=== PATIENT | female | born 1945 | race Caucasian/White ===

== ENCOUNTER → 2016-06-03 | Outpatient (CLI) | payer MEDICARE ==
[~2016-06-03] MED LIST: /HCTZ25TA PO; /METO25TAB PO; ASPI325T5 PO; CLOP75TA2 PO; CRES20TA PO; DIOV320T PO; GABA300C2 PO; LOPR50TA PO; LORTTAB5 PO; NITR0.4D6 TD; PRIL20CA PO; RANE1000 PO; VANC12CA PO; XANA0.25 PO; ZETI10TA21 PO
--- NOTE | 2016-06-22 00:05 | ECWPNPC ---
PATIENT NAME: KATHIE MARSHALL : 1945 GENDER: FEMALE VISIT DATE: 06/03/2016 DISCHARGE DATE: 06/03/16 1429 VISIT LOCKED DATE TIME: PHYSICIAN: LUCY SOSA RESOURCE: LUCY SOSA REASON FOR APPOINTMENT 1. LBP HISTORY OF PRESENT ILLNESS NEW PATIENT CONSULT: 71 Y/O FEMALE WITH LONG HX OF CHRONIC LBP AND BILAT.LEG PAIN.SHE GENERALLY HURTS ALL OVER.CHIEF COMPLAINT IS WHAT SOUNDS LIKE NEUROPATHY IN HER LOWER EXTREMITIES AGGREVATED WITH WALKING.HX OF CARDIAC ISSUES AND MAY HAVE SOME NEUROPATHY RELATED TO THIS.RATING PAIN VAS 3/10.CURRENTLY USING TRAMADOL 50MG PRN FOR SEVERE PAIN APROXIMATLEY ONE PER DAY AND IS HAPPY WITH THE RELIEF THIS GIVES HER.AT ONE POINT SHE WAS USING HYDROCODONE BUT HAS NOT USED THAT IN A LONG TIME BUT FINDS IT HELPFUL FOR INFREQUENT SEVERE PAIN EPISODES.DISCUSSED AT LENGTH DIFFERENT MEDICATION OPTIONS TO INCLUDE CYMBALTA.PATIENTS VOICED HIS SERIOUS CONCERNS WITH USE OF CYMBALTA.AFTER MUCH DISCUSSION PATIENT INFORMED ME THAT SHE IS NOT INTERESTED IN TRIALING DIFFERENT MEDICATIONS OR ANY INTERVENTIONAL TRIALS FOR BETTER PAIN CONTROL.DENIES BOWEL AND BLADDER INCONTINENECE.NO RECENT FEVER OR SUDDEN WEIGHT LOSS.I TOLD PATIENT THAT WE WOULD NOT RECOMMEND USE OF HYDROCODONE WITH XANAX DUE TO POTENTIAL SERIOUS LIFE THREATENING OUTCOMES. WHEN DID YOUR PAIN FIRST START? . BRIEFLY DESCRIBE HOW YOUR PAIN STARTED? . HOW DOES YOUR PAIN CHANGE WITH TIME? . DOES YOUR PAIN AWAKEN YOU FROM SLEEP? . HOW MANY HOURS OF SLEEP DO YOU NORMALLY GET? . ANY DIAGNOSTIC TESTING? . FACILITY WHERE TESTS WERE DONE? ____. PAIN TREATMENT TREATMENT YES CANCER HAVE YOU EVER HAD ANY TYPE OF CANCER?NO NO. PAIN SCREENING: PATIENT HAS A COMPLAINT OF ACUTE OR CHRONIC PAIN YES FALL RISK SCREENING: SCREENING :NO FALLS IN THE PAST YEAR PAYNE INVENTORY: QUESTIONNAIRE ASSESSEDTBD SCORE VALUE CALCULATED TBD CURRENT MEDICATIONS TAKING PLAVIX 75 MG TABLET 1 TABLET ORALLY ONCE A DAY TAKING ASPIRIN 325 MG TABLET 1 TABLET ORALLY ONCE A DAY TAKING RANEXA 1000 MG TABLET EXTENDED RELEASE 12 HOUR 1 TABLET ORALLY TWICE A DAY TAKING XANAX 0.25 MG TABLET 1 TABLET ORALLY TWO TIMES A DAY OR PRN TAKING COLACE 100 MG CAPSULE 2 CAPSULE NEEDED ORALLY ONCE A DAY TAKING PROTONIX 40 MG TABLET DELAYED RELEASE 1 TABLET ORALLY ONCE A DAY TAKING MECLIZINE HCL 25 MG TABLET CHEWABLE 1 TABLET NEEDED ORALLY ONCE A DAY TAKING NITROGLYCERINE 0.4MG PATCH TAKING POTASSIUM 10MEG 1 TAB ORALLY TWO TIMES A WEEK TAKING TRAMADOL HCL 50 MG TABLET 1 TAB ORALLY EVERY 8 HRS NEEDED TAKING METOPROLOL TARTRATE 50 MG TABLET 1/2 TABLET WITH FOOD ORALLY TWICE A DAY TAKING LOSARTAN POTASSIUM 50 MG TABLET 1 TABLET ORALLY ONCE A DAY TAKING PAXIL 10 MG TABLET 1 TABLET IN THE MORNING ORALLY ONCE A DAY TAKING PRN NOT-TAKING GABAPENTIN 300 300 MG TABLET ORALLY DAILY NEEDED NOT-TAKING BUSPIRONE HCL 5 MG TABLET 1 TABLET ORALLY TWICE A DAY NOT-TAKING HYDROCHLOROTHIAZIDE 12.5 MG CAPSULE 1 CAPSULE ORALLY ONCE A DAY NOT-TAKING ZETIA 10 MG TABLET 1 TABLET ORALLY ONCE A DAY NOT-TAKING CRESTOR 20 MG TABLET 1 TABLET ORALLY ONCE A DAY NOT-TAKING PERCOCET 5-325 MG TABLET 1-2 TABLET(S) ORALLY EVERY 6 HRS NEEDED FOR PAIN (MAX DAILY DOSE 8 TABS) NOT-TAKING FLOMAX 0.4 MG CAPSULE 1 CAPSULE 30 MINUTES AFTER THE SAME MEAL EACH DAY ORALLY ONCE A DAY MEDICATION LIST REVIEWED AND RECONCILED WITH THE PATIENT PAST MEDICAL HISTORY CVA BRADYCARDIA HTN SYNCOPAL EVENT X1 10/17/12 MIGRAINES SLEEP APNEA WITH INFREQUENT USE OF CPAP CAD, S/P OK ANXIETY/DEPRESSION ARTHRITIS HYPERCHOLESTEROLEMIA PERIPHERAL VASCULAR DISEASE (CAROTIDS, LOWER EXTREMITIES) CAROTID ARTERY DISEASE PAPILLARY UROTHELIAL CARCINOMA COLONOSCOPY 03/30/2016 WITH HEMORRHOIDS AND DIVERTICULOSIS NONCONCLUSIVE LEXISCAN CARDIOLITE STRESS TEST, NORMAL MYOCARDIAL PERFUSION, PRESERVED LV FUNCTION 03/2016 ALLERGIES ADHESIVE TAPE: HIVES: ALLERGY TETRACYCLINE HCL: DIARRHEA: ALLERGY MINOCINS: DIARRHEA: ALLERGY TRENTAL: SICK CODEINE PHOSPHATE (FOR ALLERGIES USE ONLY): HIVES BUTABARBITAL SODIUM: HIVES NITROSTAT: ANAPHYLAXIS BUSPAR: ALLERGY SURGICAL HISTORY TRIPLE BYPASS 2001 MULTIPLE PROCEDURES WITH CARDIAC STENTS [id number] BACK SURGERY 1973 STENT RIGHT LEG 2015 RIGHT NEPHRECTOMY 2016 LUMBAR 4-5M 1974 FAMILY HISTORY FATHER: SIBLINGS: ALIVE SOCIAL HISTORY GENERAL: PAIN CLINIC PFS, CLERGY, PUBLIC HEALTH REFERRALS CLERGY REFERRAL NEEDED?NO WAS THE PROVIDER NOTIFIED OF ANY PERTINENT INFO?NO PFS REFERRAL NEEDED?NO PUBLIC HEALTH REFERRAL NEEDED?NO PSYCHOLOGICAL HX TREATMENTNO ALCOHOL OR DRUG TREATMENTNO PATIENT: ____. ADVANCED DIRECTIVES HEALTH CARE PROXY?NO POWER OF ESL TUTOR?NO SCREENING/ASSESSMENT TOOL NUTRITION ASSESSEDYES ARE YOU ON ANY SPECIAL DIET?NO ANY SIGNIFICANT CHANGES RELATED TO EATING, WEIGHT GAIN/LOSS, OR BOWEL HABITS?NO IF YES, IS YOUR PRIMARY CARE PROVIDER AWARE OF THIS?NO SPECIAL NEEDS LEVEL OF CARE? SELF, GLASSES: NO, CONTACTS: NO, HEARING AIDS: NO, DENTURES: NO, WALKER: NO, CANE: NO, WHEELCHAIR: NO, REFERRALS NEEDED: NO. TOBACCO USE ARE YOU A:NONSMOKER CAFFEINE CAFFEINE USE?NO RECREATIONAL DRUG USE DRUG USE?NO REVIEW OF SYSTEMS CONSTITUTIONAL: RECENT ILLNESS DENIES . ANY CHANGE IN YOUR MEDICAL CONDITION? NO . CHILLS NO . FEVER NO, DENIES . WEIGHT LOSS DENIES . INFECTION: DO YOU HAVE NEW INFECTIONS? NO . DO YOU HAVE HISTORY OF MRSA? NO . MUSCULOSKELETAL: ANY NEW PATTERNS OF PAIN OR NUMBNESS? NO . SYTEMIC LUPUS NO . JOINT PAIN DENIES . JOINT STIFFNESS DENIES . GASTROENTEROLOGY: BOWEL INCONTINENCE DENIES . ANY NEW CHANGE IN BOWEL CONTROL? NO . BARRETTS ESOPHAGUS NO . CIRRHOSIS NO . HEPATITIS NO . LIVER FAILURE NO . ACID REFLUX NO . BLOOD IN STOOL DENIES . UNEXPLAINED WEIGHT LOSS NO . GENITOURINARY: ANY NEW CHANGE IN BLADDER CONTROL? NO . IS THERE A CHANCE YOU COULD BE ? NO . HEMATOLOGY/LYMPH: DENIES . BLEEDING DISORDER DENIES . DO YOU TAKE ANY BLOOD THINNERS? (FOR EXAMPLE- COUMADIN, PLAVIX, AGGRENOX, PLATEL, PRADAXA, OR XARELTO) NO . WHEN WAS YOUR LAST DOSE? DATE: TIME: . LOW PLATELET COUNT NO . SICKLE CELL DISEASE NO . VON WILLIEBRANDS NO . FACTOR V LEIDEN NO . THALLASEMIA NO . ANEMIA NO . EASY BRUISING NO . NEUROLOGY: HAVE YOU FALLEN IN THE PAST 6 MONTHS? NO . ANY NEW EXTREMITY NUMBNESS OR WEAKNESS? NO . HEAD INJURY NO . DEMENTIA NO . CEREBRAL PALSY NO . MULTIPLE SCLEROSIS NO . DIZZINESS NO . HEADACHE NO, DENIES . SEIZURES DENIES . STROKES NO . VERTIGO NO . CARDIOLOGY: DO YOU HAVE A PACEMAKER OR DEFIBRILLATOR? NO . ANGINA NO . HEART ATTACK NO . HEART SURGERY NO . CONGESTIVE HEART FAILURE/FLUID OVERLOAD NO . CHEST PAIN NO, DENIES . HIGH BLOOD PRESSURE NO . IRREGULAR HEART BEAT NO . SHORTNESS OF BREATH DENIES . RESPIRATORY: HAVE YOU BEEN SICK IN THE PAST WEEK? NO . FEVER NO . FLU LIKE SYMPTOMS? NO . CPAP NO . BYPAP NO . ASTHMA NO . EMPHYSEMA NO . CHRONIC LUNG DISEASES NO . SHORTNESS OF BREATH ON EXERTION NO . DO YOU USE ANY TYPE OF TOBACCO (SMOKE, SMOKELESS, CHEW)? NO . COUGH NO, DENIES . SHORTNESS OF BREATH DENIES . SNORING NO . INTEGUMENTARY: DO YOU HAVE ANY RASHES OR OPEN SORES? NO . ALLERGIC/IMMUNO: ARE YOU ALLERGIC TO SHELLFISH OR IV DYE? NO . ANY NEW ALLERGIES? NO . PSYCHIATRIC: DO YOU HAVE THOUGHTS OF HURTING YOURSELF OR SOMEONE ELSE? NO . ARE YOU ABUSED, NEGLECTED, OR IN AN UNSAFE ENVIRONMENT? NO . ENDOCRINOLOGY: THYROID DISEASE DENIES . ARE YOU DIABETIC? NO . DIABETES DENIES . THYROID DISORDER NO . OTHER: DO YOU NEED ANY PRESCRIPTIONS? YES TRAMODOL AND XANAX . IF YES, PLEASE LIST: ____ . ANY NEW PROBLEMS WITH YOUR MEDICATIONS? NO . WHEN DID YOU LAST EAT? ____ . WHEN DID YOU LAST DRINK? ____ . WHAT DID YOU LAST DRINK? ____ . NAME OF PERSON DRIVING YOU HOME? ____ . DO YOU HAVE ANY OTHER QUESTIONS OR CONCERNS NO . HEENT: CHANGE IN VISION DENIES . LOSS OF HEARING DENIES . TROUBLE SWALLOWING DENIES . PSYCHOLOGY: ANXIETY DENIES . DEPRESSION DENIES . UROLOGY: URINARY INCONTINENCE DENIES . BLOOD IN URINE DENIES . REVIEWED BY: PROVIDER: LUCY PATEL . VITAL SIGNS WT 138 LBS, HT 61 IN, BMI 26.07 INDEX, BP 161/76 MM HG, HR 84 /MIN, RR 16 /MIN, TEMP 97.9 F, OXYGEN SAT % 98, NA INITIALS TL 1318, REVIEWED BY: KG. EXAMINATION GENERAL EXAMINATION: HEENT:HEAD:, NORMOCEPHALIC, EYES:, EYES NORMAL, NOSE:, NOSE CLEAR, THROAT: NORMAL. LUNGS:LUNG SOUNDS ARE CLEAR. HEART:HEART RATE REGULAR. ABDOMEN:SOFT AND NOT TENDER, NON-DISTENDED. MUSCULOSKELETAL:*. LUMBAR SACRAL SPINEMUSCLE STRENGTH TESTING 5/5 BILATERAL, PALPATION: NEGATIVE FOR PAIN OVER L/S SPINE. NEGATIVE FOR PAIN OVER L/S PARSPINALS. THORACIC SPINENEGATIVE FOR PAIN WITH PALPATION OF THORACIC SPINE. NEGATIVE FOR PAIN WITH PALPATION OF THORACIC PARASPINAL. CERVICALNEGATIVE FOR PAIN WITH PALPATION OF CERVICAL SPINE. NEGATIVE FOR PAIN WITH PALPATION OF CERVICAL PARASPINALS. NEGATIVE FOR PAIN WITH PALPATION OF TRAPEZIUS BILAT. SKIN:NORMAL, NO RASH. NEUROLOGIC EXAM:ALERT AND ORIENTED X 3, DTRS 1-2+ IN ALL 4 EXTREMITIES, DENIES UPPER EXTREMETIES SENSORY LOSS, DENIES LOWER EXTREMETIES SENSORY LOSS. DIAGNOSTIC:NO SPINAL IMAGING AVAIALABLE AT THIS VISIT.. ASSESSMENTS LUMBOSACRAL SPONDYLOLYSIS - M43.07 (PRIMARY) CHRONIC PRESCRIPTION OPIATE USE - Z79.891 TREATMENT LUMBOSACRAL SPONDYLOLYSIS CLINICAL NOTES: PATIENT IS NOT A CANDIDATE FOR INTERVENTIONAL THERAPY.CURRENTLY USING TRAMADOL 50MG PERIODICALLY FOR SEVERE PAIN EPISODES WITH GOOD EFFECT.DENIES SIDE EFFECTS.SHE IS NOT INTERESTED IN TRIAL OF NEW MEDICATIONS.MY RECOMMENDATION WOULD BE TO CONTINUE PRN TRAMADOL FOR SEVERE PAIN EPISODES PER PRIMARY CARE DISCRETION. OTHERS CLINICAL NOTES: ISTOP REGISTRY REVIEWED AND DEMONSTRATES COMPLIANCE. PROCEDURE CODES FA211 ESTABILISHED PATIENT [facility] CHARGE G8730 PAIN ASSESS POS TOOL F/U PLAN DOC G8427 DOC MEDS VERIFIED W/PT OR RE FOLLOW UP NO F/U NECESSARY ELECTRONICALLY SIGNED BY JORGE DOMINGUEZ ON 06/21/2016 AT 04:37 PM EST DISCLAIMER : THIS IS A VISIT SUMMARY EXTRACTED FROM THE [employer] CHART. IT IS NOT A COPY OF THE [employer] PROGRESS NOTE. MTDD
== END ==
LOC: M PAIN 13:20
PROVIDERS: ATTEND Nurse Practitioner Family
DX: G89.29 Other chronic pain (principal); M43.07 Spondylolysis, lumbosacral region; I63.9 Cerebral infarction, unspecified; I10 Essential (primary) hypertension; G43.909 Migraine, unspecified, not intractable, without status migrainosus; G47.30 Sleep apnea, unspecified; I25.10 Atherosclerotic heart disease of native coronary artery without angina pectoris; I73.9 Peripheral vascular disease, unspecified; F41.9 Anxiety disorder, unspecified; F32.9 Major depressive disorder, single episode, unspecified; M19.90 Unspecified osteoarthritis, unspecified site; E78.00 Pure hypercholesterolemia, unspecified; L23.1 Allergic contact dermatitis due to adhesives; Z88.1 Allergy status to other antibiotic agents; Z88.5 Allergy status to narcotic agent; Z88.8 Allergy status to other drugs, medicaments and biological substances; Z79.82 Long term (current) use of aspirin; Z79.891 Long term (current) use of opiate analgesic; Z85.51 Personal history of malignant neoplasm of bladder

== ENCOUNTER → 2016-07-07 | Outpatient (CLI) | payer MEDICARE ==
[2016-07-07 12:18] LABS: CREATININE FOR GFR 1.4 MG/DL (0.55-1.02); GLOMERULAR FILTRATION RATE 39.2 (>39)
== END ==
LOC: M LAB 11:17
PROVIDERS: ATTEND Internal Medicine Interventional Cardiology
DX: R07.9 Chest pain, unspecified (principal)

== ENCOUNTER → 2016-07-07 | Outpatient (CLI) | payer MEDICARE | LOC: M LAB 11:10 | PROVIDERS: ATTEND Emergency Medicine | DX: E78.5 Hyperlipidemia, unspecified (principal); R07.9 Chest pain, unspecified ==

== ENCOUNTER → 2016-08-25 | Outpatient (REF) | payer MEDICARE ==
[2016-08-25 13:45] LABS: BASO % 0.3 % (0.0-1.0); EOS % 0.2 % (0.0-3.0); LARGE UNSTAINED CELL # 0.1 K/mm3 (0.0-0.4); LYMPH # 1.9 K/mm3 (1.5-4.5); LYMPH % 32.7 % (24.0-44.0); MEAN CORPUSCULAR HEMOGLOBIN 35.7 pg (27.0-33.0); MEAN CORPUSCULAR HGB CONC 33.9 g/dl (32.0-36.5); MEAN CORPUSCULAR VOLUME 105.3 fl (80.0-96.0); MONO # 0.7 K/mm3 (0.0-0.8); MONO % 13.1 % (0.0-5.0); NEUTROPHILS # 2.8 K/mm3 (1.8-7.7); NEUTROPHILS % 51.6 % (36.0-66.0); PLATELET COUNT, AUTOMATED 235 k/mm3 (150-450); RED CELL DISTRIBUTION WIDTH 13.1 % (11.5-14.5); WHITE BLOOD COUNT 5.5 K/mm3 (4.0-10.0)
[2016-08-25 13:55] LABS: FOLATE > 24.0 NG/ML (>5.4); VITAMIN B12 LEVEL 340 PG/ML (247-911)
[2016-08-25 14:03] LABS: ALBUMIN 4.1 GM/DL (3.2-5.2); ALBUMIN/GLOBULIN RATIO 1.14 (1.00-1.93); ALKALINE PHOSPHATASE 69 U/L (45-117); ALT/SGPT 27 U/L (12-78); ANION GAP 5 MEQ/L (8-16); AST/SGOT 18 U/L (15-37); BILIRUBIN,TOTAL 0.4 MG/DL (0.2-1.0); BLOOD UREA NITROGEN 26 MG/DL (7-18); CALCIUM LEVEL 9.5 MG/DL (8.8-10.2); CARBON DIOXIDE LEVEL 28 MEQ/L (21-32); CHLORIDE LEVEL 105 MEQ/L (98-107); CREATININE FOR GFR 1.48 MG/DL (0.55-1.02); GLOMERULAR FILTRATION RATE 36.8 (>39); GLUCOSE, FASTING 85 MG/DL (83-110); POTASSIUM SERUM 4.3 MEQ/L (3.5-5.1); SODIUM LEVEL 138 MEQ/L (136-145); TOTAL PROTEIN 7.7 GM/DL (6.4-8.2)
[2016-08-25 14:32] LABS: ERYTHROCYTE SEDIMENTATION RATE 66 mm/hr (0-30)
[2016-08-28 14:08] LABS: VITAMIN E LEVEL 17.2 mg/L (6.5-21.5)
[2016-08-29 13:07] LABS: ALBUMIN % 58.1 % (55.8-66.1)
[2016-08-29 13:08] LABS: ALBUMIN 4.47 GM/DL (3.29-5.55); GAMMA GLOBULIN % 16.8 % (11.1-18.8)
== END ==
LOC: M LABNEURO 12:53
PROVIDERS: ATTEND Psychiatry & Neurology Neurology
DX: G62.9 Polyneuropathy, unspecified (principal); Z79.899 Other long term (current) drug therapy

== ENCOUNTER → 2017-01-12 | Outpatient (CLI) | payer MEDICARE ==
[2017-01-12 19:53] LABS: BASO % 0.3 % (0.0-1.0); LARGE UNSTAINED CELL # 0.2 K/mm3 (0.0-0.4); LYMPH # 2.4 K/mm3 (1.5-4.5); LYMPH % 22.6 % (24.0-44.0); MEAN CORPUSCULAR HEMOGLOBIN 34.9 pg (27.0-33.0); MEAN CORPUSCULAR HGB CONC 33.8 g/dl (32.0-36.5); MEAN CORPUSCULAR VOLUME 103.2 fl (80.0-96.0); MONO # 1.4 K/mm3 (0.0-0.8); MONO % 13.5 % (0.0-5.0); NEUTROPHILS # 6.5 K/mm3 (1.8-7.7); NEUTROPHILS % 61.7 % (36.0-66.0); PLATELET COUNT, AUTOMATED 252 k/mm3 (150-450); RED CELL DISTRIBUTION WIDTH 12.9 % (11.5-14.5); WHITE BLOOD COUNT 10.5 K/mm3 (4.0-10.0)
[2017-01-12 20:06] LABS: CALCIUM LEVEL 9.1 MG/DL (8.8-10.2); CREATININE FOR GFR 1.31 MG/DL (0.55-1.02); GLOMERULAR FILTRATION RATE 42.4 (>39); POTASSIUM SERUM 4.4 MEQ/L (3.5-5.1)
== END ==
LOC: M ADAMS 18:08
PROVIDERS: ATTEND Physician Assistant
DX: K57.32 Diverticulitis of large intestine without perforation or abscess without bleeding (principal)

== ENCOUNTER → 2017-02-04 | Outpatient (REF) | payer MEDICARE | LOC: M LAB REF 02-02 09:27 | PROVIDERS: ATTEND Registered Nurse Community Health | DX: K57.32 Diverticulitis of large intestine without perforation or abscess without bleeding (principal); R10.9 Unspecified abdominal pain; R50.9 Fever, unspecified ==

== ENCOUNTER → 2017-04-25 | Outpatient (REF) | payer MEDICARE ==
[2017-04-25 13:18] LABS: BASO % 0.1 % (0.0-1.0); IMMATURE GRANULOCYTE % 0.6 % (0-0); LYMPH # 4.2 10^3/uL (1.5-4.5); LYMPH % 47.8 % (24.0-44.0); MEAN CORPUSCULAR HEMOGLOBIN 34.5 pg (27.0-33.0); MEAN CORPUSCULAR VOLUME 104.6 fl (80.0-96.0); MONO % 11.8 % (0.0-5.0); NEUTROPHILS # 3.5 10^3/uL (1.8-7.7); NEUTROPHILS % 39.7 % (36.0-66.0); PLATELET COUNT, AUTOMATED 272 10^3/uL (150-450); RED CELL DISTRIBUTION WIDTH 12.5 % (11.5-14.5); WHITE BLOOD COUNT 8.8 10^3/uL (4.0-10.0)
[2017-04-25 13:50] LABS: CALCIUM LEVEL 9.5 MG/DL (8.8-10.2); CREATININE FOR GFR 1.55 MG/DL (0.55-1.02); GLOMERULAR FILTRATION RATE 34.8 (>39); POTASSIUM SERUM 5.1 MEQ/L (3.5-5.1)
== END ==
LOC: M LABDRWAD 12:33
PROVIDERS: ATTEND Physician Assistant
DX: R94.39 Abnormal result of other cardiovascular function study (principal)

== ENCOUNTER → 2017-05-02 | Outpatient (REF) | payer MEDICARE ==
[2017-05-02 12:55] LABS: CREATININE FOR GFR 1.7 MG/DL (0.55-1.02); GLOMERULAR FILTRATION RATE 31.3 (>39)
== END ==
LOC: M LABDRWAD 12:25
PROVIDERS: ATTEND Internal Medicine Interventional Cardiology
DX: R07.9 Chest pain, unspecified (principal)

== ENCOUNTER → 2017-07-27 | Outpatient (CLI) | payer MEDICARE ==
[~2017-07-27] MED LIST changes: -/HCTZ25TA PO; -/METO25TAB PO; -ASPI325T5 PO; -CLOP75TA2 PO; -CRES20TA PO; -DIOV320T PO; -GABA300C2 PO; +GASTROGRAFIN SOLUTION 30ML (Q9963) As Ordered; -LOPR50TA PO; -LORTTAB5 PO; -NITR0.4D6 TD; -PRIL20CA PO; -RANE1000 PO; -VANC12CA PO; -XANA0.25 PO; -ZETI10TA21 PO
[2017-07-27 13:12] LABS: BASO % 0.1 % (0.0-1.0); EOS % 0.1 % (0.0-3.0); HEMATOCRIT 34.3 % (36.0-47.0); HEMOGLOBIN 11.4 g/dl (12.0-16.0); LYMPH # 2.9 10^3/uL (1.5-4.5); LYMPH % 35.6 % (24.0-44.0); MEAN CORPUSCULAR HEMOGLOBIN 34.1 pg (27.0-33.0); MEAN CORPUSCULAR HGB CONC 33.2 g/dl (32.0-36.5); MEAN CORPUSCULAR VOLUME 102.7 fl (80.0-96.0); MONO # 1.3 10^3/uL (0.0-0.8); MONO % 15.8 % (0.0-5.0); NEUTROPHILS # 3.8 10^3/uL (1.8-7.7); NEUTROPHILS % 47.4 % (36.0-66.0); PLATELET COUNT, AUTOMATED 250 10^3/uL (150-450); RED BLOOD COUNT 3.34 10^6/uL (4.00-5.40); RED CELL DISTRIBUTION WIDTH 13.2 % (11.5-14.5); WHITE BLOOD COUNT 8.1 10^3/uL (4.0-10.0)
[2017-07-27 14:08] LABS: ALBUMIN 4.2 GM/DL (3.2-5.2); ALKALINE PHOSPHATASE 64 U/L (45-117); ALT/SGPT 21 U/L (12-78); ANION GAP 10 MEQ/L (8-16); AST/SGOT 17 U/L (7-37); BILIRUBIN,TOTAL 0.4 MG/DL (0.2-1.0); BLOOD UREA NITROGEN 30 MG/DL (7-18); CALCIUM LEVEL 9.5 MG/DL (8.8-10.2); CARBON DIOXIDE LEVEL 25 MEQ/L (21-32); CHLORIDE LEVEL 106 MEQ/L (98-107); CREATININE FOR GFR 1.61 MG/DL (0.55-1.30); GLOMERULAR FILTRATION RATE 33.3 (>39); GLUCOSE, FASTING 90 MG/DL (70-100); POTASSIUM SERUM 4.3 MEQ/L (3.5-5.1); SODIUM LEVEL 141 MEQ/L (136-145); TOTAL PROTEIN 7.7 GM/DL (6.4-8.2)
== END ==
LOC: M LAB 12:32
DX: R19.7 Diarrhea, unspecified (principal); R10.33 Periumbilical pain
CPT/HCPCS: Q9963

== ENCOUNTER → 2017-10-05 | Outpatient (CLI) | payer MEDICARE ==
[~2017-10-05] MED LIST changes: +ISOVUE-370 76% 100ML VIAL (Q9967) As Ordered
== END ==
LOC: M RAD 13:10
DX: R93.5 Abnormal findings on diagnostic imaging of other abdominal regions, including retroperitoneum (principal); R10.9 Unspecified abdominal pain; R19.7 Diarrhea, unspecified; Z98.890 Other specified postprocedural states
CPT/HCPCS: Q9963

== ENCOUNTER → 2017-10-07 | Outpatient (REF) | payer MEDICARE | LOC: M LAB REF 15:09 | DX: R10.9 Unspecified abdominal pain (principal) | CPT/HCPCS: 87507 ==

== ENCOUNTER → 2017-10-31 | Outpatient (REF) | payer MEDICARE ==
[2017-10-31 12:55] LABS: BASO % 0.1 % (0.0-1.0); HEMATOCRIT 32.6 % (36.0-47.0); HEMOGLOBIN 10.5 g/dl (12.0-15.5); IMMATURE GRANULOCYTE % 0.6 % (0-3.0); LYMPH # 2.9 10^3/uL (1.5-4.5); LYMPH % 32.2 % (24.0-44.0); MEAN CORPUSCULAR HEMOGLOBIN 32.9 pg (27.0-33.0); MEAN CORPUSCULAR HGB CONC 32.2 g/dl (32.0-36.5); MEAN CORPUSCULAR VOLUME 102.2 fl (80.0-96.0); MONO # 1.2 10^3/uL (0.0-0.8); MONO % 13.6 % (0.0-5.0); NEUTROPHILS # 4.7 10^3/uL (1.8-7.7); NEUTROPHILS % 53.5 % (36.0-66.0); PLATELET COUNT, AUTOMATED 225 10^3/uL (150-450); RED BLOOD COUNT 3.19 10^6/uL (4.00-5.40); RED CELL DISTRIBUTION WIDTH 13.4 % (11.5-14.5); WHITE BLOOD COUNT 8.9 10^3/uL (4.0-10.0)
[2017-10-31 13:12] LABS: ALBUMIN 3.5 GM/DL (3.2-5.2); ALBUMIN/GLOBULIN RATIO 0.97 (1.00-1.93); ALKALINE PHOSPHATASE 68 U/L (45-117); ALT/SGPT 13 U/L (12-78); ANION GAP 7 MEQ/L (8-16); AST/SGOT 13 U/L (7-37); BILIRUBIN,TOTAL 0.4 MG/DL (0.2-1.0); BLOOD UREA NITROGEN 29 MG/DL (7-18); C REACTIVE PROTEIN QUANTITATIV 0.69 MG/DL (0.00-0.30); CALCIUM LEVEL 8.6 MG/DL (8.8-10.2); CARBON DIOXIDE LEVEL 29 MEQ/L (21-32); CHLORIDE LEVEL 104 MEQ/L (98-107); GLOMERULAR FILTRATION RATE 36.1 (>39); GLUCOSE, FASTING 70 MG/DL (70-100); SODIUM LEVEL 140 MEQ/L (136-145); TOTAL PROTEIN 7.1 GM/DL (6.4-8.2)
== END ==
LOC: M SFHCPLAZ 10:14
DX: A04.71 Enterocolitis due to Clostridium difficile, recurrent (principal); C67.9 Malignant neoplasm of bladder, unspecified
CPT/HCPCS: 80053

== ENCOUNTER → 2017-11-14 | Outpatient (REF) | payer MEDICARE ==
[2017-11-14 19:46] LABS: FERRITIN 82 NG/ML (8-252); IRON (FE) 129 UG/DL (50-170); PERCENT SATURATION 41.7 % (13.2-45.0); TOTAL IRON BINDING CAPACITY 309 UG/DL (250-450)
[2017-11-14 19:54] LABS: FOLATE 14.5 NG/ML; VITAMIN B12 LEVEL 322 PG/ML
== END ==
LOC: M LAB REF 17:28
DX: D64.9 Anemia, unspecified (principal)
CPT/HCPCS: 82746

== ENCOUNTER → 2018-01-09 | Outpatient (REF) | payer MEDICARE | LOC: M SFHCPLAZ 13:11 | DX: A04.71 Enterocolitis due to Clostridium difficile, recurrent (principal) | CPT/HCPCS: 87507 ==

== ENCOUNTER → 2018-01-11 | Outpatient (REF) | payer MEDICARE ==
[2018-01-11 15:54] LABS: BASO % 0.1 % (0.0-1.0); HEMATOCRIT 34.2 % (36.0-47.0); HEMOGLOBIN 11.4 g/dl (12.0-15.5); IMMATURE GRANULOCYTE % 0.7 % (0-3.0); LYMPH # 3.6 10^3/uL (1.5-4.5); LYMPH % 40.7 % (24.0-44.0); MEAN CORPUSCULAR HEMOGLOBIN 35.1 pg (27.0-33.0); MEAN CORPUSCULAR HGB CONC 33.3 g/dl (32.0-36.5); MEAN CORPUSCULAR VOLUME 105.2 fl (80.0-96.0); MONO # 1.2 10^3/uL (0.0-0.8); MONO % 13.6 % (0.0-5.0); NEUTROPHILS # 3.9 10^3/uL (1.8-7.7); NEUTROPHILS % 44.9 % (36.0-66.0); PLATELET COUNT, AUTOMATED 245 10^3/uL (150-450); RED BLOOD COUNT 3.25 10^6/uL (4.00-5.40); RED CELL DISTRIBUTION WIDTH 13.5 % (11.5-14.5); WHITE BLOOD COUNT 8.7 10^3/uL (4.0-10.0)
[2018-01-11 16:07] LABS: ESTIMATED AVERAGE GLUCOSE 103 MG/DL (60-110); HEMOGLOBIN A1c 5.2 %
[2018-01-11 16:17] LABS: ALBUMIN 3.7 GM/DL (3.2-5.2); ALKALINE PHOSPHATASE 72 U/L (45-117); ALT/SGPT 19 U/L (12-78); ANION GAP 6 MEQ/L (8-16); AST/SGOT 17 U/L (7-37); BILIRUBIN,TOTAL 0.3 MG/DL (0.2-1.0); BLOOD UREA NITROGEN 29 MG/DL (7-18); CALCIUM LEVEL 8.8 MG/DL (8.8-10.2); CARBON DIOXIDE LEVEL 29 MEQ/L (21-32); CHLORIDE LEVEL 105 MEQ/L (98-107); CREATININE FOR GFR 1.36 MG/DL (0.55-1.30); GLOMERULAR FILTRATION RATE 40.5 (>39); GLUCOSE, FASTING 67 MG/DL (70-100); POTASSIUM SERUM 5.1 MEQ/L (3.5-5.1); SODIUM LEVEL 140 MEQ/L (136-145); TOTAL PROTEIN 7.4 GM/DL (6.4-8.2)
[2018-01-11 16:23] LABS: FOLATE 15.6 NG/ML; VITAMIN B12 LEVEL 312 PG/ML
== END ==
LOC: M SFHCPLAZ 13:30
DX: R42 Dizziness and giddiness (principal); I10 Essential (primary) hypertension; E78.5 Hyperlipidemia, unspecified; Z79.899 Other long term (current) drug therapy
CPT/HCPCS: 82746

== ENCOUNTER → 2018-01-23 | Outpatient (CLI) | payer MEDICARE | LOC: M WHC 09:32 | DX: Z12.31 Encounter for screening mammogram for malignant neoplasm of breast (principal) | CPT/HCPCS: 77067 ==

== ENCOUNTER → 2018-02-06 | Outpatient (REF) | payer MEDICARE | LOC: M SFHCPLAZ 13:39 | DX: A04.71 Enterocolitis due to Clostridium difficile, recurrent (principal) | CPT/HCPCS: 87507 ==

== ENCOUNTER → 2018-03-09 | Outpatient (CLI) | payer MEDICARE ==
[~2018-03-09] MED LIST changes: -GASTROGRAFIN SOLUTION 30ML (Q9963) As Ordered
== END ==
LOC: M RAD 08:38
DX: I65.23 Occlusion and stenosis of bilateral carotid arteries (principal)
CPT/HCPCS: Q9967

== ENCOUNTER 2018-03-16 13:41 | Day surgery (SDC) | payer MEDICARE ==
[~2018-03-16 13:41] MED LIST changes: +FECAL MICROBIOTA PREPARATION 250 ML BTL (J3590) XX; -ISOVUE-370 76% 100ML VIAL (Q9967) As Ordered
[2018-03-16] MEDS: NS 1,000 ML IV (14:00)
[2018-03-16] MEDS ORDERED: LIDOCAINE 2% INJ 100 MG/5 ML SDV (FOR ANES.) As Ordered (16:07)
[2018-03-16] MEDS ORDERED: PROPOFOL 200 MG/20 ML VIAL As Ordered (16:07)
[2018-03-16] MEDS ORDERED: ONDANSETRON 4MG/2ML VIAL (J2405) As Ordered (16:48)
[2018-03-16] MEDS ORDERED: ONDANSETRON 4MG/2ML VIAL (J2405) IV (17:00)
== END 2018-03-16 17:16 | disposition home or self-care (01) ==
LOC: M OPP 17:16
DX: A04.71 Enterocolitis due to Clostridium difficile, recurrent (principal); Z80.0 Family history of malignant neoplasm of digestive organs; Z79.899 Other long term (current) drug therapy; Z79.82 Long term (current) use of aspirin; Z88.0 Allergy status to penicillin; Z88.5 Allergy status to narcotic agent; Z88.8 Allergy status to other drugs, medicaments and biological substances; Z79.01 Long term (current) use of anticoagulants
CPT/HCPCS: G0455

== ENCOUNTER 2018-04-20 12:48 | Day surgery (SDC) | payer MEDICARE ==
[~2018-04-20 12:48] MED LIST changes: -FECAL MICROBIOTA PREPARATION 250 ML BTL (J3590) XX; +FECAL MICROBIOTA PREPARATION 30 ML BTL (J3590) XX; +LIDOCAINE 2% INJ 100 MG/5 ML SDV (FOR ANES.) As Ordered; +PROPOFOL 200 MG/20 ML VIAL As Ordered
[2018-04-20] MEDS: NS 1,000 ML IV (14:22)
== END 2018-04-20 15:53 | disposition home or self-care (01) ==
LOC: M OPP 12:48
DX: K29.70 Gastritis, unspecified, without bleeding (principal); I25.10 Atherosclerotic heart disease of native coronary artery without angina pectoris; I25.2 Old myocardial infarction; I10 Essential (primary) hypertension; J44.9 Chronic obstructive pulmonary disease, unspecified; R00.1 Bradycardia, unspecified; E78.00 Pure hypercholesterolemia, unspecified; K58.0 Irritable bowel syndrome with diarrhea; K21.9 Gastro-esophageal reflux disease without esophagitis; G47.30 Sleep apnea, unspecified; M19.90 Unspecified osteoarthritis, unspecified site; M79.7 Fibromyalgia; M88.9 Osteitis deformans of unspecified bone; F41.9 Anxiety disorder, unspecified; Z79.01 Long term (current) use of anticoagulants; Z79.899 Other long term (current) drug therapy; Z79.82 Long term (current) use of aspirin; Z90.49 Acquired absence of other specified parts of digestive tract; Z95.5 Presence of coronary angioplasty implant and graft; Z86.73 Personal history of transient ischemic attack (TIA), and cerebral infarction without residual deficits; Z87.891 Personal history of nicotine dependence; Z98.890 Other specified postprocedural states; Z88.8 Allergy status to other drugs, medicaments and biological substances; Z88.5 Allergy status to narcotic agent; Z88.1 Allergy status to other antibiotic agents; Z88.2 Allergy status to sulfonamides; Z91.048 Other nonmedicinal substance allergy status; Z98.0 Intestinal bypass and anastomosis status
CPT/HCPCS: 43239

== ENCOUNTER → 2018-05-28 | Outpatient (REF) | payer MEDICARE ==
[~2018-05-28] MED LIST changes: +/HCTZ25TA PO; +/METO25TAB PO; +ALLO100T PO; +ASPI325T25 PO; +ASPI325T5 PO; +BENA25CA4 PO; +CLOP75TA2 PO; +CRES20TA PO; +DIOV320T PO; -FECAL MICROBIOTA PREPARATION 30 ML BTL (J3590) XX; +GABA-843 PO; +GABA300C2 PO; +IRBE150T12 PO; +LEXA1TAB PO; -LIDOCAINE 2% INJ 100 MG/5 ML SDV (FOR ANES.) As Ordered; +LOPR50TA PO; +LORTTAB5 PO; +MAGN500C PO; +MAGN500C2 PO; +MECL-86 PO; +METO1TAB7 PO; +NITR0.4D6 TD; +NITR4TASL SL; +PLAV1TAB2 PO; +POTA10TA16 PO; +PRIL20CA PO; +PROBCAP4 PO; +PROM25TA12 PO; -PROPOFOL 200 MG/20 ML VIAL As Ordered; +RANE1000 PO; +RANI1SYP PO; +TRAM50TA2 PO; +VANC12CA PO; +VITA100067 PO; +VITA500T53 PO; +XANA0.25 PO; +ZETI10TA21 PO
[2018-05-28 12:30] LABS: CALCIUM LEVEL 9.1 MG/DL (8.8-10.2); CREATININE FOR GFR 1.59 MG/DL (0.55-1.30); GLOMERULAR FILTRATION RATE 33.7 (>39); POTASSIUM SERUM 4.8 MEQ/L (3.5-5.1)
[2018-05-28 12:31] LABS: ALBUMIN 3.8 GM/DL (3.2-5.2); BILIRUBIN,TOTAL 0.3 MG/DL (0.2-1.0); CHOLESTEROL RISK RATIO 7.232 (<5); TOTAL 25(OH) VITAMIN D 25.8 NG/ML (30.0-100.0); TOTAL PROTEIN 7.2 GM/DL (6.4-8.2)
== END ==
LOC: M LABDRAW1 09:12
PROVIDERS: ATTEND Nurse Practitioner Adult Health
DX: I10 Essential (primary) hypertension (principal); E16.2 Hypoglycemia, unspecified; E78.2 Mixed hyperlipidemia; E55.9 Vitamin D deficiency, unspecified

== ENCOUNTER 2018-07-02 13:39 | Emergency (ER) | payer MEDICARE ==
[~2018-07-02] VITALS: Ht 154.9 cm; Wt 64.5 kg
[2018-07-02 14:23] LABS: BASO % 0.1 % (0.0-1.0); HEMATOCRIT 35.4 % (36.0-47.0); HEMOGLOBIN 11.7 g/dl (12.0-15.5); LYMPH # 2.7 10^3/uL (1.5-4.5); LYMPH % 29.9 % (24.0-44.0); MEAN CORPUSCULAR HEMOGLOBIN 35.8 pg (27.0-33.0); MEAN CORPUSCULAR HGB CONC 33.1 g/dl (32.0-36.5); MEAN CORPUSCULAR VOLUME 108.3 fl (80.0-96.0); MONO # 1.2 10^3/uL (0.0-0.8); MONO % 13.8 % (0.0-5.0); PLATELET COUNT, AUTOMATED 241 10^3/uL (150-450); RED BLOOD COUNT 3.27 10^6/uL (4.00-5.40)
[2018-07-02 14:58] LABS: ALBUMIN 4.1 GM/DL (3.2-5.2); ALT/SGPT 22 U/L (12-78); BILIRUBIN,DIRECT < 0.1 MG/DL (0.0-0.2); BILIRUBIN,TOTAL 0.3 MG/DL (0.2-1.0); BLOOD UREA NITROGEN 30 MG/DL (7-18); CALCIUM LEVEL 8.9 MG/DL (8.8-10.2); CARBON DIOXIDE LEVEL 29 MEQ/L (21-32); CHLORIDE LEVEL 105 MEQ/L (98-107); CREATININE FOR GFR 1.58 MG/DL (0.55-1.30); GLOMERULAR FILTRATION RATE 33.9 (>39); GLUCOSE, FASTING 121 MG/DL (70-100); LIPASE 217 U/L (73-393); POTASSIUM SERUM 4.3 MEQ/L (3.5-5.1); SODIUM LEVEL 138 MEQ/L (136-145); TOTAL PROTEIN 7.9 GM/DL (6.4-8.2)
[2018-07-02] MEDS ORDERED: NS 1,000 ML IV ONE (15:30)
[2018-07-02] MEDS ORDERED: fentaNYL 100 MCG/2 ML INJECTION (J3010) IV PRN (15:45)
--- NOTE | 2018-07-02 17:06 | REP ---
CT of the abdomen and pelvis for left flank pain without IV and oral contrast: The patient has history of cholecystectomy, left nephrectomy, appendectomy, hysterectomy and sigmoid colon resection. Comparison is 10/05/2017. The visualized lung osorio are unremarkable. The unenhanced hepatic parenchyma, pancreas and spleen are unremarkable. The adrenals are unremarkable. There is a left nephrectomy. There is no hydronephrosis or hydroureter on the right. There is no right ureteral calculus. There are occasional diverticula in the descending colon. There is no CT evidence of diverticulitis or pericolonic abscess. There has been sigmoid colon resection. There are a few diverticula at the rectosigmoid junction without evidence of diverticulitis or pericolonic abscess. The abdominal aorta is unremarkable except for occasional calcified atheroma. There is no retroperitoneal or mesenteric adenopathy. There is no ascites. There is no bowel distension or obstruction. Pelvis: There is no pelvic free fluid or adenopathy. The vaginal cuff and adnexa are unremarkable. The bladder is incompletely distended and cannot be further evaluated. There is degenerative disc disease in the lumbar spine at L for five and L5 S1. Impression: Left nephrectomy. Sigmoid resection. Occasional diverticula in the descending colon and at the rectosigmoid junction of the colon without pericolonic inflammation or abscess. No evidence of diverticulitis. Otherwise, negative CT of the abdomen Electronically Signed by Marques Berrios MD 07/02/2018 04:58 P
[2018-07-02] MEDS ORDERED: OXYC-517 PO (18:17)
[2018-07-02] MEDS ORDERED: MACR100C43 PO (18:21)
[2018-07-02 18:47] VITALS: BP 210/90
== END 2018-07-02 18:50 | disposition home or self-care (01) ==
LOC: M ED 13:39
DX: N39.0 Urinary tract infection, site not specified (principal); R10.9 Unspecified abdominal pain; Z85.528 Personal history of other malignant neoplasm of kidney; Z90.5 Acquired absence of kidney; I11.0 Hypertensive heart disease with heart failure; I50.9 Heart failure, unspecified; I25.2 Old myocardial infarction; E11.9 Type 2 diabetes mellitus without complications; Z87.442 Personal history of urinary calculi; Z87.440 Personal history of urinary (tract) infections; G47.33 Obstructive sleep apnea (adult) (pediatric); J44.9 Chronic obstructive pulmonary disease, unspecified; M88.9 Osteitis deformans of unspecified bone; F41.9 Anxiety disorder, unspecified; Z86.14 Personal history of Methicillin resistant Staphylococcus aureus infection; Z86.73 Personal history of transient ischemic attack (TIA), and cerebral infarction without residual deficits; Z88.2 Allergy status to sulfonamides; Z88.8 Allergy status to other drugs, medicaments and biological substances; Z88.1 Allergy status to other antibiotic agents; Z88.5 Allergy status to narcotic agent; Z91.048 Other nonmedicinal substance allergy status; Z79.899 Other long term (current) drug therapy; Z79.02 Long term (current) use of antithrombotics/antiplatelets; Z79.82 Long term (current) use of aspirin; Z87.891 Personal history of nicotine dependence
CPT/HCPCS: 36415; 74176; 80048; 80076; 81001; 83690; 85025; 87086; 96361; 96374; 99284; J3010

== ENCOUNTER → 2018-08-21 | Outpatient (REF) | payer MEDICARE ==
[~2018-08-21] MED LIST changes: +MACR100C43 PO; +OXYC-517 PO
[2018-08-21 15:59] LABS: PERCENT SATURATION 45.6 % (13.2-45.0)
[2018-08-21 16:13] LABS: FOLATE 14.5 NG/ML
== END ==
LOC: M LAB REF 15:27
PROVIDERS: ATTEND Internal Medicine Nephrology
DX: D64.9 Anemia, unspecified (principal)

== ENCOUNTER 2018-12-22 08:04 | Emergency (ER) | payer MEDICARE ==
[~2018-12-22] VITALS: Ht 154.9 cm; Wt 67.6 kg
[~2018-12-22 08:04] MED LIST changes: -/HCTZ25TA PO; -/METO25TAB PO; +ASPI-255 PO; -ASPI325T25 PO; +HYDR-3644 PO; +METO1TAB87 PO; +VITA500T17 PO; -VITA500T53 PO
[2018-12-22] MEDS ORDERED: LOSA50TA5 (08:46)
[2018-12-22] MEDS ORDERED: ESCI10TA2 PO (08:46)
[2018-12-22 09:20] LABS: BASO % 0.2 % (0.0-1.0); HEMATOCRIT 31.5 % (36.0-47.0); HEMOGLOBIN 10.3 g/dl (12.0-15.5); LYMPH # 1.5 10^3/uL (1.5-4.5); LYMPH % 24.1 % (24.0-44.0); MEAN CORPUSCULAR HGB CONC 32.7 g/dl (32.0-36.5); MEAN CORPUSCULAR VOLUME 110.1 fl (80.0-96.0); MONO # 1.4 10^3/uL (0.0-0.8); MONO % 21.7 % (0.0-5.0); NEUTROPHILS # 3.3 10^3/uL (1.8-7.7); NEUTROPHILS % 53.5 % (36.0-66.0); PLATELET COUNT, AUTOMATED 176 10^3/uL (150-450); RED BLOOD COUNT 2.86 10^6/uL (4.00-5.40); WHITE BLOOD COUNT 6.2 10^3/uL (4.0-10.0)
--- NOTE | 2018-12-22 09:41 | REP ---
Clinical: Trauma. Technique: Internal rotation, external rotation, and Y view of the right shoulder. Findings: Mild arthritic changes include cortical irregularity and spurring at the acromioclavicular joint with subtle chondrocalcinosis. Glenoid rim is intact and normal. Humeral head is relatively normal. No acute fracture or dislocation. Subacromial space is normal. Impression: Age-related osteopenia and mild arthritic changes primarily involving the acromioclavicular joint. Electronically Signed by Brent Zepeda MD 12/22/2018 09:33 A
--- NOTE | 2018-12-22 09:42 | REP ---
Clinical: Pain . Technique: AP, lateral, bilateral oblique views of the left elbow. Findings: No acute fracture or dislocation is appreciated. Joint spaces and surrounding soft tissues appear normal. Lateral view demonstrates normal positioning to the anterior and posterior fat pads without evidence for effusion/hemarthrosis. No subcutaneous emphysema or foreign body identified. Impression: Normal age-appropriate left elbow radiographs. Electronically Signed by Brent Zepeda MD 12/22/2018 09:33 A
[2018-12-22 09:59] LABS: ALBUMIN 3.6 GM/DL (3.2-5.2); BILIRUBIN,TOTAL 0.3 MG/DL (0.2-1.0); C REACTIVE PROTEIN QUANTITATIV 0.91 MG/DL (0.00-0.30); CALCIUM LEVEL 8.9 MG/DL (8.8-10.2); CREATININE FOR GFR 1.77 MG/DL (0.55-1.30); GLOMERULAR FILTRATION RATE 29.8 (>39); POTASSIUM SERUM 4.4 MEQ/L (3.5-5.1); TOTAL PROTEIN 6.9 GM/DL (6.4-8.2)
[2018-12-22 10:05] LABS: ERYTHROCYTE SEDIMENTATION RATE 56 mm/hr (0-30)
[2018-12-22 11:13] VITALS: BP 118/54
[2018-12-24 11:29] LABS: TOTAL 25(OH) VITAMIN D 26.4 NG/ML (30.0-100.0)
== END 2018-12-22 11:16 | disposition home or self-care (01) ==
LOC: M ED 08:04
DX: M77.02 Medial epicondylitis, left elbow (principal); M25.511 Pain in right shoulder; M85.821 Other specified disorders of bone density and structure, right upper arm; M19.011 Primary osteoarthritis, right shoulder; I25.10 Atherosclerotic heart disease of native coronary artery without angina pectoris; I25.2 Old myocardial infarction; I10 Essential (primary) hypertension; E11.9 Type 2 diabetes mellitus without complications; N18.9 Chronic kidney disease, unspecified; M88.9 Osteitis deformans of unspecified bone; M79.10 Myalgia, unspecified site; Z87.891 Personal history of nicotine dependence; Z79.82 Long term (current) use of aspirin; Z79.899 Other long term (current) drug therapy; Z88.2 Allergy status to sulfonamides; Z88.1 Allergy status to other antibiotic agents; Z88.6 Allergy status to analgesic agent; Z91.89 Other specified personal risk factors, not elsewhere classified; Z91.02 Food additives allergy status; Z91.018 Allergy to other foods

== ENCOUNTER → 2019-02-08 | Outpatient (CLI) | payer MEDICARE ==
[~2019-02-08] MED LIST changes: +ESCI10TA2 PO; +GASTROGRAFIN SOLUTION 30ML (Q9963) As Ordered ONE; +ISOVUE-370 76% 100ML VIAL (Q9967) As Ordered ONE; +LOSA50TA5
--- NOTE | 2019-02-08 10:46 | REP ---
CT of the abdomen and pelvis without IV and oral contrast for abdominal pain: Comparison is 07/02/2018. The patient has a history of renal carcinoma and a left nephrectomy. Additionally, the patient has cholecystectomy, appendectomy, hysterectomy and sigmoid colon resection. The visualized lung osorio are unremarkable except for small focal zone of density medially in the right middle lobe as an change. This could represent acute infiltrate, atelectasis or scarring. The unenhanced hepatic parenchyma, pancreas, spleen, right adrenal and right kidney are unremarkable. There is a left nephrectomy. I do not identify the left adrenal with certainty. There is no mass in the left renal fossa. The abdominal aorta is unremarkable except for calcified atheroma. There is no periaortic adenopathy. There is no bowel distension or obstruction. There is a surgical anastomotic suture ring in the sigmoid colon compatible with sigmoid resection. There are diverticula in the descending colon and rectosigmoid colon as previously. There is no CT evidence of acute diverticulitis or pericolonic abscess. There is no ascites. Pelvis: The vaginal cuff and adnexa are unremarkable. The bladder is nondistended and cannot be evaluated. There is no pelvic adenopathy or ascites. There is degenerative disc disease in the lumbar spine L4-5 and L5 S1. There is a Schmorl's node in the inferior endplate of L4. Impression: No acute findings. See except for a new density medially in the right middle lobe, nonspecific, atelectasis, infiltrate versus scarring. Left nephrectomy. No tumor recurrence in the left renal fossa. No bowel distension or obstruction. Diverticulosis without diverticulitis. No ascites or adenopathy. Electronically Signed by Marques Berrios MD 02/08/2019 10:37 A
== END ==
LOC: M RAD 07:36
PROVIDERS: ATTEND Internal Medicine
DX: R10.84 Generalized abdominal pain (principal)
CPT/HCPCS: 74176; Q9963

== ENCOUNTER 2019-02-20 14:52 | Emergency (ER) | payer MEDICARE ==
[~2019-02-20] VITALS: Ht 154.9 cm; Wt 69.1 kg
[~2019-02-20 14:52] MED LIST changes: -GASTROGRAFIN SOLUTION 30ML (Q9963) As Ordered ONE; -ISOVUE-370 76% 100ML VIAL (Q9967) As Ordered ONE
[2019-02-20 15:45] LABS: BASO % 0.2 % (0.0-1.0); EOS % 0.2 % (0.0-3.0); HEMATOCRIT 28.5 % (36.0-47.0); HEMOGLOBIN 9.5 g/dl (12.0-15.5); LYMPH # 1.9 10^3/uL (1.5-5.0); LYMPH % 31.6 % (24.0-44.0); MEAN CORPUSCULAR HEMOGLOBIN 37.5 pg (27.0-33.0); MEAN CORPUSCULAR HGB CONC 33.3 g/dl (32.0-36.5); MEAN CORPUSCULAR VOLUME 112.6 fl (80.0-96.0); MONO # 0.9 10^3/uL (0.0-0.8); NEUTROPHILS # 3.1 10^3/uL (1.5-8.5); NEUTROPHILS % 51.7 % (36.0-66.0); PLATELET COUNT, AUTOMATED 168 10^3/uL (150-450); RED BLOOD COUNT 2.53 10^6/uL (4.00-5.40)
[2019-02-20 16:21] LABS: ALBUMIN 3.5 GM/DL (3.2-5.2); ALT/SGPT 19 U/L (12-78); BILIRUBIN,DIRECT < 0.1 MG/DL (0.0-0.2); BILIRUBIN,TOTAL 0.3 MG/DL (0.2-1.0); BLOOD UREA NITROGEN 33 MG/DL (7-18); CALCIUM LEVEL 8.8 MG/DL (8.8-10.2); CARBON DIOXIDE LEVEL 27 MEQ/L (21-32); CHLORIDE LEVEL 104 MEQ/L (98-107); CK-MB VALUE MASS 1.8 NG/ML (<3.6); CPK CREATINE PHOSPHOKINASE 76 U/L (26-192); CREATININE FOR GFR 1.69 MG/DL (0.55-1.30); GLOMERULAR FILTRATION RATE 31.4 (>39); GLUCOSE, FASTING 95 MG/DL (70-100); MB/CK RELATIVE INDEX 2.37 (< OR =4); POTASSIUM SERUM 5.4 MEQ/L (3.5-5.1); SODIUM LEVEL 137 MEQ/L (136-145); TOTAL PROTEIN 6.7 GM/DL (6.4-8.2); TROPONIN I < 0.02 NG/ML (< 0.10)
--- NOTE | 2019-02-20 17:40 | REP ---
CT brain without contrast: History: Weakness. Comparison brain CT study October 17, 2012. Findings: Digital preliminary emergency medical technician/driver radiograph is unremarkable. The patient is edentulous. The bony calvarium is intact on axial CT images. There is heavy vascular calcification in the distal carotid arteries bilaterally. On soft-tissue window settings, there is mild to moderate generalized volume loss. There is no evidence of intracranial hemorrhage. No extra-axial fluid collection is seen. There is no evidence of acute infarction. Impression: Heavy vascular calcification. Diffuse atrophy. No acute intracranial abnormality. Electronically Signed by Sylvester Muñoz MD 02/21/2019 08:01 A
[2019-02-20 18:21] VITALS: BP 111/52
--- NOTE | 2019-02-20 20:48 | ECGEPIP ---
[facility] - ED Test Date: 2019-02-20 Pat Name: KATHIE MARSHALL Department: Room: - Gender: Female Correction[employer]: ct : 1945 Requested By: Crissy Roland Order Number: [id number] Reading MD: Crissy Roland Measurements Intervals [place] Rate: 61 P: 59 AL: 200 QRS: -42 QRSD: 161 T: 52 QT: 477 QTc: 482 Interpretive Statements SINUS RHYTHM WITH OCCASIONAL SUPRAVENTRICULAR PREMATURE COMPLEXES MARKED LEFT AXIS DEVIATION RIGHT BUNDLE BRANCH BLOCK NO PRIOR Electronically Signed on 02-20-2019 20:48:27 EDT by Crissy Roland
== END 2019-02-20 18:46 | disposition home or self-care (01) ==
LOC: M ED 14:52
DX: R53.1 Weakness (principal); R42 Dizziness and giddiness; I45.10 Unspecified right bundle-branch block; I51.9 Heart disease, unspecified; I25.2 Old myocardial infarction; J44.9 Chronic obstructive pulmonary disease, unspecified; K21.9 Gastro-esophageal reflux disease without esophagitis; D64.9 Anemia, unspecified; M88.9 Osteitis deformans of unspecified bone; K52.9 Noninfective gastroenteritis and colitis, unspecified; Z95.1 Presence of aortocoronary bypass graft; Z88.1 Allergy status to other antibiotic agents; Z88.2 Allergy status to sulfonamides; Z88.6 Allergy status to analgesic agent; Z88.8 Allergy status to other drugs, medicaments and biological substances; Z91.048 Other nonmedicinal substance allergy status; Z79.899 Other long term (current) drug therapy; Z79.82 Long term (current) use of aspirin; Z79.02 Long term (current) use of antithrombotics/antiplatelets

== ENCOUNTER → 2019-02-26 | Outpatient (REF) | payer MEDICARE ==
[2019-02-26 18:21] LABS: BASO % 0.1 % (0.0-1.0); EOS % 0.1 % (0.0-3.0); HEMATOCRIT 30.8 % (36.0-47.0); HEMOGLOBIN 10.1 g/dl (12.0-15.5); LYMPH # 2.5 10^3/uL (1.5-5.0); LYMPH % 27.9 % (24.0-44.0); MEAN CORPUSCULAR HEMOGLOBIN 37.5 pg (27.0-33.0); MEAN CORPUSCULAR HGB CONC 32.8 g/dl (32.0-36.5); MONO # 1.5 10^3/uL (0.0-0.8); MONO % 16.5 % (0.0-5.0); NEUTROPHILS # 4.8 10^3/uL (1.5-8.5); NEUTROPHILS % 54.1 % (36.0-66.0); PLATELET COUNT, AUTOMATED 190 10^3/uL (150-450); RED BLOOD COUNT 2.69 10^6/uL (4.00-5.40); WHITE BLOOD COUNT 8.8 10^3/uL (4.0-10.0)
[2019-02-26 18:22] LABS: MEAN CORPUSCULAR VOLUME 114.5 fl (80.0-96.0)
[2019-02-26 18:32] LABS: ALBUMIN 3.8 GM/DL (3.2-5.2); ALT/SGPT 24 U/L (12-78); BILIRUBIN,TOTAL 0.4 MG/DL (0.2-1.0); BLOOD UREA NITROGEN 32 MG/DL (7-18); CALCIUM LEVEL 8.5 MG/DL (8.8-10.2); CARBON DIOXIDE LEVEL 28 MEQ/L (21-32); CHLORIDE LEVEL 104 MEQ/L (98-107); CREATININE FOR GFR 1.65 MG/DL (0.55-1.30); GLOMERULAR FILTRATION RATE 32.3 (>39); GLUCOSE, FASTING 82 MG/DL (70-100); POTASSIUM SERUM 4.7 MEQ/L (3.5-5.1); RHEUMATOID FACTOR QUANT < 10.0 IU/ML (<15.0); SODIUM LEVEL 138 MEQ/L (136-145); TOTAL 25(OH) VITAMIN D 23.9 NG/ML (30.0-100.0); TOTAL PROTEIN 7.1 GM/DL (6.4-8.2)
[2019-02-26 19:12] LABS: ERYTHROCYTE SEDIMENTATION RATE 73 mm/hr (0-30)
[2019-02-26 19:14] LABS: PLATELET ESTIMATE NORMAL (NORMAL)
[2019-02-28 14:07] LABS: ANTINUCLEAR ANTIBODIES DIRECT Negative (Negative)
== END ==
LOC: M LABNEURO 17:46
PROVIDERS: ATTEND Psychiatry & Neurology Neurology
DX: R51 Headache (principal); R42 Dizziness and giddiness; Z79.899 Other long term (current) drug therapy; Z79.82 Long term (current) use of aspirin

== ENCOUNTER → 2019-03-06 | Outpatient (CLI) | payer MEDICARE ==
[~2019-03-06] MED LIST changes: +AUGM500T34 PO; +DIVA250T67 PO; +ISOVUE-370 76% 100ML VIAL (Q9967) As Ordered ONE; +METO1TAB32 PO; +SM M250T PO
== END ==
LOC: M RAD 12:32
PROVIDERS: ATTEND Psychiatry & Neurology Neurology
DX: Z53.9 Procedure and treatment not carried out, unspecified reason (principal)

== ENCOUNTER 2019-03-15 16:33 | Emergency (ER) | payer MEDICARE ==
[~2019-03-15] VITALS: Ht 154.9 cm; Wt 71.5 kg
[~2019-03-15 16:33] MED LIST changes: -AUGM500T34 PO; -DIVA250T67 PO; -ISOVUE-370 76% 100ML VIAL (Q9967) As Ordered ONE; -METO1TAB32 PO; -SM M250T PO
[2019-03-15 17:42] LABS: BASO % 0.3 % (0.0-1.0); EOS % 0.1 % (0.0-3.0); HEMATOCRIT 27.6 % (36.0-47.0); HEMOGLOBIN 9.2 g/dl (12.0-15.5); LYMPH # 2.4 10^3/uL (1.5-5.0); LYMPH % 29.9 % (24.0-44.0); MEAN CORPUSCULAR HEMOGLOBIN 38.2 pg (27.0-33.0); MEAN CORPUSCULAR HGB CONC 33.3 g/dl (32.0-36.5); MONO # 1.5 10^3/uL (0.0-0.8); MONO % 18.6 % (0.0-5.0); NEUTROPHILS # 3.9 10^3/uL (1.5-8.5); PLATELET COUNT, AUTOMATED 199 10^3/uL (150-450); RED BLOOD COUNT 2.41 10^6/uL (4.00-5.40)
[2019-03-15] MEDS ORDERED: NS 1,000 ML IV ONE (17:45)
[2019-03-15 17:53] LABS: INR 1.03; PARTIAL THROMBOPLASTIN TIME 27.7 SECONDS (25.0-38.4); PROTHROMBIN TIME 13.2 SECONDS (11.8-14.0)
[2019-03-15 17:55] LABS: MEAN CORPUSCULAR VOLUME 114.5 fl (80.0-96.0)
[2019-03-15 18:00] LABS: ALBUMIN 3.5 GM/DL (3.2-5.2); ALT/SGPT 19 U/L (12-78); BILIRUBIN,DIRECT < 0.1 MG/DL (0.0-0.2); BILIRUBIN,TOTAL 0.2 MG/DL (0.2-1.0); BLOOD UREA NITROGEN 31 MG/DL (7-18); CARBON DIOXIDE LEVEL 31 MEQ/L (21-32); CHLORIDE LEVEL 105 MEQ/L (98-107); CREATININE FOR GFR 1.51 MG/DL (0.55-1.30); GLOMERULAR FILTRATION RATE 35.8 (>39); GLUCOSE, FASTING 114 MG/DL (70-100); LIPASE 191 U/L (73-393); SODIUM LEVEL 140 MEQ/L (136-145)
[2019-03-15] MEDS ORDERED: MORPHINE 4 MG/ML 1ML VIAL/SYRINGE (J2270) IV ONE (18:15)
[2019-03-15] MEDS ORDERED: SM M250T PO (18:17)
[2019-03-15] MEDS ORDERED: METO1TAB32 PO (18:17)
[2019-03-15] MEDS ORDERED: DIVA250T67 PO (18:17)
[2019-03-15 18:19] LABS: ANISOCYTOSIS 1+; OVALOCYTES 1+; POLYCHROMASIA 1+
[2019-03-15 18:20] LABS: PLATELET ESTIMATE NORMAL (NORMAL)
[2019-03-15] MEDS ORDERED: ONDANSETRON 4MG/2ML VIAL (J2405) IV ONE (18:30)
[2019-03-15] MEDS ORDERED: ISOVUE-370 76% 100ML VIAL (Q9967) As Ordered ONE (18:30)
[2019-03-15 18:46] VITALS: BP 117/53
--- NOTE | 2019-03-15 19:45 | REPVR ---
PROCEDURE INFORMATION: Exam: CT Abdomen And Pelvis With Contrast Exam date and time: 03/15/2019 6:51 PM Clinical history: 73 years old, female; Abdominal pain; Localized; Left lower quadrant (llq); Additional info: Llq pain TECHNIQUE: Imaging protocol: Computed tomography of the abdomen and pelvis with intravenous contrast. Radiation optimization: All CT scans at this facility use at least one of these dose optimization techniques: automated exposure control; mA and/or kV adjustment per patient size (includes targeted exams where dose is matched to clinical indication); or iterative reconstruction. Contrast material: ISOVUE 370; Contrast volume: 100 ml; Contrast route: IV; COMPARISON: CT ABD/PEL W/PO CONTRAST ONLY 02/08/2019 9:29 AM FINDINGS: Liver: Enlarged low attenuating liver, evidence of hepatic steatosis. Gallbladder and bile ducts: Normal. No calcified stones. No ductal dilation. Pancreas: Normal. No ductal dilation. Spleen: Normal. No splenomegaly. Adrenals: Mild left adrenal gland thickening. Kidneys and ureters: Normal. No hydronephrosis. Stomach and bowel: Sigmoid bowel anastomosis. Stranding and inflammation around the sigmoid colon, with numerous diverticula. Evidence for mild acute sigmoid diverticulitis. Appendix: No evidence of appendicitis. Intraperitoneal space: Unremarkable. No free air. No significant fluid collection. Vasculature: Left common iliac artery stent patent with moderate severe narrowing and partial collapse proximally. Patent right common iliac artery stent. 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 Lymph nodes: Unremarkable. No enlarged lymph nodes. Bladder: Unremarkable as visualized. Reproductive: Hysterectomy. Bones/joints: Moderate lumbar spondylosis. Soft tissues: Unremarkable. IMPRESSION: Sigmoid bowel anastomosis. Stranding and inflammation around the sigmoid colon, with numerous diverticula. Evidence for mild acute sigmoid diverticulitis. Electronically signed by: Rivera Sheehan On 03/15/2019 19:45:46 PM
[2019-03-15] MEDS ORDERED: AUGMENTIN 500 MG TAB PO ONE (20:30)
[2019-03-15] MEDS ORDERED: AUGM500T34 PO (20:45)
== END 2019-03-15 20:50 | disposition home or self-care (01) ==
LOC: M ED 16:33
DX: K57.32 Diverticulitis of large intestine without perforation or abscess without bleeding (principal); J44.9 Chronic obstructive pulmonary disease, unspecified; E11.9 Type 2 diabetes mellitus without complications; F41.9 Anxiety disorder, unspecified; G47.33 Obstructive sleep apnea (adult) (pediatric); K21.9 Gastro-esophageal reflux disease without esophagitis; M88.9 Osteitis deformans of unspecified bone; Z78.0 Asymptomatic menopausal state; Z79.899 Other long term (current) drug therapy; Z79.82 Long term (current) use of aspirin; Z79.02 Long term (current) use of antithrombotics/antiplatelets; Z88.1 Allergy status to other antibiotic agents; Z88.2 Allergy status to sulfonamides; Z88.8 Allergy status to other drugs, medicaments and biological substances; Z91.018 Allergy to other foods; Z91.048 Other nonmedicinal substance allergy status
CPT/HCPCS: 36415; 74177; 80048; 80076; 81001; 83605; 83690; 85025; 85610; 85730; 87086; 96361; 96374; 96375; 99284; J2270; J2405; Q9967

== ENCOUNTER → 2019-03-19 | Outpatient (CLI) | payer MEDICARE ==
[~2019-03-19] MED LIST changes: +AUGM500T34 PO; +DIVA250T67 PO; +ISOVUE-370 76% 100ML VIAL (Q9967) As Ordered ONE; +METO1TAB32 PO; +SM M250T PO
--- NOTE | 2019-03-19 11:49 | REP ---
Intra and extracranial CTA: 03/19/2019. Indication: Dizziness. Comparison: 03/09/2018. Technique: High resolution axial images of the intra and extracranial circulations were performed following administration of 100 ml IV IV contrast. Coronal, sagittal and 3-D reconstructions were provided. Findings: There is no intracranial high-grade stenosis, vessel occlusion, aneurysm or AVM. Moderate atherosclerotic narrowing of the cavernous ICAs bilaterally is present. Postoperative sequelae of the carotid bulbs/proximal ICAs are present bilaterally. There is no hemodynamically significant extracranial ICA stenosis by NASCET criteria. The great vessels originate in expected anatomic fashion from the aortic arch. There is moderate atherosclerotic narrowing of the vertebral artery origins. Centrilobular emphysema sequelae of the lungs is noted. Impression: No high-grade stenosis or vessel occlusion. Electronically Signed by Edmund Lizarraga DO 03/19/2019 11:40 A
== END ==
LOC: M RAD 09:08
PROVIDERS: ATTEND Psychiatry & Neurology Neurology
DX: R42 Dizziness and giddiness (principal)
CPT/HCPCS: 70496; 70498; Q9967

== ENCOUNTER → 2019-05-18 | Outpatient (CLI) | payer MEDICARE ==
[~2019-05-18] MED LIST changes: -ISOVUE-370 76% 100ML VIAL (Q9967) As Ordered ONE
[2019-05-18 12:10] LABS: BASO % 0.1 % (0.0-1.0); EOS % 0.1 % (0.0-3.0); HEMATOCRIT 33.4 % (36.0-47.0); HEMOGLOBIN 11.2 g/dl (12.0-15.5); LYMPH # 2.4 10^3/uL (1.5-5.0); LYMPH % 31.7 % (24.0-44.0); MEAN CORPUSCULAR HEMOGLOBIN 37.1 pg (27.0-33.0); MEAN CORPUSCULAR HGB CONC 33.5 g/dl (32.0-36.5); MEAN CORPUSCULAR VOLUME 110.6 fl (80.0-96.0); MONO % 13.7 % (0.0-5.0); NEUTROPHILS % 53.3 % (36.0-66.0); PLATELET COUNT, AUTOMATED 201 10^3/uL (150-450); RED BLOOD COUNT 3.02 10^6/uL (4.00-5.40); WHITE BLOOD COUNT 7.5 10^3/uL (4.0-10.0)
[2019-05-18 12:37] LABS: CALCIUM LEVEL 9.3 MG/DL (8.8-10.2); CREATININE FOR GFR 1.71 MG/DL (0.55-1.30); GLOMERULAR FILTRATION RATE 30.9 (>39); POTASSIUM SERUM 4.4 MEQ/L (3.5-5.1)
== END ==
LOC: M LAB 11:14 → EEVIPCON 11:14
PROVIDERS: ATTEND Physician Assistant
DX: I25.10 Atherosclerotic heart disease of native coronary artery without angina pectoris (principal)

== ENCOUNTER → 2019-05-31 | Outpatient (REF) | payer MEDICARE ==
[2019-05-31 15:01] LABS: ALBUMIN 3.8 GM/DL (3.2-5.2); CALCIUM LEVEL 9.2 MG/DL (8.8-10.2); CREATININE FOR GFR 1.73 MG/DL (0.55-1.30); GLOMERULAR FILTRATION RATE 30.5 (>39); MAGNESIUM LEVEL 2.1 MG/DL (1.8-2.4); PHOSPHORUS LEVEL 2.7 MG/DL (2.5-4.9); POTASSIUM SERUM 4.6 MEQ/L (3.5-5.1); URIC ACID 6.2 MG/DL (2.6-6.0)
[2019-06-08 00:06] LABS: ALDOSTERONE 7.5 ng/dL (0.0-30.0)
== END ==
LOC: M LAB REF 14:00
PROVIDERS: ATTEND Internal Medicine Nephrology
DX: N18.3 Chronic kidney disease, stage 3 (moderate) (principal); D51.9 Vitamin B12 deficiency anemia, unspecified; Z90.5 Acquired absence of kidney

== ENCOUNTER → 2019-06-03 | Outpatient (REF) | payer MEDICARE | LOC: M LAB REF 16:59 | PROVIDERS: ATTEND Internal Medicine Nephrology | DX: I12.9 Hypertensive chronic kidney disease with stage 1 through stage 4 chronic kidney disease, or unspecified chronic kidney disease (principal) ==

== ENCOUNTER → 2019-08-02 | Outpatient (CLI) | payer MEDICARE ==
[~2019-08-02] MED LIST changes: -IRBE150T12 PO; +IRBE150T7 PO; +ISOVUE-370 76% 100ML VIAL (Q9967) As Ordered ONE
--- NOTE | 2019-08-02 10:55 | REP ---
CT PULMONARY ANGIOGRAM: With IV contrast. HISTORY: Chest pain. Hypertension chronic kidney disease. COMPARISON STUDIES: No comparison CT study. CONTRAST DOSE: 75 mL of Isovue [address] TECHNIQUE: Helical scanning is acquired and overlapping 1.5 mm and contiguous 3 mm axial images are reformatted. In addition, maximum intensity projection and multiplanar re-formation images are generated in sagittal and coronal imaging projections. CT PULMONARY ANGIOGRAPHIC FINDINGS: There is good opacification of the pulmonary arterial tree. There is no CT evidence of pulmonary embolus. Vascular calcification is noted. The patient is status post median sternotomy. Coronary artery bypass grafting. There is no evidence of pleural or pericardial effusion. No adrenal mass is seen on either side. The left kidney appears to be surgically absent. No extrathoracic mass or adenopathy is seen. There are emphysematous changes moderate in degree in the upper lobes bilaterally. There is some linear fibrosis in the right middle lobe. Bilateral lower lobe fibrosis is seen. There is mild bronchiectasis in the left lower lobe. No pulmonary mass or focal infiltrate is seen. No hilar or mediastinal mass or adenopathy is observed. Bone window settings show nonunion in the manubrial portion of the sternotomy. No acute bony abnormality is appreciated. There are degenerative disc changes in the thoracic spine. IMPRESSION: No CT evidence of pulmonary embolus. No active cardiopulmonary disease. Prior sternotomy and coronary artery surgery. Cardiomegaly. Prior left nephrectomy. Electronically Signed by Sylvester Muñoz MD 08/02/2019 11:12 A
== END ==
LOC: M RAD 07:24
PROVIDERS: ATTEND Internal Medicine Nephrology
DX: I12.9 Hypertensive chronic kidney disease with stage 1 through stage 4 chronic kidney disease, or unspecified chronic kidney disease (principal); N18.3 Chronic kidney disease, stage 3 (moderate)
CPT/HCPCS: 71275; Q9967

== ENCOUNTER → 2019-09-07 | Outpatient (CLI) | payer MEDICARE ==
[~2019-09-07] MED LIST changes: -ISOVUE-370 76% 100ML VIAL (Q9967) As Ordered ONE
== END ==
LOC: M LABSMTC 10:00
PROVIDERS: ATTEND Family Medicine
DX: Z11.59 Encounter for screening for other viral diseases (principal); Z20.828 Contact with and (suspected) exposure to other viral communicable diseases

== ENCOUNTER → 2020-12-17 | Outpatient (CLI) | payer MEDICARE ==
[~2020-12-17] MED LIST changes: +ESCI10TA16 PO; -ESCI10TA2 PO; +GABA-282 PO; -GABA-843 PO
[2020-12-17 13:44] LABS: CHOLESTEROL RISK RATIO 4.441 (<5)
== END ==
LOC: M PLALAB 10:00
PROVIDERS: ATTEND Student in an Organized Health Care Education/Training Program
DX: E78.00 Pure hypercholesterolemia, unspecified (principal); Z86.39 Personal history of other endocrine, nutritional and metabolic disease

== ENCOUNTER → 2021-02-17 | Outpatient (REF) | payer MEDICARE | LOC: M LAB REF 17:42 | PROVIDERS: ATTEND Internal Medicine Nephrology | DX: N18.32 Chronic kidney disease, stage 3b (principal) ==

== ENCOUNTER → 2021-03-05 | Outpatient (REF) | payer MEDICARE | LOC: M LAB REF 13:02 | PROVIDERS: ATTEND Internal Medicine Nephrology | DX: N18.32 Chronic kidney disease, stage 3b (principal) ==

== ENCOUNTER 2021-03-16 11:28 | Inpatient (IN) | payer MEDICARE ==
[~2021-03-16] VITALS: Ht 154.9 cm; Wt 72.9 kg
[2021-03-16] MEDS ORDERED: IBUPROFEN 800 MG TAB PO ONE (11:50)
[2021-03-16] MEDS: COMBIVENT RESPIMAT 100-20MCG INHALER 4GM INH SCH ×3 (11:53→12:17)
--- NOTE | 2021-03-16 12:16 | REP ---
INDICATION: Coronavirus workup. COMPARISON: 01/17/2018. TECHNIQUE: Single portable AP view of the chest was performed. FINDINGS: Mild scattered interstitial fibrotic changes noted. There is no definite superimposed acute infiltrate. The heart is not significantly enlarged. The mediastinal silhouette is unchanged with some calcific plaque in the thoracic aorta. Multiple sternal wires and mediastinal clips are present. IMPRESSION: Stable chronic findings. No evidence of acute infiltrate. <Electronically signed by Mraques Trammell > 03/16/21 [id number]
[2021-03-16 12:58] LABS: INR 1.01; PARTIAL THROMBOPLASTIN TIME 27.6 SECONDS (25.9-37.0); PROTHROMBIN TIME 13.7 SECONDS (12.7-14.5)
[2021-03-16 13:35] LABS: HEMATOCRIT 28.9 % (36.0-47.0); HEMOGLOBIN 9.8 g/dl (12.0-15.5); LYMPH # 0.7 10^3/uL (1.5-5.0); LYMPH % 33.3 % (24.0-44.0); MEAN CORPUSCULAR HEMOGLOBIN 36.7 pg (27.0-33.0); MEAN CORPUSCULAR HGB CONC 33.9 g/dl (32.0-36.5); MEAN CORPUSCULAR VOLUME 108.2 fl (80.0-96.0); MONO # 0.5 10^3/uL (0.0-0.8); MONO % 23.8 % (2.0-8.0); NEUTROPHILS % 38.6 % (36.0-66.0); RED BLOOD COUNT 2.67 10^6/uL (4.00-5.40); WHITE BLOOD COUNT 2.1 10^3/uL (4.0-10.0)
[2021-03-16 14:00] LABS: ALBUMIN 3.3 GM/DL (3.2-5.2); ALT/SGPT 27 U/L (12-78); BILIRUBIN,TOTAL 0.4 MG/DL (0.2-1.0); BLOOD UREA NITROGEN 38 MG/DL (7-18); CALCIUM LEVEL 8.2 MG/DL (8.8-10.2); CARBON DIOXIDE LEVEL 20 MEQ/L (21-32); CHLORIDE LEVEL 105 MEQ/L (98-107); CK-MB VALUE MASS 2.4 NG/ML (<3.6); CPK CREATINE PHOSPHOKINASE 161 U/L (26-192); CREATININE FOR GFR 1.63 MG/DL (0.55-1.30); FERRITIN 621 NG/ML (8-252); GLOMERULAR FILTRATION RATE 32.6 (>39); GLUCOSE, FASTING 135 MG/DL (70-100); LDH LACTATE DEHYDROGENASE 380 U/L (84-246); MAGNESIUM LEVEL 1.4 MG/DL (1.8-2.4); MB/CK RELATIVE INDEX 1.49 (< OR =4); POTASSIUM SERUM 4.6 MEQ/L (3.5-5.1); SODIUM LEVEL 134 MEQ/L (136-145); TOTAL PROTEIN 6.6 GM/DL (6.4-8.2); TROPONIN I < 0.02 NG/ML (< 0.10)
[2021-03-16 14:02] LABS: PLATELET COUNT, AUTOMATED 90 10^3/uL (150-450)
[2021-03-16 14:03] LABS: NEUTROPHILS # 0.8 10^3/uL (1.5-8.5)
[2021-03-16] MEDS ORDERED: NS 1,000 ML IV ONE (14:10)
[2021-03-16] MEDS ORDERED: ALIR75PE3 SC (14:46)
[2021-03-16] MEDS ORDERED: FAMO40TA3 PO (14:46)
[2021-03-16] MEDS ORDERED: PROAAER10 INH (14:46)
[2021-03-16] MEDS ORDERED: VASC1CAP2 PO (14:46)
[2021-03-16] MEDS ORDERED: PANT40TA29 PO (14:46)
[2021-03-16] MEDS ORDERED: LEXA1TAB PO (14:46)
[2021-03-16] MEDS ORDERED: VALS1TAB66 PO (14:46)
[2021-03-16] MEDS ORDERED: ALLO300T2 PO (14:46)
[2021-03-16] MEDS ORDERED: NIAS500T23 PO (14:47)
[2021-03-16] MEDS ORDERED: VITA100T51 PO (14:47)
[2021-03-16] MEDS ORDERED: ZINC1TAB2 PO (14:47)
[2021-03-16] MEDS ORDERED: D31000CA4 PO (14:50)
[2021-03-16] MEDS ORDERED: PROBCAP14 PO (14:50)
[2021-03-16] MEDS ORDERED: MED NOTE (14:50)
[2021-03-16] MEDS ORDERED: HOME MED LIST COMPLETE! XX SCH (14:55)
[2021-03-16] MEDS ORDERED: ALBUTEROL 90 MCG/ACT 8GM HFA INHALER INH PRN (15:20)
[2021-03-16] MEDS ORDERED: NITROGLYCERIN 0.4 MG SUBL TABLET SL SCH (15:20)
--- OUTSIDE RECORDS SUMMARY | 2021-03-16 15:49 | CCD ---
Author Author [facility] Organization [facility] Address Unknown Phone Unavailable Care Team Providers Care Community Development Technician Name Role Phone Jose Lincoln Unavailable PROBLEMS Type Condition ICD9-CM Code EOV17-RA Code Onset Dates Condition S tatus W/U Status Risk SNOMED Code Notes Problem Obstructive sleep apnea G47.33 Active confirmed 40467036 Problem Anxiety F41.9 Active confirmed 44640831 She is on Lexapro therapy at 20 g daily but she feels that is too strong. She will cut back to 10 mg daily. 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 She is complaining of dyspnea on exertion. She does not desaturate with ambulation. She is on a beta hannah, ARB, Ranexa, aspirin and Plavix therapy. She indicates that she had a stress test within the last year or so. I've asked her retirement plan counselor to consider reassessment of her coronary anatomy and pulmonary pressures in the near future. Problem Lumbosacral spondylolysis M43.07 Active confirmed 346647432 Problem Sleep apnea in adult G47.30 Active confirmed 03013448 Problem Hypertensive heart and chron ic kidney disease with heart failure and stage 1 through stage 4 chronic kidney disease, or unspecified chronic kidney disease I13.0 Active confirmed 015508657 She did not do well with a change from her valsartan and hydrochlorothiazide to irbesartan therapy and is back on the former with reasonable blood pressure control. I think the hydrochlorothiazide was stopped because of her chronic renal disease/solitary kidney but I doubt that the low dose of the thiazide has substantially affected her kidney function. She will keep her nephrology follow-up. Problem Gastro-esophageal reflux disease with esophagitis K21.0 Active confirmed 844912696 Problem Other osteoarthritis of spine, lumbar region M47.8 96 Active confirmed 648335558 Problem Stenosis of left carotid artery I65.22 Active confirmed 489027068638486 Problem Coronary arteriosclerosis I25.10 Active confirmed 70938469 Problem DDD (degenerative disc disease), lumbosacral M51.3 7 Active confirmed 42955137 Problem 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, unspecified site M1A.30X0 Active confirmed 306647204996549 Problem Mixed hyperlipidemia E78.2 Active confirmed 189323790 Problem Fibromyalgia M79.7 Active confirmed 0528450 05 Problem Hx of malignant neoplasm of kidney Z85.528 Activ e confirmed 994993851 Problem Amaurosis fugax, 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 Active confirmed 27261816 Problem Vitamin D deficiency E55.9 Active confirmed 57080479 Problem History of non anemic vitamin B12 deficiency Z86.3 9 Active confirmed 276709510 Problem PVD (peripheral vascular disease) I73.9 Active confirmed 430665141 Problem Other chronic pain G89.29 Active confirmed 8 4119794 Problem 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 .71 Active confirmed 417296041 Problem Malignant neoplasm of urinary bladder, unspecified site C67.9 Active confirmed 680358292 Problem Dizziness R42 Active confirmed 375592059 Problem Chronic congestive heart failure, unspecified he art failure type I50.9 Active confirmed 17001027 Problem Solitary kidney, acquired Z90.5 Active confirmed 208145872 Problem Hypercholesterolemia E78.00 Active confirmed 32767688 ALLERGIES Allergen (clinical drug ingredient) Drug/Non Drug Allergy do cumented on EMR Reaction Allergy Type Onset Date Status tetracycline Tetracycline HCl(NDC Code:[address]-56) diarrhea Drug Allergy Active BuSpar Unknown Drug Allergy Active Minocins diarrhea Non Drug Allergy Active nitazoxanide Alinia(NDC Code:[address]-50) Hives Drug Allergy Active nitroglycerin Nitrostat(NDC Code:[address]-37) Anaphylaxis Drug Ronaldo rgy Active evolocumab Repatha(NDC Code:[address]-78) Rash Drug Allergy Active Statins (for Allergy Use Only) muscle soreness weakness shawn Allergy Active carvedilol Carvedilol([facility] Code:[address]-00) Unknown Drug Allergy Active Codeine Phosphate (For Allergies Use Only) Hives Drug Allergy Active Butabarbital Sodium Hives Drug Allergy Act aury sulfamethoxazole / trimethoprim Bactrim([facility] Code:[address]-58) Rash Drug Allergy Active Trental sick Drug Allergy Active Adhesive Tape Hives Drug Allergy Active ENCOUNTERS from 1945 to 2021-03-10 Encounter Location Date Provider Diagnosis [facility] [address] [place] [id number] Feb, Jose Lincoln Chronic congestive heart failure, unspec ified heart failure type I50.9 IMMUNIZATIONS Vaccine Route Administration Date Status Influenza 18 yrs & older Flublok IM Intramuscular May 10, 2018 Administered Vitamin B-12 1000mcg/1mL Cyanocobalamin IM Intramuscular Jan 16, 2019 Administered Pneumococcal Adult 0.5mL Pneumovax 23 Unknown October 24 013 Administered Influenza 6mo & up Fluzone Unknown Apr 28, 2015 Refus ed SOCIAL HISTORY Tobacco Use: Social History Observation Description Date Details (start date - stop date) Never Smoker Sex Assigned At : Social History Observation Description Sex Assigned At Unknown Education: Question Answer Notes Level of Education: Not finished High School Audit Question Answer Notes Total Score: 0 Interpretation: Alcohol Education Language: Question Answer Notes Languages spoken: Comoran Worship: Question Answer Notes Worship [employer] Sexual Hx: Question Answer Notes Had sex in the last 12 months (vaginal, oral, or anal)? No Have you ever had an STD? No Drug and Alcohol Question Answer Notes Total Score: 0 Interpretation: No problems reported Alcohol Screening: Question Answer Notes Did you have a drink containing alcohol in the past year? No Points 0 Interpretation Negative Tobacco Use: Question Answer Notes Are you a: never smoker former smoker Additional Findings: Tobacco User quit 5 years ago REASON FOR REFERRAL No Information VITAL SIGNS No information MEDICATIONS Medication SIG (Take, Route, Frequency, Duration) Notes Start Da te End Date Status Ranitidine 150 Max Strength 150 MG 1 tablet Orally twice daily Not-Taking Meclizine HCl 25 mg 1 tablet Orally every 8 hour s as needed for dizziness for 30 day(s) Apr, Active Valsartan 80 MG 2 tablet Orally Acti ve Zinc 50 MG 1 tablet Orally Once a day for 30 day(s) Active traMADol HCl 50 MG 1 tab orally/[id number] three times daily as needed for pain mdd3 for 30 days Active Losartan Potassium-HCTZ 50-12.5 MG 1 tablet Orally Once a day for 90 days Not-Taking Metoprolol Tartrate 25 mg 1 tab Orally twice daily Active Ranexa 1000 MG 1 tablet Orally Twice a day for 90 day(s) Active May Have - please provide new tubing fo r 2 concentrator. DX code:G47.33 to use daily for 99 months Jan, Active Promethazine HCl 25 mg 1 tablet Orally before bedtime as needed Active Vitamin B12 3000 MCG 1 tablet Sublingual Once a day Active Lexapro 10 MG 1 tab Orally Once a day Active Aspirin 325 MG 1 tablet Orally Once a day Active Nitroglycerin 0.4 MG/HR 1 patch to skin Transdermal Daily as needed per Feb, Active Ranexa 1000 MG 1 tablet Orally Twice a day for 30 day(s) 1 Feb, Active Magnesium 65 MG 2 tablets with a meal Orally Once a day Active Acetaminophen 500 MG 1 tablet as needed Orally every 6 hrs Active Vitamin D3 125 MCG (5000 UT) 1 capsule Orally weekly Active Allopurinol 300 MG 1 tablet Orally Once a day Active Benadryl 25 MG 1 capsule Orally every 12 hours as needed Active Nitroglycerin 0.4 MG 1 tab Sublingual atonset of chest pain q 5 min x 3 if no relief call 911 Active Plavix 75 mg 1 tablet Orally Once a day for 90 days Active Probiotic - 1 capsule Orally Daily A ctive Amlodipine Besylate 2.5 MG TAKE 1TAB.BY MOUTH TWICE A DAY HOLD DOSE FOR SYSTOLIC BLOOD PRESSURE 135 Oral Takeif B/P is over 160 systolic Active Pantoprazole Sodium 40 MG 1 tablet Orally Once a day for 30 day(s) Active PROCEDURES No Information RESULTS No Results REASON FOR VISIT Pharmancy/refill MEDICAL (GENERAL) HISTORY Type Description Date Medical History No MRI's due to stents in legs and heart Medical History Carotid Artery Disease nonco nclusive Lexiscan cardiolite stress test, normal myocardial perfusion, preserved LV function 03/2016 Hx [facility], Dr Mcdaniel Medical History peripheral vascular disease (carotids, l ower extremities) Medical History CVA Medical History Hypercholesterolemia Medical History Bradycardia Medical History congestive heart failure ? type Medical History essential hypertension Medical History syncopal event x1 10/17/12 Medical History Migraines Medical History Sleep apneauses oxygen at 2 liters q hour sleep does not toerate cpap Medical History GERD Medical History Anxiety/Depression Medical History fibromyalgia Medical History colonoscopy 03/30/2016 with hemorrhoids a nd diverticulosis Medical History papillary urothelial carcino ma cystoscopy 09/04/2017 Dr. Dagoberto Mendez negative cystoscopy March 2017 Medical History recurrent C. difficile colit is C. difficile positive on 10/07/17 negative on 07/27/17 positive on 02/04/17 positive on 10/2012 Medical History degenerative disc disease and spondylosi s Medical History hgac 5.2=103 01/06, hga1c 5 05/28/2018 Medical History Solitary Kidney right kidney ( left rem miguel from cancer) Surgical History triple bypass 2001 Surgical History multiple procedures with cardiac stents st [id number] Surgical History back surgery 1974 Surgical History stent right leg 2014 Surgical History right nephrectomy [place] [facility] 2015 Surgical History lumbar 4-5m 1973 Surgical History colon resection-[place] [facility] 07/2017 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 Hospitalization History blood transfusion 2004 Hospitalization History Kidney stone Hospitalization History for surgeries Goals Section No Information Health Concerns No Information MEDICAL EQUIPMENT No Information MENTAL STATUS No Information FUNCTIONAL STATUS No Information ASSESSMENTS Encounter Date Diagnosis Assessment Notes Treatment Notes Treatm ent Clinical Notes Feb, Chronic congestive heart lorin lure, unspecified heart failure type (ICD-10 - I50.9) PLAN OF TREATMENT Medication Medication Name Sig Start Date Stop Date Lexapro 10 MG 1 tab Orally Once a day Ranexa 1000 MG 1 tablet Orally Twice a day for 30 day(s) Feb Valsartan 80 MG 2 tablet Orally Allopurinol 300 MG 1 tablet Orally Once a day Next Appt Details Provider Name:Jose Lincoln, 2021-03-16 03: 00:00 PM, [address] [facility], , [place], [address], Insurance Providers Payer Name Payer Address Payer Phone Insured Name Patient Relati onship to Insured Coverage Start Date Coverage End Date [facility] [employer] [facility] CLAIM DIV [address] [facility] [id number] KATHIE AGUILERA MEDICARE Part A and [address] [facility] [phone] KATHIE AGUILERA self
--- OUTSIDE RECORDS SUMMARY | 2021-03-16 15:50 | CCD | Continuity of Care Document ---
Author Author Cady ALLEN MD Organization Unknown Address [address] [place] [address], [place] [address] Phone [phone] Care Team Providers Care Well Tester Name Role Phone Kasia Garcia PA-C AUTM [phone] Venkatesh Reynoso MD AUTM [phone] Curtis Mondragon MD AUTM [phone] Beth Johnson RN ANP AUTM [phone] Hugo Landrum MD AUTM [phone] Problems Active Problems Provider Date History of coronary artery bypass grafting Rivera Allen MD Onset: 11/03/2020 Patient post percutaneous transluminal coronary angiop lasty Rivera Allen MD Onset: 11/03/2020 Essential hypertension Rivera Allen MD Onset: Aortic valve disorder Rivera Allen MD Onset: 11/03/2020 Chest pain Rivera Allen MD Onset: 11/03/2020 Mixed hyperlipidemia Rivera Allen MD Onset: 11/03/2020 Dietary management surveillance Rivera Allen MD Onset: 11/03/2020 Coronary arteriosclerosis after percutaneous coronary angioplasty Rivera Allen MD Onset: 11/03/2020 Overweight Rivera Allen MD Onset: 11/03/2020 Electrocardiogram abnormal Rivera Allen MD Onset: 11/03 Right bundle branch block AND left anterior fascicular block Rivera Allen MD Onset: 11/03/2020 Old myocardial infarction Rivera Allen MD Onset: 2020 Palpitations Rivera Allen MD Onset: 11/03/2020 Syncope and collapse Rivera Allen MD Onset: 11/03/2020 Dizziness and giddiness Rivera Allen MD Onset: 11/04/19 21 Social History Type Date Description Comments Sex Unknown ETOH Use Rarely consumes alcohol Tobacco Use Start: Unknown End: Unknown Patient is a former smoker started at age 9, at most 1 ppd, quit in 2009 Smoking Status Reviewed: 12/03/20 Patient is a former smoker st arted at age 9, at most 1 ppd, quit in 2009 Exercise Type/Frequency Does not exercise curren tly Exercise Limitations Back Pain Exercise Limitations Joint Pain bilateral a ayana and legs Exercise Limitations Claudication Allergies, Adverse Reactions, Alerts Active Allergies Criticality Reaction | Severity Comments Date Amoxicillin Unable to assess criticality 11/03/2020 Atorvastatin Unable to assess criticality 11/03/2020 Tetracycline Unable to assess criticality 11/03/2020 Buspirone Unable to assess criticality 11/03/2020 Adhesives Unable to assess criticality 11/03/2020 Butalbital Unable to assess criticality Hives 01/13/2021 Alinia Unable to assess criticality 11/03/2020 Clindamycin/Lincomycin Unable to assess criticality Diarrhea 01/13/2021 Carvedilol Unable to assess criticality Nausea 12/03/2020 Nitazoxanide Unable to assess criticality Hives 01/13/2021 Repatha Unable to assess criticality Muscle Cramp s 12/03/2020 Statins Unable to assess criticality 01/13/2021 Sulfamethoxazole / Trimethoprim Unable to assess criticality Rash | Mild 01/13/2021 Medications Active Medications SIG Qnty Indications Ordering Provide r Date Ranolazine ER 500mg Tablets ER 12H R 2 by mouth twice a day Unknown 01/31/2021 Praluent 150mg/ml Solution Auto-In ject inject 1 milliliters subcutaneous every 2 weeks 3ml E78.2 Rivera Allen MD 01/18/2021 Promethazine HCL 25mg Tablets 1 by mouth every 6 hours as needed Unknown 01/08/20 21 Zinc Chelated 50mg Tablets 1 by mouth once daily Unknown 01/07/2021 Probiotic Capsules 1 by mouth every day Unknown 01/07/2021 Magnesium 400mg Tablets 165 m g daily Unknown 01/07/2021 Metoprolol Tartrate 25mg Tablets Half tablet by mouth twice a day I10 Unknown 11/19 Nitroglycerin 0.6mg/HR Patches 24H R 1 patch applied to skin every day (keep on 14 hours daily then remove) 30units I25.10 Rivera Allen MD 11/03/2020 Tramadol HCL 50mg Tablets 2 by mouth every 8 hours as needed, as directed Unknown 0 11/02/2020 Allopurinol 300mg Tablets 1 by mouth every day Unknown 11/02/2020 Vitamin D (Ergocalciferol) 1.25mg (02255 Ut) Capsules 1 by mouth every weekly Unknown 10/20 Vitamin Deficiency Injectable System-B12 1000mcg/ML Kit inject 1 kit once monthly Unknown Meclizine HCL 25mg Chewtabs 1 by mouth four times daily as needed Unknown 11/02 Pantoprazole Sodium 40mg Tablets D R 2 by mouth every day Unknown 11/02/2020 Tylenol Extra Strength 500mg Table ts 2 by mouth twice daily as needed Unknown 10/20 Plavix 75mg Tablets 1 by mouth every day Unknown 11/02/[address] 1 by mouth every day Unknown 11/02/2020 Nitroglycerin 0.4mg Tablets Sub 1 tab sl every 5 min times 3 doses as needed chest discomfort Unknown 11/02/2020 Escitalopram Oxalate 10mg Tablets 1 by mouth every day Unknown 11/02/2020 Valsartan 80mg Tablets 2 by mouth daily at bedtime Unknown 11/02/2020 Albuterol Sulfate HFA 108(90Base) mcg/Act Aerosol inhale two puffs as needed every 4 hours Unknown 11/02/2020 History Medications Amlodipine Besylate 2.5mg Tablets 1 by mouth twice a day (hold dose for systolic BP <135) 180tabs Rivera Allen MD 12/03/2020 - 01/07/2021 Repatha Pushtronex System 420mg/3.5ML Solution Cartridge 420 mg (3.5 ml) sq qmo 10.5ml E78.2 Rivera Allen MD 11/03/2020 - 01/18/2021 Carvedilol 3.125mg Tablets 1 by mouth twice a day 60tabs I10 Rivera Allen MD 11/03/2020 - 12/02/2020 I25.2 R07.9 Amlodipine Besylate 2.5mg Tablets 1 by mouth every day as needed for elevated BP Unknow n 11/02/2020 - 12/03/2020 Febuxostat 40mg Tablets 1 by mouth every daily Unknown 11/02/2020 - Metoclopramide HCL 10mg Tablets 1 by mouth four times daily Unknown 11/02/2020 - Metoprolol Tartrate 25mg Tablets 1 by mouth twice a day I10 Unknown 11/02/2020 - 0 11/03/2020 I25.2 R07.9 Ranexa 500mg Tablets ER 12HR 2 by mouth twice a day Unknown 11/02/2020 - 04/2021 Covid-19 vaccine, Unspecified Inj ection Unknown Immunizations Description No Information Available Vital Signs Date Vital Result Comment 12/03/2020 10:44am Weight 155.00 lb Home Weight 153lb home weight Height 61 inches 5'1" BMI (Body Mass Index) 29.3 kg/m2 Heart Rate 55 /min BP Systolic Sitting 148 mmHg CBP, adult cuff/Ra BP Diastolic Sitting 63 mmHg CBP, adult cuff/Ra 11/03/2020 12:15pm Weight 157.00 lb Home Weight 157lb home weight Height 61 inches 5'1" BMI (Body Mass Index) 29.7 kg/m2 Heart Rate 56 /min BP Systolic Sitting 152 mmHg CBP, adult cuff/Ra BP Diastolic Sitting 63 mmHg CBP, adult cuff/Ra Results Test Acquired Date Facility Test Result H/L Range Note Lipid Panel 12/17/2020 [facility] [phone] Triglycerides Level 316 mg/dL High <150 Cholesterol Level 191 mg/dL Normal <200 HDL Cholesterol 43 mg/dL Normal >40 LDL Cholesterol 85 mg/dL Normal <100 Non-HDL-C 148 mg/dL Normal Cholesterol Risk Ratio 4.441 Normal <5 Laboratory test finding 12/17/2020 [facility] [phone] Vitamin B12 Level 689 pg/mL Normal 247-911 1 1 VITAMIN B12 NORMAL RANGE NORMAL 247 - 911 PG/ML INDETERMINATE 211 - 246 PG/ML DEFICIENT LESS THAN 211 PG/ML Procedures Date Code Description Status 01/29/2021 87007 External ECG Rec>48HR<7D Review & Interpretation Completed 01/29/2021 04279 External ECG Rec>48HR<7D Recordi ng Completed 01/19/2021 24083 Echocardiogram 2-D Doppler Color Completed 01/08/2021 73503 Complex Chronic Care MGMT Servic e Ea Addl 30 Min Completed 01/08/2021 27590 Complex Chronic Care Management SVC 1St 60 Min Completed 12/29/2020 83439 TM Interpretation & Report Only Completed 12/29/2020 05161 Myocardial Imaging (PET) Multipl e Studies Completed 12/03/2020 35300 Office/Outpatient Established Lo w MDM 20-29 Min Completed 12/03/2020 08201 Arterial Pressure Wa veform Analysis For Assessment Of Central Art Completed 11/03/2020 56505 Office/Outpatient New Moderate M DM 45-59 Minutes Completed 11/03/2020 18482 Arterial Pressure Wa veform Analysis For Assessment Of Central Art Completed 11/03/2020 77080 ECG 12-Lead Completed Medical Devices Description No Information Available Encounters Type Date Location Provider Dx Diagnosis Office Visit 01/08/2021 8:27a Main Office Rivera Allen MD I10 Essential (primary) hypertension I25.10 Athscl heart disease of [place] coronary artery w/o ang pctrs E78.2 Mixed hyperlipidemia Office Visit 12/03/2020 11:00a Main Office Rivera Allen MD I25.1 0 Athscl heart disease of [place] coronary artery w/o ang pctrs I10 Essential (primary) hyperten sajan Office Visit 11/03/2020 12:00p Main Office Rivera Allen MD I25.1 0 Athscl heart disease of [place] coronary artery w/o ang pctrs I25.2 Old myocardial infarction Z95.1 Presence of aortocoronary by pass graft Z95.5 Presence of coronary angiopl asty implant and graft R07.9 Chest pain, unspecified I10 Essential (primary) hyperten sajan I35.0 Nonrheumatic aortic (valve) stenosis R94.31 Abnormal electrocardiogram [ ECG] [EKG] R55 Syncope and collapse I45.2 Bifascicular block R00.2 Palpitations R42 Dizziness and giddiness E78.2 Mixed hyperlipidemia E66.3 Overweight Z71.3 Dietary counseling and surve illance Assessments Date Code Description Provider 01/29/2021 R42 Dizziness and giddiness Holter/E vent/Telemetry 01/29/2021 R00.2 Palpitations Holter/Event/Tel emetry 01/19/2021 I35.0 Nonrheumatic aortic (valve) sten osis ECHO 01/08/2021 I10 Essential (primary) hypertension Rivera Allen MD 01/08/2021 I25.10 Atherosclerotic hear t disease of [place] coronary artery without angina pectoris Rivera Allen MD 01/08/2021 E78.2 Mixed hyperlipidemia Rivera ga MD 12/29/2020 I25.10 Atherosclerotic hear t disease of [place] coronary artery without angina pectoris Cardiac PET 12/03/2020 I25.10 Atherosclerotic hear t disease of [place] coronary artery without angina pectoris Rivera Allen MD 12/03/2020 I10 Essential (primary) hypertension Rivera Allen MD 11/03/2020 I25.10 Atherosclerotic hear t disease of [place] coronary artery without angina pectoris Rivera Allen MD 11/03/2020 I25.2 Old myocardial infarction Rivera Allen MD 11/03/2020 Z95.1 Presence of aortocoronary bypass graft Rivera Allen MD 11/03/2020 Z95.5 Presence of coronary angioplasty implant and graft Rivera Allen MD 11/03/2020 R07.9 Chest pain, unspecified Rivera Allen MD 11/03/2020 I10 Essential (primary) hypertension Rivera Allen MD 11/03/2020 I35.0 Nonrheumatic aortic (valve) sten osis Rivera Allen MD 11/03/2020 R94.31 Abnormal electrocardiogram [ECG] [EKG] Rivera Allen MD 11/03/2020 R55 Syncope and collapse Rivera ga MD 11/03/2020 I45.2 Bifascicular block Rivera aguilar MD 11/03/2020 R00.2 Palpitations Rivera Allen MD 11/03/2020 R42 Dizziness and giddiness Rivera Allen MD 11/03/2020 E78.2 Mixed hyperlipidemia Rivera ga MD 11/03/2020 E66.3 Overweight Rivera Allen MD 11/03/2020 Z71.3 Dietary counseling and surveilla nce Rivera Allen MD Plan of Treatment 12/03/2020 - Rivera Allen MD* I25.10 Atherosclerotic heart disease of [place] coronary artery without angina pectoris* Recommendations:* Now that my office has access to cardiac PET myocardial perfusion imaging which is a superior diagnostic modality in comparison to stress SPECT myocardial perfu sajan imaging, I have canceled the stress SPECT myocardial perfusion imaging study that I ordered previously and ordered cardiac PET myocardial perfusion imaging instead (to define her coronary prognosis). Metoprolol tartrate was decreased from 25 mg twice a day down to 12.5 mg twice a day with the hope of providing a faster heart rate which in turn should improve the supply/demand ratio as evidenced in the observed central BP waveform analysis today. Continue nitroglycerin patch, valsartan, amlodipine, nitroglycerin sublingual, aspirin, clopidogrel, Ranexa. * I10 Essential (primary) hypertension* Recommendations:* Metoprolol tartrate was decreased to 12.5 mg twice a day. Continue valsartan and nitroglycerin patch at the current dosages. Amlodipine 2.5 mg twice a day when necessary for systolic BP >160 as the patient is currently taking it was changed to amlodipine 2.5 mg twice a day with instruction to hold dose for systolic BP < 135 mmHg. * All * New Medication:* Amlodipine Besylate 2.5 mg - 1 by mouth twice a day (hold dose for systolic BP <135) * Follow up:* Clinic visit in [address] Allen. Functional Status Functional Condition Comment Date Status Independent with all ADL's Activ e Mental Status Description No Information Available Referrals Description No Information Available
--- OUTSIDE RECORDS SUMMARY | 2021-03-16 15:50 | CCD | Continuity of Care Document ---
Author Author Cady ALLEN MD Organization Unknown Address [address] [place] [address], [place] [address] Phone [phone] Care Team Providers Care Process Engineer Name Role Phone Kasia Garcia PA-C AUTM [phone] Venkatesh Reynoso MD AUTM [phone] Curtis Mondragon MD AUTM [phone] Beth Johnson RN ANP AUTM [phone] Problems Active Problems Provider Date History of [...] ppd, quit in 2009 Smoking Status Reviewed: 02/18/21 Patient is a former smoker [facility] at age 9, at most 1 ppd, quit in 2009 Exercise Type/Frequency Does not exercise curren tly Exercise Limitations Back Pain Exercise Limitations Joint Pain bilateral a yaana and legs Exercise Limitations Claudication Allergies, Adverse [...] SIG Qnty Indications Ordering Provide r Date Famotidine 40mg Tablets 1 by mouth daily at bedtime 30tabs K21.9 Rivera Allen MD 02/18/2021 Bystolic 5mg Tablets 1 by mouth every day 30tabs I10 Rivera Allen MD 02/18/2021 Vascepa 1gm Capsules 2 caps by mouth twice a day (take with meals) 360caps E78.2 Rivera Allen MD Biotin 2500mcg Capsules 1 by mouth daily Unknown 02/17/2021 Valsartan 80mg Tablets 2 by mouth every day at bedtime and occasionally 2 by mouth in morning if needed (pt adjusted dose) Unknown 02/17/2021 Amlodipine Besylate 2.5mg Tablets 1 by mouth daily only if SBP is <150 Rosa Mondragon MD 02/17/2021 Ranolazine ER 500mg Tablets ER 12H R 2 by mouth twice a day Unknown 01/31/2021 Praluent 150mg/ml Solution Auto-In ject inject 1 milliliters subcutaneous every 2 weeks 3ml E78.2 Rivera Allen MD 01/18/2021 Probiotic Capsules 1 by mouth every day Unknown 01/07/2021 Magnesium 400mg Tablets 165 m g daily Unknown 01/07/2021 Zinc Chelated 50mg Tablets 1 by mouth once daily Unknown 01/07/2021 Promethazine HCL 25mg Tablets 1 by mouth every 6 hours as needed Unknown 01/08/20 21 Nitroglycerin 0.6mg/HR Patches 24H R 1 patch applied to skin every day (keep on 14 hours daily then remove) 30units I25.10 Rivera Allen MD 11/03/2020 Allopurinol 300mg Tablets 1 by mouth every day Unknown 11/02/2020 Vitamin D (Ergocalciferol) 1.25mg (76171 Ut) Capsules 1 by mouth every weekly Unknown 10/20 Vitamin Deficiency Injectable System-B12 1000mcg/ML Kit inject 1 kit once monthly Unknown Meclizine HCL 25mg Chewtabs 1 by mouth four times daily as needed Unknown 11/02 Tylenol Extra Strength 500mg Table ts 2 by mouth twice daily as needed Unknown 10/20 Tramadol HCL 50mg Tablets 2 by mouth every 8 hours as needed, as directed Unknown 0 11/02/[address] 1 by mouth every day Unknown 11/02/2020 Nitroglycerin 0.4mg Tablets Sub 1 tab sl every 5 min times 3 doses as needed chest discomfort Unknown 11/02/2020 Escitalopram Oxalate 10mg Tablets 1 by mouth every day Unknown 11/02/2020 Albuterol Sulfate HFA 108(90Base) mcg/Act Aerosol inhale two puffs as needed every 4 hours Unknown 11/02/2020 Plavix 75mg Tablets 1 by mouth every day Unknown 11/02/2020 History Medications Metoprolol Tartrate 25mg Tablets 1 by mouth twice a day I10 Unknown 02/17/2021 - 0 02/18/2021 Amlodipine Besylate 2.5mg Tablets 1 by mouth twice a day (hold dose for systolic BP <135) 180tabs Rivera Allen MD 12/03/2020 - 01/07/2021 Metoprolol Tartrate 25mg Tablets Half tablet by mouth twice a day I10 Unknown 11/19 - 02/17/2021 Repatha Pushtronex System 420mg/3.5ML Solution Cartridge 420 mg (3.5 ml) sq qmo 10.5ml E78.2 Rivera Allen MD 11/03/2020 - 01/18/2021 Carvedilol 3.125mg Tablets 1 by mouth twice a day 60tabs I10 Rivera Allen MD 11/03/2020 - 12/02/2020 I25.2 R07.9 Valsartan 80mg Tablets 2 by mouth daily at bedtime Unknown 11/02/2020 - Amlodipine Besylate 2.5mg Tablets 1 by mouth every day as needed for elevated BP Unknow n 11/02/2020 - 12/03/2020 Febuxostat 40mg Tablets 1 by mouth every daily Unknown 11/02/2020 - Pantoprazole Sodium 40mg Tablets D R 2 by mouth every day K21.9 Unknown 11/02/2020 - Metoclopramide HCL 10mg Tablets [...] Available Vital Signs Date Vital Result Comment 02/18/2021 12:33pm Weight 158.00 lb Home Weight 155lb Height 61 inches 5'1" BMI (Body Mass Index) 29.9 kg/m2 Heart Rate 52 /min BP Systolic Sitting 170 mmHg CBP large cuff, Ra BP Diastolic Sitting 70 mmHg CBP large cuff, Ra 12/03/2020 10:44am Weight 155.00 lb Home Weight 153lb home weight Height 61 inches 5'1" BMI (Body Mass Index) 29.3 kg/m2 Heart Rate 55 /min BP Systolic Sitting 148 mmHg CBP, adult cuff/Ra BP Diastolic Sitting 63 mmHg CBP, adult cuff/Ra Results Test Acquired Date Facility Test Result H/L Range Note Lipid Panel 12/17/2020 [facility] [phone] Triglycerides Level 316 mg/dL High <150 Cholesterol Level 191 mg/dL Normal <200 HDL Cholesterol 43 mg/dL Normal >40 LDL Cholesterol 85 mg/dL Normal <100 Non-HDL-C 148 mg/dL Normal Cholesterol Risk Ratio 4.441 Normal <5 Laboratory test finding 12/17/2020 [facility] [phone] Vitamin B12 Level 689 pg/mL Normal 247-911 1 1 VITAMIN B12 NORMAL RANGE NORMAL 247 - 911 PG/ML INDETERMINATE 211 - 246 PG/ML DEFICIENT LESS THAN 211 PG/ML Procedures Date Code Description Status 02/18/2021 80233 Office/Outpatient Established Lo w MDM 20-29 Min Completed 01/29/2021 63699 External ECG Rec>48HR<7D Review & Interpretation Completed 01/29/2021 71358 External ECG Rec>48HR<7D Recordi ng Completed 01/19/2021 53133 Echocardiogram 2-D Doppler Color Completed 01/08/2021 05242 Complex Chronic Care MGMT Servic e Ea Addl 30 Min Completed 01/08/2021 96400 Complex Chronic Care Management SVC 1St 60 Min Completed 12/29/2020 85867 TM Interpretation & Report Only Completed 12/29/2020 52661 Myocardial Imaging (PET) Multipl e Studies Completed 12/03/2020 47707 Office/Outpatient Established Lo w MDM 20-29 Min Completed 12/03/2020 48226 Arterial Pressure Wa veform Analysis For Assessment Of Central Art Completed 11/03/2020 37046 Office/Outpatient New Moderate M DM 45-59 Minutes Completed 11/03/2020 64706 Arterial Pressure Wa veform Analysis For Assessment Of Central Art Completed 11/03/2020 74355 ECG 12-Lead Completed Medical Devices Description No Information Available Encounters Type Date Location Provider Dx Diagnosis Office Visit 02/18/2021 12:15p Main Office Rivera Allen MD I25.1 0 [facility] heart disease of [place] coronary artery w/o ang pctrs I10 Essential (primary) hyperten sajan E78.2 Mixed hyperlipidemia Office Visit 01/08/2021 8:27a Main Office Rivera Allen MD I10 Essential (primary) hypertension I25.10 Athscl heart disease of [place] coronary artery w/o ang pctrs E78.2 Mixed hyperlipidemia Office Visit 12/03/2020 11:00a Main Office Rivera Allen MD I25.1 0 Athscl heart disease of [place] coronary artery w/o ang pctrs I10 Essential (primary) hyperten sajan Office Visit 11/03/2020 12:00p Main Office Rivear Allen MD I25.1 0 Athscl heart disease of [place] coronary artery w/o ang pctrs I25.2 Old [...] surve illance Assessments Date Code Description Provider 02/18/2021 I25.10 Atherosclerotic hear t disease of [place] coronary artery without angina pectoris Rivera Allen MD 02/18/2021 I10 Essential (primary) hypertension Rivera Allen MD 02/18/2021 E78.2 Mixed hyperlipidemia Rivera ga MD 01/29/2021 R42 Dizziness and giddiness Holter/E vent/Telemetry 01/29/2021 R00.2 Palpitations Holter/Event/Tel emetry 01/19/2021 I35.0 Nonrheumatic aortic (valve) sten osis ECHO 01/08/2021 I10 Essential (primary) hypertension Rivera Allen MD 01/08/2021 I25.10 Atherosclerotic hear t disease of [place] coronary artery without angina pectoris Rivera Allen MD 01/08/2021 E78.2 Mixed hyperlipidemia Rivera ga MD 12/29/2020 I25.10 Atherosclerotic hear t disease of [place] coronary artery without angina pectoris Cardiac PET 12/03/2020 I25.10 Atherosclerotic hear t disease of [place] coronary artery without angina pectoris Rivera Allen MD 12/03/2020 I10 Essential (primary) hypertension Rivera Allen MD 11/03/2020 I25.10 Atherosclerotic hear t disease of [place] coronary artery without angina pectoris Rivera Allen [...] MD 11/03/2020 R55 Syncope and collapse Rivera ag MD 11/03/2020 I45.2 Bifascicular block Rivera aguilar MD 11/03/2020 R00.2 Palpitations Rivera Allen MD 11/03/2020 R42 Dizziness and giddiness Rivera Allen MD 11/03/2020 E78.2 Mixed hyperlipidemia Rivera ga MD 11/03/2020 E66.3 Overweight Rivera Allen MD 11/03/2020 Z71.3 Dietary counseling and surveilla nce Rivera Allen MD Plan of Treatment Future Appointment(s):* 06/14/2021 1:00 pm - Rivera Allen MD at Main Office 02/18/2021 - Rivera Allen MD* I25.10 Atherosclerotic heart disease of [place] coronary artery without angina pectoris * I10 Essential (primary) hypertension* New Medication:* Bystolic 5 mg - 1 by mouth every day * E78.2 Mixed hyperlipidemia* New Medication:* Vascepa 1 gm - 2 caps by mouth twice a day (take with meals) * All * Follow up:* Clinic visit in [address] Allen. Functional Status Functional Condition Comment Date Status Independent with all ADL's Activ e Mental Status Description No Information Available Referrals Description No Information Available
--- OUTSIDE RECORDS SUMMARY | 2021-03-16 15:50 | CCD ---
Author Author [facility] Organization [facility] Address Unknown Phone Unavailable Care Team Providers Care Cnc Manager Name Role Phone Jose Lincoln Unavailable PROBLEMS Type Condition ICD9-CM Code NZS10-EO Code Onset Dates Condition S tatus W/U Status Risk SNOMED Code Notes Problem Obstructive sleep apnea G47.33 Active confirmed 63682893 Problem Anxiety F41.9 Active confirmed 69045993 She is on Lexapro therapy at 20 g daily but she feels that is too strong. She will cut back to 10 mg daily. 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 She is complaining of dyspnea on exertion. She does not desaturate with ambulation. She is on a beta hannah, ARB, Ranexa, aspirin and Plavix therapy. She indicates that she had a stress test within the last year or so. I've asked her legal administrative assistant to consider reassessment of her coronary anatomy and pulmonary pressures in the near future. Problem Lumbosacral spondylolysis M43.07 Active confirmed 935032972 Problem Sleep apnea in adult G47.30 Active confirmed 16191232 Problem Hypertensive heart and chron ic kidney disease with heart failure and stage 1 through stage 4 chronic kidney disease, or unspecified chronic kidney disease I13.0 Active confirmed 414030424 She did not do well with a [...] reflux disease with esophagitis K21.0 Active confirmed 245654959 Problem Other osteoarthritis of spine, lumbar region M47.8 96 Active confirmed 636904306 Problem Stenosis of left carotid artery I65.22 Active confirmed 413099724230713 Problem Coronary arteriosclerosis I25.10 Active confirmed 24329571 Problem DDD (degenerative disc disease), lumbosacral M51.3 7 Active confirmed 34664127 Problem 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, unspecified site M1A.30X0 Active confirmed 021761590170653 Problem Mixed hyperlipidemia E78.2 Active confirmed 756735123 Problem Fibromyalgia M79.7 Active confirmed 5260895 05 Problem Hx of malignant neoplasm of kidney Z85.528 Activ e confirmed 254617192 Problem Amaurosis fugax, 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 Active confirmed 68767696 Problem Vitamin D deficiency E55.9 Active confirmed 35270735 Problem History of non anemic vitamin B12 deficiency Z86.3 9 Active confirmed 638791848 Problem PVD (peripheral vascular disease) I73.9 Active confirmed 606237283 Problem Other chronic pain G89.29 Active confirmed 8 7333920 Problem 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 .71 Active confirmed 172203683 Problem Malignant neoplasm of urinary bladder, unspecified site C67.9 Active confirmed 686194919 Problem Dizziness R42 Active confirmed 691184486 Problem Chronic congestive heart failure, unspecified he art failure type I50.9 Active confirmed 66585609 Problem Solitary kidney, acquired Z90.5 Active confirmed 447764088 Problem Hypercholesterolemia E78.00 Active confirmed 31005629 ALLERGIES Allergen (clinical drug ingredient) Drug/Non Drug Allergy do cumented on EMR Reaction Allergy Type Onset Date Status tetracycline Tetracycline HCl(NDC Code:[address]-83) diarrhea Drug Allergy Active BuSpar Unknown Drug Allergy Active Minocins diarrhea Non Drug Allergy Active nitazoxanide Alinia(NDC Code:[address]-99) Hives Drug Allergy Active nitrostat Anaphylaxis Non Drug Allergy Active evolocumab Repatha(NDC Code:[address]-04) Rash Drug Allergy Active Statins (for Allergy Use Only) muscle soreness weakness Dr ug Allergy Active carvedilol Carvedilol(NDC Code:[address]-53) Unknown Drug Allergy Active Codeine Phosphate (For Allergies Use Only) Hives Drug Allergy Active Butabarbital Sodium Hives Drug Allergy Act aury sulfamethoxazole / trimethoprim Bactrim([facility] Code:[address]-02) Rash Drug Allergy Active Trental sick Drug Allergy Active Adhesive Tape Hives Drug Allergy Active ENCOUNTERS from 1943 to 2021-02-02 Encounter Location Date Provider Diagnosis [facility] [phone] [place] [address] Jan, Jose Lincoln Anxiety F41.9 IMMUNIZATIONS Vaccine Route Administration Date Status Influenza [...] Education Language: Question Answer Notes Languages spoken: Tajik Anabaptism: Question Answer Notes Anabaptism 08 Mandaen Sexual Hx: Question Answer Notes Had sex [...] Notes Start Da te End Date Status Vitamin D3 125 MCG (5000 UT) 1 capsule Orally weekly Active Metoprolol Tartrate 25 mg 1 tab Orally twice daily Active Aspirin 325 MG 1 tablet Orally Once a day Active May Have - please provide new tubing fo r 2 concentrator. DX code:G47.33 to use daily for 99 months Jan, Active Nitroglycerin 0.4 MG/HR 1 patch to skin Transdermal Daily as needed per Feb, Active traMADol HCl 50 MG 1 tab orally/[id number] three times daily as needed for pain mdd3 for 30 days Active Acetaminophen 500 MG 1 tablet as needed Orally every 6 hrs Active Pantoprazole Sodium 40 MG 1 tablet Orally Once a day for 30 day(s) Active Zinc 50 MG 1 tablet Orally Once a day for 30 day(s) Active Valsartan 80 MG 2 tablet Orally Acti ve Ranitidine 150 Max Strength 150 MG 1 tablet Orally twice daily Not-Taking Allopurinol 300 MG 1 tablet Orally Once a day Active Ranexa 1000 MG 1 tablet Orally Twice a day for 90 day(s) Active Probiotic - 1 capsule Orally Daily A ctive Losartan Potassium-HCTZ 50-12.5 MG 1 tablet Orally Once a day for 90 days Not-Taking Magnesium 65 MG 2 tablets with a meal Orally Once a day Active Promethazine HCl 25 mg 1 tablet Orally before bedtime as needed Active Plavix 75 mg 1 tablet Orally Once a day for 90 days Active Nitroglycerin 0.4 MG 1 tab Sublingual atonset of chest pain q 5 min x 3 if no relief call 911 Active Benadryl 25 MG 1 capsule Orally every 12 hours as needed Active Meclizine HCl 25 mg 1 tablet Orally every 8 hour s as needed for dizziness for 30 day(s) Apr, Active Lexapro 10 MG 1 tab Orally Once a day Active Amlodipine Besylate 2.5 MG TAKE 1TAB.BY MOUTH TWICE A DAY HOLD DOSE FOR SYSTOLIC BLOOD PRESSURE 135 Oral Takeif B/P is over 160 systolic Active Vitamin B12 3000 MCG 1 tablet Sublingual Once a day Active PROCEDURES No Information RESULTS No Results REASON FOR VISIT error MEDICAL (GENERAL) HISTORY Type Description Date Medical History No MRI's due to stents in legs and heart Medical History Carotid Artery Disease nonco nclusive Lexiscan cardiolite stress test, normal myocardial perfusion, preserved LV function 03/2016 Hx [place], Dr Mcdaniel Medical History peripheral vascular disease [...] History multiple procedures with cardiac stents [facility] [id number] Surgical History back surgery 1973 Surgical History stent right leg 2014 Surgical History right nephrectomy [place] [facility] 2015 Surgical History lumbar 4-5m 1973 [...] Notes Treatment Notes Treatm ent Clinical Notes Jan, Anxiety (ICD-10 - F41.9) PLAN OF TREATMENT Medication Medication Name Sig Start Date Stop Date Allopurinol 300 MG 1 tablet Orally Once a day Lexapro 10 MG 1 tab Orally Once a day Valsartan 80 MG 2 tablet Orally Next Appt Details Provider Name:Jose Linclon, 2021-03-16 03: 00:00 PM, [address] [facility], , [place], [address], Insurance Providers Payer Name Payer Address Payer Phone Insured Name Patient Relati onship to Insured Coverage Start Date Coverage End Date MEDICARE Part A and B [address] [facility] [phone] KATHIE AGUILERA [facility] OPTIONS [facility] CLAIM DIV [address] [facility] [phone] KATHIE AGUILERA
--- OUTSIDE RECORDS SUMMARY | 2021-03-16 15:50 | CCD ---
Author Author [facility] Organization [facility] Address Unknown Phone Unavailable Care Team Providers Care Business Technology Architect Name Role Phone Kasia Garcia Unavailable PROBLEMS Type Condition ICD9-CM Code [id number] Code Onset Dates Condition S tatus W/U Status Risk SNOMED Code Notes Problem GERD (gastroesophageal reflux disease) K21.9 A ctive confirmed 075481683 Problem Peripheral vascular disease I73.9 Active confirmed 343870923 Problem Fibromyalgia M79.7 Active confirmed 8101562 05 Problem Chronic seasonal allergic rhinitis, unspecified trigger J30.2 Active confirmed 108563983 Problem LUPE (obstructive sleep apnea) G47.33 Active confirm ed 85007425 Problem History of solitary pulmonary nodule Z87.898 Act aury confirmed 298936282 Problem Hyperlipidemia E78.5 Active confirmed 15662 004 Problem History of [place] (myocardial infarction) I25.2 Ac tive confirmed 601834534 Problem CAD (coronary artery disease) I25.10 Active confirm ed 32734098 Problem Anxiety F41.9 Active confirmed 75652925 Problem Type 2 diabetes mellitus wit hout complication, unspecified whether snf insulin use E11.9 Active confirmed 427089541 Problem Chronic kidney disease, stage 3 (moderate) N18.3 Active confirmed 712433797 Problem Essential (primary) hypertension I10 Active conf irmed 64996992 ALLERGIES Allergen (clinical drug ingredient) Drug/Non Drug Allergy do cumented on EMR Reaction Allergy Type Onset Date Status Divalproex Sod shakey, sick to stomach Non Drug Allergy Active tetracycline Tetracycline HCl(NDC Code:[address]-62) diarrhea Drug Allergy Active tape rash Non Drug Allergy Active sulfamethoxazole / trimethoprim Bactrim(NDC Code:[address]-10) rash Drug Allergy Active erythromycin Erythromycin([facility] Code:[address]-45) diarrhea Drug All ergy Active Butabarbital Sodium hives Drug Allergy Act aury ENCOUNTERS from 1945 to 2021-02-15 Encounter Location Date Provider Diagnosis [address] [address] Jan, Kasia Jose IMMUNIZATIONS Vaccine Route Administration Date Status Cyanocobalamin IM Intramuscular November 01, 2019 Administered Cyanocobalamin SC Subcutaneous Jan 03, 2020 Administered Cyanocobalamin IM Intramuscular Feb 03, 2020 Administered Cyanocobalamin IM Intramuscular Mar 04, 2020 Administered CYANOCOBALAMIN IM Intramuscular July 24, 2019 Administered CYANOCOBALAMIN IM Intramuscular September 02, 2019 Administered Cyanocobalamin IM Intramuscular October 02, 2019 Administered Pneumococcal Prevnar 13 IM Intramuscular Feb 14, 2019 Admini stered CYANOCOBALAMIN IM Intramuscular May 06, 2020 Administered CYANOCOBALAMIN IM Intramuscular May 23, 2019 Administered CYANOCOBALAMIN IM Intramuscular Apr 11, 2019 Administered Cyanocobalamin IM Intramuscular Feb 14, 2019 Administered INFLUENZA 3 YRS AND OLDER Preservative free IM Intramuscular Mar 29, 2017 Administered Pneumococcal Vaccine PNEUMO 23 IM Intramuscular Jan 03, 2020 Administered TDAP 7yrs + Vaccine - Boostrix IM Intramuscular Jan 03, 2020 Administered Influenza preservative free IM Intramuscular Mar 04, 2020 Adm inistered Influenza preservative free IM Intramuscular Apr 11, 2019 Adm inistered SOCIAL HISTORY Tobacco Use: Social History Observation Description Date Details (start date - stop date) Former Smoker Sex Assigned At : Social History Observation Description Sex Assigned At Unknown Tobacco Use/Smoking Question Answer Notes Are you a former smoker How long has it been since you last smoked? 5-10 years REASON FOR REFERRAL No Information VITAL SIGNS No information MEDICATIONS Medication SIG (Take, Route, Frequency, Duration) Notes Start Da te End Date Status Allopurinol 300 MG as directed Orally once a day Active traMADol HCl 50 MG 1 tablet as needed Orally every 6 hrs for 30 days PRN Aug, Not-Taking Clopidogrel Bisulfate 75 MG 1 tablet Orally Once a day for 90 days Active Aspirin 325 MG 1 tablet Orally Once a day for 90 days Active Percocet 5-325 MG 1 tablet as needed Orally every 6 hrs for 7 da ys Dec, Not-Taking Metoprolol Tartrate 25 MG 1 tablet with food Orally Twice a day for 90 days Active Nitroglycerin 0.4 mg 1 tablet under the tongue an d allow to dissolve as needed Sublingual every 0 hrs for 90 days PRN Not-Taking Meclizine HCl 25 MG 1 tablet as needed Orally QD PRN for 180 Active ONE TOUCH TEST STRIPS as directed V250.0 QID AND PRN Active ONE TOUCH ULTRA GLUCOMETER V250.0 - - for - Active Pantoprazole Sodium 40 MG 1 tablet Orally Once a day for 90 Active Klor-Con 10 10 meq 1 tablet Once a day PRN Not-Taking Valsartan 80 MG 1 tablet Orally twice daily for 90 days cardiology Not-Taking CPAP MACHINE - - DX: LUPE - for - Act aury Valsartan 160 MG 1 tablet Orally Once a day for 90 days May, Active Stool Softener 100 MG 1 capsule as needed Orally Once a day for 90 da ys PRN Not-Taking Nystatin 277961 UNIT/GM 1 application Externally Twice a day for 14 days Jan, Active Vitamin D3 46771 UNIT 1 tablet Orally Once a day Active Promethazine HCl 25 MG 1 tablet at bedtime Orally PRN for 90 days PRN Not-Taking Escitalopram Oxalate 10 MG 1 tablet Orally Once a day for 90 day(s) Active Ranolazine ER 1000 MG TAKE ONE TABLET BY MOUTH TWICE A DAY for 90 Active Vancomycin 1 tab Oral for 14 days 250mg cap PRN Not-Taking Probiotic - as directed Orally Activ e PROCEDURES No Information RESULTS No Results REASON FOR VISIT pcp MEDICAL (GENERAL) HISTORY Type Description Date Medical History 2002- [place] Medical History Kidney stone Medical History Esophagitis with floating hernia Medical History Bulging lumbar disc Medical History Fibromyalgia Medical History B-12 Deficiency Medical History DM Medical History HLD Medical History Diverticulosis Medical History C-Diff Medical History Colonoscopy 2012 (polyps) Medical History Pneumonia vaccine 2010 Medical History Gout Medical History Diverticulitis of large inte alison without perforation or abscess without bleeding Surgical History Left Carotid stent October 2013 Surgical History CABG 2002 Surgical History Appendectomy Surgical History Hysterectomy 1991 Surgical History Gall bladder removed Surgical History Lumbar Discectomy 1973 Surgical History Lithoprasty Surgical History Bladder and rectalseal Surgical History Cardiac Catheterization 04/28/17 Surgical History Partial colectomy with reanastamosis 201 8 Hospitalization History With surgeries Goals Section No Information Health Concerns No Information MEDICAL EQUIPMENT No Information MENTAL STATUS No Information FUNCTIONAL STATUS No Information ASSESSMENTS No Information PLAN OF TREATMENT Medication Medication Name Sig Start Date Stop Date Pantoprazole Sodium 40 MG 1 tablet Orally Once a day for 90 Ranolazine ER 1000 MG TAKE ONE TABLET BY MOUTH TWICE A DAY for 9 0 Escitalopram Oxalate 10 MG 1 tablet Orally Once a day for 90 day (s) Metoprolol Tartrate 25 MG 1 tablet with food Orally Twice a day for 90 days Clopidogrel Bisulfate 75 MG 1 tablet Orally Once a day for 90 da ys Insurance Providers Payer Name Payer Address Payer Phone Insured Name Patient Relati onship to Insured Coverage Start Date Coverage End Date AARP HE[employer] CARE OPTIONS [facility] [address] [facility] [phone] Cady Aguilera [employer] - [employer] [address] [facility] [address] Cady Aguilera MCRA - MEDICARE [place] [address] [facility] [id number] [phone] Cady Aguilera
--- OUTSIDE RECORDS SUMMARY | 2021-03-16 15:50 | CCD ---
Author Author [facility] Organization [facility] Address Unknown Phone Unavailable Care Team Providers Care .Net Developer Name Role Phone Jose Lincoln Unavailable PROBLEMS Type Condition ICD9-CM Code WNB36-UX Code Onset Dates Condition S tatus W/U Status Risk SNOMED Code Notes Problem Obstructive sleep apnea G47.33 Active confirmed 13091829 Problem Anxiety F41.9 Active confirmed 13614684 She is on Lexapro therapy at 20 g daily but she feels that is too strong. She will cut back to 10 mg daily. 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 She is complaining of dyspnea on exertion. She does not desaturate with ambulation. She is on a beta hannah, ARB, Ranexa, aspirin and Plavix therapy. She indicates that she had a stress test within the last year or so. I've asked her comedian to consider reassessment of her coronary anatomy and pulmonary pressures in the near future. Problem Lumbosacral spondylolysis M43.07 Active confirmed 446790497 Problem Sleep apnea in adult G47.30 Active confirmed 54317909 Problem Hypertensive heart and chron ic kidney disease with heart failure and stage 1 through stage 4 chronic kidney disease, or unspecified chronic kidney disease I13.0 Active confirmed 391468161 She did not do well with a [...] reflux disease with esophagitis K21.0 Active confirmed 705675792 Problem Other osteoarthritis of spine, lumbar region M47.8 96 Active confirmed 623150912 Problem Stenosis of left carotid artery I65.22 Active confirmed 034047711876361 Problem Coronary arteriosclerosis I25.10 Active confirmed 70115482 Problem DDD (degenerative disc disease), lumbosacral M51.3 7 Active confirmed 06593154 Problem 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, unspecified site M1A.30X0 Active confirmed 605456857217452 Problem Mixed hyperlipidemia E78.2 Active confirmed 235568932 Problem Fibromyalgia M79.7 Active confirmed 4028806 05 Problem Hx of malignant neoplasm of kidney Z85.528 Activ e confirmed 600951223 Problem Amaurosis fugax, 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 Active confirmed 46762341 Problem Vitamin D deficiency E55.9 Active confirmed 99663341 Problem History of non anemic vitamin B12 deficiency Z86.3 9 Active confirmed 697933027 Problem PVD (peripheral vascular disease) I73.9 Active confirmed 673396406 Problem Other chronic pain G89.29 Active confirmed 8 8250725 Problem 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 .71 Active confirmed 633763872 Problem Malignant neoplasm of urinary bladder, unspecified site C67.9 Active confirmed 445711948 Problem Dizziness R42 Active confirmed 792061901 Problem Chronic congestive heart failure, unspecified he art failure type I50.9 Active confirmed 09943495 Problem Solitary kidney, acquired Z90.5 Active confirmed 518645226 Problem Hypercholesterolemia E78.00 Active confirmed 89072798 ALLERGIES Allergen (clinical drug ingredient) Drug/Non Drug Allergy do cumented on EMR Reaction Allergy Type Onset Date Status tetracycline Tetracycline HCl(NDC Code:[address]-83) diarrhea Drug Allergy Active BuSpar Unknown Drug Allergy Active Minocins diarrhea Non Drug Allergy Active nitazoxanide Alinia(NDC Code:[address]-42) Hives Drug Allergy Active nitrostat Anaphylaxis Non Drug Allergy Active evolocumab Repatha(NDC Code:[address]-14) Rash Drug Allergy Active Statins (for Allergy Use Only) muscle soreness weakness Dr ug Allergy Active carvedilol Carvedilol(NDC Code:[address]-08) Unknown Drug Allergy Active Codeine Phosphate (For Allergies Use Only) Hives Drug Allergy Active Butabarbital Sodium Hives Drug Allergy Act aury sulfamethoxazole / trimethoprim Bactrim([facility] Code:[address]-32) Rash Drug Allergy Active Trental sick Drug Allergy Active Adhesive Tape Hives Drug Allergy Active ENCOUNTERS from 1945 to 2021-01-19 Encounter Location Date Provider Diagnosis [address] [facility] [phone] [place] [address] Dec, Jose Lincoln PVD (peripheral vascular dis ease) I73.9 and Anxiety F41.9 IMMUNIZATIONS Vaccine Route Administration Date [...] Education Language: Question Answer Notes Languages spoken: Vietnamese Baptism: Question Answer Notes Baptism 08 [employer] Sexual Hx: Question Answer Notes Had sex [...] Notes Start Da te End Date Status Nitroglycerin 0.4 MG/HR 1 patch to skin Transdermal Daily as needed per Feb, Active Metoprolol Tartrate 25 mg 1 tab Orally twice daily Active Acetaminophen 500 MG 1 tablet as needed Orally every 6 hrs Active Lexapro 10 MG 1 tab Orally Once a day Active Benadryl 25 MG 1 capsule Orally every 12 hours as needed Active Ranexa 1000 MG 1 tablet Orally Twice a day for 90 day(s) Active Zinc 50 MG 1 tablet Orally Once a day for 30 day(s) Active Allopurinol 300 MG 1 tablet Orally Once a day Active Promethazine HCl 25 mg 1 tablet Orally before bedtime as needed Active Losartan Potassium-HCTZ 50-12.5 MG 1 tablet Orally Once a day for 90 days Not-Taking Amlodipine Besylate 2.5 MG TAKE 1TAB.BY MOUTH TWICE A DAY HOLD DOSE FOR SYSTOLIC BLOOD PRESSURE 135 Oral Takeif B/P is over 160 systolic Active Pantoprazole Sodium 40 MG 1 tablet Orally Once a day for 30 day(s) Active Magnesium 65 MG 2 tablets with a meal Orally Once a day Active Nitroglycerin 0.4 MG 1 tab Sublingual atonset of chest pain q 5 min x 3 if no relief call 911 Active Plavix 75 mg 1 tablet Orally Once a day for 90 days Active Aspirin 325 MG 1 tablet Orally Once a day Active Valsartan 80 MG 2 tablet Orally Acti ve Probiotic - 1 capsule Orally Daily A ctive Vitamin B12 3000 MCG 1 tablet Sublingual Once a day Active Meclizine HCl 25 mg 1 tablet Orally every 8 hour s as needed for dizziness for 30 day(s) Apr, Active May Have - please provide new tubing fo r 2 concentrator. DX code:G47.33 to use daily for 99 months Jan, Active Ranitidine 150 Max Strength 150 MG 1 tablet Orally twice daily Not-Taking traMADol HCl 50 MG 1 tab orally/[id number] three times daily as needed for pain mdd3 for 30 days Active Vitamin D3 125 MCG (5000 UT) 1 capsule Orally weekly Active PROCEDURES No Information RESULTS No Results REASON FOR VISIT refills MEDICAL (GENERAL) HISTORY Type Description Date Medical History No MRI's due to stents in legs and heart Medical History Carotid Artery Disease nonco nclusive Lexiscan cardiolite stress test, normal myocardial perfusion, preserved LV function 03/2016 Hx CA, Dr Mcdaniel Medical History peripheral vascular disease [...] History multiple procedures with cardiac stents st [id number] Surgical History back surgery 1973 Surgical History stent right leg 2014 Surgical History right nephrectomy [place] 2015 Surgical History lumbar 4-5m 1974 Surgical History colon resection-[place] [facility] 07/2017 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 9) Dec, Anxiety (ICD-10 - F41.9) PLAN OF TREATMENT No Information Insurance Providers Payer Name Payer Address Payer Phone Insured Name Patient Relati onship to Insured Coverage Start Date Coverage End Date AARP HE[employer] CARE OPTIONS [facility] CLAIM DIV [address] [facility] [id number] KATHIE AGUILERA MEDICARE Part A and B [address] [facility] [phone] KATHIE AGUILERA
--- OUTSIDE RECORDS SUMMARY | 2021-03-16 15:50 | CCD | Continuity of Care Document ---
Author Author [facility] Organization Unknown Address [address] [place] [address], [place] [address] Phone [phone] Care Team Providers Care Boat Ride Operator Name Role Phone Kasia Garcia PA-C AUTM [phone] Venkatesh Reynoso MD AUTM [phone] Curtis Mondragon MD AUTM [phone] Beth Johnson RN ANP AUTM [phone] Problems Active Problems Provider Date History of [...] 02/18/21 Patient is a former smoker st nurisd at age 9, at most 1 ppd, [...] day Unknown 11/02/2020 Vitamin D (Ergocalciferol) 1.25mg (18996 Ut) Capsules 1 by mouth every weekly [...] Result H/L Range Note Lipid Panel 12/17/2020 [facility] nter [phone] Triglycerides Level 316 mg/dL High <150 Cholesterol Level 191 mg/dL Normal <200 HDL Cholesterol 43 mg/dL Normal >40 LDL Cholesterol 85 mg/dL Normal <100 Non-HDL-C 148 mg/dL Normal Cholesterol Risk Ratio 4.441 Normal <5 Laboratory test finding 12/17/2020 [facility] [phone] Vitamin B12 Level 689 pg/mL Normal 247-911 1 1 VITAMIN B12 NORMAL RANGE NORMAL 247 - 911 PG/ML INDETERMINATE 211 - 246 PG/ML DEFICIENT LESS THAN 211 PG/ML Procedures Date Code Description Status 02/18/2021 27599 Office/Outpatient Established Lo w MDM 20-29 Min Completed 01/29/2021 29180 External ECG Rec>48HR<7D Review & Interpretation Completed 01/29/2021 74145 External ECG Rec>48HR<7D Recordi ng Completed 01/19/2021 68036 Echocardiogram 2-D Doppler Color Completed 01/08/2021 37529 Complex Chronic Care MGMT Servic e Ea Addl 30 Min Completed 01/08/2021 44696 Complex Chronic Care Management SVC 1St 60 Min Completed 12/29/2020 94533 TM Interpretation & Report Only Completed 12/29/2020 72015 Myocardial Imaging (PET) Multipl e Studies Completed 12/03/2020 84164 Office/Outpatient Established Lo w MDM 20-29 Min Completed 12/03/2020 10350 Arterial Pressure Wa veform Analysis For Assessment Of Central Art Completed 11/03/2020 58732 Office/Outpatient New Moderate M DM 45-59 Minutes Completed 11/03/2020 31973 Arterial Pressure Wa veform Analysis For Assessment Of Central Art Completed 11/03/2020 78512 ECG 12-Lead Completed Medical Devices Description No Information Available Encounters Type Date Location Provider Dx Diagnosis Office Visit 02/18/2021 12:15p Main Office Rivera Allen MD I25.1 0 [place] heart disease of [place] coronary artery w/o ang pctrs I10 Essential (primary) hyperten sajan E78.2 Mixed hyperlipidemia Office Visit 01/08/2021 8:27a Main Office Rivera Allen MD I10 Essential (primary) hypertension I25.10 [facility]scl heart disease of [place] coronary artery w/o ang pctrs E78.2 Mixed hyperlipidemia Office Visit 12/03/2020 11:00a Main Office Rivera Allen MD I25.1 0 [place] heart disease of [place] coronary artery w/o ang pctrs I10 Essential (primary) hyperten sajan Office Visit 11/03/2020 12:00p Main Office Rivera Allen MD I25.1 0 [facility]scl heart disease of [place] coronary artery w/o ang pctrs I25.2 Old [...] 02/18/2021 I25.10 Atherosclerotic hear t disease of [place] coronary artery without angina pectoris Rivera Allen MD 02/18/2021 I10 Essential (primary) hypertension Rivera Allen MD 02/18/2021 E78.2 Mixed hyperlipidemia Rivera ga MD 01/29/2021 R42 Dizziness and giddiness Holter/E vent/Telemetry 01/29/2021 R00.2 Palpitations Holter/Event/Tel emetry 01/19/2021 I35.0 Nonrheumatic aortic (valve) sten osis ECHO 01/08/2021 I10 Essential (primary) hypertension Rivera Allen MD 01/08/2021 I25.10 Atherosclerotic hear t disease of [place] coronary artery without angina pectoris Rivera Allen MD 01/08/2021 E78.2 Mixed hyperlipidemia Rivera ga MD 12/29/2020 I25.10 Atherosclerotic hear t disease of [place] coronary artery without angina pectoris Cardiac PET 12/03/2020 I25.10 Atherosclerotic hear t disease of [place] coronary artery without angina pectoris Rivera Allen MD 12/03/2020 I10 Essential (primary) hypertension Rivera Allen MD 11/03/2020 I25.10 Atherosclerotic hear t disease of [place] coronary artery without angina pectoris Rivera Allen [...] Allen MD* I25.10 Atherosclerotic heart disease of [place] coronary artery without angina pectoris * I10 [...]
--- OUTSIDE RECORDS SUMMARY | 2021-03-16 15:50 | CCD | Continuity of Care Document ---
Author Author Holter/Event/Telemetry, Eder Stock Organization Unknown Address [address], [place] [address] Phone [phone] Care Team Providers Care Focused Factory Manager Name Role Phone Kasia Garcia PA-C AUTM [phone] Venkatesh Reynoso MD AUTM [phone] Curtis Mondragon MD AUTM [phone] Beth Johnson RN ANP AUTM [phone] Hugo Landrum MD AUTM [phone] Problems Active Problems Provider Date History of [...] and giddiness Rivera Allen MD Onset: 11/04/19 Social History Type Date Description Comments Sex [...] SIG Qnty Indications Ordering Provide r Date Praluent 150mg/ml Solution Auto-In ject inject 1 milliliters subcutaneous every 2 weeks 3ml E78.2 Rivera Allen MD 01/18/2021 Promethazine HCL 25mg Tablets 1 by mouth every 6 hours as needed Unknown 01/08/20 Zinc Chelated 50mg Tablets 1 by mouth [...] remove) 30units I25.10 Rivera Allen MD 11/03/2020 Tylenol Extra Strength 500mg Table ts 2 by mouth twice daily as needed Unknown 10/20 Allopurinol 300mg Tablets 1 by mouth every day Unknown 11/02/2020 Vitamin D (Ergocalciferol) 1.25mg (46215 Ut) Capsules 1 by mouth every weekly Unknown 10/20 Vitamin Deficiency Injectable System-B12 1000mcg/ML Kit inject 1 kit once monthly Unknown Ranexa 500mg Tablets ER 12HR 2 by mouth twice a day Unknown 11/02/2020 Meclizine HCL 25mg Chewtabs 1 by mouth four times daily as needed Unknown 11/02 Pantoprazole Sodium 40mg Tablets D R 2 by mouth every day Unknown 11/02/2020 Tramadol HCL 50mg Tablets 2 by mouth every 8 hours as needed, as directed Unknown 0 11/02/2020 Plavix 75mg Tablets 1 by mouth [...] Unknown 11/02/2020 - 0 11/03/2020 I25.2 R07.9 Covid-19 vaccine, Unspecified Inj ection Unknown Immunizations [...] Result H/L Range Note Lipid Panel 12/17/2020 [facility] nter [phone] Triglycerides Level 316 mg/dL High <150 Cholesterol Level 191 mg/dL Normal <200 HDL Cholesterol 43 mg/dL Normal >40 LDL Cholesterol 85 mg/dL Normal <100 Non-HDL-C 148 mg/dL Normal Cholesterol Risk Ratio 4.441 Normal <5 Laboratory test finding 12/17/2020 [facility] [phone] Vitamin B12 Level 689 pg/mL Normal 247-911 1 CMP 08/11/2020 [facility] Albumin Serum/Plasma 4.1 Alt - SGPT 31 Calcium Ser/Plasma Mass/Vol 9.5 Carbon Dioxide Ser/Plasm 24 Chloride Serum/Plasma 105 Alkaline Phosphatase 52 Potassium 4.4 Protein Total 7.8 Sodium 140 Ast - Sgot 18 BUN - Urea Nitrogen 30 Glucose 96 Creatinine For GFR 1.69 CBC without Differential 08/11/2020 [facility] White Blood Count 8.1 Red Blood Count 3.05 Platelets 173 Hemoglobin 11.0 Hematocrit 32.4 Laboratory test finding 08/11/2020 [facility] Thyroid Stimulating Hormone 2.105 1 VITAMIN B12 NORMAL RANGE NORMAL 247 - 911 PG/ML INDETERMINATE 211 - 246 PG/ML DEFICIENT LESS THAN 211 PG/ML Procedures Date Code Description Status 01/29/2021 05255 External ECG Rec>48HR<7D Review & Interpretation Completed 01/29/2021 18803 External ECG Rec>48HR<7D Recordi ng Completed 01/19/2021 19465 Echocardiogram 2-D Doppler Color Completed 12/29/2020 84972 TM Interpretation & Report Only Completed 12/29/2020 27059 Myocardial Imaging (PET) Multipl e Studies Completed 12/03/2020 96048 Office/Outpatient Established Lo w MDM 20-29 Min Completed 12/03/2020 06822 Arterial Pressure Wa veform Analysis For Assessment Of Central Art Completed 11/03/2020 28446 Office/Outpatient New Moderate M DM 45-59 Minutes Completed 11/03/2020 94746 Arterial Pressure Wa veform Analysis For Assessment Of Central Art Completed 11/03/2020 02202 ECG 12-Lead Completed Medical Devices Description No Information Available Encounters Type Date Location Provider Dx Diagnosis Office Visit 12/03/2020 11:00a Main Office Rivera Allen MD I25.1 0 Athscl heart disease of [place] coronary artery w/o ang pctrs I10 Essential (primary) hyperten sajan Office Visit 11/03/2020 12:00p Main Office Rivera Allen MD I25.1 0 Athscl heart disease of [place] coronary artery w/o ang pctrs I25.2 Old [...] I35.0 Nonrheumatic aortic (valve) sten osis ECHO 12/29/2020 I25.10 Atherosclerotic hear t disease of [place] coronary artery without angina pectoris Cardiac PET 12/03/2020 I25.10 Atherosclerotic hear t disease of [place] coronary artery without angina pectoris Rivera Allen MD 12/03/2020 I10 Essential (primary) hypertension Rivera Allen MD 11/03/2020 I25.10 Atherosclerotic hear t disease of [place] coronary artery without angina pectoris Rivera Allen [...] Allen MD Plan of Treatment Future Appointment(s):* 02/18/2021 12:15 pm - Rivera Allen MD at Main Office 12/03/2020 - Rivera Allen MD* I25.10 Atherosclerotic heart disease of [place] coronary artery without angina pectoris* Recommendations:* Now [...]
--- OUTSIDE RECORDS SUMMARY | 2021-03-16 15:50 | CCD ---
Author Author [facility] em[facility] Organization [facility] ems Address Unknown Phone Unavailable Care Team Providers Care Sewing Machine Operator Paper Bags Name Role Phone Jose Lincoln Unavailable PROBLEMS Type Condition ICD9-CM Code ANF55-FX Code Onset Dates Condition S tatus W/U Status Risk SNOMED Code Notes Problem Obstructive sleep apnea G47.33 Active confirmed 32189640 Problem Anxiety F41.9 Active confirmed 55093095 She is on Lexapro therapy at 20 g daily but she feels that is too strong. She will cut back to 10 mg daily. Problem Essential hypertension I10 Active confirmed 54801086 Problem Coronary artery disease of b ypass graft of [place] heart with stable angina pectoris I25.708 Active confirmed 177574163 She has coronary artery disease with a history of interventions. She is complaining of dyspnea on exertion. She does not desaturate with ambulation. She is on a beta hannah, ARB, Ranexa, aspirin and Plavix therapy. She indicates that she had a stress test within the last year or so. I've asked her scratch brusher to consider reassessment of her coronary anatomy and pulmonary pressures in the near future. Problem Lumbosacral spondylolysis M43.07 Active confirmed 271718412 Problem Sleep apnea in adult G47.30 Active confirmed 21363990 Problem Hypertensive heart and chron ic kidney disease with heart failure and stage 1 through stage 4 chronic kidney disease, or unspecified chronic kidney disease I13.0 Active confirmed 605919658 She did not do well with a [...] reflux disease with esophagitis K21.0 Active confirmed 447850211 Problem Other osteoarthritis of spine, lumbar region M47.8 96 Active confirmed 978011142 Problem Stenosis of left carotid artery I65.22 Active confirmed 697533737082724 Problem Coronary arteriosclerosis I25.10 Active confirmed 68869505 Problem DDD (degenerative disc disease), lumbosacral M51.3 7 Active confirmed 13775704 Problem 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, unspecified site M1A.30X0 Active confirmed 200837161007736 Problem Mixed hyperlipidemia E78.2 Active confirmed 761475761 Problem Fibromyalgia M79.7 Active confirmed 7533088 05 Problem Hx of malignant neoplasm of kidney Z85.528 Activ e confirmed 065591462 Problem Amaurosis fugax, 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 Active confirmed 67189763 Problem Vitamin D deficiency E55.9 Active confirmed 32096310 Problem History of non anemic vitamin B12 deficiency Z86.3 9 Active confirmed 803208861 Problem PVD (peripheral vascular disease) I73.9 Active confirmed 374919394 Problem Other chronic pain G89.29 Active confirmed 8 5130785 Problem 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 .71 Active confirmed 855773679 Problem Malignant neoplasm of urinary bladder, unspecified site C67.9 Active confirmed 766119242 Problem Dizziness R42 Active confirmed 956626278 Problem Chronic congestive heart failure, unspecified he art failure type I50.9 Active confirmed 17620328 Problem Solitary kidney, acquired Z90.5 Active confirmed 030083584 Problem Hypercholesterolemia E78.00 Active confirmed 32569421 ALLERGIES Allergen (clinical drug ingredient) Drug/Non Drug Allergy do cumented on EMR Reaction Allergy Type Onset Date Status tetracycline Tetracycline HCl(NDC Code:[address]-16) diarrhea Drug Allergy Active BuSpar Unknown Drug Allergy Active Minocins diarrhea Non Drug Allergy Active nitazoxanide Alinia(NDC Code:[address]-22) Hives Drug Allergy Active nitrostat Anaphylaxis Non Drug Allergy Active evolocumab Repatha(NDC Code:[address]-38) Rash Drug Allergy Active Statins (for Allergy Use Only) muscle soreness weakness Dr ug Allergy Active carvedilol Carvedilol(NDC Code:[address]-76) Unknown Drug Allergy Active Codeine Phosphate (For Allergies Use Only) Hives Drug Allergy Active Butabarbital Sodium Hives Drug Allergy Act aury sulfamethoxazole / trimethoprim Bactrim([facility] Code:[address]-51) Rash Drug Allergy Active Trental sick Drug Allergy Active Adhesive Tape Hives Drug Allergy Active ENCOUNTERS from 1945 to 2021-02-02 Encounter Location Date Provider [facility] [phone] [place] [address] Jan, Jose Lincoln Anxiety F41.9 IMMUNIZATIONS Vaccine [...] Education Language: Question Answer Notes Languages spoken: Bulgarian Latter-Day: Question Answer Notes Latter-[employer] 08 [employer] Sexual Hx: Question Answer Notes Had sex [...] Active traMADol HCl 50 MG 1 tab orally/[id number] three times daily as needed for pain [...] RESULTS No Results REASON FOR VISIT refills - out of meds MEDICAL (GENERAL) HISTORY Type Description Date Medical History No MRI's due to stents in legs and heart Medical History Carotid Artery Disease nonco nclusive Lexiscan cardiolite stress test, normal myocardial perfusion, preserved LV function 03/2016 Hx [place], Dr Mcdaniel Medical History peripheral vascular disease [...] multiple procedures with cardiac stents [facility] [phone] Surgical History back surgery 1974 Surgical History [...] tablet Orally Next Appt Details Provider Name:Jose Lincoln, 2021-03-16 03: 00:00 PM, [address] [facility], , [place], [place], [facility], Insurance Providers Payer Name Payer Address Payer Phone Insured Name Patient Relati onship to Insured Coverage Start Date Coverage End Date [employer] [facility] CLAIM DIV [address] [facility] [phone] KATHIE AGUILERA MEDICARE Part A and B [address] [facility] [address] KATHIE AGUILERA
--- OUTSIDE RECORDS SUMMARY | 2021-03-16 15:50 | CCD | Continuity of Care Document ---
Author Author Holter/Event/Telemetry, Eder Stock Organization Unknown Address [address], [place] [address] Phone [phone] Care Team Providers Care Truck Sales Manager Name Role Phone Kasia Garcia PA-C AUTM [phone] Venkatesh Reynoso MD AUTM [phone] Curtis Mondragon MD AUTM [phone] Beth Johnson RN ANP AUTM [phone] Hugo Landrum MD AUTM [phone] Problems Active Problems Provider Date History of [...] day Unknown 11/02/2020 Vitamin D (Ergocalciferol) 1.25mg (03266 Ut) Capsules 1 by mouth every weekly [...] Result H/L Range Note Lipid Panel 12/17/2020 [facility] nter [phone] Triglycerides Level 316 mg/dL High <150 Cholesterol Level 191 mg/dL Normal <200 HDL Cholesterol 43 mg/dL Normal >40 LDL Cholesterol 85 mg/dL Normal <100 Non-HDL-C 148 mg/dL Normal Cholesterol Risk Ratio 4.441 Normal <5 Laboratory test finding 12/17/2020 [facility] [phone] Vitamin B12 Level 689 pg/mL Normal 247-911 [...] PG/ML Procedures Date Code Description Status 01/29/2021 97654 External ECG Rec>48HR<7D Review & Interpretation Completed 01/29/2021 27407 External ECG Rec>48HR<7D Recordi ng Completed 01/19/2021 67994 Echocardiogram 2-D Doppler Color Completed 12/29/2020 35835 TM Interpretation & Report Only Completed 12/29/2020 12632 Myocardial Imaging (PET) Multipl e Studies Completed 12/03/2020 97946 Office/Outpatient Established Lo w MDM 20-29 Min Completed 12/03/2020 21944 Arterial Pressure Wa veform Analysis For Assessment Of Central Art Completed 11/03/2020 66667 Office/Outpatient New Moderate M DM 45-59 Minutes Completed 11/03/2020 06441 Arterial Pressure Wa veform Analysis For Assessment Of Central Art Completed 11/03/2020 91454 ECG 12-Lead Completed Medical Devices Description No Information Available Encounters Type Date Location Provider Dx Diagnosis Office Visit 12/03/2020 11:00a Main Office Rivera Allen MD I25.1 0 Athscl heart disease of [place] coronary artery w/o ang pctrs I10 Essential (primary) hyperten sajan Office Visit 11/03/2020 12:00p Main Office Rivera Allen MD I25.1 0 Athscl heart disease of [place] coronary artery w/o ang pctrs I25.2 Old [...] 12/29/2020 I25.10 Atherosclerotic hear t disease of [place] coronary artery without angina pectoris Cardiac PET 12/03/2020 I25.10 Atherosclerotic hear t disease of [place] coronary artery without angina pectoris Rivera Allen MD 12/03/2020 I10 Essential (primary) hypertension Rivera Allen MD 11/03/2020 I25.10 Atherosclerotic hear t disease of [place] coronary artery without angina pectoris Rivera Allen [...] Allen MD* I25.10 Atherosclerotic heart disease of [place] coronary artery without angina pectoris* Recommendations:* Now [...]
--- OUTSIDE RECORDS SUMMARY | 2021-03-16 15:50 | CCD ---
Author Author [facility] Organization [facility] ems Address Unknown Phone Unavailable Care Team Providers Care Dental Detail Representative Name Role Phone Jose Lincoln Unavailable PROBLEMS Type Condition ICD9-CM Code UZM18-CL Code Onset Dates Condition S tatus W/U Status Risk SNOMED Code Notes Problem Obstructive sleep apnea G47.33 Active confirmed 53882317 Problem Anxiety F41.9 Active confirmed 24434416 She is on Lexapro therapy at 20 g daily but she feels that is too strong. She will cut back to 10 mg daily. 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 She is complaining of dyspnea on exertion. She does not desaturate with ambulation. She is on a beta hannah, ARB, Ranexa, aspirin and Plavix therapy. She indicates that she had a stress test within the last year or so. I've asked her commercial horticulture instructor to consider reassessment of her coronary anatomy and pulmonary pressures in the near future. Problem Lumbosacral spondylolysis M43.07 Active confirmed 992283760 Problem Sleep apnea in adult G47.30 Active confirmed 17838096 Problem Hypertensive heart and chron ic kidney disease with heart failure and stage 1 through stage 4 chronic kidney disease, or unspecified chronic kidney disease I13.0 Active confirmed 408170157 She did not do well with a [...] reflux disease with esophagitis K21.0 Active confirmed 041645784 Problem Other osteoarthritis of spine, lumbar region M47.8 96 Active confirmed 732403792 Problem Stenosis of left carotid artery I65.22 Active confirmed 372439468515786 Problem Coronary arteriosclerosis I25.10 Active confirmed 87900860 Problem DDD (degenerative disc disease), lumbosacral M51.3 7 Active confirmed 16642108 Problem 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, unspecified site M1A.30X0 Active confirmed 122386626673288 Problem Mixed hyperlipidemia E78.2 Active confirmed 285475499 Problem Fibromyalgia M79.7 Active confirmed 6717146 05 Problem Hx of malignant neoplasm of kidney Z85.528 Activ e confirmed 786626613 Problem Amaurosis fugax, 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 Active confirmed 51934544 Problem Vitamin D deficiency E55.9 Active confirmed 88716969 Problem History of non anemic vitamin B12 deficiency Z86.3 9 Active confirmed 234192995 Problem PVD (peripheral vascular disease) I73.9 Active confirmed 983221746 Problem Other chronic pain G89.29 Active confirmed 8 2338528 Problem 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 .71 Active confirmed 860881672 Problem Malignant neoplasm of urinary bladder, unspecified site C67.9 Active confirmed 620692430 Problem Dizziness R42 Active confirmed 380635018 Problem Chronic congestive heart failure, unspecified he art failure type I50.9 Active confirmed 49322787 Problem Solitary kidney, acquired Z90.5 Active confirmed 016253595 Problem Hypercholesterolemia E78.00 Active confirmed 44562919 ALLERGIES Allergen (clinical drug ingredient) Drug/Non Drug Allergy do cumented on EMR Reaction Allergy Type Onset Date Status tetracycline Tetracycline HCl(NDC Code:[address]-27) diarrhea Drug Allergy Active BuSpar Unknown Drug Allergy Active Minocins diarrhea Non Drug Allergy Active nitazoxanide Alinia(NDC Code:[address]-60) Hives Drug Allergy Active nitrostat Anaphylaxis Non Drug Allergy Active evolocumab Repatha(NDC Code:[address]-17) Rash Drug Allergy Active Statins (for Allergy Use Only) muscle soreness weakness Dr ug Allergy Active carvedilol Carvedilol(NDC Code:[address]-59) Unknown Drug Allergy Active Codeine Phosphate (For Allergies Use Only) Hives Drug Allergy Active Butabarbital Sodium Hives Drug Allergy Act aury sulfamethoxazole / trimethoprim Bactrim([facility] Code:[address]-36) Rash Drug Allergy Active Trental sick Drug Allergy Active Adhesive Tape Hives Drug Allergy Active ENCOUNTERS from 1945 to 2021-01-20 Encounter Location Date Provider Diagnosis [facility] [phone] [place] [address] 31 Dec, 2020 Jose Lincoln IMMUNIZATIONS Vaccine Route Administration Date Status Influenza [...] Education Language: Question Answer Notes Languages spoken: Sami Congregation: Question Answer Notes Congregation 08 Jewish Sexual Hx: Question Answer Notes Had sex [...] Not-Taking traMADol HCl 50 MG 1 tab orally/535482493 three times daily as needed for pain mdd3 for 30 days Active Vitamin D3 125 MCG (5000 UT) 1 capsule Orally weekly Active PROCEDURES No Information RESULTS No Results REASON FOR VISIT MEDICATION RECONCILLIATION MEDICAL (GENERAL) HISTORY Type Description Date Medical History No MRI's due to stents in legs and heart Medical History Carotid Artery Disease nonco nclusive Lexiscan cardiolite stress test, normal myocardial perfusion, preserved LV function 03/2016 Hx [place], Dr Mcdaniel Medical History peripheral vascular disease [...] History multiple procedures with cardiac stents [facility] [phone] Surgical History back surgery 1973 Surgical History stent right leg 2014 Surgical History right nephrectomy [place] [facility] 2015 Surgical History lumbar 4-5m 1973 Surgical History colon resection-[place] ar[facility] 07/2017 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 [phone] KATHIE AGUILERA [facility] HEALTH CARE [facility] CLAIM DIV [address] [facility] [address] KATHIE AGUILERA
--- OUTSIDE RECORDS SUMMARY | 2021-03-16 15:50 | CCD ---
Continuity of Care Document (CCD) Created on: 02/18/2021 Cady Aguilera External Reference #: [id number] : 1945 Sex: Female Author Author Cady ALLEN MD Organization Unknown Address [address] [place] [address], [place] [address] Phone [phone] Care Team Providers Care Cardiac Cath Lab Radiology Technologist Name Role Phone Kasia Garcia PA-C AUTM [phone] Venkatesh Reynoso MD AUTM [phone] Curtis Mondragon MD AUTM [phone] Beth Johnson RN ANP AUTM [phone] Hugo Landrum MD AUTM [phone] Problems Active Problems Provider Date History of [...] day Unknown 11/02/2020 Vitamin D (Ergocalciferol) 1.25mg (31386 Ut) Capsules 1 by mouth every weekly [...] Result H/L Range Note Lipid Panel 12/17/2020 [facility] nter [phone] Triglycerides Level 316 mg/dL High <150 Cholesterol Level 191 mg/dL Normal <200 HDL Cholesterol 43 mg/dL Normal >40 LDL Cholesterol 85 mg/dL Normal <100 Non-HDL-C 148 mg/dL Normal Cholesterol Risk Ratio 4.441 Normal <5 Laboratory test finding 12/17/2020 [facility] [phone] Vitamin B12 Level 689 pg/mL Normal 247-911 1 1 VITAMIN B12 NORMAL RANGE NORMAL 247 - 911 PG/ML INDETERMINATE 211 - 246 PG/ML DEFICIENT LESS THAN 211 PG/ML Procedures Date Code Description Status 01/29/2021 40947 External ECG Rec>48HR<7D Review & Interpretation Completed 01/29/2021 86814 External ECG Rec>48HR<7D Recordi ng Completed 01/19/2021 36374 Echocardiogram 2-D Doppler Color Completed 01/08/2021 95627 Complex Chronic Care MGMT Servic e Ea Addl 30 Min Completed 01/08/2021 58332 Complex Chronic Care Management SVC 1St 60 Min Completed 12/29/2020 40963 TM Interpretation & Report Only Completed 12/29/2020 03729 Myocardial Imaging (PET) Multipl e Studies Completed 12/03/2020 39173 Office/Outpatient Established Lo w MDM 20-29 Min Completed 12/03/2020 13650 Arterial Pressure Wa veform Analysis For Assessment Of Central Art Completed 11/03/2020 09346 Office/Outpatient New Moderate M DM 45-59 Minutes Completed 11/03/2020 21135 Arterial Pressure Wa veform Analysis For Assessment Of Central Art Completed 11/03/2020 56334 ECG 12-Lead Completed Medical Devices Description No Information Available Encounters Type Date Location Provider Dx Diagnosis Office Visit 01/08/2021 8:27a Main Office Rivera Allen MD I10 Essential (primary) hypertension I25.10 Athscl heart disease of [place] coronary artery w/o ang pctrs E78.2 Mixed hyperlipidemia Office Visit 12/03/2020 11:00a Main Office Rivera Allen MD I25.1 0 Athscl heart disease of [place] coronary artery w/o ang pctrs I10 Essential (primary) hyperten sajan Office Visit 11/03/2020 12:00p Main Office Rivera Allen MD I25.1 0 Athscl heart disease of [place] coronary artery w/o ang pctrs I25.2 Old [...] 01/08/2021 I25.10 Atherosclerotic hear t disease of [place] coronary artery without angina pectoris Rivera Allen MD 01/08/2021 E78.2 Mixed hyperlipidemia Rivera ga MD 12/29/2020 I25.10 Atherosclerotic hear t disease of [place] coronary artery without angina pectoris Cardiac PET 12/03/2020 I25.10 Atherosclerotic hear t disease of [place] coronary artery without angina pectoris Rivera Allen MD 12/03/2020 I10 Essential (primary) hypertension Rivera Allen MD 11/03/2020 I25.10 Atherosclerotic hear t disease of [place] coronary artery without angina pectoris Rivera Allen [...] Allen MD* I25.10 Atherosclerotic heart disease of [place] coronary artery without angina pectoris* Recommendations:* Now [...]
--- OUTSIDE RECORDS SUMMARY | 2021-03-16 15:50 | CCD | Continuity of Care Document ---
Author Cady Da Silva Organization Unknown Address [address] [place] [address], [place] [address] Phone [phone] Care Team Providers Care Soil And Plant Scientist Name Role Phone Kasia Garcia PA-C AUTM [phone] Venkatesh Reynoso MD AUTM [phone] Curtis Mondragon MD AUTM [phone] Beth Johnson RN ANP AUTM [phone] Problems Active Problems Provider Date History of [...] Allen MD Onset: 11/03/2020 Dizziness and giddiness Rivear Allen MD Onset: 11/04/19 Social History Type Date Description Comments Sex Unknown ETOH Use Rarely consumes alcohol Tobacco Use Start: Unknown End: Unknown Patient is a former smoker started at age 9, at most 1 ppd, quit in 2009 Smoking Status Reviewed: 12/03/20 Patient is a former smoker st [facility] [...] day Unknown 11/02/2020 Vitamin D (Ergocalciferol) 1.25mg (49721 Ut) Capsules 1 by mouth every weekly [...] Lipid Panel 12/17/2020 [facility] nter [phone] Triglycerides Level 316 mg/dL High <150 Cholesterol Level 191 mg/dL Normal <200 HDL Cholesterol 43 mg/dL Normal >40 LDL Cholesterol 85 mg/dL Normal <100 Non-HDL-C 148 mg/dL Normal Cholesterol Risk Ratio 4.441 Normal <5 Laboratory test finding 12/17/2020 [facility] [phone] Vitamin B12 Level 689 pg/mL Normal 247-911 [...] 211 PG/ML Procedures Date Code Description Status 01/19/2021 05469 Echocardiogram 2-D Doppler Color Completed 12/29/2020 27923 TM Interpretation & Report Only Completed 12/29/2020 23106 Myocardial Imaging (PET) Multipl e Studies Completed 12/03/2020 39376 Office/Outpatient Established Lo w MDM 20-29 Min Completed 12/03/2020 33430 Arterial Pressure Wa veform Analysis For Assessment Of Central Art Completed 11/03/2020 58540 Office/Outpatient New Moderate M DM 45-59 Minutes Completed 11/03/2020 29782 Arterial Pressure Wa veform Analysis For Assessment Of Central Art Completed 11/03/2020 15779 ECG 12-Lead Completed Medical Devices Description No Information Available Encounters Type Date Location Provider Dx Diagnosis Office Visit 12/03/2020 11:00a Main Office Rivera Allen MD I25.1 0 Athscl heart disease of [place] coronary artery w/o ang pctrs I10 Essential (primary) hyperten sajan Office Visit 11/03/2020 12:00p Main Office Rivera Allen MD I25.1 0 Athscl heart disease of [place] coronary artery w/o ang pctrs I25.2 Old [...] surve illance Assessments Date Code Description Provider 01/19/2021 I35.0 Nonrheumatic aortic (valve) sten osis ECHO 12/29/2020 I25.10 Atherosclerotic hear t disease of [place] coronary artery without angina pectoris Cardiac PET 12/03/2020 I25.10 Atherosclerotic hear t disease of [place] coronary artery without angina pectoris Rivera Allen MD 12/03/2020 I10 Essential (primary) hypertension Rivera Allen MD 11/03/2020 I25.10 Atherosclerotic hear t disease of [place] coronary artery without angina pectoris Rivera Allen [...] Allen MD* I25.10 Atherosclerotic heart disease of [place] coronary artery without angina pectoris* Recommendations:* Now [...]
--- OUTSIDE RECORDS SUMMARY | 2021-03-16 15:51 | CCD | Continuity of Care Document ---
Author Organization Unknown Address Unknown Phone Unavailable Care Team Providers Care Local Announcer Name Role Phone Kasia Garcia PA-C AUTM [phone] Venkatesh Reynoso MD AUTM [phone] Curtis Mondragon MD AUTM [phone] Beth Johnson RN AUTM [phone] Problems Active Problems Provider Date History of [...] 12/03/20 Patient is a former smoker [facility] [employer] at age 9, at most 1 ppd, quit in 2009 Exercise Type/Frequency Does not exercise curren tly Exercise Limitations Back Pain Exercise Limitations Joint Pain bilateral a ayana and legs Exercise Limitations Claudication Allergies, Adverse Reactions, Alerts Active Allergies Reaction Severity Comments Date Amoxicillin 11/03/2020 Atorvastatin 11/03/2020 Tetracycline 11/03/2020 Buspirone 11/03/2020 Adhesives 11/03/2020 Alinia 11/03/2020 Carvedilol Nausea 12/03/2020 Repatha Muscle Cramps 12/03/2020 Medications Active Medications SIG Qnty Indications Ordering Provide r Date Amlodipine Besylate 2.5mg Tablets 1 by mouth twice a day (hold dose for systolic BP <135) 180tabs Rivera Allen MD 12/03/2020 Metoprolol Tartrate 25mg Tablets Half tablet by [...] day Unknown 11/02/2020 Vitamin D (Ergocalciferol) 1.25mg (84543 Ut) Capsules 1 by mouth every weekly Unknown 10/20 Vitamin Deficiency Injectable System-B12 1000mcg/ML Kit inject 1 kit once monthly Unknown Ranexa 500mg Tablets ER 12HR 2 by mouth twice a day Unknown 11/02/2020 Meclizine HCL 25mg Chewtabs 1 by mouth four times daily as needed Unknown 11/02 Metoclopramide HCL 10mg Tablets 1 by mouth four times daily Unknown 11/02/2020 Pantoprazole Sodium 40mg Tablets D R 2 [...] doses as needed chest discomfort Unknown 11/02/2020 Febuxostat 40mg Tablets 1 by mouth every daily Unknown 11/02/2020 Escitalopram Oxalate 10mg Tablets 1 by mouth every day Unknown 11/02/2020 Valsartan 80mg Tablets 2 by mouth daily at bedtime Unknown 11/02/2020 Albuterol Sulfate HFA 108(90Base) mcg/Act Aerosol inhale two puffs as needed every 4 hours Unknown 11/02/2020 History Medications Repatha Pushtronex System 420mg/3.5ML Solution Cartridge 420 mg (3.5 ml) sq qmo 10.5ml E78.2 Rivera Allen MD 11/03/2020 - 12/02/2020 Carvedilol 3.125mg Tablets 1 by mouth twice a day 60tabs I10 Rivera Allen MD 11/03/2020 - 12/02/2020 I25.2 R07.9 Amlodipine Besylate 2.5mg Tablets 1 by mouth every day as needed for elevated BP Unknow n 11/02/2020 - 12/03/2020 Metoprolol Tartrate 25mg Tablets 1 by mouth [...] Result H/L Range Note Lipid Panel 12/17/2020 [facility] nter [phone] Triglycerides Level 316 mg/dL High <150 Cholesterol Level 191 mg/dL Normal <200 HDL Cholesterol 43 mg/dL Normal >40 LDL Cholesterol 85 mg/dL Normal <100 Non-HDL-C 148 mg/dL Normal Cholesterol Risk Ratio 4.441 Normal <5 Laboratory test finding 12/17/2020 [facility] [phone] Vitamin B12 Level 689 pg/mL Normal 247-911 [...] 211 PG/ML Procedures Date Code Description Status 12/03/2020 25700 Office/Outpatient Established Lo w MDM 20-29 Min Completed 12/03/2020 06884 Arterial Pressure Wa veform Analysis For Assessment Of Central Art Completed 11/03/2020 84350 Office/Outpatient New Moderate M DM 45-59 Minutes Completed 11/03/2020 03499 Arterial Pressure Wa veform Analysis For Assessment Of Central Art Completed 11/03/2020 41435 ECG 12-Lead Completed Medical Devices Description No Information Available Encounters Type Date Location Provider Dx Diagnosis Office Visit 12/03/2020 11:00a Main Office Rivera Allen MD I25.1 0 Athscl heart disease of [place] coronary artery w/o ang pctrs I10 Essential (primary) hyperten sajan Office Visit 11/03/2020 12:00p Main Office Rivera Allen MD I25.1 0 Athscl heart disease of [place] coronary artery w/o ang pctrs I25.2 Old [...] surve illance Assessments Date Code Description Provider 12/03/2020 I25.10 Atherosclerotic hear t disease of [place] coronary artery without angina pectoris Rivera Allen MD 12/03/2020 I10 Essential (primary) hypertension Rivera Allen MD 11/03/2020 I25.10 Atherosclerotic hear t disease of [place] coronary artery without angina pectoris Rivera Allen [...] - Rivera Allen MD at Main Office * 12/29/2020 12:30 pm - Cardiac PET at Main Office * 01/19/2021 1:00 pm - ECHO at Main Office 12/03/2020 - Rivera Allen MD* I25.10 Atherosclerotic heart disease of [place] coronary artery without angina pectoris* New Xrays:* PET Myocardial Perfusion Multi Study AT [facility], Scheduled: 12/29/20 * Recommendations:* Now that my office has access to cardiac PET myocardial perfusion imaging which is a superior diagnostic modality in comparison to stress SPECT myocardial perfusion imaging, I have canceled the stress SPECT [...]
--- OUTSIDE RECORDS SUMMARY | 2021-03-16 15:51 | CCD ---
Author Author [facility] Organization [facility] Address Unknown Phone Unavailable Care Team Providers Care Commercial Mortgage Broker Name Role Phone Jose Lincoln Unavailable PROBLEMS Type Condition ICD9-CM Code TAS79-KL Code Onset Dates Condition S tatus W/U Status Risk SNOMED Code Notes Problem Obstructive sleep apnea G47.33 Active confirmed 39602779 Problem Anxiety F41.9 Active confirmed 98449870 She is on Lexapro therapy at 20 g daily but she feels that is too strong. She will cut back to 10 mg daily. 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 She is complaining of dyspnea on exertion. She does not desaturate with ambulation. She is on a beta hannah, ARB, Ranexa, aspirin and Plavix therapy. She indicates that she had a stress test within the last year or so. 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 Problem Lumbosacral spondylolysis M43.07 Active confirmed 154152125 Problem Sleep apnea in adult G47.30 Active confirmed 92213588 Problem Hypertensive heart and chron ic kidney disease with heart failure and stage 1 through stage 4 chronic kidney disease, or unspecified chronic kidney disease I13.0 Active confirmed 405491356 She did not do well with a [...] reflux disease with esophagitis K21.0 Active confirmed 362384863 Problem Other osteoarthritis of spine, lumbar region M47.8 96 Active confirmed 365118327 Problem Stenosis of left carotid artery I65.22 Active confirmed 243950394845963 Problem Coronary arteriosclerosis I25.10 Active confirmed 20139469 Problem DDD (degenerative disc disease), lumbosacral M51.3 7 Active confirmed 92912351 Problem 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, unspecified site M1A.30X0 Active confirmed 585898889258565 Problem Mixed hyperlipidemia E78.2 Active confirmed 555167857 Problem Fibromyalgia M79.7 Active confirmed 9454715 05 Problem Hx of malignant neoplasm of kidney Z85.528 Activ e confirmed 252341500 Problem Amaurosis fugax, 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 Active confirmed 51131960 Problem Vitamin D deficiency E55.9 Active confirmed 17061065 Problem History of non anemic vitamin B12 deficiency Z86.3 9 Active confirmed 338191324 Problem PVD (peripheral vascular disease) I73.9 Active confirmed 354087801 Problem Other chronic pain G89.29 Active confirmed 8 6416575 Problem 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 .71 Active confirmed 254722463 Problem Malignant neoplasm of urinary bladder, unspecified site C67.9 Active confirmed 738913457 Problem Dizziness R42 Active confirmed 503759989 Problem Chronic congestive heart failure, unspecified he art failure type I50.9 Active confirmed 11587596 Problem Solitary kidney, acquired Z90.5 Active confirmed 511753046 Problem Hypercholesterolemia E78.00 Active confirmed 66470015 ALLERGIES Allergen (clinical drug ingredient) Drug/Non Drug Allergy do cumented on EMR Reaction Allergy Type Onset Date Status Trental sick Drug Allergy Active Minocins diarrhea Non Drug Allergy Active sulfamethoxazole / trimethoprim Bactrim(NDC Code:[address]-37) Rash Drug Allergy Active tetracycline Tetracycline HCl(NDC Code:[address]-24) diarrhea Drug Allergy Active nitrostat Anaphylaxis Non Drug Allergy Active Statins (for Allergy Use Only) muscle soreness weakness Dr ug Allergy Active BuSpar Unknown Drug Allergy Active Adhesive Tape Hives Drug Allergy Active Codeine Phosphate (For Allergies Use Only) Hives Drug Allergy Active Butabarbital Sodium Hives Drug Allergy Act aury ENCOUNTERS from 1945 to 2021-01-13 Encounter Location Date Provider Diagnosis [facility] Resident [address] [phone] [place] [address] Nov, Jose Lincoln Hypercholesterolemia E78.00 ; Chest pain, unspecified R07.9 ; History of non anemic vitamin B12 deficiency Z86.39 ; Other chronic pain G89.29 and Other specified personal risk factors, not elsewhere classified Z91.89 IMMUNIZATIONS Vaccine Route Administration Date Status Influenza [...] Education Language: Question Answer Notes Languages spoken: Ivorian Evangelical: Question Answer Notes Evangelical 08 Hinduism Sexual Hx: Question Answer Notes Had sex [...] REASON FOR REFERRAL No Information VITAL SIGNS Weight 158.00 lbs Nov, Height 61 in Nov, BMI 29.85 kg/m2 Nov, Heart Rate 88 /min Nov, Respiratory Rate 18 /min Nov, Temperature 96.9 degrees Fahrenheit Nov, Oximetry 98 Nov, Blood pressure systolic 138 mm Hg Nov, Blood pressure diastolic 82 mm Hg Nov, MEDICATIONS Medication SIG (Take, Route, Frequency, Duration) Notes Start Da te End Date Status May Have - please provide new tubing fo r 2 concentrator. DX code:G47.33 to use daily for 99 months Jan, Active Nitroglycerin 0.4 MG/HR 1 patch to skin Transdermal Daily for 90 day(s) Feb, Active Ranitidine 150 Max Strength 150 MG 1 tablet Orally twice daily Active Vitamin D3 88943 UNIT 1 capsule Orally weekly Active Promethazine HCl 25 mg 1 tablet Orally before bedtime as needed Active Ranexa 1000 MG 1 tablet Orally Twice a day for 90 day(s) Active Allopurinol 300 MG 1 tablet Orally Once a day Active Metoprolol Tartrate 25 mg 1 tab Orally twice daily for 90 day(s) Active Meclizine HCl 25 mg 1 tablet Orally every 8 hour s as needed for dizziness for 30 day(s) Apr, Active Nitroglycerin 0.4 MG 1 tab Sublingual atonset of chest pain q 5 min x 3 if no relief call 911 Active Vitamin B12 500 MCG 1 tablet Orally Once a day Active Lexapro 20 MG 1 tab Orally Once a day Active Probiotic - 1 capsule Orally Daily A ctive Benadryl 25 MG 1 capsule Orally every 12 hours as needed Active traMADol HCl 50 MG 1 tab orally/[id number] three times daily as needed for pain mdd3 for 30 days Active Aspirin 325 MG 1 tablet Orally Once a day Active Amlodipine Besylate 2.5 MG TAKE 1TAB.BY MOUTH TWICE A DAY HOLD DOSE FOR SYSTOLIC BLOOD PRESSURE 135 Oral for 90 Active Losartan Potassium-HCTZ 50-12.5 MG 1 tablet Orally Once a day for 90 days Active Plavix 75 mg 1 tablet Orally Once a day Active PROCEDURES No Information RESULTS Component Value Reference Range LIPID PANEL (CARDIAC RISK) Reviewed date:12/17/2020 19:12:16 Interpretation: Performing Lab:[facility] LABORATORY [address] [address] , ,[place] [address] TRIGLYCERIDES LEVEL 316 <150 CHOLESTEROL LEVEL 191 <200 HDL CHOLESTEROL 43 >40 LDL CHOLESTEROL 85 <100 NON-HDL-C 148 CHOLESTEROL RISK RATIO 4.441 <5 VITAMIN B12 LEVEL Reviewed date:12/17/2020 19:12:34 Interpretation: Performing Lab:[facility] LABORATORY [address] [address] , ,[place] [address] VITAMIN B12 LEVEL [phone] REASON FOR VISIT transfer of care from [facility] MEDICAL (GENERAL) HISTORY Type Description Date Medical History No MRI's due to stents in legs and heart Medical History Carotid Artery Disease nonco nclusive Lexiscan cardiolite stress test, normal myocardial perfusion, preserved LV function 03/2016 Hx [place], Dr Mcdaniel Medical History peripheral vascular disease [...] History multiple procedures with cardiac stents st [id number] Surgical History back surgery 1973 Surgical History [...] Notes Treatment Notes Treatm ent Clinical Notes Nov, Hypercholesterolemia (ICD-10 - E78.00) The patient states that she has not used statin because of her risk of muscle pain that is very common in her family. Patient is about 72 years of age and ASCVD risk cannot be calculated however I believe the patient should be on a statin. She was asked to start a low-dose statin slowly with 1 dose per week and then slowly building up on it along with that patient was also told that a separate medication called his coenzyme Q can be given which helps decrease the risk of myopathy. Patient understands the risks but does not want to be on a statin. She declined. Patient's most recent labs were old so I have sent in a new set of labs to check lipids. Nov, Chest pain, unspecified (ICD-10 - R07.9) Patient states this 3 out of 10 sharp pain worsened with eating has been checked out by cardiology. She saw Dr. Allen who has scheduled her for a stress test and echo in the coming 2 weeks. Patient has no ongoing symptoms here in the office with no palpitations/shortness of breath/cough/PND/orthopnea/bilateral pitting edema. Patient was asked to report to the ED in case the symptoms recur or worsen with associated symptoms of shortness of breath palpitations dizziness. Since the patient is high risk she was asked to not wait. Patient verbalized understanding however she wants to follow it up with Dr. Wiggins in the office and states she is already scheduled for testing. We will follow up on her cardiology visit. Nov, History of non anemic vitamin B12 deficiency (IC D-10 - Z86.39) Patient has been receiving IV injections of vitamin B12 in the office. To assess the levels of vitamin B12 I sent in labs today to check her levels. Patient also takes vitamin B12 orally at home. Based on those results I will make the decision of whether she needs injections for vitamin B12 the next visit. Patient denies any new neurological symptoms numbness or tingling Nov, Other chronic pain (ICD-10 - G89.29) Nov, Other specified personal ris k factors, not elsewhere classified (ICD-10 - Z91.89) PLAN OF TREATMENT Treatment Notes Assessment Notes Clinical Notes Hypercholesterolemia The patient states that she has not used statin because of her risk of muscle pain that is very common in her family. Patient is about 72 years of age and ASCVD risk cannot be calculated however I believe the patient should be on a statin. She was asked to start a low-dose statin slowly with 1 dose per week and then slowly building up on it along with that patient was also told that a separate medication called his coenzyme Q can be given which helps decrease the risk of myopathy.Patient understands the risks but does not want to be on a statin. She declined.Patient's most recent labs were old so I have sent in a new set of labs to check lipids. Chest pain, unspecified Patient states t his 3 out of 10 sharp pain worsened with eating has been checked out by cardiology. She saw Dr. Allen who has scheduled her for a stress test and echo in the coming 2 weeks. Patient has no ongoing symptoms here in the office with no palpitations/shortness of breath/cough/PND/orthopnea/bilateral pitting edema.Patient was asked to report to the ED in case the symptoms recur or worsen with associated symptoms of shortness of breath palpitations dizziness. Since the patient is high risk she was asked to not wait. Patient verbalized understanding however she wants to follow it up with Dr. Wiggins in the office and states she is already scheduled for testing.We will follow up on her cardiology visit. History of non anemic vitamin B12 deficiency Patient has been receiving IV injections of vitamin B12 in the office.To assess the levels of vitamin B12 I sent in labs today to check her levels. Patient also takes vitamin B12 orally at home.Based on those results I will make the decision of whether she needs injections for vitamin B12 the next visit.Patient denies any new neurological symptoms numbness or tingling Next Appt Details 3 Months Reason:Annual physical Follow Up:3 MonthsAnnual physical Insurance Providers Payer Name Payer Address Payer Phone Insured Name Patient Relati onship to Insured Coverage Start Date Coverage End Date MEDICARE Part A and B [address] [facility] [phone] [phone] KATHIE AGUILERA [facility] [employer] [facility] CLAIM DIV [address] [facility] [phone] KATHIE AGUILERA
--- OUTSIDE RECORDS SUMMARY | 2021-03-16 15:51 | CCD | Continuity of Care Document ---
Author Author Dash MUNGUIA Cady M Organization Unknown Address [address] [place] [address], [place] [address] Phone [phone] Care Team Providers Care Slider Assembler Name Role Phone Kasia Garcia PA-C AUTM [phone] Venkatesh Reynoso MD AUTM [phone] Curtis Mondragon MD AUTM [phone] Beth Johnson RN ANP AUTM [phone] Problems Active Problems Provider Date History of [...] day Unknown 11/02/2020 Vitamin D (Ergocalciferol) 1.25mg (33751 Ut) Capsules 1 by mouth every weekly [...] Result H/L Range Note Lipid Panel 12/17/2020 [facility] nter [phone] Triglycerides Level 316 mg/dL High <150 Cholesterol Level 191 mg/dL Normal <200 HDL Cholesterol 43 mg/dL Normal >40 LDL Cholesterol 85 mg/dL Normal <100 Non-HDL-C 148 mg/dL Normal Cholesterol Risk Ratio 4.441 Normal <5 Laboratory test finding 12/17/2020 [facility] [phone] Vitamin B12 Level 689 pg/mL Normal 247-911 [...] 211 PG/ML Procedures Date Code Description Status 12/29/2020 49614 TM Interpretation & Report Only Completed 12/29/2020 36747 Myocardial Imaging (PET) Multipl e Studies Completed 12/03/2020 75385 Office/Outpatient Established Lo w MDM 20-29 Min Completed 12/03/2020 68135 Arterial Pressure Wa veform Analysis For Assessment Of Central Art Completed 11/03/2020 93184 Office/Outpatient New Moderate M DM 45-59 Minutes Completed 11/03/2020 52079 Arterial Pressure Wa veform Analysis For Assessment Of Central Art Completed 11/03/2020 01201 ECG 12-Lead Completed Medical Devices Description No Information Available Encounters Type Date Location Provider Dx Diagnosis Office Visit 12/03/2020 11:00a Main Office Rivera Allen MD I25.1 0 Athscl heart disease of [place] coronary artery w/o ang pctrs I10 Essential (primary) hyperten sajan Office Visit 11/03/2020 12:00p Main Office Rivera Allen MD I25.1 0 Athscl heart disease of [place] coronary artery w/o ang pctrs I25.2 Old [...] surve illance Assessments Date Code Description Provider 12/29/2020 I25.10 Atherosclerotic hear t disease of [place] coronary artery without angina pectoris Cardiac PET 12/03/2020 I25.10 Atherosclerotic hear t disease of [place] coronary artery without angina pectoris Rivera Allen MD 12/03/2020 I10 Essential (primary) hypertension Rivera Allen MD 11/03/2020 I25.10 Atherosclerotic hear t disease of [place] coronary artery without angina pectoris Rivera Allen [...] Rivera Allen MD at Main Office * 01/19/2021 1:00 pm - ECHO at Main Office 12/03/2020 - Rivera Allen MD* I25.10 Atherosclerotic heart disease of [place] coronary artery without angina pectoris* Recommendations:* Now [...]
--- OUTSIDE RECORDS SUMMARY | 2021-03-16 15:51 | CCD | Continuity of Care Document ---
Author Cady Da Silva Organization Unknown Address [id number] [place] [address], [place] [address] Phone [phone] Care Team Providers Care Feed Mixer Helper Name Role Phone Kasia Garcia PA-C AUTM [phone] Venkatesh Reynoso MD AUTM [phone] Curtis Mondragon MD AUTM [phone] Beth Johnson RN ANP AUTM [phone] Problems Active Problems Provider Date History of [...] day Unknown 11/02/2020 Vitamin D (Ergocalciferol) 1.25mg (35172 Ut) Capsules 1 by mouth every weekly [...] Result H/L Range Note Lipid Panel 12/17/2020 [facility] nter [phone] Triglycerides Level 316 mg/dL High <150 Cholesterol Level 191 mg/dL Normal <200 HDL Cholesterol 43 mg/dL Normal >40 LDL Cholesterol 85 mg/dL Normal <100 Non-HDL-C 148 mg/dL Normal Cholesterol Risk Ratio 4.441 Normal <5 Laboratory test finding 12/17/2020 [facility] [phone] Vitamin B12 Level 689 pg/mL Normal 247-911 [...] PG/ML Procedures Date Code Description Status 01/19/2021 02153 Echocardiogram 2-D Doppler Color Completed 12/29/2020 93946 TM Interpretation & Report Only Completed 12/29/2020 30094 Myocardial Imaging (PET) Multipl e Studies Completed 12/03/2020 55818 Office/Outpatient Established Lo w MDM 20-29 Min Completed 12/03/2020 14383 Arterial Pressure Wa veform Analysis For Assessment Of Central Art Completed 11/03/2020 45788 Office/Outpatient New Moderate M DM 45-59 Minutes Completed 11/03/2020 25641 Arterial Pressure Wa veform Analysis For Assessment Of Central Art Completed 11/03/2020 59070 ECG 12-Lead Completed Medical Devices Description No Information Available Encounters Type Date Location Provider Dx Diagnosis Office Visit 12/03/2020 11:00a Main Office Rivera Allen MD I25.1 0 Athscl heart disease of [place] coronary artery w/o ang pctrs I10 Essential (primary) hyperten sajan Office Visit 11/03/2020 12:00p Main Office Rivera Allen MD I25.1 0 Athscl heart disease of [place] coronary artery w/o ang pctrs I25.2 Old [...] 12/29/2020 I25.10 Atherosclerotic hear t disease of [place] coronary artery without angina pectoris Cardiac PET 12/03/2020 I25.10 Atherosclerotic hear t disease of [place] coronary artery without angina pectoris Rivera Allen MD 12/03/2020 I10 Essential (primary) hypertension Rivera Allen MD 11/03/2020 I25.10 Atherosclerotic hear t disease of [place] coronary artery without angina pectoris Rivera Allen [...] block Rivera aguilar MD 11/03/2020 R00.2 Palpitations Rviera Allen MD 11/03/2020 R42 Dizziness and giddiness Rivera Allen MD 11/03/2020 E78.2 Mixed hyperlipidemia Rivera ga MD 11/03/2020 E66.3 Overweight Rivera Allen MD 11/03/2020 Z71.3 Dietary counseling and surveilla nce Rivera Allen MD Plan of Treatment Future Appointment(s):* 02/18/2021 12:15 pm - Rivera Allen MD at Main Office 12/03/2020 - Rivera Allen MD* I25.10 Atherosclerotic heart disease of [place] coronary artery without angina pectoris* Recommendations:* Now [...]
--- OUTSIDE RECORDS SUMMARY | 2021-03-16 15:51 | CCD | Continuity of Care Document ---
Author Author Dash MUNGUIA Cady M Organization Unknown Address [address] [place] [address], [place] [address] Phone [phone] Care Team Providers Care Market Research Coordinator Name Role Phone Kasia Garcia PA-C AUTM [phone] Venkatesh Reynoso MD AUTM [phone] Curtis Mondragon MD AUTM [phone] Beth Johnson RN ANP AUTM [phone] Problems Active Problems Provider Date History of [...] day Unknown 11/02/2020 Vitamin D (Ergocalciferol) 1.25mg (05711 Ut) Capsules 1 by mouth every weekly [...] Result H/L Range Note Lipid Panel 12/17/2020 [facility] nter [phone] Triglycerides Level 316 mg/dL High <150 Cholesterol Level 191 mg/dL Normal <200 HDL Cholesterol 43 mg/dL Normal >40 LDL Cholesterol 85 mg/dL Normal <100 Non-HDL-C 148 mg/dL Normal Cholesterol Risk Ratio 4.441 Normal <5 Laboratory test finding 12/17/2020 [facility] [phone] Vitamin B12 Level 689 pg/mL Normal 247-911 [...] PG/ML Procedures Date Code Description Status 12/03/2020 73330 Office/Outpatient Established Lo w MDM 20-29 Min Completed 12/03/2020 95968 Arterial Pressure Wa veform Analysis For Assessment Of Central Art Completed 11/03/2020 78293 Office/Outpatient New Moderate M DM 45-59 Minutes Completed 11/03/2020 82831 Arterial Pressure Wa veform Analysis For Assessment Of Central Art Completed 11/03/2020 82986 ECG 12-Lead Completed Medical Devices Description No Information Available Encounters Type Date Location Provider Dx Diagnosis Office Visit 12/03/2020 11:00a Main Office Rivera Allen MD I25.1 0 Athscl heart disease of [place] coronary artery w/o ang pctrs I10 Essential (primary) hyperten sajan Office Visit 11/03/2020 12:00p Main Office Rivera Allen MD I25.1 0 Athscl heart disease of [place] coronary artery w/o ang pctrs I25.2 Old [...] 12/03/2020 I25.10 Atherosclerotic hear t disease of [place] coronary artery without angina pectoris Rivera Allen MD 12/03/2020 I10 Essential (primary) hypertension Rivera Allen MD 11/03/2020 I25.10 Atherosclerotic hear t disease of [place] coronary artery without angina pectoris Rivera Allen [...] Allen MD* I25.10 Atherosclerotic heart disease of [place] coronary artery without angina pectoris* New Xrays:* [...]
--- OUTSIDE RECORDS SUMMARY | 2021-03-16 15:52 | CCD ---
Author Author [facility] Organization [facility] Address Unknown Phone Unavailable Care Team Providers Care Palliative Senior Np Name Role Phone Zofia Johnson EXECUTIVE CHEF Unavailable Unavailable Elizabeth, L Beth EXECUTIVE CHEF Unavailable Unavailable Elizabeth, L Beth EXECUTIVE CHEF Unavailable Unavailable Elizabeth, L Beth EXECUTIVE CHEF Unavailable Unavailable Elizabeth, L Beth EXECUTIVE CHEF Unavailable Unavailable Elizabeth, L Beth EXECUTIVE CHEF Unavailable Unavailable Elizabeth, L Beth EXECUTIVE CHEF Unavailable Unavailable Elizabeth, L Beth EXECUTIVE CHEF Unavailable Unavailable Elizabeth, L Beth EXECUTIVE CHEF Unavailable Unavailable Elizabeth, L Beth EXECUTIVE CHEF Unavailable Unavailable Elizabeth, L Beth EXECUTIVE CHEF Unavailable Unavailable Elizabeth, L Beth EXECUTIVE CHEF Unavailable Unavailable Elizabeth, L Beth EXECUTIVE CHEF Unavailable Unavailable Elizabeth, L Beth EXECUTIVE CHEF Unavailable Unavailable Elizabeth, L Beth EXECUTIVE CHEF Unavailable Unavailable Elizabeth, L Beth EXECUTIVE CHEF Unavailable Unavailable Elizabeth, L Beth EXECUTIVE CHEF Unavailable Unavailable Elizabeth, L Beth EXECUTIVE CHEF Unavailable Unavailable Elizabeth, L Beth EXECUTIVE CHEF Unavailable Unavailable Elizabeth, L Beth EXECUTIVE CHEF Unavailable Unavailable Elizabeth, L Beth EXECUTIVE CHEF Unavailable Unavailable Elizabeth, L Beth EXECUTIVE CHEF Unavailable Unavailable Elizabeth, L Beth EXECUTIVE CHEF Unavailable Unavailable Elizabeth, L Beth EXECUTIVE CHEF Unavailable Unavailable Elizabeth, L Beth EXECUTIVE CHEF Unavailable Unavailable [place], L Zuleima RETORT ENGINEER Unavailable Unavailable Martin, L Zuleima RETORT ENGINEER Unavailable Unavailable Martin, L Zuleima RETORT ENGINEER Unavailable Unavailable Martin, L Zuleima RETORT ENGINEER Unavailable Unavailable Martin, L Zuleima RETORT ENGINEER Unavailable Unavailable [place], L Zuleima RETORT ENGINEER Unavailable Unavailable [place], L Zuleima RETORT ENGINEER Unavailable Unavailable [place], L Zuleima RETORT ENGINEER Unavailable Unavailable [place], L Zuleima RETORT ENGINEER Unavailable Unavailable [place], L Zuleima RETORT ENGINEER Unavailable Unavailable [place], L Zuleima RETORT ENGINEER Unavailable Unavailable [place], L Zuleima RETORT ENGINEER Unavailable Unavailable Martin, L Zuleima RETORT ENGINEER Unavailable Unavailable Martin, L Zuleima RETORT ENGINEER Unavailable Unavailable Martin, L Zuleima RETORT ENGINEER Unavailable Unavailable [place], L Zuleima RETORT ENGINEER Unavailable Unavailable [place], L Zuleima RETORT ENGINEER Unavailable Unavailable Martin, L Zuleima RETORT ENGINEER Unavailable Unavailable Martin, L Zuleima RETORT ENGINEER Unavailable Unavailable [place], L Zuleima RETORT ENGINEER Unavailable Unavailable [place], L Zuleima RETORT ENGINEER Unavailable Unavailable [place], L Zuleima RETORT ENGINEER Unavailable Unavailable Martin, L Zuleima RETORT ENGINEER Unavailable Unavailable [place], L Zuleima RETORT ENGINEER Unavailable Unavailable [place], L Zuleima RETORT ENGINEER Unavailable Unavailable Martin, L Zuleima RETORT ENGINEER Unavailable Unavailable Martin, L Zuleima RETORT ENGINEER Unavailable Unavailable [place], L Zuleima RETORT ENGINEER Unavailable Unavailable Martin, L Zuleima RETORT ENGINEER Unavailable Unavailable Martin, L Zuleima RETORT ENGINEER Unavailable Unavailable [place], L Zuleima RETORT ENGINEER Unavailable Unavailable [place], L Zuleima RETORT ENGINEER Unavailable Unavailable Martin, L Zuleima RETORT ENGINEER Unavailable Unavailable Martin, L Zuleima RETORT ENGINEER Unavailable Unavailable [place], L Zuleima RETORT ENGINEER Unavailable Unavailable [place], L Zuleima RETORT ENGINEER Unavailable Unavailable Martin, L Zuleima RETORT ENGINEER Unavailable Unavailable Martin, L Zuleima RETORT ENGINEER Unavailable Unavailable Martin, L Zuleima RETORT ENGINEER Unavailable Unavailable DEL CASTILLO SR, EVETTE ORTEGA MD Unavailable Unavailable DEL CASTILLO SR, EVETTE ORTEGA MD Unavailable Unavailable DEL CASTILLO SR, EVETTE ORTEGA MD Unavailable Unavailable DEL CASTILLO SR, EVETTE ORTEGA MD Unavailable Unavailable DEL CASTILLO SR, EVETTE ORTEGA MD Unavailable Unavailable DEL CASTILLO SR, EVETTE ORTEGA MD Unavailable Unavailable DEL CASTILLO SR, EVETTE ORTEGA MD Unavailable Unavailable DEL CASTILLO SR, EVETTE ORTEGA MD Unavailable Unavailable DEL CASTILLO SR, EVETTE ORTEGA MD Unavailable Unavailable DEL CASTILLO SR, EVETTE ORTEGA MD Unavailable Unavailable DEL CASTILLO SR, EVETTE ORTEGA MD Unavailable Unavailable DEL CASTILLO SR, EVETTE ORTEGA MD Unavailable Unavailable DEL CASTILLO SR, EVETTE ORTEGA MD Unavailable Unavailable DEL CASTILLO SR, EVETTE ORTEGA MD Unavailable Unavailable DEL CASTILLO SR, EVETTE ORTEGA MD Unavailable Unavailable DEL CASTILLO SR, EVETTE ORTEGA MD Unavailable Unavailable DEL CASTILLO SR, EVETTE ORTEGA MD Unavailable Unavailable DEL CASTILLO SR, EVETTE ORTEGA MD Unavailable Unavailable DEL CASTILLO SR, EVETTE ORTEGA MD Unavailable Unavailable DEL CASTILLO SR, EVETTE ORTEGA MD Unavailable Unavailable DEL CASTILLO SR, EVETTE ORTEGA MD Unavailable Unavailable DEL CASTILLO SR, EVETTE ORTEGA MD Unavailable Unavailable DEL CASTILLO SR, EVETTE ROTEGA MD Unavailable Unavailable DEL CASTILLO SR, EVETTE ORTEGA MD Unavailable Unavailable DEL CASTILLO SR, EVETTE ORTEGA MD Unavailable Unavailable DEL CASTILLO SR, EVETTE ORTEGA MD Unavailable Unavailable DEL CASTILLO SR, EVETTE ORTEGA MD Unavailable Unavailable DEL CASTILLO SR, EVETTE ORTEGA MD Unavailable Unavailable DEL CASTILLO SR, EVETTE ORTEGA MD Unavailable Unavailable DEL CASTILLO SR, EVETTE ORTEGA MD Unavailable Unavailable DEL CASTILLO SR, EVETTE ORTEGA MD Unavailable Unavailable DEL CASTILLO SR, EVETTE ORTEGA MD Unavailable Unavailable DEL CASTILLO SR, EVETTE ORTEGA MD Unavailable Unavailable DEL CASTILLO SR, EVETTE ORTEGA MD Unavailable Unavailable DEL CASTILLO SR, EVETTE ORTEGA MD Unavailable Unavailable DEL CASTILLO SR, EVETTE ORTEGA MD Unavailable Unavailable DEL CASTILLO SR, EVETTE ORTEGA MD Unavailable Unavailable DEL CASTILLO SR, EVETTE ORTEGA MD Unavailable Unavailable DEL CASTILLO SR, EVETTE ORTEGA MD Unavailable Unavailable DEL CASTILLO SR, EVETTE ORTEGA MD Unavailable Unavailable DEL CASTILLO SR, EVETTE ORTEGA MD Unavailable Unavailable DEL CASTILLO SR, EVETTE ORTEGA MD Unavailable Unavailable DEL CASTILLO SR, EVETTE ORTEGA MD Unavailable Unavailable DEL CASTILLO SR, EVETTE ORTEGA MD Unavailable Unavailable DEL CASTILLO SR, EVETTE ORTEGA MD Unavailable Unavailable DEL CASTILLO SR, EVETTE ORTEGA MD Unavailable Unavailable DEL CASTILLO SR, EVETTE ORTEGA MD Unavailable Unavailable DEL CASTILLO SR, EVETTE ORTEGA MD Unavailable Unavailable DEL CASTILLO SR, EVETTE ORTEGA MD Unavailable Unavailable DEL CASTILLO SR, EVETTE ORTEGA MD Unavailable Unavailable DEL CASTILLO SR, EVETTE ORTEGA MD Unavailable Unavailable DEL CASTILLO SR, EVETTE ORTEGA MD Unavailable Unavailable DEL CASTILLO SR, EVETTE ORTEGA MD Unavailable Unavailable DEL CASTILLO SR, EVETTE ORTEGA MD Unavailable Unavailable DEL CASTILLO SR, EVETTE ORTEGA MD Unavailable Unavailable DEL CASTILLO SR, EVETTE ORTEGA MD Unavailable Unavailable Ananth Raymond DO Unavailable Unavailable Jose, M Willie PA-C Unavailable Unavailable Jose, M Willie PA-C Unavailable Unavailable Jose, M Willie PA-C Unavailable Unavailable Jose, M Willie PA-C Unavailable Unavailable Jose, M Willie PA-C Unavailable Unavailable Jose, M Willie PA-C Unavailable Unavailable Jose, M Willie PA-C Unavailable Unavailable Jose, M Willie PA-C Unavailable Unavailable Jose, M Willie PA-C Unavailable Unavailable Jose, M Willie PA-C Unavailable Unavailable Jose, M Willie PA-C Unavailable Unavailable Jose, M Willie PA-C Unavailable Unavailable Jose, M Willie PA-C Unavailable Unavailable Jose, M Willie PA-C Unavailable Unavailable Jose, M Willie PA-C Unavailable Unavailable Jose, M Willie PA-C Unavailable Unavailable Jose, M Willie PA-C Unavailable Unavailable Jose, M Willie PA-C Unavailable Unavailable Jose, M Willie PA-C Unavailable Unavailable Jose, M Willie PA-C Unavailable Unavailable Jose, M Willie PA-C Unavailable Unavailable Jose, M Willie PA-C Unavailable Unavailable Jose, M Willie PA-C Unavailable Unavailable Jose, M Willie PA-C Unavailable Unavailable Jose, M Willie PA-C Unavailable Unavailable Jose, M Willie PA-C Unavailable Unavailable Jose, M Willie PA-C Unavailable Unavailable Jose, M Willie PA-C Unavailable Unavailable Jose, M Willie PA-C Unavailable Unavailable Jose, M Willie PA-C Unavailable Unavailable Jose, M Willie PA-C Unavailable Unavailable Jose, M Willie PA-C Unavailable Unavailable Jose, M Willie PA-C Unavailable Unavailable Jose, M Willie PA-C Unavailable Unavailable Jose, M Willie PA-C Unavailable Unavailable Jose, M Willie PA-C Unavailable Unavailable Jose, M Willie PA-C Unavailable Unavailable ENOC, BRUCE TRINO PA Unavailable Unavailable ENOC, BRUCE TRINO PA Unavailable Unavailable ENOC, BRUCE TRINO PA Unavailable Unavailable ENOC, BRUCE TRINO PA Unavailable Unavailable ENOC, BRUCE TRINO PA Unavailable Unavailable ENOC, BRUCE TRINO PA Unavailable Unavailable ENOC, BRUCE TRINO PA Unavailable Unavailable ENOC, BRUCE TRINO PA Unavailable Unavailable ENOC, BRUCE TRINO PA Unavailable Unavailable ENOC, BRUCE TRINO PA Unavailable Unavailable ENOC, BRUCE TRINO PA Unavailable Unavailable ENOC, BRUCE TRINO PA Unavailable Unavailable ENOC, BRUCE TRINO PA Unavailable Unavailable ENOC, BRUCE TRINO PA Unavailable Unavailable ENOC, BRUCE TRINO PA Unavailable Unavailable ENOC, BRUCE TRINO PA Unavailable Unavailable ENOC, BRUCE TRINO PA Unavailable Unavailable ENOC, BRUCE TRINO PA Unavailable Unavailable ENOC, BRUCE TRINO PA Unavailable Unavailable ENOC, BRUCE TRINO PA Unavailable Unavailable ENOC, BRUCE TRINO PA Unavailable Unavailable ENOC, BRUCE TRINO PA Unavailable Unavailable Addie, Reginah W Katerin OVEN EQUIPMENT REPAIRER-C Unavailable Unavailabl e Addie, Reginageorges W Katerin OVEN EQUIPMENT REPAIRER-C Unavailable Unavailabl e Addie, Reginageorges W Katerin OVEN EQUIPMENT REPAIRER-C Unavailable Unavailabl e Addie, Reginageorges W Katerin OVEN EQUIPMENT REPAIRER-C Unavailable Unavailabl e Addie, Reginageorges W Katerin OVEN EQUIPMENT REPAIRER-C Unavailable Unavailabl e Addie, Reginageorges W Katerin OVEN EQUIPMENT REPAIRER-C Unavailable Unavailabl e Addie, Reginageorges W Katerin OVEN EQUIPMENT REPAIRER-C Unavailable Unavailabl e Addie, Reginageorges W Katerin OVEN EQUIPMENT REPAIRER-C Unavailable Unavailabl e Addie, Reginageorges W Katerin OVEN EQUIPMENT REPAIRER-C Unavailable Unavailabl e Addie, Reginageorges W Katerin OVEN EQUIPMENT REPAIRER-C Unavailable Unavailabl e Addie, Reginageorges W Katerin OVEN EQUIPMENT REPAIRER-C Unavailable Unavailabl e Addie, Reginageorges W Katerin OVEN EQUIPMENT REPAIRER-C Unavailable Unavailabl e Addie, Reginageorges W Katerin OVEN EQUIPMENT REPAIRER-C Unavailable Unavailabl e Addie, Reginageorges W Katerin OVEN EQUIPMENT REPAIRER-C Unavailable Unavailabl e Addie, Reginageorges W Katerin OVEN EQUIPMENT REPAIRER-C Unavailable Unavailabl e Addie, Reginageorges W Katerin OVEN EQUIPMENT REPAIRER-C Unavailable Unavailabl e Addie, Reginageorges W Katerin OVEN EQUIPMENT REPAIRER-C Unavailable Unavailabl e Addie, Reginageorges W Katerin OVEN EQUIPMENT REPAIRER-C Unavailable Unavailabl e Addie, Reginah W Katerin OVEN EQUIPMENT REPAIRER-C Unavailable Unavailabl e Addie, Reginah W Katerin OVEN EQUIPMENT REPAIRER-C Unavailable Unavailabl e Addie, Reginah W Katerin OVEN EQUIPMENT REPAIRER-C Unavailable Unavailabl e Addie, Reginah W Katerin OVEN EQUIPMENT REPAIRER-C Unavailable Unavailabl e Addie, Reginah W Katerin OVEN EQUIPMENT REPAIRER-C Unavailable Unavailabl e Addie, Reginah W Katerin OVEN EQUIPMENT REPAIRER-C Unavailable Unavailabl e Addie, Reginah W Katerin OVEN EQUIPMENT REPAIRER-C Unavailable Unavailabl e Addei, Reginah W Katerin OVEN EQUIPMENT REPAIRER-C Unavailable Unavailabl e Addie, Reginah W Katerin OVEN EQUIPMENT REPAIRER-C Unavailable Unavailabl e Addie, Reginah W Katerin OVEN EQUIPMENT REPAIRER-C Unavailable Unavailabl e Addie, Reginah W Katerin OVEN EQUIPMENT REPAIRER-C Unavailable Unavailabl e Addie, Reginah W Katerin OVEN EQUIPMENT REPAIRER-C Unavailable Unavailabl e Addie, Reginah W Katerin OVEN EQUIPMENT REPAIRER-C Unavailable Unavailabl e Addie, Reginah W Katerin OVEN EQUIPMENT REPAIRER-C Unavailable Unavailabl e MENESS, A TRUDY DO Unavailable Unavailable MENESS, A TRUDY DO Unavailable Unavailable MENESS, A TRUDY DO Unavailable Unavailable MENESS, A TRUDY DO Unavailable Unavailable MENESS, A TRUDY DO Unavailable Unavailable MENESS, A TRUDY DO Unavailable Unavailable MENESS, A TRUDY DO Unavailable Unavailable MENESS, A TRUDY DO Unavailable Unavailable MENESS, A TRUDY DO Unavailable Unavailable MENESS, A TRUDY DO Unavailable Unavailable MENESS, A TRUDY DO Unavailable Unavailable MENESS, A TRUDY DO Unavailable Unavailable MENESS, A TRUDY DO Unavailable Unavailable MENESS, A TRUDY DO Unavailable Unavailable MENESS, A TRUDY DO Unavailable Unavailable MENESS, A TRUDY DO Unavailable Unavailable MENESS, A TRUDY DO Unavailable Unavailable MENESS, A TRUDY DO Unavailable Unavailable MENESS, A TRUDY DO Unavailable Unavailable MENESS, A TRUDY DO Unavailable Unavailable MENESS, A TRUDY DO Unavailable Unavailable MENESS, A TRUDY DO Unavailable Unavailable MENESS, A TRUDY DO Unavailable Unavailable MENESS, A TRUDY DO Unavailable Unavailable MENESS, A TRUDY DO Unavailable Unavailable MENESS, A TRUDY DO Unavailable Unavailable MENESS, A TRUDY DO Unavailable Unavailable MENESS, A TRUDY DO Unavailable Unavailable MENESS, A TRUDY DO Unavailable Unavailable Montrell Lundberg MD Unavailable Unavailable Montrell Lundberg MD Unavailable Unavailable LundbergMontrell MD Unavailable Unavailable LundbergMontrell MD Unavailable Unavailable LundbergMontrell MD Unavailable Unavailable Montrell Lundberg MD Unavailable Unavailable LundbergMontrell MD Unavailable Unavailable LundbergMontrell MD Unavailable Unavailable LundbergMontrell MD Unavailable Unavailable LundbergMontrell MD Unavailable Unavailable LundbergMontrell MD Unavailable Unavailable LundbergMontrell MD Unavailable Unavailable LundbergMontrell MD Unavailable Unavailable LundbergMontrell MD Unavailable Unavailable LundbergMontrell MD Unavailable Unavailable LundbergMontrell MD Unavailable Unavailable LundbergMontrell MD Unavailable Unavailable LundbergMontrell MD Unavailable Unavailable LundbergMontrell MD Unavailable Unavailable LundbergMontrell MD Unavailable Unavailable LundbergMontrell MD Unavailable Unavailable LundbergMontrell MD Unavailable Unavailable LundbergMontrell MD Unavailable Unavailable LundbergMontrell MD Unavailable Unavailable LundbergMontrell MD Unavailable Unavailable LundbergMontrell MD Unavailable Unavailable LundbergMontrell MD Unavailable Unavailable LundbergMontrell MD Unavailable Unavailable Montrell Lundberg MD Unavailable Unavailable Montrell Lundberg MD Unavailable Unavailable Montrell Lundberg MD Unavailable Unavailable Montrell Lundberg MD Unavailable Unavailable Montrell Lundberg MD Unavailable Unavailable Montrell Lundberg MD Unavailable Unavailable Montrell Lundberg MD Unavailable Unavailable Montrell Lundberg MD Unavailable Unavailable Montrell Lundberg MD Unavailable Unavailable Montrell Lundberg MD Unavailable Unavailable Montrell Lundberg MD Unavailable Unavailable Montrell Lundberg MD Unavailable Unavailable Montrell Lundberg MD Unavailable Unavailable Montrell Lundberg MD Unavailable Unavailable Montrell Lundberg MD Unavailable Unavailable Montrell Lundberg MD Unavailable Unavailable Montrell Lundberg MD Unavailable Unavailable Montrell Lundberg MD Unavailable Unavailable Montrell Lundberg MD Unavailable Unavailable Montrell Lundberg MD Unavailable Unavailable Montrell Lundberg MD Unavailable Unavailable Montrell Lundberg MD Unavailable Unavailable Montrell Lundberg MD Unavailable Unavailable Montrell Lundberg MD Unavailable Unavailable Montrell Lundberg MD Unavailable Unavailable Montrell Lundberg MD Unavailable Unavailable Montrell Lundberg MD Unavailable Unavailable Montrell Lundberg MD Unavailable Unavailable Montrell Lundberg MD Unavailable Unavailable Montrell Lundberg MD Unavailable Unavailable ANTECOLGeorges MD Unavailable Unavailable ANTECOL, Georges ORTEGA MD Unavailable Unavailable ANTECOL, Georges ORTEGA MD Unavailable Unavailable ANTECOL, Georges ORTEGA MD Unavailable Unavailable ANTECOL, Georges ORTEGA MD Unavailable Unavailable ANTECOL, Georges ORTEGA MD Unavailable Unavailable ANTECOL, Georges ORTEGA MD Unavailable Unavailable ANTECOL, Georges ORTEGA MD Unavailable Unavailable ANTECOL, Georges ORTEGA MD Unavailable Unavailable ANTECOL, Georges ORTEGA MD Unavailable Unavailable ANTECOL, Georges ORTEGA MD Unavailable Unavailable ANTECOL, Georges ORTEGA MD Unavailable Unavailable ANTECOL, Georges ORTEGA MD Unavailable Unavailable ANTECOL, Georges ORTEGA MD Unavailable Unavailable ANTECOL, Georges ORTEGA MD Unavailable Unavailable ANTECOL, Georges ORTEGA MD Unavailable Unavailable ANTECOL, Georges ORTEGA MD Unavailable Unavailable ANTECOL, Georges ORTEGA MD Unavailable Unavailable ANTECOL, Georges ORTEGA MD Unavailable Unavailable ANTECOL, Georges ORTEGA MD Unavailable Unavailable ANTECOL, Georges ORTEGA MD Unavailable Unavailable ANTECOL, Georges ORTEGA MD Unavailable Unavailable ANTECOL, Georges ORTEGA MD Unavailable Unavailable ANTECOL, Georges ORTEGA MD Unavailable Unavailable ANTECOL, Georges ORTEGA MD Unavailable Unavailable ANTECOL, Georges ORTEGA MD Unavailable Unavailable ANTECOL, Georges ORTEGA MD Unavailable Unavailable ANTECOL, Georges ORTEGA MD Unavailable Unavailable ANTECOL, Georges ORTEGA MD Unavailable Unavailable ANTECOL, Georges ORTEGA MD Unavailable Unavailable ANTECOL, Georges ORTEGA MD Unavailable Unavailable ANTECOL, Georges ORTEGA MD Unavailable Unavailable ANTECOL, Georges ORTEGA MD Unavailable Unavailable ANTECOL, Georges ORTEGA MD Unavailable Unavailable ANTECOL, Georges ORTEGA MD Unavailable Unavailable ANTECOL, Georges ORTEGA MD Unavailable Unavailable ANTECOL, Georges ORTEGA MD Unavailable Unavailable ANTECOL, Georges ORTEGA MD Unavailable Unavailable ANTECOL, Georges ORTEGA MD Unavailable Unavailable ANTECOL, Georges ORTEGA MD Unavailable Unavailable ANTECOL, Georges ORTEGA MD Unavailable Unavailable ANTECOL, Georges ORTEGA MD Unavailable Unavailable ANTECOL, Georges ORTEGA MD Unavailable Unavailable ANTECOL, Georges ORTEGA MD Unavailable Unavailable ANTECOL, Georges ORTEGA MD Unavailable Unavailable ANTECOL, Georges ORTEGA MD Unavailable Unavailable ANTECOL, Georges ORTEGA MD Unavailable Unavailable ANTECOL, Georges ORTEGA MD Unavailable Unavailable ANTECOL, Georges ORTEGA MD Unavailable Unavailable ANTECOL, Georges ORTEGA MD Unavailable Unavailable ANTECOL, Georges ORTEGA MD Unavailable Unavailable ANTECOL, Georges ORTEGA MD Unavailable Unavailable ANTECOL, Georges ORTEGA MD Unavailable Unavailable ANTECOL, Georges ORTEGA MD Unavailable Unavailable YVES, L FLAVIA PA Unavailable Unavailable YVES, L FLAVIA PA Unavailable Unavailable YVES, L FLAVIA PA Unavailable Unavailable YVES, L FLAVIA PA Unavailable Unavailable YVES, L FLAVIA PA Unavailable Unavailable YVES, L FLAVIA PA Unavailable Unavailable YVES, L FLAVIA PA Unavailable Unavailable YVES, L FLAVIA PA Unavailable Unavailable YVES, L FLAVIA PA Unavailable Unavailable YVES, L FLAVIA PA Unavailable Unavailable YVES, L FLAVIA PA Unavailable Unavailable YVES, L FLAVIA PA Unavailable Unavailable YVES, L FLAVIA PA Unavailable Unavailable YVES, L FLAVIA PA Unavailable Unavailable YVES, L FLAVIA PA Unavailable Unavailable YVES, L FLAVIA PA Unavailable Unavailable YVES, L FLAVIA PA Unavailable Unavailable YVES, L FLAVIA PA Unavailable Unavailable YVES, L FLAVIA PA Unavailable Unavailable YVES, L FLAVIA PA Unavailable Unavailable YVES, L FLAVIA PA Unavailable Unavailable YVES, L FLAVIA PA Unavailable Unavailable ALTAKelsey MD Unavailable Unavailable ALTAKelsey MD Unavailable Unavailable ALTA, Kelsey CHRISTINA MD Unavailable Unavailable ALTAKelsey MD Unavailable Unavailable ALTAKelsey MD Unavailable Unavailable ALTAKelsey MD Unavailable Unavailable ALTA, Kelsey CHRISTINA MD Unavailable Unavailable ALTAKelsey MD Unavailable Unavailable ALTAKelsey MD Unavailable Unavailable ALTAKelsey MD Unavailable Unavailable ALTAKelsey MD Unavailable Unavailable ALTAKelsey MD Unavailable Unavailable ALTAKelsey MD Unavailable Unavailable ALTAKelsey MD Unavailable Unavailable ALTAKelsey MD Unavailable Unavailable ALTAKelsey MD Unavailable Unavailable ALTAKelsey MD Unavailable Unavailable ALTAKelsey MD Unavailable Unavailable ALTAKelsey MD Unavailable Unavailable ALTAKelsey MD Unavailable Unavailable ALTAKelsey MD Unavailable Unavailable ALTAKelsey MD Unavailable Unavailable ALTAKelsey MD Unavailable Unavailable ALTAKelsey MD Unavailable Unavailable ALTAKelsey MD Unavailable Unavailable ALTAKelsey MD Unavailable Unavailable ALTAKelsey MD Unavailable Unavailable ALTAKelsey MD Unavailable Unavailable ALTAKelsey MD Unavailable Unavailable ALTAKelsey MD Unavailable Unavailable ALTAKelsey MD Unavailable Unavailable ALTAKelsey MD Unavailable Unavailable ALTAKelsey MD Unavailable Unavailable ALTAKelsey MD Unavailable Unavailable ALTAKelsey MD Unavailable Unavailable ALTAKelsey MD Unavailable Unavailable ALTAKelsey MD Unavailable Unavailable ALTAKelsey MD Unavailable Unavailable ALTAKelsey MD Unavailable Unavailable ALTAKelsey MD Unavailable Unavailable ALTAKelsey MD Unavailable Unavailable ALTA, P SANFORD MD Unavailable Unavailable ALTA, P SANFORD GUO Unavailable Unavailable ALTA, Kelsey CHRISTINA MD Unavailable Unavailable ALAT, P SANFORD MD Unavailable Unavailable ALTA, P SANFORD MD Unavailable Unavailable ALTA, P SANFORD MD Unavailable Unavailable ALTA, P SANFORD MD Unavailable Unavailable ALTA, P SANFORD MD Unavailable Unavailable ALTA, Kelsey CHRISTINA MD Unavailable Unavailable ALTA, P SANFORD MD Unavailable Unavailable ALTA, P SANFORD MD Unavailable Unavailable ALTA, P SANFORD MD Unavailable Unavailable ALTA, P SANFORD MD Unavailable Unavailable ALTA, P SANFORD MD Unavailable Unavailable ALTA, eKlsey CHRISTINA MD Unavailable Unavailable ALTA, P SANFORD MD Unavailable Unavailable ALTA, Kelsey CHRISTINA MD Unavailable Unavailable ALTA, Kelsey CHRISTINA MD Unavailable Unavailable ALTA, Kelsey CHRISTINA MD Unavailable Unavailable ALTA, Kelsey CHRISTINA MD Unavailable Unavailable ALTA, Kelsey CHRISTINA MD Unavailable Unavailable ALTA, Kelsey CHRISTINA MD Unavailable Unavailable ALTA, Kelsey CHRISTINA MD Unavailable Unavailable ALTA, Kelsey CHRISTINA MD Unavailable Unavailable ALTA, Kelsey CHRISTINA MD Unavailable Unavailable ALTA, Kelsey CHRISTINA MD Unavailable Unavailable ALTA, Kelsey CHRISTINA MD Unavailable Unavailable ALTA, Kelsey CHRISTINA MD Unavailable Unavailable ALTA, Kelsey CHRISTINA MD Unavailable Unavailable ALTA, Kelsey CHRISTINA MD Unavailable Unavailable ALTA, Kelsey CHRISTINA MD Unavailable Unavailable ALTA, Kelsey CHRISTINA MD Unavailable Unavailable ALTA, Kelsey CHRISTINA MD Unavailable Unavailable ALTA, Kelsey CHRISTINA MD Unavailable Unavailable ALTA, Kelsey CHRISTINA MD Unavailable Unavailable ALTA, Kelsey CHRISTINA MD Unavailable Unavailable ALTA, Kelsey CHRISTINA MD Unavailable Unavailable ALTA, Kelsey CHRISTINA MD Unavailable Unavailable ALTA, Kelsey CHRISTINA MD Unavailable Unavailable ALTA, Kelsey CHRISTINA MD Unavailable Unavailable ALTA, Kelsey CHRISTINA MD Unavailable Unavailable ALTA, Kelsey CHRISTINA MD Unavailable Unavailable ALTA, Kelsey CHRISTINA MD Unavailable Unavailable ALTA, Kelsey CHRISTINA MD Unavailable Unavailable ALTA, Kelsey CHRISTINA MD Unavailable Unavailable ALTA, Kelsey CHRISTINA MD Unavailable Unavailable ALTA, Kelsey CHRISTINA MD Unavailable Unavailable ALTA, Kelsey CHRISTINA MD Unavailable Unavailable ALTA, Kelsey CHRISTINA MD Unavailable Unavailable ALTA, Kelsey CHRISTINA MD Unavailable Unavailable ALTA, Kelsey CHRISTINA MD Unavailable Unavailable ALTA, Kelsey CHRISTINA MD Unavailable Unavailable ALTA, Kelsey CHRISTINA MD Unavailable Unavailable Cinthia, A Willie OVEN EQUIPMENT REPAIRER Unavailable Unavailable Cinthia, A Willie OVEN EQUIPMENT REPAIRER Unavailable Unavailable Cinthia, A Willie OVEN EQUIPMENT REPAIRER Unavailable Unavailable Cinthia, A Willie OVEN EQUIPMENT REPAIRER Unavailable Unavailable Cinthia, A Willie OVEN EQUIPMENT REPAIRER Unavailable Unavailable Cinthia, A Willie OVEN EQUIPMENT REPAIRER Unavailable Unavailable Cinthia, A Willie OVEN EQUIPMENT REPAIRER Unavailable Unavailable Cinthia, A Willie OVEN EQUIPMENT REPAIRER Unavailable Unavailable Cinthia, A Willie OVEN EQUIPMENT REPAIRER Unavailable Unavailable Cinthia, A Willie OVEN EQUIPMENT REPAIRER Unavailable Unavailable Cinthia, A Willie OVEN EQUIPMENT REPAIRER Unavailable Unavailable Cinthia, A Willie OVEN EQUIPMENT REPAIRER Unavailable Unavailable Cinthia, A Willie OVEN EQUIPMENT REPAIRER Unavailable Unavailable Cinthia, A Willie OVEN EQUIPMENT REPAIRER Unavailable Unavailable Cinthia, A Willie OVEN EQUIPMENT REPAIRER Unavailable Unavailable Cinthia, A Willie OVEN EQUIPMENT REPAIRER Unavailable Unavailable Cinthia, A Willie OVEN EQUIPMENT REPAIRER Unavailable Unavailable Cinthia, A Willie OVEN EQUIPMENT REPAIRER Unavailable Unavailable Cinthia, A Willie OVEN EQUIPMENT REPAIRER Unavailable Unavailable Cinthia, A Willie OVEN EQUIPMENT REPAIRER Unavailable Unavailable Cinthia, A Willie OVEN EQUIPMENT REPAIRER Unavailable Unavailable Cinthia, A Willie OVEN EQUIPMENT REPAIRER Unavailable Unavailable Cinthia, A Willie OVEN EQUIPMENT REPAIRER Unavailable Unavailable Cinthia, A Willie OVEN EQUIPMENT REPAIRER Unavailable Unavailable Cinthia, A Willie OVEN EQUIPMENT REPAIRER Unavailable Unavailable Cinthia, A Willie OVEN EQUIPMENT REPAIRER Unavailable Unavailable Cinthia, A Willie OVEN EQUIPMENT REPAIRER Unavailable Unavailable Cinthia, A Willie OVEN EQUIPMENT REPAIRER Unavailable Unavailable Cinthia, A Willie OVEN EQUIPMENT REPAIRER Unavailable Unavailable Cinthia, A Willie OVEN EQUIPMENT REPAIRER Unavailable Unavailable Cinthia, A Willie OVEN EQUIPMENT REPAIRER Unavailable Unavailable Cinthia, A Willie OVEN EQUIPMENT REPAIRER Unavailable Unavailable Cinthia, A Willie OVEN EQUIPMENT REPAIRER Unavailable Unavailable Cinthia, A Willie OVEN EQUIPMENT REPAIRER Unavailable Unavailable Cinthia, A Willie OVEN EQUIPMENT REPAIRER Unavailable Unavailable Cinthia, A Willie OVEN EQUIPMENT REPAIRER Unavailable Unavailable Cinthia, A Willie OVEN EQUIPMENT REPAIRER Unavailable Unavailable Cinthia, A Willie OVEN EQUIPMENT REPAIRER Unavailable Unavailable Cinthia, A Willie OVEN EQUIPMENT REPAIRER Unavailable Unavailable Cinthia, A Willie OVEN EQUIPMENT REPAIRER Unavailable Unavailable Cinthia, A Willie OVEN EQUIPMENT REPAIRER Unavailable Unavailable Cinthia, A Willie OVEN EQUIPMENT REPAIRER Unavailable Unavailable Cinthia, A Willie OVEN EQUIPMENT REPAIRER Unavailable Unavailable Cinthia, A Willie OVEN EQUIPMENT REPAIRER Unavailable Unavailable Cinthia, A Willie OVEN EQUIPMENT REPAIRER Unavailable Unavailable Cinthia, A Willie OVEN EQUIPMENT REPAIRER Unavailable Unavailable Cinthia, A Willie OVEN EQUIPMENT REPAIRER Unavailable Unavailable Cinthia, A Willie OVEN EQUIPMENT REPAIRER Unavailable Unavailable Cinthia, A Willie OVEN EQUIPMENT REPAIRER Unavailable Unavailable Cinthia, A Willie OVEN EQUIPMENT REPAIRER Unavailable Unavailable Cinthia, A Willie OVEN EQUIPMENT REPAIRER Unavailable Unavailable Cinthia, A Willie OVEN EQUIPMENT REPAIRER Unavailable Unavailable Re-disclosure Warning The records that you are about to access may contain information from federally-assisted alcohol or drug abuse programs. If such information is present, then the following federally mandated warning applies: This information has been disclosed to you from records protected by federal confidentiality rules (42 CFR part 2). The federal rules prohibit you from making any further disclosure of this information unless further disclosure is expressly permitted by the written consent of the person to whom it pertains or as otherwise permitted by 42 CFR part 2. A general authorization for the release of medical or other information is NOT sufficient for this purpose. The Federal rules restrict any use of the information to criminally investigate or prosecute any alcohol or drug abuse patient.The records that you are about to access may contain highly sensitive health information, the redisclosure of which is protected by Article 27-F of the [facility] Public Health law. If you continue you may have access to information: Regarding HIV / AIDS; Provided by facilities licensed or operated by the [facility] Office of Mental Health; or Provided by the [facility] Office for People With Developmental Disabilities. If such information is present, then the following [facility] mandated warning applies: This information has been disclosed to you from confidential records which are protected by state law. State law prohibits you from making any further disclosure of this information without the specific written consent of the person to whom it pertains, or as otherwise permitted by law. Any unauthorized further disclosure in violation of state law may result in a fine or alf sentence or both. A general authorization for the release of medical or other information is NOT sufficient authorization for further disc losure. Allergies and Adverse Reactions Type Description Substance Reaction Status Data Source(s ) Adhesive Tape Adhesive Tape RASH, RAW, VERY SORE [facility] Drug allergy latex Latex [facility] Drug allergy atorvastatin atorvastatin LEG CRAMPS BAD MO [facility] Drug allergy buspirone buspirone DIARRHEA [place] [facility] Drug allergy amoxicillin Amoxicillin Diarrhea [facility] Drug allergy tetracycline tetracycline Diarrhea [facility] Drug allergy codeine Codeine ITCHING AND NAUSEA [facility] Drug allergy nitroglycerin nitroglycerin MIGRAINE HEADACHES [facility] Family History Family Member Name Family Member Gender Family Member Status Date o f Status Description Data Source(s) Unknown Unknown Problem MEDENT ([facility], ) Encounters Encounter Providers Location Date Indications Data Source(s ) Unknown [address] [facility] [address] 03/09/2021 12:00:00 AM EDT eCW1 ([facility]) Outpatient Attender: SHANNON JOLLEY MD Main Office 02/18/2021 12:15:00 PM EDT MEDENT ([facility]) Outpatient [facility] 02/05/2021 12:00:00 AM EDT eCW1 ([facility]) Unknown [address] [facility] [address] 02/02/2021 12:00:00 AM EDT eCW1 ([facility]) Unknown [address] [facility] [place] [address] 02/02/2021 12:00:00 AM EDT eCW1 ([facility]) Out[place] [address] [facility] [place] [address] 01/19/2021 12:00:00 AM EDT eCW1 ([facility]) Unknown [address] [facility] [place] [address] 01/13/2021 12:00:00 AM EDT eCW1 ([facility]) Office Visit Attender: SHANNON JOLLEY MD Main Office 01/08/2021 08: 27:00 AM EDT MEDENT ([facility]) [place]patient [address] [facility] [place] [address] 12/16/2020 12:00:00 AM EDT eCW1 ([facility]) Outpatient Attender: SHANNON JOLLEY MD Main Office 12/03/2020 11:00:00 AM EDT MEDMEDHAT ([facility]) Outpatient Attender: SHANNON JOLLEY MD Main Office 11/03/2020 12:00:00 PM EDT MEDENT ([facility]) Unknown [address] [facility] [address] 11/02/2020 12:00:00 AM EDT eCW1 ([facility]) Outpatient [facility] 10/27/2020 12:00:00 AM EDT eCW1 ([facility]) Outpatient [facility] 10/09/2020 12:00:00 AM EDT eCW1 ([facility]) Emergency Attender: Raymond Wadsworth DO 021 12:54:00 PM EDT - 09/26/2020 03:40:00 PM EDT L ELBOW/WRIST PAIN [facility] l L ELBOW/WRIST PAIN Patient discharged. Outpatient Attender: Beth Antunez/Sam/Christiano/Reindl 09/16/2020 02:00:00 PM EDT MEDENT ([facility]) Outpatient [facility] 08/21/2020 12:00:00 AM EDT eCW1 ([facility]) Outpatient [facility] 08/20/2020 12:00:00 AM EDT eCW1 ([facility]) Outpatient [facility] 08/17/2020 12:00:00 AM EDT eCW1 ([facility]) Emergency Attender: FLAVIA Green: Stacie Garcia PA-C EMERGENCY ROOM-ER 08/11/2020 03:40:00 PM EDT - 08/11/2020 07:32:00 PM EDT [facility] Patient discharged. Outpatient Attender: Willie Garcia PA-C 08/11/2020 12:55 :00 PM EDT [facility] Outpatient [facility] 08/11/2020 12:00:00 AM EDT eCW1 ([facility]) Outpatient [facility] 08/10/2020 12:00:00 AM EDT eCW1 ([facility]) Outpatient [facility] 08/07/2020 12:00:00 AM EDT eCW1 ([facility]) Outpatient [facility] 07/21/2020 12:00:00 AM EST eCW1 ([facility]) Outpatient [facility] 07/20/2020 12:00:00 AM EST eCW1 ([facility]) Outpatient [facility] 07/20/2020 12:00:00 AM EST eCW1 ([facility]) Outpatient [facility] 06/04/2020 12:00:00 AM EST eCW1 ([facility]) Outpatient [facility] 06/02/2020 12:00:00 AM EST eCW1 ([facility]) Outpatient [facility] 06/02/2020 12:00:00 AM EST eCW1 ([facility]) Outpatient [facility] 05/18/2020 12:00:00 AM EST eCW1 ([facility]) Outpatient [facility] 05/08/2020 12:00:00 AM EST eCW1 ([facility]) Outpatient Attender: Willie Garcia PA-C 05/06/2020 01:00 :00 PM EST [facility] Outpatient [facility] 05/06/2020 12:00:00 AM EST eCW1 ([facility]) Outpatient [facility] 04/28/2020 12:00:00 AM EST eCW1 ([facility]) Outpatient [facility] 04/21/2020 12:00:00 AM EST eCW1 ([facility]) Outpatient [facility] 04/15/2020 12:00:00 AM EST eCW1 ([facility]) Outpatient [facility] 04/13/2020 12:00:00 AM EST eCW1 ([facility]) Outpatient [facility] 04/10/2020 12:00:00 AM EST eCW1 ([facility]) Outpatient [facility] 03/24/2020 12:00:00 AM EST eCW1 ([facility]) Outpatient [facility] 03/16/2020 12:00:00 AM EDT eCW1 ([facility]) Outpatient Attender: Willie Garcia PA-C 03/04/2020 10:30 :00 AM EDT [facility] Outpatient [facility] 03/04/2020 12:00:00 AM EDT eCW1 ([facility]) Outpatient [facility] 02/27/2020 12:00:00 AM EDT eCW1 ([facility]) [facility] 02/21/2020 12:00:00 AM EDT eCW1 ([facility]) Outpatient [facility] 02/20/2020 12:00:00 AM EDT eCW1 ([facility]) Outpatient Attender: SHANNON DEL CASTILLO SR 02/10/2020 11:20:00 AM EDT [facility] Outpatient [facility] 02/10/2020 12:00:00 AM EDT eCW1 ([facility]) Outpatient [facility] 02/10/2020 12:00:00 AM EDT eCW1 ([facility]) Outpatient Attender: SHANNON DEL CASTILLO SR 02/05/2020 01:37:00 PM EDT [facility] Outpatient [facility] 02/05/2020 12:00:00 AM EDT eCW1 ([facility]) Outpatient Attender: SHANNON DEL CASTILLO SR 02/03/2020 10:30:00 AM EDT [facility] Outpatient [facility] 02/03/2020 12:00:00 AM EDT eCW1 ([facility]) Outpatient [facility] 02/03/2020 12:00:00 AM EDT eCW1 ([facility]) Outpatient [facility] 02/03/2020 12:00:00 AM EDT eCW1 ([facility]) Outpatient Attender: Willie PATEL 01/29/2020 11:30 :00 AM EDT [facility] Outpatient Attender: Katerin RICHARDSC 01/29/2020 11:00:0 0 AM EDT [facility] Outpatient [facility] 01/29/2020 12:00:00 AM EDT eCW1 ([facility]) Outpatient [facility] 01/29/2020 12:00:00 AM EDT eCW1 ([facility]) Outpatient [facility] 01/29/2020 12:00:00 AM EDT eCW1 ([facility]) Outpatient [facility] 01/21/2020 12:00:00 AM EDT eCW1 ([facility]) Outpatient Attender: SHANNON DEL CASTILLO SRReferrer: JARAD DEL CASTILLO SR EMERGENCY ROOM-RIVCLI 01/16/2020 11:30:00 AM EDT - 01/16/2020 11:30:00 AM [facility] Outpatient [facility] 01/16/2020 12:00:00 AM EDT eCW1 ([facility]) Outpatient Attender: SHANNON DEL CASTILLO SR 01/03/2020 10:30:00 AM [facility] Outpatient Attender: Zuleima ALBETR 11/01/2019 11:50:00 AM [facility] Outpatient Attender: SHANNON DEL CASTILLO SRReferrer: JARAD DEL CASTILLO SR EMERGENCY ROOM-LAB 10/07/2019 08:48:00 AM EDT - 10/07/2019 08:48:00 AM [facility] Outpatient Attender: SHANNON DEL CASTILLO SR 10/02/2019 10:30:00 AM [facility] Outpatient Attender: Willie Garcia PA-C 09/02/2019 10:00 :00 AM [facility] Outpatient Attender: SHANNON DEL CASTILLO SR 07/24/2019 02:00:00 PM [facility] Outpatient Attender: Walker Lundberg MDReferrer: SHANNON DEL CASTILLO SR EMERGENCY ROOM-LABOTHPROV 05/23/2019 01:30:00 PM [facility] - 05/23/2019 01:30:00 PM [facility] Outpatient Attender: SHANNON DEL CASTILLO SR 05/23/2019 01:10:00 PM [facility] Outpatient Attender: SHANNON DEL CASTILLO SR 05/06/2019 12:04:00 PM [facility] Outpatient Attender: SHANNON DEL CASTILLO SRReferrer: SHANNON Coyne SR 04/11/2019 02:10:00 PM [facility] - 04/11/2019 02:10:00 PM [facility] Outpatient Attender: SHANNON DLE CASTILLO SRReferrer: SHANNON Coyne SR 04/11/2019 01:00:00 PM [facility] Outpatient Attender: SANFORD HOLM MDReferrer: SHANNON Coyne SR 08/25/2017 12:02:00 PM EDT - 08/25/2017 12:02:00 PM EDT [facility] Outpatient Attender: SHANNON DEL CASTILLO SRReferrer: SHANNON Coyne SR 04/06/2017 08:00:00 AM EST [facility] Emergency Attender: TRINO STUBBS PAReferrer: SHANNON NAM SR 02/02/2017 04:27:00 PM EDT - 02/02/2017 05:01:00 PM EDT [facility] Outpatient Attender: TRUDY ESTRELLAeferrer: Katerin MATHIAS 07/19/2016 09:14:00 AM EST [facility] Immunizations Vaccine Date Status Description Data Source(s) 05/06/2020 02:09:00 PM EST completed e CW1 ([facility]) 05/06/2020 02:09:00 PM EST completed e CW1 ([facility]) 05/06/2020 02:09:00 PM EST completed e CW1 ([facility]) 05/06/2020 02:09:00 PM EST completed e CW1 ([facility]) 05/06/2020 02:09:00 PM EST completed e CW1 ([facility]) 05/06/2020 02:09:00 PM EST completed e CW1 ([facility]) 05/06/2020 02:09:00 PM EST completed e CW1 ([facility]) 05/06/2020 02:09:00 PM EST completed e CW1 ([facility]) 05/06/2020 02:09:00 PM EST completed e CW1 ([facility]) 05/06/2020 02:09:00 PM EST completed e CW1 ([facility]) 05/06/2020 02:09:00 PM EST completed e CW1 ([facility]) 05/06/2020 02:09:00 PM EST completed e CW1 ([facility]) 05/06/2020 02:09:00 PM EST completed e CW1 ([facility]) 05/06/2020 02:09:00 PM EST completed e CW1 ([facility]) 05/06/2020 02:09:00 PM EST completed e CW1 ([facility]) 05/06/2020 02:09:00 PM EST completed e CW1 ([facility]) 05/06/2020 02:09:00 PM EST completed e CW1 ([facility]) 05/06/2020 02:09:00 PM EST completed e CW1 ([facility]) 03/04/2020 11:12:00 AM EDT completed e CW1 ([facility]) 03/04/2020 11:12:00 AM EDT completed e CW1 ([facility]) 03/04/2020 11:12:00 AM EDT completed e CW1 ([facility]) 03/04/2020 11:12:00 AM EDT completed e CW1 ([facility]) 03/04/2020 11:12:00 AM EDT completed e CW1 ([facility]) 03/04/2020 11:12:00 AM EDT completed e CW1 ([facility]) 03/04/2020 11:12:00 AM EDT completed e CW1 ([facility]) 03/04/2020 11:12:00 AM EDT completed e CW1 ([facility]) 03/04/2020 11:12:00 AM EDT completed e CW1 ([facility]) 03/04/2020 11:12:00 AM EDT completed e CW1 ([facility]) 03/04/2020 11:12:00 AM EDT completed e CW1 ([facility]) 03/04/2020 11:12:00 AM EDT completed e CW1 ([facility]) 03/04/2020 11:12:00 AM EDT completed e CW1 ([facility]) 03/04/2020 11:12:00 AM EDT completed e CW1 ([facility]) 03/04/2020 11:12:00 AM EDT completed e CW1 ([facility]) 03/04/2020 11:12:00 AM EDT completed e CW1 ([facility]) 03/04/2020 11:12:00 AM EDT completed e CW1 ([facility]) 03/04/2020 11:12:00 AM EDT completed e CW1 ([facility]) 03/04/2020 11:12:00 AM EDT completed e CW1 ([facility]) 03/04/2020 11:12:00 AM EDT completed e CW1 ([facility]) 03/04/2020 11:12:00 AM EDT completed e CW1 ([facility]) 03/04/2020 11:12:00 AM EDT completed e CW1 ([facility]) 03/04/2020 11:12:00 AM EDT completed e CW1 ([facility]) 03/04/2020 11:12:00 AM EDT completed e CW1 ([facility]) 03/04/2020 11:12:00 AM EDT completed e CW1 ([facility]) 03/04/2020 11:12:00 AM EDT completed e CW1 ([facility]) 03/04/2020 11:12:00 AM EDT completed e CW1 ([facility]) New in 2011. IIV4 03/04/2020 11:11:00 AM EDT completed eCW1 ([facility]) New in 2011. IIV4 03/04/2020 11:11:00 AM EDT completed eCW1 ([facility]) New in 2011. IIV4 03/04/2020 11:11:00 AM EDT completed eCW1 ([facility]) New in 2011. IIV4 03/04/2020 11:11:00 AM EDT completed eCW1 ([facility]) New in 2011. IIV4 03/04/2020 11:11:00 AM EDT completed eCW1 ([facility]) New in 2011. IIV4 03/04/2020 11:11:00 AM EDT completed eCW1 ([facility]) New in 2011. IIV4 03/04/2020 11:11:00 AM EDT completed eCW1 ([facility]) New in 2011. IIV4 03/04/2020 11:11:00 AM EDT completed eCW1 ([facility]) New in 2011. IIV4 03/04/2020 11:11:00 AM EDT completed eCW1 ([facility]) New in 2011. IIV4 03/04/2020 11:11:00 AM EDT completed eCW1 ([facility]) New in 2011. IIV4 03/04/2020 11:11:00 AM EDT completed eCW1 ([facility]) New in 2011. IIV4 03/04/2020 11:11:00 AM EDT completed eCW1 ([facility]) New in 2011. IIV4 03/04/2020 11:11:00 AM EDT completed eCW1 ([facility]) New in 2011. IIV4 03/04/2020 11:11:00 AM EDT completed eCW1 ([facility]) New in 2011. IIV4 03/04/2020 11:11:00 AM EDT completed eCW1 ([facility]) New in 2011. IIV4 03/04/2020 11:11:00 AM EDT completed eCW1 ([facility]) New in 2011. IIV4 03/04/2020 11:11:00 AM EDT completed eCW1 ([facility]) New in 2011. IIV4 03/04/2020 11:11:00 AM EDT completed eCW1 ([facility]) New in 2011. IIV4 03/04/2020 11:11:00 AM EDT completed eCW1 ([facility]) New in 2011. IIV4 03/04/2020 11:11:00 AM EDT completed eCW1 ([facility]) New in 2011. IIV4 03/04/2020 11:11:00 AM EDT completed eCW1 ([facility]) New in 2011. IIV4 03/04/2020 11:11:00 AM EDT completed eCW1 ([facility]) New in 2011. IIV4 03/04/2020 11:11:00 AM EDT completed eCW1 ([facility]) New in 2011. IIV4 03/04/2020 11:11:00 AM EDT completed eCW1 ([facility]) New in 2011. IIV4 03/04/2020 11:11:00 AM EDT completed eCW1 ([facility]) New in 2011. IIV4 03/04/2020 11:11:00 AM EDT completed eCW1 ([facility]) New in 2011. IIV4 03/04/2020 11:11:00 AM EDT completed eCW1 ([facility]) 02/03/2020 10:12:00 AM EDT completed e CW1 ([facility]) 02/03/2020 10:12:00 AM EDT completed e CW1 ([facility]) 02/03/2020 10:12:00 AM EDT completed e CW1 ([facility]) 02/03/2020 10:12:00 AM EDT completed e CW1 ([facility]) 02/03/2020 10:12:00 AM EDT completed e CW1 ([facility]) 02/03/2020 10:12:00 AM EDT completed e CW1 ([facility]) 02/03/2020 10:12:00 AM EDT completed e CW1 ([facility]) 02/03/2020 10:12:00 AM EDT completed e CW1 ([facility]) 02/03/2020 10:12:00 AM EDT completed e CW1 ([facility]) 02/03/2020 10:12:00 AM EDT completed e CW1 ([facility]) 02/03/2020 10:12:00 AM EDT completed e CW1 ([facility]) 02/03/2020 10:12:00 AM EDT completed e CW1 ([facility]) 02/03/2020 10:12:00 AM EDT completed e CW1 ([facility]) 02/03/2020 10:12:00 AM EDT completed e CW1 ([facility]) 02/03/2020 10:12:00 AM EDT completed e CW1 ([facility]) 02/03/2020 10:12:00 AM EDT completed e CW1 ([facility]) 02/03/2020 10:12:00 AM EDT completed e CW1 ([facility]) 02/03/2020 10:12:00 AM EDT completed e CW1 ([facility]) 02/03/2020 10:12:00 AM EDT completed e CW1 ([facility]) 02/03/2020 10:12:00 AM EDT completed e CW1 ([facility]) 02/03/2020 10:12:00 AM EDT completed e CW1 ([facility]) 02/03/2020 10:12:00 AM EDT completed e CW1 ([facility]) 02/03/2020 10:12:00 AM EDT completed e CW1 ([facility]) 02/03/2020 10:12:00 AM EDT completed e CW1 ([facility]) 02/03/2020 10:12:00 AM EDT completed e CW1 ([facility]) 02/03/2020 10:12:00 AM EDT completed e CW1 ([facility]) 02/03/2020 10:12:00 AM EDT completed e CW1 ([facility]) 02/03/2020 10:12:00 AM EDT completed e CW1 ([facility]) 02/03/2020 10:12:00 AM EDT completed e CW1 ([facility]) 02/03/2020 10:12:00 AM EDT completed e CW1 ([facility]) 02/03/2020 10:12:00 AM EDT completed e CW1 ([facility]) 02/03/2020 10:12:00 AM EDT completed e CW1 ([facility]) 02/03/2020 10:12:00 AM EDT completed e CW1 ([facility]) 02/03/2020 10:12:00 AM EDT completed e CW1 ([facility]) Medications Medication Brand Name Start Date Product Form Dose Route Admi nistrative Instructions Pharmacy Instructions Status Indications Reaction Description Data Source(s) 12 HR ranolazine 1000 MG Extended Release Oral Tablet [Ranexa] Ranexa 1000 MG Ranexa 1000 MG 03/09/2021 12:00:00 AM EDT 1.0 {tablet} active Ranexa 1000 MG eCW1 ([facility]) Famotidine 40 MG Oral Tablet Famotidine 02/18/2021 12:00:00 AM EDT ORAL active [facility] ([facility]) icosapent ethyl 1000 MG Oral Capsule [Vascepa] Vascepa 02/18/2021 12:00:00 AM EDT ORAL active [facility] ([facility]) nebivolol 5 MG Oral Tablet [Bystolic] Bystolic 02/18/2021 12:00:00 AM EDT ORAL active [facility]ENT ([facility]) Biotin 2.5 MG Oral Capsule Biotin 02/17/2021 12:00:00 AM EDT ORAL active [facility]ENT ([facility]) valsartan 80 MG Oral Tablet Valsartan 02/17/2021 12:00:00 AM EDT ORAL active MEDENT ([facility]) Metoprolol Tartrate 25 MG Oral Tablet Metoprolol Tartrate 12:00:00 AM EDT ORAL completed MEDENT ([facility]) Amlodipine 2.5 MG Oral Tablet Amlodipine Besylate 02/17/2021 12:00: 00 AM EDT ORAL active MEDENT ([facility]) 12 HR ranolazine 500 MG Extended Release Oral Tablet Ranolaz ine ER 01/31/2021 12:00:00 AM EDT ORAL active M EDENT ([facility]) 1 ML alirocumab 150 MG/ML Auto-Injector [Praluent] Praluent 01/18/2021 12:00:00 AM EDT SUBCUTANEOUS active MEDE NT ([facility]) Promethazine Hydrochloride 25 MG Oral Tablet Promethazine HC L 01/07/2021 12:00:00 AM EDT ORAL active M EDENT ([facility]) Zinc Chelated 01/07/2021 12:00:00 AM EDT ORAL acti ve MEDENT ([facility]) Magnesium 01/07/2021 12:00:00 AM EDT active MEDENT ([facility]) Probiotic Probiotic 01/07/2021 12:00:00 AM EDT ORAL act aury MEDENT ([facility]) Amlodipine 2.5 MG Oral Tablet Amlodipine Besylate 12/03/2020 12:00: 00 AM EDT ORAL completed [facility] ([facility]) Metoprolol Tartrate 25 MG Oral Tablet Metoprolol Tartrate 12:00:00 AM EDT ORAL completed MEDENT ([facility]) carvedilol 3.125 MG Oral Tablet Carvedilol 11/03/2020 12:00:00 AM EDT ORAL active [facility]ENT ([facility] 24 HR Nitroglycerin 0.6 MG/HR Transdermal Patch Nitroglyceri n 11/03/2020 12:00:00 AM EDT active M EDENT ([facility]) Repatha Pushtronex System Repatha Pushtronex System 11/03/2020 1 2:00:00 AM EDT active MEDENT ( [facility]) carvedilol 3.125 MG Oral Tablet Carvedilol 11/03/2020 12:00:00 AM EDT ORAL completed [facility]ENT ([facility]) 24 HR Nitroglycerin 0.6 MG/HR Transdermal Patch Nitroglyceri n 11/03/2020 12:00:00 AM EDT active M EDENT ([facility]) Repatha Pushtronex System Repatha Pushtronex System 11/03/2020 1 2:00:00 AM EDT completed MEDENT ([facility]) clopidogrel 75 MG Oral Tablet [Plavix] Plavix 11/02/2020 12:00:00 AM EDT ORAL active [facility] ([facility]) Aspirin 325 MG Delayed Release Oral Tablet Aspirin 11/02/2020 12:00:00 AM EDT ORAL active [facility]ENT ([facility]) Vitamin B 12 1 MG/ML Injectable Solution Vitamin Defic iency Injectable System-B12 11/02/2020 12:00:00 AM EDT active MEDENT ([facility]) 12 HR ranolazine 500 MG Extended Release Oral Tablet [Ranexa ] Ranexa 11/02/2020 12:00:00 AM EDT ORAL completed MEDENT ([facility]) Metoprolol Tartrate 25 MG Oral Tablet Metoprolol Tartrate 12:00:00 AM EDT ORAL completed MEDENT ([facility]) Meclizine Hydrochloride 25 MG Chewable Tablet Meclizine HCL 11/02/2020 12:00:00 AM EDT ORAL active [facility]ENT ([facility]) Metoclopramide 10 MG Oral Tablet Metoclopramide HCL 11/02/2020 1 2:00:00 AM EDT ORAL completed MEDENT ([facility]) pantoprazole 40 MG Delayed Release Oral Tablet Pantoprazole Sodium 11/02/2020 12:00:00 AM EDT ORAL completed MEDENT ([facility]) Acetaminophen 500 MG Oral Tablet [Tylenol] Tylenol Extra Str ength 11/02/2020 12:00:00 AM EDT ORAL active M EDENT ([facility]) tramadol hydrochloride 50 MG Oral Tablet Tramadol HCL 11/02/2020 12:00:00 AM EDT ORAL active [facility]ENT ([facility]) Nitroglycerin 0.4 MG Sublingual Tablet Nitroglycerin 12:00:00 AM EDT SUBLINGUAL active MEDEN T ([facility]) Allopurinol 300 MG Oral Tablet Allopurinol 11/02/2020 12:00:00 AM EDT ORAL active MEDENT ([facility]) Ergocalciferol 19563 UNT Oral Capsule Vitamin D (Ergocalcife rol) 11/02/2020 12:00:00 AM EDT ORAL active M EDENT ([facility]) Amlodipine 2.5 MG Oral Tablet Amlodipine Besylate 11/02/2020 12:00: 00 AM EDT ORAL active MEDENT ([facility]) Escitalopram 10 MG Oral Tablet Escitalopram Oxalate 11/02/2020 1 2:00:00 AM EDT ORAL active MEDENT ( [facility]) 60 ACTUAT Albuterol 0.09 MG/ACTUAT Metered Dose Inhaler Albu terol Sulfate HFA 11/02/2020 12:00:00 AM EDT RESPIRATORY active MEDENT ([facility]) valsartan 80 MG Oral Tablet Valsartan 11/02/2020 12:00:00 AM EDT ORAL active MEDENT ([facility]) Metoprolol Tartrate 25 MG Oral Tablet Metoprolol Tartrate 12:00:00 AM EDT ORAL completed MEDENT ([facility]) Vitamin B 12 1 MG/ML Injectable Solution Vitamin Defic iency Injectable System-B12 11/02/2020 12:00:00 AM EDT active MEDENT ([facility]) Meclizine Hydrochloride 25 MG Chewable Tablet Meclizine HCL 11/02/2020 12:00:00 AM EDT ORAL active [facility]ENT ([facility]) 12 HR ranolazine 500 MG Extended Release Oral Tablet [Ranexa ] Ranexa 11/02/2020 12:00:00 AM EDT ORAL active [facility] pantoprazole 40 MG Delayed Release Oral Tablet Pantoprazole Sodium 11/02/2020 12:00:00 AM EDT ORAL active M EDENT ([facility]) Metoclopramide 10 MG Oral Tablet Metoclopramide HCL 11/02/2020 1 2:00:00 AM EDT ORAL active [facility] ( [facility]) tramadol hydrochloride 50 MG Oral Tablet Tramadol HCL 11/02/2020 12:00:00 AM EDT ORAL active [facility] ([facility]) Acetaminophen 500 MG Oral Tablet [Tylenol] Tylenol Extra Str ength 11/02/2020 12:00:00 AM EDT ORAL active M EDENT ([facility]) Nitroglycerin 0.4 MG Sublingual Tablet Nitroglycerin 12:00:00 AM EDT SUBLINGUAL active MEDEN T ([facility]) Aspirin 325 MG Delayed Release Oral Tablet Aspirin 11/02/2020 12:00:00 AM EDT ORAL active [facility] ([facility]) febuxostat 40 MG Oral Tablet Febuxostat 11/02/2020 12:00:00 AM EDT ORAL active [facility] ([facility]) clopidogrel 75 MG Oral Tablet [Plavix] Plavix 11/02/2020 12:00:00 AM EDT ORAL active [facility] ([facility]) Ergocalciferol 79108 UNT Oral Capsule Vitamin D (Ergocalcife rol) 11/02/2020 12:00:00 AM EDT ORAL active M EDENT ([facility]) Allopurinol 300 MG Oral Tablet Allopurinol 11/02/2020 12:00:00 AM EDT ORAL active [facility] ([facility]) febuxostat 40 MG Oral Tablet Febuxostat 11/02/2020 12:00:00 AM EDT ORAL completed [facility] ([facility]) Escitalopram 10 MG Oral Tablet Escitalopram Oxalate 11/02/2020 1 2:00:00 AM EDT ORAL active MEDENT ( [facility]) Amlodipine 2.5 MG Oral Tablet Amlodipine Besylate 11/02/2020 12:00: 00 AM EDT ORAL completed [facility]ENT ([facility]) valsartan 80 MG Oral Tablet Valsartan 11/02/2020 12:00:00 AM EDT ORAL completed MEDENT ([facility]) 60 ACTUAT Albuterol 0.09 MG/ACTUAT Metered Dose Inhaler Albu terol Sulfate HFA 11/02/2020 12:00:00 AM EDT RESPIRATORY active MEDENT ([facility]) Escitalopram 10 MG Oral Tablet Escitalopram Oxalate Escitalo pram Oxalate 09/26/2020 01:58:22 PM EDT 10 MG active [facility] Amlodipine 2.5 MG Oral Tablet Amlodipine (Norvasc) 2.5 mg tablet Amlodipine (Norvasc) 2.5 mg tablet 09/26/2020 01:58:22 PM EDT 2.5 MG active [facility] Albuterol Sulfate (Proventil Hfa) 90 mcg/actuation HFA aeros ol inhaler 09/26/2020 01:58:22 PM EDT 90 MCG active [facility] Febuxostat 09/26/2020 01:58:22 PM EDT 40 MG active [facility] valsartan 80 MG Oral Tablet Valsartan (Diovan) 80 mg t ablet Valsartan (Diovan) 80 mg tablet 09/26/2020 01:58:22 PM EDT 80 MG active [facility] 60 ACTUAT Albuterol 0.09 MG/ACTUAT Metered Dose Inhaler Albu terol Sulfate HFA 09/16/2020 12:00:00 AM EDT RESPIRATORY active MEDENT ([facility] ) valsartan 160 MG Oral Tablet Valsartan 160 MG Valsartan 160 MG 06/02/2020 12:00:00 AM EST 1.0 {tablet} active Va lsartan 160 MG eCW1 ([facility]) valsartan 160 MG Oral Tablet Valsartan 160 MG Valsartan 160 MG 06/02/2020 12:00:00 AM EST 1.0 {tablet} active Va lsartan 160 MG eCW1 ([facility]) valsartan 160 MG Oral Tablet Valsartan 160 MG Valsartan 160 MG 06/02/2020 12:00:00 AM EST 1.0 {tablet} active Va lsartan 160 MG eCW1 ([facility]) valsartan 160 MG Oral Tablet Valsartan 160 MG Valsartan 160 MG 06/02/2020 12:00:00 AM EST 1.0 {tablet} active Va lsartan 160 MG eCW1 ([facility]) valsartan 160 MG Oral Tablet Valsartan 160 MG Valsartan 160 MG 06/02/2020 12:00:00 AM EST 1.0 {tablet} active Va lsartan 160 MG eCW1 ([facility]) valsartan 160 MG Oral Tablet Valsartan 160 MG Valsartan 160 MG 06/02/2020 12:00:00 AM EST 1.0 {tablet} active Va lsartan 160 MG eCW1 ([facility]) valsartan 160 MG Oral Tablet Valsartan 160 MG Valsartan 160 MG 06/02/2020 12:00:00 AM EST 1.0 {tablet} active Va lsartan 160 MG eCW1 ([facility]) valsartan 160 MG Oral Tablet Valsartan 160 MG Valsartan 160 MG 06/02/2020 12:00:00 AM EST 1.0 {tablet} active Va lsartan 160 MG eCW1 ([facility]) valsartan 160 MG Oral Tablet Valsartan 160 MG Valsartan 160 MG 06/02/2020 12:00:00 AM EST 1.0 {tablet} active Va lsartan 160 MG eCW1 ([facility]) valsartan 160 MG Oral Tablet Valsartan 160 MG Valsartan 160 MG 06/02/2020 12:00:00 AM EST 1.0 {tablet} active Va lsartan 160 MG eCW1 ([facility]) valsartan 160 MG Oral Tablet Valsartan 160 MG Valsartan 160 MG 06/02/2020 12:00:00 AM EST 1.0 {tablet} active Va lsartan 160 MG eCW1 ([facility]) valsartan 160 MG Oral Tablet Valsartan 160 MG Valsartan 160 MG 06/02/2020 12:00:00 AM EST 1.0 {tablet} active Va lsartan 160 MG eCW1 ([facility]) valsartan 160 MG Oral Tablet Valsartan 160 MG Valsartan 160 MG 06/02/2020 12:00:00 AM EST 1.0 {tablet} active Va lsartan 160 MG eCW1 ([facility]) valsartan 160 MG Oral Tablet Valsartan 160 MG Valsartan 160 MG 06/02/2020 12:00:00 AM EST 1.0 {tablet} active Va lsartan 160 MG eCW1 ([facility]) valsartan 160 MG Oral Tablet Valsartan 160 MG Valsartan 160 MG 06/02/2020 12:00:00 AM EST 1.0 {tablet} active Va lsartan 160 MG eCW1 ([facility]) Fluconazole 150 MG Oral Tablet [Diflucan] Diflucan 150 MG Di flucan 150 MG 01/29/2020 12:00:00 AM EDT 1.0 {tablet} active Diflucan 150 MG eCW1 ([facility]) Nystatin 100 UNT/MG Topical Ointment Nystatin 768388 U NIT/GM Nystatin 796554 UNIT/GM 01/29/2020 12:00:00 AM EDT 1.0 {application} active Nystatin 497345 UNIT/GM eCW1 ([facility]) Nystatin 100 UNT/MG Topical Ointment Nystatin 097486 U NIT/GM Nystatin 524939 UNIT/GM 01/29/2020 12:00:00 AM EDT 1.0 {application} active Nystatin 975144 UNIT/GM eCW1 ([facility]) Fluconazole 150 MG Oral Tablet [Diflucan] Diflucan 150 MG Di flucan 150 MG 01/29/2020 12:00:00 AM EDT 1.0 {tablet} active Diflucan 150 MG eCW1 ([facility]) Nystatin 100 UNT/MG Topical Ointment Nystatin 234581 U NIT/GM Nystatin 768203 UNIT/GM 01/29/2020 12:00:00 AM EDT 1.0 {application} active Nystatin 832183 UNIT/GM eCW1 ([facility]) Nystatin 100 UNT/MG Topical Ointment Nystatin 586179 U NIT/GM Nystatin 657754 UNIT/GM 01/29/2020 12:00:00 AM EDT 1.0 {application} active Nystatin 053138 UNIT/GM eCW1 ([facility]) Nystatin 100 UNT/MG Topical Ointment Nystatin 318359 U NIT/GM Nystatin 601770 UNIT/GM 01/29/2020 12:00:00 AM EDT 1.0 {application} active Nystatin 185537 UNIT/GM eCW1 ([facility]) Nystatin 100 UNT/MG Topical Ointment Nystatin 322015 U NIT/GM Nystatin 654049 UNIT/GM 01/29/2020 12:00:00 AM EDT 1.0 {application} active Nystatin 021882 UNIT/GM eCW1 ([facility]) Nystatin 100 UNT/MG Topical Ointment Nystatin 495611 U NIT/GM Nystatin 687328 UNIT/GM 01/29/2020 12:00:00 AM EDT 1.0 {application} active Nystatin 781428 UNIT/GM eCW1 ([facility]) Nystatin 100 UNT/MG Topical Ointment Nystatin 946489 U NIT/GM Nystatin 301718 UNIT/GM 01/29/2020 12:00:00 AM EDT 1.0 {application} active Nystatin 727694 UNIT/GM eCW1 ([facility]) Nystatin 100 UNT/MG Topical Ointment Nystatin 117952 U NIT/GM Nystatin 091802 UNIT/GM 01/29/2020 12:00:00 AM EDT 1.0 {application} active Nystatin 576074 UNIT/GM eCW1 ([facility]) Nystatin 100 UNT/MG Topical Ointment Nystatin 937614 U NIT/GM Nystatin 754697 UNIT/GM 01/29/2020 12:00:00 AM EDT 1.0 {application} active Nystatin 375998 UNIT/GM [facility] Nystatin 100 UNT/MG Topical Ointment Nystatin 768087 U NIT/GM Nystatin 977108 UNIT/GM 01/29/2020 12:00:00 AM EDT 1.0 {application} active Nystatin 179043 UNIT/GM [facility]CW1 [facility] Nystatin 100 UNT/MG Topical Ointment Nystatin 625932 U NIT/GM Nystatin 936467 UNIT/GM 01/29/2020 12:00:00 AM EDT 1.0 {application} active Nystatin 682630 UNIT/GM eCW1 ([facility]) Nystatin 100 UNT/MG Topical Ointment Nystatin 614998 U NIT/GM Nystatin 805216 UNIT/GM 01/29/2020 12:00:00 AM EDT 1.0 {application} active Nystatin 854915 UNIT/GM eCW1 ([facility] Nystatin 100 UNT/MG Topical Ointment Nystatin 841155 U NIT/GM Nystatin 570835 UNIT/GM 01/29/2020 12:00:00 AM EDT 1.0 {application} active Nystatin 112225 UNIT/GM eCW1 ([facility] Nystatin 100 UNT/MG Topical Ointment Nystatin 566566 U NIT/GM Nystatin 541653 UNIT/GM 01/29/2020 12:00:00 AM EDT 1.0 {application} active Nystatin 584957 UNIT/GM eCW1 ([facility] Nystatin 100 UNT/MG Topical Ointment Nystatin 491600 U NIT/GM Nystatin 856143 UNIT/GM 01/29/2020 12:00:00 AM EDT 1.0 {application} active Nystatin 058901 UNIT/GM eCW1 ([facility] Nystatin 100 UNT/MG Topical Ointment Nystatin 803387 U NIT/GM Nystatin 596129 UNIT/GM 01/29/2020 12:00:00 AM EDT 1.0 {application} active Nystatin 258362 UNIT/GM eCW1 ([facility] Nystatin 100 UNT/MG Topical Ointment Nystatin 007530 U NIT/GM Nystatin 539137 UNIT/GM 01/29/2020 12:00:00 AM EDT 1.0 {application} active Nystatin 079269 UNIT/GM eCW1 ([facility]) Nystatin 100 UNT/MG Topical Ointment Nystatin 759208 U NIT/GM Nystatin 021175 UNIT/GM 01/29/2020 12:00:00 AM EDT 1.0 {application} active Nystatin 862613 UNIT/GM eCW1 ([facility]) Nystatin 100 UNT/MG Topical Ointment Nystatin 675385 U NIT/GM Nystatin 714604 UNIT/GM 01/29/2020 12:00:00 AM EDT 1.0 {application} active Nystatin 438018 UNIT/GM eCW1 ([facility]) Nystatin 100 UNT/MG Topical Ointment Nystatin 136306 U NIT/GM Nystatin 377208 UNIT/GM 01/29/2020 12:00:00 AM EDT 1.0 {application} active Nystatin 625900 UNIT/GM eCW1 ([facility]) Nystatin 100 UNT/MG Topical Ointment Nystatin 866824 U NIT/GM Nystatin 218833 UNIT/GM 01/29/2020 12:00:00 AM EDT 1.0 {application} active Nystatin 285895 UNIT/GM eCW1 ([facility]) Nystatin 100 UNT/MG Topical Ointment Nystatin 536288 U NIT/GM Nystatin 820359 UNIT/GM 01/29/2020 12:00:00 AM EDT 1.0 {application} active Nystatin 895793 UNIT/GM eCW1 ([facility]) Nystatin 100 UNT/MG Topical Ointment Nystatin 862024 U NIT/GM Nystatin 461879 UNIT/GM 01/29/2020 12:00:00 AM EDT 1.0 {application} active Nystatin 799896 UNIT/GM eCW1 ([facility]) Nystatin 100 UNT/MG Topical Ointment Nystatin 285379 U NIT/GM Nystatin 700302 UNIT/GM 01/29/2020 12:00:00 AM EDT 1.0 {application} active Nystatin 124474 UNIT/GM [facility]CW1 [facility] Fluconazole 150 MG Oral Tablet [Diflucan] Diflucan 150 MG Di flucan 150 MG 01/29/2020 12:00:00 AM EDT 1.0 {tablet} active Diflucan 150 MG eCW1 ([facility]) Nystatin 100 UNT/MG Topical Ointment Nystatin 220361 U NIT/GM Nystatin 810250 UNIT/GM 01/29/2020 12:00:00 AM EDT 1.0 {application} active Nystatin 689957 UNIT/GM eCW1 ([facility] Nystatin 100 UNT/MG Topical Ointment Nystatin 274305 U NIT/GM Nystatin 861614 UNIT/GM 01/29/2020 12:00:00 AM EDT 1.0 {application} active Nystatin 570568 UNIT/GM eCW1 ([facility]) Nystatin 100 UNT/MG Topical Ointment Nystatin 726929 U NIT/GM Nystatin 636393 UNIT/GM 01/29/2020 12:00:00 AM EDT 1.0 {application} active Nystatin 884093 UNIT/GM eCW1 ([facility] Nystatin 100 UNT/MG Topical Ointment Nystatin 467824 U NIT/GM Nystatin 802424 UNIT/GM 01/29/2020 12:00:00 AM EDT 1.0 {application} active Nystatin 900758 UNIT/GM eCW1 ([facility]) Nystatin 100 UNT/MG Topical Ointment Nystatin 745254 U NIT/GM Nystatin 885083 UNIT/GM 01/29/2020 12:00:00 AM EDT 1.0 {application} active Nystatin 234567 UNIT/GM [facility]CW1 ([facility] Nystatin 100 UNT/MG Topical Ointment Nystatin 069654 U NIT/GM Nystatin 665167 UNIT/GM 01/29/2020 12:00:00 AM EDT 1.0 {application} active Nystatin 258974 UNIT/GM eCW1 ([facility] Nystatin 100 UNT/MG Topical Ointment Nystatin 054803 U NIT/GM Nystatin 198058 UNIT/GM 01/29/2020 12:00:00 AM EDT 1.0 {application} active Nystatin 624316 UNIT/GM eCW1 ([facility]) Nystatin 100 UNT/MG Topical Ointment Nystatin 109447 U NIT/GM Nystatin 814704 UNIT/GM 01/29/2020 12:00:00 AM EDT 1.0 {application} active Nystatin 830275 UNIT/GM eCW1 ([facility]) Nystatin 100 UNT/MG Topical Ointment Nystatin 117712 U NIT/GM Nystatin 380519 UNIT/GM 01/29/2020 12:00:00 AM EDT 1.0 {application} active Nystatin 672706 UNIT/GM eCW1 ([facility]) Nystatin 100 UNT/MG Topical Ointment Nystatin 168470 U NIT/GM Nystatin 820265 UNIT/GM 01/29/2020 12:00:00 AM EDT 1.0 {application} active Nystatin 770264 UNIT/GM eCW1 ([facility]) Nystatin 100 UNT/MG Topical Ointment Nystatin 514199 U NIT/GM Nystatin 620326 UNIT/GM 01/29/2020 12:00:00 AM EDT 1.0 {application} active Nystatin 911118 UNIT/GM eCW1 ([facility]) Nystatin 100 UNT/MG Topical Ointment Nystatin 977736 U NIT/GM Nystatin 331287 UNIT/GM 01/29/2020 12:00:00 AM EDT 1.0 {application} active Nystatin 816270 UNIT/GM eCW1 ([facility]) 1 ML evolocumab 140 MG/ML Prefilled Syringe [Repatha] Repatha 140 MG/ML Repatha 140 MG/ML 01/22/2020 12:00:00 AM EDT 1.0 {ml} active Repatha 140 MG/ML eCW1 ([facility]) 1 ML evolocumab 140 MG/ML Prefilled Syringe [Repatha] Repatha 140 MG/ML Repatha 140 MG/ML 01/22/2020 12:00:00 AM EDT 1.0 {ml} active Repatha 140 MG/ML eCW1 ([facility]) 1 ML evolocumab 140 MG/ML Prefilled Syringe [Repatha] Repatha 140 MG/ML Repatha 140 MG/ML 01/22/2020 12:00:00 AM EDT 1.0 {ml} active Repatha 140 MG/ML [facility]CW[facility] 1 ML evolocumab 140 MG/ML Prefilled Syringe [Repatha] Repatha 140 MG/ML Repatha 140 MG/ML 01/22/2020 12:00:00 AM EDT 1.0 {ml} active Repatha 140 MG/ML eCW1 [facility] [facility] evolocumab 140 MG/ML Prefilled Syringe [Repatha] Repatha 140 MG/ML Repatha 140 MG/ML 01/22/2020 12:00:00 AM EDT 1.0 {ml} active Repatha 140 MG/ML eCW1 ([facility]) 1 ML evolocumab 140 MG/ML Prefilled Syringe [Repatha] Repatha 140 MG/ML Repatha 140 MG/ML 01/22/2020 12:00:00 AM EDT 1.0 {ml} active Repatha 140 MG/ML [facility]CW[facility] ML evolocumab 140 MG/ML Prefilled Syringe [Repatha] Repatha 140 MG/ML Repatha 140 MG/ML 01/22/2020 12:00:00 AM EDT 1.0 {ml} active Repatha 140 MG/ML eCW1 ([facility] 1 ML evolocumab 140 MG/ML Prefilled Syringe [Repatha] Repatha 140 MG/ML Repatha 140 MG/ML 01/22/2020 12:00:00 AM EDT 1.0 {ml} active Repatha 140 MG/ML eCW1 ([facility] 1 ML evolocumab 140 MG/ML Prefilled Syringe [Repatha] Repatha 140 MG/ML Repatha 140 MG/ML 01/22/2020 12:00:00 AM EDT 1.0 {ml} active Repatha 140 MG/ML eCW1 ([facility] 1 ML evolocumab 140 MG/ML Prefilled Syringe [Repatha] Repatha 140 MG/ML Repatha 140 MG/ML 01/22/2020 12:00:00 AM EDT 1.0 {ml} active Repatha 140 MG/ML eCW1 ([facility] 1 ML evolocumab 140 MG/ML Prefilled Syringe [Repatha] Repatha 140 MG/ML Repatha 140 MG/ML 01/22/2020 12:00:00 AM EDT 1.0 {ml} active Repatha 140 MG/ML eCW1 ([facility]) 1 ML evolocumab 140 MG/ML Prefilled Syringe [Repatha] Repatha 140 MG/ML Repatha 140 MG/ML 01/22/2020 12:00:00 AM EDT 1.0 {ml} active Repatha 140 MG/ML eCW1 ([facility] 1 ML evolocumab 140 MG/ML Prefilled Syringe [Repatha] Repatha 140 MG/ML Repatha 140 MG/ML 01/22/2020 12:00:00 AM EDT 1.0 {ml} active Repatha 140 MG/ML eCW1 ([facility] 1 ML evolocumab 140 MG/ML Prefilled Syringe [Repatha] Repatha 140 MG/ML Repatha 140 MG/ML 01/22/2020 12:00:00 AM EDT 1.0 {ml} active Repatha 140 MG/ML eCW1 ([facility] 1 ML evolocumab 140 MG/ML Prefilled Syringe [Repatha] Repatha 140 MG/ML Repatha 140 MG/ML 01/22/2020 12:00:00 AM EDT 1.0 {ml} active Repatha 140 MG/ML eCW1 ([facility] 1 ML evolocumab 140 MG/ML Prefilled Syringe [Repatha] Repatha 140 MG/ML Repatha 140 MG/ML 01/22/2020 12:00:00 AM EDT 1.0 {ml} active Repatha 140 MG/ML eCW1 ([facility] 1 ML evolocumab 140 MG/ML Prefilled Syringe [Repatha] Repatha 140 MG/ML Repatha 140 MG/ML 01/22/2020 12:00:00 AM EDT 1.0 {ml} active Repatha 140 MG/ML eCW1 ([facility]) 1 ML evolocumab 140 MG/ML Prefilled Syringe [Repatha] Repatha 140 MG/ML Repatha 140 MG/ML 01/22/2020 12:00:00 AM EDT 1.0 {ml} active Repatha 140 MG/ML eCW1 ([facility] 1 ML evolocumab 140 MG/ML Prefilled Syringe [Repatha] Repatha 140 MG/ML Repatha 140 MG/ML 01/22/2020 12:00:00 AM EDT 1.0 {ml} active Repatha 140 MG/ML eCW1 ([facility]) 1 ML evolocumab 140 MG/ML Prefilled Syringe [Repatha] Repatha 140 MG/ML Repatha 140 MG/ML 01/22/2020 12:00:00 AM EDT 1.0 {ml} active Repatha 140 MG/ML eCW1 ([facility] 1 ML evolocumab 140 MG/ML Prefilled Syringe [Repatha] Repatha 140 MG/ML Repatha 140 MG/ML 01/22/2020 12:00:00 AM EDT 1.0 {ml} active Repatha 140 MG/ML eCW1 ([facility] 1 ML evolocumab 140 MG/ML Prefilled Syringe [Repatha] Repatha 140 MG/ML Repatha 140 MG/ML 01/22/2020 12:00:00 AM EDT 1.0 {ml} active Repatha 140 MG/ML eCW1 ([facility] 1 ML evolocumab 140 MG/ML Prefilled Syringe [Repatha] Repatha 140 MG/ML Repatha 140 MG/ML 01/22/2020 12:00:00 AM EDT 1.0 {ml} active Repatha 140 MG/ML eCW1 ([facility] 1 ML evolocumab 140 MG/ML Prefilled Syringe [Repatha] Repatha 140 MG/ML Repatha 140 MG/ML 01/22/2020 12:00:00 AM EDT 1.0 {ml} active Repatha 140 MG/ML eCW1 ([facility]) 1 ML evolocumab 140 MG/ML Prefilled Syringe [Repatha] Repatha 140 MG/ML Repatha 140 MG/ML 01/22/2020 12:00:00 AM EDT 1.0 {ml} active Repatha 140 MG/ML eCW1 ([facility] 1 ML evolocumab 140 MG/ML Prefilled Syringe [Repatha] Repatha 140 MG/ML Repatha 140 MG/ML 01/22/2020 12:00:00 AM EDT 1.0 {ml} active Repatha 140 MG/ML eCW1 ([facility] 1 ML evolocumab 140 MG/ML Prefilled Syringe [Repatha] Repatha 140 MG/ML Repatha 140 MG/ML 01/22/2020 12:00:00 AM EDT 1.0 {ml} active Repatha 140 MG/ML eCW1 ([facility] 1 ML evolocumab 140 MG/ML Prefilled Syringe [Repatha] Repatha 140 MG/ML Repatha 140 MG/ML 01/22/2020 12:00:00 AM EDT 1.0 {ml} active Repatha 140 MG/ML eCW1 ([facility] 1 ML evolocumab 140 MG/ML Prefilled Syringe [Repatha] Repatha 140 MG/ML Repatha 140 MG/ML 01/22/2020 12:00:00 AM EDT 1.0 {ml} active Repatha 140 MG/ML eCW1 ([facility] 1 ML evolocumab 140 MG/ML Prefilled Syringe [Repatha] Repatha 140 MG/ML Repatha 140 MG/ML 01/22/2020 12:00:00 AM EDT 1.0 {ml} active Repatha 140 MG/ML eCW1 ([facility] 1 ML evolocumab 140 MG/ML Prefilled Syringe [Repatha] Repatha 140 MG/ML Repatha 140 MG/ML 01/22/2020 12:00:00 AM EDT 1.0 {ml} active Repatha 140 MG/ML eCW1 ([facility]) Acetaminophen 325 MG / Oxycodone Hydroch loride 5 MG Oral Tablet [Percocet] Percocet 5-325 MG Percocet 5-325 MG 01/16/2020 12:00:00 AM EDT 1 .0 {tablet_as_needed} active Percocet 5-32 5 MG eCW1 ([facility]) Acetaminophen 325 MG / Oxycodone Hydroch loride 5 MG Oral Tablet [Percocet] Percocet 5-325 MG Percocet 5-325 MG 01/16/2020 12:00:00 AM EDT 1 .0 {tablet_as_needed} active Percocet 5-32 5 MG eCW1 ([facility]) Acetaminophen 325 MG / Oxycodone Hydroch loride 5 MG Oral Tablet [Percocet] Percocet 5-325 MG Percocet 5-325 MG 01/16/2020 12:00:00 AM EDT 1 .0 {tablet_as_needed} active Percocet 5-32 5 MG eCW1 ([facility]) Acetaminophen 325 MG / Oxycodone Hydroch loride 5 MG Oral Tablet [Percocet] Percocet 5-325 MG Percocet 5-325 MG 01/16/2020 12:00:00 AM EDT 1 .0 {tablet_as_needed} active Percocet 5-32 5 MG eCW1 ([facility]) Acetaminophen 325 MG / Oxycodone Hydroch loride 5 MG Oral Tablet [Percocet] Percocet 5-325 MG Percocet 5-325 MG 01/16/2020 12:00:00 AM EDT 1 .0 {tablet_as_needed} suspended Percocet 5- 325 MG eCW1 ([facility]) Acetaminophen 325 MG / Oxycodone Hydroch loride 5 MG Oral Tablet [Percocet] Percocet 5-325 MG Percocet 5-325 MG 01/16/2020 12:00:00 AM EDT 1 .0 {tablet_as_needed} active Percocet 5-32 5 MG eCW1 ([facility]) Acetaminophen 325 MG / Oxycodone Hydroch loride 5 MG Oral Tablet [Percocet] Percocet 5-325 MG Percocet 5-325 MG 01/16/2020 12:00:00 AM EDT 1 .0 {tablet_as_needed} active Percocet 5-32 5 MG eCW1 ([facility]) 12 HR Amoxicillin 1000 MG / Clavulanate 62.5 MG Extended Release Oral Tablet Amoxicillin-Pot Clavulanate ER 1000-62.5 MG Amoxicillin-Pot Clavulanate ER 1000- 62.5 MG 01/16/2020 12:00:00 AM EDT 2.0 {tablet} acti ve Amoxicillin- Pot Clavulanate ER 1000-62.5 MG eCW1 ([facility]) Acetaminophen 325 MG / Oxycodone Hydroch loride 5 MG Oral Tablet [Percocet] Percocet 5-325 MG Percocet 5-325 MG 01/16/2020 12:00:00 AM EDT 1 .0 {tablet_as_needed} active Percocet 5-32 5 MG eCW1 ([facility]) Acetaminophen 325 MG / Oxycodone Hydroch loride 5 MG Oral Tablet [Percocet] Percocet 5-325 MG Percocet 5-325 MG 01/16/2020 12:00:00 AM EDT 1 .0 {tablet_as_needed} active Percocet 5-32 5 MG eCW1 ([facility]) Acetaminophen 325 MG / Oxycodone Hydroch loride 5 MG Oral Tablet [Percocet] Percocet 5-325 MG Percocet 5-325 MG 01/16/2020 12:00:00 AM EDT 1 .0 {tablet_as_needed} active Percocet 5-32 5 MG eCW1 ([facility]) Acetaminophen 325 MG / Oxycodone Hydroch loride 5 MG Oral Tablet [Percocet] Percocet 5-325 MG Percocet 5-325 MG 01/16/2020 12:00:00 AM EDT 1 .0 {tablet_as_needed} active Percocet 5-32 5 MG eCW1 ([facility]) Acetaminophen 325 MG / Oxycodone Hydroch loride 5 MG Oral Tablet [Percocet] Percocet 5-325 MG Percocet 5-325 MG 01/16/2020 12:00:00 AM EDT 1 .0 {tablet_as_needed} active Percocet 5-32 5 MG eCW1 ([facility]) Acetaminophen 325 MG / Oxycodone Hydroch loride 5 MG Oral Tablet [Percocet] Percocet 5-325 MG Percocet 5-325 MG 01/16/2020 12:00:00 AM EDT 1 .0 {tablet_as_needed} active Percocet 5-32 5 MG eCW1 ([facility]) Acetaminophen 325 MG / Oxycodone Hydroch loride 5 MG Oral Tablet [Percocet] Percocet 5-325 MG Percocet 5-325 MG 01/16/2020 12:00:00 AM EDT 1 .0 {tablet_as_needed} suspended Percocet 5- 325 MG eCW1 ([facility]) Acetaminophen 325 MG / Oxycodone Hydroch loride 5 MG Oral Tablet [Percocet] Percocet 5-325 MG Percocet 5-325 MG 01/16/2020 12:00:00 AM EDT 1 .0 {tablet_as_needed} suspended Percocet 5- 325 MG eCW1 ([facility]) Acetaminophen 325 MG / Oxycodone Hydroch loride 5 MG Oral Tablet [Percocet] Percocet 5-325 MG Percocet 5-325 MG 01/16/2020 12:00:00 AM EDT 1 .0 {tablet_as_needed} active Percocet 5-32 5 MG eCW1 ([facility]) Acetaminophen 325 MG / Oxycodone Hydroch loride 5 MG Oral Tablet [Percocet] Percocet 5-325 MG Percocet 5-325 MG 01/16/2020 12:00:00 AM EDT 1 .0 {tablet_as_needed} active Percocet 5-32 5 MG eCW1 ([facility]) Acetaminophen 325 MG / Oxycodone Hydroch loride 5 MG Oral Tablet [Percocet] Percocet 5-325 MG Percocet 5-325 MG 01/16/2020 12:00:00 AM EDT 1 .0 {tablet_as_needed} active Percocet 5-32 5 MG eCW1 ([facility]) Acetaminophen 325 MG / Oxycodone Hydroch loride 5 MG Oral Tablet [Percocet] Percocet 5-325 MG Percocet 5-325 MG 01/16/2020 12:00:00 AM EDT 1 .0 {tablet_as_needed} active Percocet 5-32 5 MG eCW1 ([facility]) Acetaminophen 325 MG / Oxycodone Hydroch loride 5 MG Oral Tablet [Percocet] Percocet 5-325 MG Percocet 5-325 MG 01/16/2020 12:00:00 AM EDT 1 .0 {tablet_as_needed} active Percocet 5-32 5 MG eCW1 ([facility]) 12 HR Amoxicillin 1000 MG / Clavulanate 62.5 MG Extended Release Oral Tablet Amoxicillin-Pot Clavulanate ER 1000-62.5 MG Amoxicillin-Pot Clavulanate ER 1000- 62.5 MG 01/16/2020 12:00:00 AM EDT 2.0 {tablet} acti ve Amoxicillin- Pot Clavulanate ER 1000-62.5 MG eCW1 ([facility]) Acetaminophen 325 MG / Oxycodone Hydroch loride 5 MG Oral Tablet [Percocet] Percocet 5-325 MG Percocet 5-325 MG 01/16/2020 12:00:00 AM EDT 1 .0 {tablet_as_needed} active Percocet 5-32 5 MG eCW1 ([facility]) Acetaminophen 325 MG / Oxycodone Hydroch loride 5 MG Oral Tablet [Percocet] Percocet 5-325 MG Percocet 5-325 MG 01/16/2020 12:00:00 AM EDT 1 .0 {tablet_as_needed} active Percocet 5-32 5 MG eCW1 ([facility]) Acetaminophen 325 MG / Oxycodone Hydroch loride 5 MG Oral Tablet [Percocet] Percocet 5-325 MG Percocet 5-325 MG 01/16/2020 12:00:00 AM EDT 1 .0 {tablet_as_needed} active Percocet 5-32 5 MG eCW1 ([facility]) 12 HR Amoxicillin 1000 MG / Clavulanate 62.5 MG Extended Release Oral Tablet Amoxicillin-Pot Clavulanate ER 1000-62.5 MG Amoxicillin-Pot Clavulanate ER 1000- 62.5 MG 01/16/2020 12:00:00 AM EDT 2.0 {tablet} acti ve Amoxicillin- Pot Clavulanate ER 1000-62.5 MG eCW1 ([facility]) Acetaminophen 325 MG / Oxycodone Hydroch loride 5 MG Oral Tablet [Percocet] Percocet 5-325 MG Percocet 5-325 MG 01/16/2020 12:00:00 AM EDT 1 .0 {tablet_as_needed} active Percocet 5-32 5 MG eCW1 ([facility]) Acetaminophen 325 MG / Oxycodone Hydroch loride 5 MG Oral Tablet [Percocet] Percocet 5-325 MG Percocet 5-325 MG 01/16/2020 12:00:00 AM EDT 1 .0 {tablet_as_needed} active Percocet 5-32 5 MG eCW1 ([facility]) Acetaminophen 325 MG / Oxycodone Hydroch loride 5 MG Oral Tablet [Percocet] Percocet 5-325 MG Percocet 5-325 MG 01/16/2020 12:00:00 AM EDT 1 .0 {tablet_as_needed} active Percocet 5-32 5 MG eCW1 ([facility]) Acetaminophen 325 MG / Oxycodone Hydroch loride 5 MG Oral Tablet [Percocet] Percocet 5-325 MG Percocet 5-325 MG 01/16/2020 12:00:00 AM EDT 1 .0 {tablet_as_needed} active Percocet 5-32 5 MG eCW1 ([facility]) Acetaminophen 325 MG / Oxycodone Hydroch loride 5 MG Oral Tablet [Percocet] Percocet 5-325 MG Percocet 5-325 MG 01/16/2020 12:00:00 AM EDT 1 .0 {tablet_as_needed} active Percocet 5-32 5 MG eCW1 ([facility]) Acetaminophen 325 MG / Oxycodone Hydroch loride 5 MG Oral Tablet [Percocet] Percocet 5-325 MG Percocet 5-325 MG 01/16/2020 12:00:00 AM EDT 1 .0 {tablet_as_needed} suspended Percocet 5- 325 MG eCW1 ([facility]) Acetaminophen 325 MG / Oxycodone Hydroch loride 5 MG Oral Tablet [Percocet] Percocet 5-325 MG Percocet 5-325 MG 01/16/2020 12:00:00 AM EDT 1 .0 {tablet_as_needed} active Percocet 5-32 5 MG eCW1 ([facility]) Acetaminophen 325 MG / Oxycodone Hydroch loride 5 MG Oral Tablet [Percocet] Percocet 5-325 MG Percocet 5-325 MG 01/16/2020 12:00:00 AM EDT 1 .0 {tablet_as_needed} active Percocet 5-32 5 MG eCW1 ([facility]) Acetaminophen 325 MG / Oxycodone Hydroch loride 5 MG Oral Tablet [Percocet] Percocet 5-325 MG Percocet 5-325 MG 01/16/2020 12:00:00 AM EDT 1 .0 {tablet_as_needed} suspended Percocet 5- 325 MG eCW1 ([facility]) Acetaminophen 325 MG / Oxycodone Hydroch loride 5 MG Oral Tablet [Percocet] Percocet 5-325 MG Percocet 5-325 MG 01/16/2020 12:00:00 AM EDT 1 .0 {tablet_as_needed} active Percocet 5-32 5 MG eCW1 ([facility]) 12 HR Amoxicillin 1000 MG / Clavulanate 62.5 MG Extended Release Oral Tablet Amoxicillin-Pot Clavulanate ER 1000-62.5 MG Amoxicillin-Pot Clavulanate ER 1000- 62.5 MG 01/16/2020 12:00:00 AM EDT 2.0 {tablet} acti ve Amoxicillin- Pot Clavulanate ER 1000-62.5 MG eCW1 ([facility]) 12 HR Amoxicillin 1000 MG / Clavulanate 62.5 MG Extended Release Oral Tablet Amoxicillin-Pot Clavulanate ER 1000-62.5 MG Amoxicillin-Pot Clavulanate ER 1000- 62.5 MG 01/16/2020 12:00:00 AM EDT 2.0 {tablet} acti ve Amoxicillin- Pot Clavulanate ER 1000-62.5 MG eCW1 ([facility]) Acetaminophen 325 MG / Oxycodone Hydroch loride 5 MG Oral Tablet [Percocet] Percocet 5-325 MG Percocet 5-325 MG 01/16/2020 12:00:00 AM EDT 1 .0 {tablet_as_needed} active Percocet 5-32 5 MG eCW1 ([facility]) Acetaminophen 325 MG / Oxycodone Hydroch loride 5 MG Oral Tablet [Percocet] Percocet 5-325 MG Percocet 5-325 MG 01/16/2020 12:00:00 AM EDT 1 .0 {tablet_as_needed} active Percocet 5-32 5 MG eCW1 ([facility]) Acetaminophen 325 MG / Oxycodone Hydroch loride 5 MG Oral Tablet [Percocet] Percocet 5-325 MG Percocet 5-325 MG 01/16/2020 12:00:00 AM EDT 1 .0 {tablet_as_needed} active Percocet 5-32 5 MG eCW1 ([facility]) Acetaminophen 325 MG / Oxycodone Hydroch loride 5 MG Oral Tablet [Percocet] Percocet 5-325 MG Percocet 5-325 MG 01/16/2020 12:00:00 AM EDT 1 .0 {tablet_as_needed} active Percocet 5-32 5 MG eCW1 ([facility]) Acetaminophen 325 MG / Oxycodone Hydroch loride 5 MG Oral Tablet [Percocet] Percocet 5-325 MG Percocet 5-325 MG 01/16/2020 12:00:00 AM EDT 1 .0 {tablet_as_needed} suspended Percocet 5- 325 MG eCW1 ([facility]) Acetaminophen 325 MG / Oxycodone Hydroch loride 5 MG Oral Tablet [Percocet] Percocet 5-325 MG Percocet 5-325 MG 01/16/2020 12:00:00 AM EDT 1 .0 {tablet_as_needed} suspended Percocet 5- 325 MG eCW1 ([facility]) Hydrochlorothiazide 12.5 MG Oral Tablet Hydrochlorothiazide 12/12/2013 10:17:00 PM EDT 12.5 MG completed [facility] Losartan Potassium 50 MG Oral Tablet Losartan 12/12/2013 10:17: 00 PM EDT 50 MG completed [facility] 60 ACTUAT Fluticasone propionate 0.1 MG/ ACTUAT / salmeterol 0.05 MG/ACTUAT Dry Powder Inhaler Fluticasone Propion-Salmeterol (Advair 100-50 Diskus) 1 EACH blister with device Fluticasone Propion-Salmeterol (Advair 1 00-50 Diskus) 1 EACH blister with device 12/12/2013 10:17:00 PM EDT 1 PUFFS completed [facility] Rosuvastatin calcium 20 MG Oral Tablet Rosuvastatin (C restor) 20 MG tablet Rosuvastatin (Crestor) 20 MG tablet 12/12/2013 10:17:00 PM EDT 20 MG completed [facility] Promethazine Hydrochloride 25 MG Oral Tablet Promethazine 12/12/2013 10:17:00 PM EDT 25 MG completed [facility] gabapentin 300 MG Oral Capsule Gabapentin Gabapentin 2013 10:17:00 PM EDT 300 MG completed [facility] Sucralfate 1000 MG Oral Tablet Sucralfate 12/12/2013 10:17:00 PM EDT 1 G completed [facility] ezetimibe 10 MG Oral Tablet Ezetimibe (Zetia) 10 MG ta blet Ezetimibe (Zetia) 10 MG tablet 12/12/2013 10:17:00 PM EDT 10 MG completed [facility] Alprazolam 0.25 MG Oral Tablet Alprazolam (Xanax) 0.25 MG tablet Alprazolam (Xanax) 0.25 MG tablet 12/12/2013 10:17:00 PM EDT 0.25 MG completed [facility] Insurance Providers Payer name Policy type / Coverage type Policy ID Covered democrat ID Covered democrat's relationship to marinelli Policy [place] Plan Information MEDICARE [id number] xxxxxxxxxxx [id number] [employer] [id number] S [id number] [place] [id number] S [id number] MEDICARE [id number] Emma [id number] MEDICARE [id number] Emma [id number] A [employer] [id number] S [id number] [place]IC[place] [id number] S [id number] MEDICARE M [id number] S [id number] A MEDICARE [id number] SP [id number] MEDICARE A [id number] Self [id number] A Medicare Part B [facility] [id number] Medicare Part B Medicare Primary [id number] Self [id number] [facility] Ins Workers Compensation [id number] Self Medicare [facility] Medicare Primary [id number] [place] [id number] Self MEDICARE 11 [id number] [facility] [id number] Emma [id number] [employer] OPTIONS [id number] SP [id number] [employer] [id number] SP [id number] [facility] [id number] Emma [id number] 1 [employer] Options Medigap Part B [id number] Self [id number] [facility] [id number] Emma [id number] [facility] [id number] xxxxxxxxxxx [id number] [facility] [id number] Emma [id number] [employer] Health Care Option [id number] AARP U [id number] Self [id number] [employer] OPTIONS [id number] ANSI-Medicare Part B [id number] ANSI-Commercial [id number] ANSI-Commercial [id number] ANSI-Medicare Part B [id number] ANSI-Medicare Part B [id number] ANSI-Commercial [id number] ANSI-Commercial [id number] ANSI-Medicare Part B [id number] ANSI-Commercial [id number] ANSI-Medicare Part B [id number] ANSI-Medicare Part B [id number] ANSI-Commercial [id number] ANSI-Medicare Part B [id number] ANSI-Commercial [id number] ANSI-Medicare Part B [id number] ANSI-Commercial [id number] ANSI-Medicare Part B [id number] ANSI-Commercial [id number] ANSI-Commercial [id number] 2awj3234-mtv0-67wn-67nn-550b3o206tay ANSI-Medicare Part B k9y9596j-0l54-0a64-00l7-8j24ox82449z i6g5283u-1s43-9j06-77z1-9d64tt04714s ANSI-Medicare Part B ff534b22-38x0-8741-031m-7y56eo2do0c3 ur074v74-39i1-4194-168f-7w31ph7xv6g4 ANSI-Commercial 0dn4hn26-8hkb-8kc7-wc82-d7qj8251l107 5qx2cr17-9pyu-8ay5-pj69-y7he9983z709 ANSI-Commercial 330c642m-8g6p-9yi1-ky99-171e088l6896 246m799d-6k9f-9vl8-tz07-678w585a7799 ANSI-Medicare Part B 58198j8s-006j-48b0-l620-124fmn0l71z6 05348z3o-041x-97j0-b671-741jiw7y18z5 ANSI-Commercial yo4g2rl1-7wy3-176x-a389-9550c5ox57k3 yw3o5pl3-7ya7-049y-g273-5271t8um01o1 ANSI-Medicare Part B 74592hig-4y94-3465-407s-jf8v099u9042 40327oig-9e31-4057-132g-zv5a598z8420 ANSI-Medicare Part B 4kmklt10-42c2-886e-579g-9852q57w51rx 1fasfw88-47t3-439r-367g-1475n40l19yz ANSI-Commercial 45q0v3d5-d170-8s02-62pr-0372pja9etv5 89y0l5h0-i098-2j41-90zr-3467lyl8vmb7 ANSI-Medicare Part B 2dp906u7-nbq3-4435-8zb4-5n06s17jp6f8 5ym168d5-atf8-0408-6zm4-3v13d56ob2j3 ANSI-Commercial 57994539-2s83-1i83-d3y7-6h2a52q6a518 34988083-5m70-2b28-p3e9-6m2w59p9j613 ANSI-Medicare Part B j22096a2-a78u-68b4-5e38-xf51603339i7 x51275d6-e73t-83v6-7j63-mi66113155n8 ANSI-Commercial 0v92pt99-r78q-9pr1-f362-04m434a01833 0m90gn60-s54l-0tl9-y294-96o214x51729 ANSI-Medicare Part B 924t740a-2si6-5t27-50y1-9iv18591t4h0 688f990n-1fd9-7v33-71i3-8ik05916z1y5 ANSI-Commercial 1243n1v8-5442-1h09-cxpg-440n20999944 2309w0h3-8509-4j37-rcfu-641q08875923 ANSI-Medicare Part B 36t6z0i8-58l8-4413-p0cn-931lk03x04zb 84k3t2u3-45k6-6174-d2nn-031mx70l17mc ANSI-Commercial 6134yoer-71p6-6wm505o8-4ql7-8n8s-34jl5720n4jx 6228zfbd-79x2-7jb478b9-0ky7-6r6b-34ft5018z3ys ANSI-Commercial 78352d0e-l038-6gh9-m037-1j085ay33y0f 19802g5e-u819-0ue2-b405-9n518dw08c7r ANSI-Medicare Part B v1zm7374-i399-58x1-87o2-k278k73kl904 v3mw4699-s929-02w9-30z8-x137v70uh546 ANSI-Commercial 7q75mcq2-1jor-0213-0l23-6v10lihy5592 1f52lyw8-0cbz-3847-7u12-7v21csvo6724 ANSI-Medicare Part B 0417749e-7r0w-15yp-7qq7-v6j5k33a64s6 9432125o-9u6k-48ag-5te3-t9d1i49h21j9 ANSI-Medicare Part B b723n712-y5eu-0v9n-5643-0554559hdvp2 p886d547-x2sf-8p1w-3293-6372398cbym5 ANSI-Commercial 2zx97j9r-3ree-8675-q27y-729w8606zi14 0hc03t7a-3saa-3176-i76x-121n3910fw88 ANSI-Medicare Part B tb9u5a10-4rb8-5j32-xo63-i7ncr24v0n93 or2e7c30-6yt2-1f00-kx16-r1kwf23l1a25 ANSI-Commercial 777m876b-6z24-7kc3-ae52-7e77826c9248 003z657f-9g56-0yj1-bh48-5o33819d2431 ANSI-Medicare Part B 546m5tw8-9gr0-1r5w-q5dg-ss2o5da9mz06 153a7ui5-3xc0-8r0f-m6db-kl2f7uv0wf29 ANSI-Commercial 4rg524t2-6e5r-840c-759q-38658hx69m7p 8ub293i1-2m0v-114m-777i-65634nm78q7i ANSI-Commercial io7d80fx-l674-4w40-3f44-2105a8t725n7 lq7k85yg-z090-8z11-4q60-2526h7i056v0 ANSI-Medicare Part B [id number]-pr4y-6u7t-2vzt-57m27a4h3122 9t303597-ht2b-3f7c-6wwy-70a59l8s9103 [facility] Part B [id number] ..840.1.365665.3.227.99.864 [id number] Self [id number] Medicare [facility] Medicare Primary [id number] Self [id number] ANSI-Commercial 7arh9wo3-y548-0b02-ghe6-u77638020c7i 8atw1ki6-c382-5z24-ryv6-n96423149i0v ANSI-Medicare Part B 48xf4db6-2723-566a-5685-6589577t41vx 38ho8pl7-5496-975d-3879-7913728w95gd ANSI-Medicare Part B 36am0578-9vr3-5i0j-c575-65r438ozo431 18qd2176-4xy2-4o2c-j649-28m424qlj230 ANSI-Commercial [id number] ANSI-Medicare Part B [id number] ANSI-Commercial [id number] ANSI-Medicare Part B [id number] ANSI-Commercial [id number] ANSI-Commercial [id number] ANSI-Medicare Part B [id number] ANSI-Medicare Part B [id number] ANSI-Commercial [id number] ANSI-Commercial [id number] ANSI-Medicare Part B [id number] ANSI-Commercial [id number] ANSI-Medicare Part B [id number] ANSI-Commercial [id number] ANSI-Medicare Part B [id number] MEDICARE [id number] SP [id number] A MEDICARE C [id number] S [id number] A [facility] PI PI MEDICARE PI PI MEDICARE PART A -O/P [id number] 18 [id number] AARP HE[employer] CARE OPTIONS-O/P [id number] 18 [id number] [employer] CARE OPTIONS [id number] 18 [id number] MEDICARE PART A [facility] [id number] 18 [id number] [facility] Options Medigap Part B [id number] Self [id number] Medicare Part A [place] Medicare Primary [id number] Self [id number] [facility] Medigap Part B [id number] Self 33 [id number] Medicare Part A [place] Medicare Primary [id number] Self [id number] [facility] Medigap Part B [id number] Self 33 [id number] Medicare Part A [place] Medicare Primary [id number] Self 08 [id number] Aarp Supplemental Plan Medigap Part B [id number] Self [id number] Medicare Medicare Primary [id number]. [id number] Self [id number] [facility] Medigap Part B [id number] Self [id number] Medicare Natl Gov't Servi Medicare Primary [id number] Self [id number] Aarp Supplemental Plan Medigap Part B [id number] Self [id number] Medicare Medicare Primary [id number]. [id number] Self [id number] Aarp Supplemental Plan Medigap Part B [id number] Self [id number] Medicare Medicare Primary [id number]. [id number] Self [id number] [facility] Aarp Medigap Part B [id number] Self [id number] Medicare Part B Medicare Primary [id number] Self [id number] Aarp Supplemental Plan Medigap Part B [id number] Self Medicare Medicare Primary [id number] Self [facility] [id number] Self Medicare Dme Supplies Medigap Part B [id number] Self AARP HE[employer] CARE OPTIONS-O/P [id number] 18 [id number] [facility] Options Medigap Part B [id number] Self [place] Primary [id number] Self AARP O [id number] S [id number] [facility] Medigap Part B [id number] Self AARP HE[employer] CARE OPTIONS -O/P [id number] 18 [id number] MEDICARE -O/P [id number] 18 [id number] AARP HE[facility] CARE O [id number] S 3 [id number] TODAYS OPTIONS O [id number] S [id number] MEDICARE -O/P [id number] 18 [id number] MEDICARE PART B -PHYSICIAN [id number] 18 [id number] AARP HE[employer] CARE OPTIONS -PHYSICIAN [id number] 18 [id number] AARP HE[facility] CARE OPTIONS-CLINIC [id number] 18 [id number] MEDICARE PART A-CLINIC [id number] 18 [id number] SELF PAY 2 UNAVAILABLE 1 UNAVAILA BLE NF MISCELLANEOUS [id number] PT [id number] [employer] C[employer] OPTIONS [id number] PT [id number] MEDICARE PART B [id number] PT [id number] MEDICARE PART A [id number] PT [id number] MEDICARE [id number] SP [id number] AARP HE[employer] CARE OPTIONS [id number] SP [id number] [place] MED[place] DIVISION [id number] S [id number] [place]ICARE [place] [id number] S [id number] AARP HE[employer] CARE OPTIONS [id number] S [id number] [employer] CARE OPTIONS [id number] S [id number] [employer] CARE OPTIONS [id number] S [id number] [employer] [facility] OPTIONS [id number] S [id number] [place] [employer] [id number] S [id number] [place]IC[place] [id number] S [id number] [place] MED[employer]ARE DIVISION [id number] S [id number] MEDICARE [place] [id number] S [id number] AARP HE[employer] CARE OPTIONS [id number] S [id number] MEDICARE C [id number] S [id number] AARP O [id number] S [id number] ANSI-Medicare Part B [id number] ANSI-Commercial [id number] ANSI-Medicare Part B [id number] ANSI-Commercial [id number] ANSI-Commercial [id number] ANSI-Medicare Part B [id number] ANSI-Medicare Part B [id number] [facility] [id number] [facility]-AktiVax [id number] ANSI-Medicare Part B [id number] 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) DRUG THERAPY Diagnosis 08/11/2020 03:40:00 PM [facility] Z79.891 USP (current) use of opiate analge sic MCFP (CURRENT) USE OF OPIATE ANALGESIC Diagnosis 08/11/2020 03:40:00 PM [facility] Z79.82 USP (current) use of aspirin [facility]FP (CU RRENT) USE OF ASPIRIN Diagnosis 08/11/2020 03:40:00 PM [facility] 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 MCFP (CURRENT) USE OF ANTITHROMBOTICS/ANTIPLA Diagnosis 08/11/2020 03:40:00 PM [facility] Z95.1 Presence of aortocoronary bypass graft P RESENCE OF AORTOCORONARY BYPASS GRAFT Diagnosis 08/11/2020 [facility] E11[facility]9 Type 2 diabetes mellitus without complic ations TYPE 2 DIABETES MELLITUS WITHOUT COMPLICATIONS Diagnosis 08/11/2020 03:40:00 PM [facility] momo I25.2 Old myocardial infarction OLD MYOCARDIAL INFARCTION Di agnosis 08/11/2020 03:40:00 PM [facility] I10 Essential (primary) hypertension ESSENTIAL (PRIMARY) H YPERTENSION Diagnosis 08/11/2020 03:40:00 PM [facility] R07.2 Precordial pain PRECORDIAL PAIN Diagnosis 08/11/2020 03:4 0:00 PM [facility] Z87.898 Personal history of other specified cond itions PERSONAL HISTORY OF OTHER SPECIFIED CONDITIONS Diagnosis 08/11/2020 12:55:00 PM [facility] R07.89 Other chest pain OTHER CHEST PAIN Diagnosis 08/11/2020 12 :55:00 PM [facility] R06.02 Shortness of breath SHORTNESS OF BREATH Diagnosis 0 08/11/2020 12:55:00 PM [facility] C64.2 Malignant neoplasm of left kidney, excep t renal pelvis MALIGNANT NEOPLASM OF LEFT KIDNEY, EXCEPT RENAL PE Diagnosis 05/06/2020 01:00:00 PM [facility] K21.9 Gastro-esophageal reflux disease without esophagitis GASTRO-ESOPHAGEAL REFLUX DISEASE WITHOUT ESOPHAGIT Diagnosis 05/06/2020 01:00:00 PM [facility] E53.8 Deficiency of other specified B group vi tamins DEFICIENCY OF OTHER SPECIFIED B GROUP VITAMINS Diagnosis 05/06/2020 01:00:00 PM [facility] E78.5 Hyperlipidemia, unspecified HYPERLIPIDEMIA, UNSPECIFIE D Diagnosis 05/06/2020 01:00:00 PM [facility] Z71.89 Other specified counseling OTHER SPECIFIED COUNSELING Diagnosis 03/04/2020 10:30:00 AM [facility] Z23 Encounter for immunization ENCOUNTER FOR IMMUNIZATION Diagnosis 03/04/2020 10:30:00 AM [facility] D51.0 Vitamin B12 deficiency anemia due to int rinsic factor deficiency VITAMIN B12 DEFIC ANEMIA DUE TO INTRINSIC FACTOR DEFICIENCY Diagnosis 10:30:00 AM [facility] Z01.30 Encounter for examination of blood press ure without abnormal findings ENCOUNTER FOR EXAM OF BLOOD PRESSURE W/O ABNORMAL Diagnosis 01/21 11:20:00 AM [facility] B37.3 Candidiasis of vulva and vagina CANDIDIASIS OF VULVA A ND VAGINA Diagnosis 01/29/2020 11:30:00 AM [facility] Z12.11 Encounter for screening for malignant ne oplasm of colon ENCOUNTER FOR SCREENING FOR MALIGNANT NEOPLASM OF COLON Diagnosis 01/29/2020 11:00:0 0 AM [facility] Z87.19 Personal history of other diseases of th e digestive system PERSONAL HISTORY OF OTHER DISEASES OF THE DIGESTIV Diagnosis 01/16/2020 11:30:0 0 AM [facility] Z98.0 Intestinal bypass and anastomosis status INTESTINAL BYPASS AND ANASTOMOSIS STATUS Diagnosis 01/16/2020 11:30:00 AM [facility] K52.9 Noninfective gastroenteritis and colitis , unspecified NONINFECTIVE GASTROENTERITIS AND COLITIS, UNSPECIF Diagnosis 01/16/2020 11:30:00 AM [facility] K57.92 Diverticulitis of intestine, part unspecified, without perforation or abscess without bleeding DVTRCLI OF INTEST, PART UNSP, W/O PERF OR ABSCESS Diagnosis 01/16/2020 11:30:00 AM [facility] R10.32 Left lower quadrant pain LEFT LOWER QUADRANT PAIN Diag nosis 01/16/2020 11:30:00 AM [facility] G89.29 [id number] Other chronic pain Problem 01/12/2021 12:00: [address] [facility] ([facility]) E78.00 [id number] Hypercholesterolemia Problem 12/17/2020 12:0 0:[address] [facility] ([facility]) Z86.39 [id number] History of non anemic vitamin B12 deficie ncy Problem 12/17/2020 12:00:[address] [facility] ([facility]) R42 Dizziness and giddiness Dizziness and giddiness Proble m 11/03/2020 12:00:00 AM EDT [facility] ([facility]) R55 Syncope and collapse Syncope and collapse Problem 11/03/2020 12:00:00 AM EDT [facility] ([facility]) R00.2 Palpitations Palpitations Problem 11/03/2020 12:00:00 A M EDT [facility] ([facility]) I25.2 Old myocardial infarction Old myocardial infarction Pr oblem 11/03/2020 12:00:00 AM EDT [facility] ([facility]) I45.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 Right bundle branch block AND left anterior fascicular block Problem 2020 12:00:00 AM EDT [facility] ([facility]) R94.31 Electrocardiogram abnormal Electrocardiogram abnormal Problem 11/03/2020 12:00:00 AM EDT [facility] ([facility]) E66.3 Overweight Overweight Problem 11/03/2020 12:00:00 AM ED T [facility] ([facility]) I25.10 Coronary arteriosclerosis after percutan eous coronary angioplasty Coronary arteriosclerosis after percutaneous coronary angioplasty Problem 11/03/2020 12:00:00 AM EDT [facility] ([facility]) Z71.3 Dietary management surveillance Dietary management alessandro veillance Problem 11/03/2020 12:00:00 AM EDT [facility] ([facility]) E78.2 Mixed hyperlipidemia Mixed hyperlipidemia Problem 11/03/2020 12:00:00 AM EDT [facility] ([facility]) R07.9 Chest pain Chest pain Problem 11/03/2020 12:00:00 AM ED T [facility] ([facility]) I35.0 Aortic valve disorder Aortic valve disorder Problem 11/03/2020 12:00:00 AM EDT [facility] ([facility]) I10 Essential hypertension Essential hypertension Problem 11/03/2020 12:00:00 AM EDT [facility] ([facility]) Z95.5 Patient post percutaneous transluminal c oronary angioplasty Patient post percutaneous transluminal coronary angioplasty Problem 021 12:00:00 AM EDT [facility] ([facility]) Z95.1 History of coronary artery bypass grafti ng History of coronary artery bypass grafting Problem 11/03/2020 12:00:00 AM EDT [facility] ([facility]) [id number] Chest pain Chest pain Problem 11/03/2020 12:00:00 AM ED T [facility] ([facility]) 3780156 Aortic valve disorder Aortic valve disorder Problem 11/03/2020 12:00:00 AM EDT [facility] ([facility]) [id number] Syncope and collapse Syncope and collapse Problem 11/03/2020 12:00:00 AM EDT [facility] ([facility]) 37430101 Right bundle branch block AND left anter ior fascicular block Right bundle branch block AND left anterior fascicular block Problem 11/03/2020 12:00:00 AM EDT [facility] ([facility]) 006027701 Patient post percutaneous transluminal c oronary angioplasty Patient post percutaneous transluminal coronary angioplasty Problem 12:00:00 AM EDT [facility] ([facility]) 17198334 Palpitations Palpitations Problem 11/03/2020 12:00:00 A M EDT [facility] ([facility]) 580405448 Overweight Overweight Problem 11/03/2020 12:00:00 AM ED T [facility] ([facility]) 8204594 Old myocardial infarction Old myocardial infarction Pr oblem 11/03/2020 12:00:00 AM EDT [facility] ([facility]) 531988325 Mixed hyperlipidemia Mixed hyperlipidemia Problem 11/03/2020 12:00:00 AM EDT [facility] ([facility]) 341397821 History of coronary artery bypass grafti ng History of coronary artery bypass grafting Problem 11/03/2020 12:00:00 AM EDT [facility] ([facility]) 98638422 Essential hypertension Essential hypertension Problem 11/03/2020 12:00:00 AM EDT [facility] ([facility]) 393584955 Electrocardiogram abnormal Electrocardiogram abnormal Problem 11/03/2020 12:00:00 AM EDT [facility] ([facility]) 204167927 Dizziness and giddiness Dizziness and giddiness Proble m 11/03/2020 12:00:00 AM EDT [facility] ([facility]) 239271596 Dietary management surveillance Dietary manageme nt surveillance Problem 11/03/2020 12:00:[facility] [id number] Coronary arteriosclerosis af ter percutaneous coronary angioplasty Coronary arteriosclerosis after percutaneous coronary angioplasty Problem 11/03/2020 12:00:00 AM [facility] R06.02 Dyspnea Dyspnea Problem 09/16/2020 12:00:00 [facility] ) G47.33 Obstructive sleep apnea syndrome Obstructive sle ep apnea syndrome Problem 09/16/2020 12:00:00 AM EDT [facility] ([facility]) Z87.891 Ex-smoker Ex-smoker Problem 09/16/2020 12:00:00 [facility] I25.2 [id number] History of WI (myocardial infarction) Pro blem 08/11/2020 12:00:00 AM EDT [facility]CW1 ([facility]) Z87.898 489465094 History of solitary pulmonary nodule Prob bobbi 08/11/2020 12:00:00 AM EDT eCW1 ([facility]) I10 [id number] Essential (primary) hypertension Problem 02/14/2020 12:00:00 AM EDT eCW1 ([facility]) Surgeries/Procedures Procedure Description Date Indications Data Source(s) OFFICE OUTPATIENT VISIT 15 MINUTES 02/18/2021 12:00:00 AM [facility]T [facility] External ECG Rec>48HR<7D Recording 01/29/2021 12:00:00 AM [facility] External ECG Rec>48HR<7D Review & Interpretation 01/29 12:00:00 AM [facility] ECHO TTHRC R-T 2D W/WOM-MODE COMPL SPEC&COLR DOP 01/19 12:00:00 AM [facility] Complex Chronic Care Management SVC 1St 60 Min 021 12:00:00 AM EDT [facility] Complex Chronic Care MGMT Service Ea Addl 30 Min 01/08 12:00:00 AM EDT [facility] ([facility]) MYOCRD IMAGE PET PERFUS MULTPL STUDY REST/STRESS 12/29 12:00:00 AM EDT [facility] ([facility]) CV STRS TST XERS&/OR RX CONT ECG I&R ONLY 12/29/2020 1 2:00:00 AM EDT [facility] ([facility]) Arterial Pressure Waveform Analysis For Assessment Of Centra l Art 12/03/2020 12:00:00 AM EDT [facility] ([facility] OFFICE OUTPATIENT VISIT 15 MINUTES 12/03/2020 12:00:00 AM EDT [facility] ([facility]) DUPLEX SCAN EXTRACRANIAL ART COMPL BI STUDY 11/06/2020 12:00:00 AM EDT [facility] ([facility]) ECG ROUTINE ECG W/LEAST 12 LDS W/I&R 11/03/2020 12:00: 00 AM EDT [facility] ([facility]) Arterial Pressure Waveform Analysis For Assessment Of Centra l Art 11/03/2020 12:00:00 AM EDT [facility] ([facility]) OFFICE OUTPATIENT NEW 45 MINUTES 11/03/2020 12:00:00 A M EDT [facility] ([facility]) Ultrasound procedure on topographic region (procedure) 09/26/2020 03:00:00 PM EDT [facility] l Xray Wrist complete LT 09/26/2020 01:55:00 PM EDT [facility] Xray Forearm AP/LAT LT 09/26/2020 01:55:00 PM EDT [facility] Spirometry 09/16/2020 12:00:00 AM EDT M TAMELA ([facility], ) CYSTOURETHROSCOPY 04/13/2020 12:00:00 AM EST [facility] ([facility] [place]) Results ID Date Data Source [id number] 12/17/2020 10:19:00 AM EDT [facility] ([facility]) Name Value Range Interpretation Code Description Data Dinorah rce(s) Supporting Document(s) Cobalamin (Vitamin B12) [Mass/volume] in Serum or Plasma 689 pg/mL 2 47-911 [facility] ([facility]) VITAMIN B12 NORMAL RANGE NORMAL 247 - 911 PG/ML INDETERMINATE 211 - 246 PG/ML DEFICIENT LESS THAN 211 PG/ML ID Date Data Source [id number] 12/17/2020 10:19:00 AM EDT [facility] ([facility]) Name Value Range Interpretation Code Description Data Dinorah rce(s) Supporting Document(s) Cholesterol Level 191 mg/dL [facility] ([facility]) Triglycerides Level 316 mg/dL [facility] ([facility]) LDL Cholesterol 85 mg/dL [facility]) Non-HDL-C 148 mg/dL [facility] HDL Cholesterol 43 mg/dL [facility]) Cholesterol Risk Ratio 4.441 [facility] ([facility]) ID Date Data Source VITAMIN B12 LEVEL 12/17/2020 12:00:00 AM EDT eCW1 ([facility]) Name Value Range Interpretation Code Description Data Dinorah rce(s) Supporting Document(s) [phone] VITAMIN B12 LEVEL eCW1 ([facility]) ID Date Data Source LIPID PANEL (CARDIAC RISK) 12/17/2020 12:00:00 AM EDT eCW1 ( [facility]) Name Value Range Interpretation Code Description Data Dinorah rce(s) Supporting Document(s) Triglyceride [Mass/volume] in Serum or Plasma by calculation 316 <150 TRIGLYCERIDES LEVEL eCW1 ([facility]) Cholesterol [Moles/volume] in Serum or Plasma 191 <200 CHOLESTEROL LEVEL eCW1 ([facility]) Cholesterol in LDL [Mass/volume] in Serum or Plasma by calculation 85 <100 LDL CHOLESTEROL eCW1 ([facility]) Cholesterol in HDL [Moles/volume] in Serum or Plasma 43 >40 HDL CHOLESTEROL eC1 ([facility]) 4.441 <5 CHOLESTEROL RISK RATIO eCW ([facility]) 148 NON-HDL-C eCW1 ([facility]) ID Date Data Source [id number] 11/06/2020 11:35:00 AM EDT [facility] ([facility]) Name Value Range Interpretation Code Description Data Dinorah rce(s) Supporting Document(s) Carotid Ultrasound Bilateral Laboratory test result [facility] ([facility]) ID Date Data Source [id number] 09/26/2020 03:42:00 PM EDT [facility] [address] [place] [address] [phone] NAME SEX PT STATUS ACCOUNT NUMBER KATHIE MARSHALL [facility] ER [id number] ORDERING PHYSICIAN LOCATION MEDICAL RECORD NO. Raymond Wadsworth DO ER [id number] ATTENDING PHYSICIAN DATE OF DATE OF EXAM/TIME WILLIE GARCIA 1945 09/26/201499 TYPE / EXAM US EXTREMITY NON VASC LIMITED REASON FOR EXAM L wrist- ulnar aspect, ? large ganglion causing pn Clinical History/Indication for Exam: L wrist- ulnar aspect, ? large ganglion causing pn US LEFT UPPER EXTREMITY NON-VASCULAR COMPLETE INDICATION: L wrist- ulnar aspect, ? large ganglion causing pn TECHNIQUE: Real-time ultrasound scan of the left upper extremity with image documentation. COMPARISON: Left wrist x-rays from 09/26/2020 FINDINGS: Soft tissues: Ultrasound of the soft tissues was performed in the area of concern. Along the ulnar aspect of the wrist at the site of the palpable soft tissue lump there is a lobulated hypoechoic cystic and septated structure measuring 1.6 x 0.8 x 1.1 cm. No internal vascularity or associated peripheral vascularity is seen. No foreign body. IMPRESSION: 1. Findings may reflect a ganglion cyst or synovial cyst along the ulnar side of the wrist at the site of the palpable lump measuring up to 1.6 cm. 2. Consider follow-up nonemergent MRI of the wrist. REPORT SIGNATURE ON FILE 09/26/2020 (15:42 Eastern Time ) Signed by: David Thurston M.D. Reported By David Thurston MD on 09/26/201541 Signed By David Thurston MD on 09/26/201541 Date Time CC: JANET GARCIA; David Thurston MD Techn: TABSA Trans Dt/Tm: Trans by: DT Prt Dt/Tm: : Total DLP = 0.00 mGy-cm : Total Radiation Dose = 0.0000 mSv Lifetime Dose: 0 mSv Name Value Range Interpretation Code Description Data Dinorah rce(s) Supporting Document(s) ID Date Data Source [id number] 09/26/2020 03:31:00 PM EDT [facility] ED Physician Documentation NAME: KATHIE MARSHALL : 1945 AGE: 75 MR#: [id number] SERVICE DATE: 09/26/[address]: Raymond Wadsworth DO PRIMARY CARE DR: WILLIE GARCIA PA-C ROOM#: HPI (Adult, General) General Chief Complaint: Musculoskeletal Stated Complaint: L ELBOW/WRIST PAIN Time Seen by Provider: 09/26/20 13:20 History of Present Illness Narrative: 75-year-old female with chief complaint of left wrist pain ongoing for a week or more withNoSignificant impairment with the exception of left fist unable to befully made because of pain, no sensory deficits, no similar issues in the past, was previously swollen more than it is now and spontaneously resolved for the past couple days. She has mentioned it to her primary care physician but is apparently switching primary care physicians as she was unhappy with the care she was previously getting.Denies any other complaints. Allergies/Home Meds Allergies Allergy/AdvReac Type Severity Reaction Status Date / Time latex [Latex] Allergy Unknown Verified 09/26/20 13:48 amoxicillin [Amoxicillin] AdvReac Intermediate Diarrhea Verified 09/26/20 13:48 atorvastatin [From Lipitor] AdvReac Intermediate LEG CRAMPS Verified 09/26/20 13:48 BAD codeine [Codeine] AdvReac Intermediate ITCHING Verified 09/26/20 13:48 AND NAUSEA nitroglycerin AdvReac Intermediate MIGRAINE Verified 09/26/20 13:48 [From Nitro-Bid] HEADACHES tetracycline [Tetracycline] AdvReac Intermediate Diarrhea Verified 09/26/20 13:48 buspirone [Buspirone] AdvReac Mild DIARRHEA Verified 09/26/20 13:48 Adhesive Tape AdvReac Intermediate RASH, RAW, Uncoded 09/26/20 13:39 VERY SORE Home Medications Medication Instructions Recorded Confirmed Last Taken Type aspirin 325 mg PO DAILY #30 tab 12/12/13 09/26/20 09/26/20 History clopidogrel [Plavix] 75 mg PO DAILY #30 tab 12/12/13 09/26/20 09/26/20 History meclizine 25 mg PO QID #120 tab 12/12/13 09/26/20 09/26/20 History metoclopramide HCl 10 mg PO QID #120 tab 12/12/13 09/26/20 09/26/20 History metoprolol tartrate 25 mg PO BID #60 tab 12/12/13 09/26/20 09/26/20 History nitroglycerin 1 patch TRANSDERMAL DAILY #30 patch 12/12/13 09/26/20 Unknown History pantoprazole [Protonix] 40 mg PO DAILY #30 tab 12/12/13 09/26/20 Unknown History ranolazine [Ranexa] 1,000 mg PO BID #60 tab 12/12/13 09/26/20 09/26/20 History tramadol 2 tabs PO Q6HPRN #100 tab 12/12/13 09/26/20 09/26/20 History albuterol sulfate [Proventil HFA] 90 mcg INHALATION PRN PRN 09/26/20 09/26/20 09/26/20 History amlodipine [Norvasc] 2.5 mg PO DAILY 09/26/20 09/26/20 09/26/20 History escitalopram oxalate 10 mg PO DAILY 09/26/20 09/26/20 09/26/20 History febuxostat 40 mg PO DAILY 09/26/20 09/26/20 09/26/20 History valsartan [Diovan] 80 mg PO DAILY 09/26/20 09/26/20 09/26/20 History PMH (from Triage) Patient Medical History PMH Reviewed/Updated as Needed: Yes PMH/PSH from Triage: Medical History Angina pectoris (Medical) Carotid artery stenosis (Medical) Coronary artery disease (Medical) Eczema (Medical) Endometriosis (Medical) Esophagitis (Medical) Fibromyalgia (Medical) Gastrointestinal hemorrhage (Medical) Heart failure (Medical) Heart valve disorder (Medical) Herniated discs in back (Medical) Hiatal hernia (Medical) History of [place] (Medical) Hyperlipidemia (Medical) Hypertension (Medical) Irritable colon (Medical) Kidney stone (Medical) Paget's disease of bone (Medical) Peripheral vascular disease (Medical) Sleep apnea (Medical) Stroke in 10/2013 (Medical) Transient ischemic attack (Medical) Surgical History (Updated 11/13/18 @ 11:52 by I and love and you [place]) Appendectomy (Surg ical) Carotid endarterectomy (Surgical) Right 2002 Left October 2013 Cataract extraction and insertion of intraocular lens (Surgical) Both eyes Cholecystectomy (Surgical) History of - surgery (Surgical) Multiple stents History of - surgery (Surgical) History of - surgery (Surgical) Discectomy L4-L5 History of - surgery (Surgical) Valve replacement History of hysterectomy (Surgical) Status post coronary artery bypass graft (Surgical) 3 vessel in 2002 Status post tonsillectomy (Surgical) Hx Drug Resistant Infections Hx C.Diff: Yes (04/24/17) Hx Other Resistant Infection?: No Isolation: Standard precautions Hx Recent Travel Nurse screening for coronavirus: Recent Travel outside the No country (where) Has patient experienced No coronavirus symptoms Social History Are you in a relationship with/Does anyone hit you, yell/swear at you, steal from you?: No Substance Use Second Hand Smoke Exposure: No Smoking Status: Never smoker Vaccination History Hx/Date of Tetanus, Diphtheria Vaccination: Yes Hx/Date of Influenza Vaccination: No Hx/Date of Pneumococcal Vaccination: No Immunizations Up to Date: Yes [facility] Medical History Angina pectoris Carotid artery stenosis Coronary artery disease Eczema Endometriosis Esophagitis Fibromyalgia Gastrointestinal hemorrhage Heart failure Heart valve disorder Herniated discs in back Hiatal hernia History of [place] Hyperlipidemia Hypertension Irritable colon Kidney stone Paget's disease of bone Peripheral vascular disease Sleep apnea Stroke in 10/2013 Transient ischemic attack Surgical History Appendectomy Carotid endarterectomy Cataract extraction and insertion of intraocular lens Cholecystectomy History of - surgery History of - surgery History of - surgery History of - surgery History of hysterectomy Status post coronary artery bypass graft Status post tonsillectomy Family History Mother No problems noted. Father No problems noted. Brother No problems noted. Sister No problems noted. Sister No problems noted. Social History Does the Patient have a Healthcare Proxy: Yes Does Patient have a DNR?: No Does Patient have a Living Will?: No Smoking Status: Never smoker ROS Review of Systems ROS Narrative: General: Denies fever, chills. Head: Denies headache, scalp tenderness. Eyes: Denies blurry vision, double vision. Ears: Denies earache, discharge. Nose: Denies nosebleeds, discharge. Neck: Denies pain, masses. Heart: Denies chest pain, palpitations. Lungs: Denies shortness of breath, orthopnea, cough. GI: Denies nausea, vomiting, diarrhea, constipat ion : Denies dysuria, hematuria. MUSK: Denies weakness, atrophy.Endorses pain in the left wrist Skin: Denies rash, itching. Neurologic: Denies numbness, tingling. Psychiatric: Denies depression, anxiety. Physical Exam General Physical Exam Narrative: General: Patient is alert and oriented to person, place, and time. Appears in no acute distress. Head: Normocephalic and atraumatic. Eyes: Pupils equally round and react to light. Extraocular movements intact. Ears: Gross hearing intact. External ears within normal limits. Nose: No septal deviation. Nasal passages clear. Throat: Moist oral mucosa. No erythema or exudate of the pharynx. Neck: Supple. Trachea midline. Heart: Regular Lungs: Clear to auscultation bilateral. Abdomen: Soft, non- tender, non-distended, and bowel sounds are present. Genitourinary: Deferred. Rectal: Deferred. Extremities: No cyanosis, clubbing, or edema. Skin: Warm and dry. Musculoskeletal:Noting on the left Volar ulnar wrist and approximate 2 x 2 centimeter structure that is mildly tender to palpation and somewhat firm, nonmobile, reminiscent of ganglion structure, also noting a mild deformity in the mid left forearm which is chronic secondary to an old surgical procedure, no significant range of motion impairment with the exception of patient inability to make a full fist with her left hand given pain in that area previously described. Normal sensory and capillary refill. Neurologic: Cranial nerves II through XII are grossly intact. Sensation to light touch is intact. Psychiatric: Judgment and insight are seemingly intact. Mood and affect are appropriate for the situation. Vital Signs Vital Signs: Vital Signs 09/26/20 12:56 Temperature 98.3 F Pulse Rate 68 Respiratory Rate 16 Blood Pressure 136/78 O2 Sat by Pulse Oximetry 97 MDM (comprehensive) Medical Decision Making Free Text/Narative:: 75-year-old female with chief complaint of left wrist pain ongoing for at least a few days that radiates up the arm intermittently but has improved slightly over the past 1 to 2 days with a notable swelling in the left ulnar volar surface of the wrist that is mildly tender to palpation, x-ray is reassuring, ultrasound notable for likely ganglionic structure, I recommend that she follow-up with either a primary care physician who is comfortable draining ganglion cysts or orthopedics to discuss drainage and or potential further work- up to include MRI if indicated although at this time I feel MRI would be not warranted. Discussed return precautions with patient. Discharge Plan Admission/Discharge Dx Primary DC Diagnosis: L wrist pain ED Provider: Raymond Wadsworth ED Status: Discharged Time Seen by Provider: 09/26/20 13:20 Triaged At: 09/26/20 12:56 Condition Condition: Stable Discharge Detail Disposition: Home, Self-Care Med Rec New Prescriptions: No Action valsartan [Diovan] 80 mg tablet 80 mg PO DAILY RF: 0 amlodipine [Norvasc] 2.5 mg tablet 2.5 mg PO DAILY RF: 0 albuterol sulfate [Proventil HFA] 90 mcg/actuation HFA aerosol inhaler 90 mcg INHALATION PRN PRN (Reason: asthma) RF: 0 escitalopram oxalate 10 mg Tablet 10 mg PO DAILY RF: 0 febuxostat 40 mg Tablet 40 mg PO DAILY RF: 0 nitroglycerin 1 EACH patch 24 hour 1 patch Transdermal DAILY Qty: 30 RF: 5 aspirin 325 MG tablet 325 mg PO DAILY Qty: 30 RF: 5 clopidogrel [Plavix] 75 MG tablet 75 mg PO DAILY Qty: 30 RF: 5 tramadol 50 MG tablet 2 tabs PO Q6HPRN Qty: 100 RF: 0 pantoprazole [Protonix] 40 MG tablet,delayed release (DR/EC) 40 mg PO DAILY Qty: 30 RF: 5 metoclopramide HCl 10 MG tablet 10 mg PO QID Qty: 120 RF: 5 meclizine 25 MG tablet,chewable 25 mg PO QID Qty: 120 RF: 5 metoprolol tartrate 25 MG tablet 25 mg PO BID Qty: 60 RF: 5 ranolazine [Ranexa] 1,000 MG tablet extended release 12 hr 1,000 mg PO BID Qty: 60 RF: 5 Follow Up Visit/Referrals: Ta Alaniz MD [PHYSICIAN] - Follow Up Care/Instructions Diet/Activity/Wound Care..: As discussed, Your ultrasound is still pending but your x-rays were normal. There may be a component of a ganglion cyst causing yo ur pain. I would recommend following up with either your primary care physician comfortable with potential drainage of ganglion cysts or an orthopedic group to further evaluate. By then your ultrasound results should be backAnd they can review the images themselves. Feel free to use compressive bandages, do regular stretching, and use Tylenol as needed for pain. *Discharge Patient* Discharge Orders: Discharge Order (Routine); Ordered 09/26/20 Ordered By: Raymond Wadsworth Discharge Date/Time: 09/26/20 15:40 Interventions Interventions: ED Discharge Instructions Last Done: 09/26/20 15:40 ED Musculoskeletal Last Done: 09/26/20 13:46 Report Signers: <Electronically signed by Raymond Wadsworth DO> Raymond Wadsworth DO 09/26/20 1854 Raymond Wadsworth DO SIGNATURE DA Report Cosigners: D: RACHELLE 09/26/20 1531 T: RACHELLE 09/26/20 1531 CC: JANET GARCIA Name Value Range Interpretation Code Description Data Dinorah rce(s) Supporting Document(s) ID Date Data Source [id number] 09/26/2020 02:43:00 PM EDT [facility] [address] [place] [id number] [phone] NAME SEX PT STATUS ACCOUNT NUMBER KTAHIE MARSHALL REG ER [id number] ORDERING PHYSICIAN LOCATION MEDICAL RECORD NO. Raymond Wadsworth DO ER [id number] ATTENDING PHYSICIAN DATE OF DATE OF EXAM/TIME WILLIE GARCIA 1945 09/26/205 TYPE / EXAM Xray Forearm AP/LAT LT REASON FOR EXAM L distal forearm/wrist pain w/ pronation Clinical History/Indication for Exam: L distal forearm/wrist pain w/ pronation Left forearm x-ray 2 views. Indication: Left distal forearm pain. Comparison: None available. Findings: AP and lateral views of the left forearm show no fracture or dislocation. Mild soft tissue swelling is seen in the distal forearm. Mild joint space narrowing is seen in the radiocarpal joint. Impression: 1. No fracture is seen. 2. Mild radiocarpal joint osteoarthritis. 3. Distal forearm soft tissue swelling. REPORT SIGNATURE ON FILE 09/26/2020 (14:43 Eastern Time ) Signed by: Montrell Schwab Reported By Triston Montiel MD on 09/26/201442 Signed By Triston Montiel MD on 09/26/201442 Date Time CC: JANET GARCIA; Triston Montiel MD Techn: PELBU Trans Dt/Tm: Trans by: DT Prt Dt/Tm: [id number]: Total DLP = 0.00 mGy-cm Fluoroscopy Time (in secs): Name Value Range Interpretation Code Description Data Dinorah rce(s) Supporting Document(s) ID Date Data Source [id number] 09/26/2020 02:41:00 PM EDT [facility] [address] [place] [address] [phone] NAME SEX PT STATUS ACCOUNT NUMBER KATHIE MARSHALL [facility] ER [id number] ORDERING PHYSICIAN LOCATION MEDICAL RECORD NO. Raymond Wadsworth DO ER [id number] ATTENDING PHYSICIAN DATE OF DATE OF EXAM/TIME WILLIE GARCIA 1945 09/26/201354 TYPE / EXAM Xray Wrist complete LT REASON FOR EXAM radial pain in L wrist ++w/ pronation,?ganlion Clinical History/Indication for Exam: radial pain in L wrist ++w/ pronation,?ganlion LEFT WRIST X RAY 4 VIEWS: Indication: Radial wrist pain. Comparison: None available. Findings: Frontal, lateral, and 2 oblique views of the left wrist show no acute fracture or dislocation. Small well-corticated osseous body is seen at the ulnar styloid likely representing a healed old avulsion fracture or an ossicle. Prior resection of the trapezium is seen. Mild diffusesoft tissue swelling is identified. Mild joint space narrowing is present in the radiocarpal joint. IMPRESSION: 1. No acute fracture is identified. 2. Mild radiocarpal joint osteoarthritis. 3. Prior resection of the trapezium. 4. Mild diffuse soft tissue swelling is present. REPORT SIGNATURE ON FILE 09/26/2020 (14:41 Eastern Time ) Signed by: Triston Montiel M.D. Reported By Triston Montiel MD on 09/26/201440 Signed By Triston Montiel MD on 09/26/201440 Date Time CC: JANET GARCIA; Triston Montile MD Techn: PELBU Trans Dt/Tm: Trans by: DT Prt Dt/Tm: [id number]: Total DLP = 0.00 mGy-cm Fluoroscopy Time (in secs): Name Value Range Interpretation Code Description Data Dinorah rce(s) Supporting Document(s) ID Date Data Source [id number] 09/16/2020 12:57:00 PM EDT [facility] ([facility]) Name Value Range Interpretation Code Description Data Dinorah rce(s) Supporting Document(s) PDFReport Laboratory test result [facility] ([facility]) FVC-Pre 2.07 L [facility] ([facility]) FVC-%Pred-Pre 87 L [facility] ([facility]) FVC-Pred 2.38 L [facility] ([facility]) Fev1-Pred 1.76 L [facility] ([facility]) FVC-LLN 1.75 L [facility] ([facility]) Fev1-Pre 1.64 L [facility] ([facility]) Fev1-%Pred-Pre 92 L [facility] ([facility]) Fev1-LLN 1.23 L [facility] ([facility]) Fev6-Pred 2.25 L [facility] ([facility]) Fev6-%Pred-Pre 92 L [facility] ([facility]) Fev6-Pre 2.07 L [facility] ([facility]) Fev6-LLN 1.63 L [facility] ([facility]) Zhm7tos-Uvv 79 % [facility] ([facility]) Krw3agy-Xnuy 74 % [facility] ([facility]) Mxb4zpn-XZS 65 % [facility] ([facility]) Wxl1wgd-Wphl 95 % [facility] ([facility]) Plk7ymt-%Pred-Pre 106 % [facility] ([facility]) Fnt0pin-Nhf 100 % [facility] ([facility]) Lqa5rzj-%Pred-Pre 105 % [facility] ([facility]) FEFMax-Pred 4.62 L/E/sec [facility] ([facility]) FEFMax-Pre 4.56 L/E/sec [facility] ([facility]) FEFMax-LLN 3.06 L/E/sec [facility] ([facility]) FEFMax-%Pred-Pre 98 L/E/sec [facility] ([facility]) [id number] 1.39 L/E/sec [facility] ([facility]) Fjr9590-Zse 1.47 L/E/sec [facility] ([facility]) ExpTime-Pre 4.27 sec [facility] ([facility]) Amr6419-%Pred-Pre 105 L/E/sec [facility] ([facility]) Off4903-HIC 0.26 L/E/sec [facility] ([facility]) Jgd9txs1-Ewl 79 % [facility] ([facility], ) Knh3vbh0-Wrwp 78 % [facility] ([facility], ) Gug6xwv8-MPT 69 % [facility] ([facility], ) Hld6yms5-%Pred-Pre 101 % [facility] ([facility], ) ID Date Data Source [id number] 08/11/2020 08:15:00 PM EDT [facility] Patient: KATHIE MARSHALL Observation Report - Physicians/Mid Levels [facility].VisitID: [id number] [place] [address] [phone], FRegistration Date/Time: 08/11/2020 14:04 Weight:75.7 kg (S). Height/Length:61 inches (S). BMI:31.5 PAST HISTORYProblems:C. Difficile Colitis.Diverticulosis.Fibromyalgia.Bulging disc.Esophagitis.Nephrolithiasis.Myocardial Infarction.Gout.Diverticulitis.Diabetes Mellitus.Hypertension.Renal cancer.Gastroesophageal Reflux.Hyperlipidemia.Sleep Apnea.Dizziness [Intermittent]. Additional Surgeries:Appendectomy.Back Surgery.Bladder Suspension.Carotid Surgery.Cholecystectomy.Coronary Artery Bypass Graft.Hysterectomy.Lithotripsy.Nephrectomy.Partial colectomy with anastomosis. Medications:Pantoprazole Sodium Oral 40 mg, daily, last dose 08/11/2020.Escitalopram Oxalate Oral 10 mg, daily, last dose 08/11/2020.Repatha Subcutaneous (Solution Prefilled Syringe 140 mg/mL), 2x a day, last dose 08/11/2020.Clopidogrel Bisulfate Oral 75 mg, daily, last dose 08/11/2020.Valsartan Oral 80 mg, 2x a day, last dose 08/11/2020.Meclizine HCl Oral 25 mg, daily as needed, last dose unknown last dose.Nitroglycerin 0.4 mg, as needed, last dose unknown last dose.Percocet Oral 5/325 mg, q6h as needed, last dose unknown last dose.Klor-Con M10 Oral, daily, last dose 08/11/2020.Vitamin D3 Oral (Tablet 250 MCG ([address]22 UT)), daily, last dose 08/11/2020.Probiotic Daily Oral, daily, last dose 08/11/2020.Tramadol HCL Oral 50 mg, q6h as needed, last dose unknown last dose.Allopurinol Oral 300 mg, daily, last dose 08/11/2020.Metoprolol Tartrate Oral 50 mg, 2x a day, last dose 08/11/2020.Ranolazine ER Oral (Tablet Extended Release 12 Hour 1000 mg) 1 tablet, 2x a day, last dose 08/11/2020.Aspirin Oral (Tablet 325 mg) 1 tablet, daily, last dose 08/11/2020. Allergies:Bactrim.(rash)Butabarbital Sodium.(hives)Codeine.(itching)Divalproex Sod.(nausea) (shakey)Erythromycin.(diarrhea)Tetracycline.(diarrhea). FAMILY HISTORYNegative . No significant family medical history. (Electronically signed by Bobbi Stanley 08/11/2020 19:55) Name Value Range Interpretation Code Description Data Dinorah rce(s) Supporting Document(s) ID Date Data Source [id number] 08/11/2020 05:38:00 PM EDT [facility] TSYSORDER [id number] Name Value Range Interpretation Code Description Data Dinorah rce(s) Supporting Document(s) TROPONIN I < 0.017 ng/mL 0.000-0.056 [facility] ID Date Data Source [id number] 08/11/2020 03:49:00 PM EDT [facility] DATE OF EXAMINATION: 08/11/2020 14:25 EDT CHEST 1 VIEW HISTORY: Chest pain TECHNIQUE: Single frontal radiograph of chest COMPARISON: CT scan of 04/11/2019 FINDINGS: No evidence of focal consolidation, pneumothorax or large pleural effusion.Lungs are clear. Mediastinal structures are unremarkable. No aggressive osseouslesions. Multiple midline sternotomy sutures, mediastinal inna as well ascoronary arterial stents are noted. IMPRESSION: No focal consolidation. Electronically signed in PS360 by: Rosana Tuttle M.D. 08/11/2020 15:43 EDT Name Value Range Interpretation Code Description Data Dinorah rce(s) Supporting Document(s) ID Date Data Source [id number] 08/11/2020 02:59:00 PM EDT [facility]ORDER [id number] Name Value Range Interpretation Code Description Data Dinorah rce(s) Supporting Document(s) FREE T4 1.0 ng/dL 0.76-1.46 [facility] ID Date Data Source [id number] 08/11/2020 02:59:00 PM EDT [facility] [id number] Name Value Range Interpretation Code Description Data Dinorah rce(s) Supporting Document(s) TSH 2.105 uIU/mL 0.360-3.740 [facility] ID Date Data Source [id number] 08/11/2020 02:53:00 PM EDT [facility] [id number] Name Value Range Interpretation Code Description Data Dinorah rce(s) Supporting Document(s) MAGNESIUM 1.8 mg/dL 1.8-2.4 [facility] ID Date Data Source [id number] 08/11/2020 02:53:00 PM EDT [facility]ORDER [id number] Name Value Range Interpretation Code Description Data Dinorah rce(s) Supporting Document(s) TROPONIN I < 0.017 ng/mL 0.000-0.056 [facility] ID Date Data Source [id number] 08/11/2020 02:53:00 PM EDT [facility] [id number] Name Value Range Interpretation Code Description Data Dinorah rce(s) Supporting Document(s) LIPASE 192 U/L 73-393 [facility] ID Date Data Source [id number] 08/11/2020 02:53:00 PM EDT [facility] [id number] Name Value Range Interpretation Code Description Data Dinorah rce(s) Supporting Document(s) GLUCOSE 96 mg/dL 74-106 [facility] BLOOD UREA NITROGEN 30 mg/dL 7-18 [facility] ital CREATININE 1.69 mg/dL 0.6-1.0 H [facility] SODIUM 140 mmol/L 136-145 [facility] POTASSIUM 4.4 mmol/L 3.5-5.1 [facility] CHLORIDE 105 mmol/L 98-107 [facility] CO2 24 mmol/L 21-32 [facility] CALCIUM 9.5 mg/dL 8.5-10.1 [facility] ANION GAP 11.0 mmol/L 5-12 [facility] GLOMERULAR FILTRATION RATE 29 mL/min [facility] GFR IS CALCULATED IN mL/min/1.73m2 JIMMY L FUNCTION: >90MILDLY DECREASED: 60-89MILDY TO MODERATELY DECREASED: 45-59 MODERATELY TO SEVERELY DECREASED: 30-44SEVERELY DECREASED: 15-29RENAL FAILURE: <15 AST 18 U/L 15-37 [facility] ALT 31 U/L 12-78 [facility] ALKALINE PHOSPHATASE 52 U/L 46-116 [facility] pital TOTAL BILIRUBIN 0.4 mg/dL 0.2-1.0 [facility] TOTAL PROTEIN 7.8 g/dl 6.4-8.2 [facility] ALBUMIN 4.1 gm/dL 3.4-5.0 [facility] ID Date Data Source [id number] 08/11/2020 02:49:00 PM EDT [facility] TSYSORDER [id number] Name Value Range Interpretation Code Description Data Dinorah rce(s) Supporting Document(s) PARTIAL THROMBOPLASTIN TIME 22.8 SECONDS 21.2-27.3 [facility] ID Date Data Source [id number] 08/11/2020 02:49:00 PM EDT [facility] TSYSORDER [id number] Name Value Range Interpretation Code Description Data Dinorah rce(s) Supporting Document(s) PROTHROMBIN TIME (PATIENT) 10.4 SECONDS 9.1-11.6 [facility] INR 1.00 0.87-1.06 [facility] ID Date Data Source [id number] 08/11/2020 02:32:00 PM T [facility] TSYSORDER [id number] Name Value Range Interpretation Code Description Data Dinorah rce(s) Supporting Document(s) WHITE BLOOD COUNT 8.1 K/mm3 4.0-10.0 [facility] al RED BLOOD COUNT 3.05 M/mm3 4.00-5.50 L [facility] HEMOGLOBIN 11.0 gm/dL 12.0-16.0 L [facility] HEMATOCRIT 32.4 % 36.0-48.8 L [facility] MEAN CELL VOLUME 106.2 fl 80-96 *H [facility] MEAN CORPUSCULAR HEMOGLOBIN 36.1 pg 27.0-31.[address] [facility] MEAN CORPUSCULAR HGB CONC 34.0 g/dl 32.0-36.0 [facility] RED CELL DISTRIBUTION WIDTH 13.0 % 10.0-14.5 [facility] PLATELET COUNT 173 K/mm3 172-450 [facility] MEAN PLATELET VOLUME 10.4 fl 9.0-13.0 [facility] pital GRAN % 58.6 % 50-80.0 [facility] IG% 1.0 % 0.0-0.2 H [facility] LYMPH % 27.9 % 25.0-50.0 [facility] MONO % 12.2 % 2.0-10.0 H [facility] EOS % 0.1 % 0-5.0 [facility] BASO % 0.2 % 0.0-2.0 [facility] GRAN # 4.7 K/mm3 2.0-8.00 [facility] IG# 0.1 K/mm3 0.0-0.2 [facility] LYMPH # 2.3 K/mm3 1.0-5.0 [facility] MONO # 1.0 K/mm3 0.10-1.20 [facility] EOS # 0.0 K/mm3 0.0-0.5 [facility] BASO # 0.0 K/mm3 0.0-0.2 [facility] ID Date Data Source [id number] 08/11/2020 12:48:00 PM EDT [facility] ([facility]) Name Value Range Interpretation Code Description Data Dinorah rce(s) Supporting Document(s) Thyroid Stimulating Hormone 2.105 ME DENT ([facility]) ID Date Data Source [id number] 08/11/2020 12:48:00 PM EDT MEDENT ([facility]) Name Value Range Interpretation Code Description Data Dinorah rce(s) Supporting Document(s) Red Blood Count 3.05 MEDENT ([facility]) White Blood Count 8.1 MEDENT ([facility]) Hemoglobin 11.0 MEDENT ([facility]) Platelets 173 MEDENT ([facility]) Hematocrit 32.4 MEDENT ([facility]) ID Date Data Source [id number] 08/11/2020 12:48:00 PM EDT MEDENT ([facility]) Name Value Range Interpretation Code Description Data Dinorah rce(s) Supporting Document(s) Alanine aminotransferase [Enzymatic activity/volume] in Serum or Pl asma 31 MEDENT ([facility]) Albumin [Mass/volume] in Serum or Plasma 4.1 MEDENT ([facility]) Calcium [Mass/volume] in Serum or Plasma 9.5 MEDENT ([facility]) Chloride [Moles/volume] in Serum or Plasma 105 MEDENT ([facility]) Carbon dioxide, total [Moles/volume] in Serum or Plasma 24 MEDENT ([facility]) Alkaline phosphatase [Enzymatic activity/volume] in Serum or Plasma 5 2 MEDENT ([facility]) Potassium [Moles/volume] in Serum or Plasma 4.4 MEDENT ([facility]) Protein [Mass/volume] in Serum or Plasma 7.8 MEDENT ([facility]) Sodium 140 MEDENT ([facility]) Aspartate aminotransferase [Enzymatic activity/volume] in Serum or Plasma 18 MEDENT ([facility]) Glucose 96 [facility] ([facility] Urea nitrogen [Mass/volume] in Serum or Plasma 30 MEDENT ([facility]) Creatinine For GFR 1.69 MEDENT ([facility]) ID Date Data Source [id number] 04/13/2020 10:42:00 AM EST [facility] ([facility] Name Value Range Interpretation Code Description Data Dinorah rce(s) Supporting Document(s) BodySite Laboratory test result ME DENT ([facility]) Voided - Clean Catch Clinical History Laboratory test result MEDENT ([facility]) Specimen Adequacy Laboratory test result MEDENT ([facility]) Satisfactory for evaluation. Microscopic Description Laboratory test result MEDENT ([facility]) Gross Description Laboratory test result MEDENT ([facility]) Received in a specimen container, labele d with the patients name and , is Cloudy Yellow fluid consistent with urine, measuring approximately 60 ml. CPTCode 35854 MEDENT ([facility] Final Diagnosis Laboratory test result MEDENT ([facility]) NEGATIVE FOR HIGH-GRADE UROTHELIAL CARCI NOMA. PDF Report Laboratory test result ME DENT ([facility]) [id number] Laboratory test result ME DENT ([facility]) ID Date Data Source [id number] 04/13/2020 10:42:00 AM EST MEDENT ([facility]) Name Value Range Interpretation Code Description Data Dinorah rce(s) Supporting Document(s) Glucose [Presence] in Urine Laboratory test result MEDENT ([facility]) Ua Nitrite Laboratory test result ME DENT ([facility]) Protein [Presence] in Urine by Test strip Laboratory test result MEDENT ([facility]) Ua Leuko Laboratory test result ME DENT ([facility]) Blood [Presence] in Urine by Visual Laboratory test result MEDENT ([facility]) Color of Urine Laboratory test result MEDENT ([facility]) Ketones [Presence] in Urine by Test strip Laboratory test result MEDENT ([facility]) Ua Specific [place] 1.025 1.003-1.030 MEDE NT ([facility]) Clarity of Urine Laboratory test result MEDENT ([facility]) pH of Urine by Test strip 5.0 5.0-7.5 MEDENT ([facility]) Urobilinogen [Mass/volume] in Urine by Test strip 0.2 E.U./dL 0.0-1.0 MEDENT ([facility]) Bilirubin.total [Presence] in Urine by Test strip Laboratory test res ult MEDENT ([facility]) ID Date Data Source [id number] 04/13/2020 10:42:00 AM EST MEDENT ([facility]) Name Value Range Interpretation Code Description Data Dinorah rce(s) Supporting Document(s) Cytology report of Urine Cyto stain Laboratory test result MEDENT ([facility]) ID Date Data Source [id number] 01/16/2020 03:35:00 PM EDT [facility] DATE OF EXAMINATION: 01/16/2020 12:52 EDT ABD/PEL WITH ORAL ONLY HISTORY: Abdominal pain TECHNIQUE: This CT exam was performed using the following dose reduction techniques:automated exposure control, adjustment of mA and/or kV according to thepatient's size, and use of iterative reconstruction technique. Standard contiguous axial spiral imaging was obtained from the dome of thediaphragms through the symphysis pubis with oral contrast and withoutintravenous contrast administration and with coronal reformatting. FINDINGS: Lower thorax: Unremarkable ABDOMEN: Liver: Moderate fatty infiltrationGallbladder and bile ducts: CholecystectomyPancreas: UnremarkableSpleen: UnremarkableAdrenals: UnremarkableKidneys and ureters: Left nephrectomyStomach and bowel: Moderate acute diverticulitis of distal descending colon.There is some associated mucosal thickening which warrants colonoscopy once thepatient's current presentation subsides. Diffuse mucosal thickening of therectosigmoid is also suspicious for superimposed colitis. Mild secondary ileusis seenAppendix: No appendicitis PELVIS: Bladder: Nondistended and nonopacified therefore unable to evaluateReproductive: Hysterectomy and oophorectomy No free fluid or free air IMPRESSION: Diffuse colitis mainly involving the rectosigmoid colon. There is focal severeinflammatory changes of distal descending colon consistent with superimposeddiverticulitis as well. There is no perforation. Colonoscopy is recommended oncethe patient's current presentation subsides. Electronically signed in [id number] by: Rosana Tuttle M.D. 01/16/2020 15:29 EDT Name Value Range Interpretation Code Description Data [facility](s) Supporting Document(s) ID Date Data Source [id number] 01/16/2020 01:13:00 PM EDT [facility] Name Value Range Interpretation Code Description Data [facility](s) Supporting Document(s) GLUCOSE 102 mg/dL 74-106 [facility] BLOOD UREA NITROGEN 16 mg/dL 7-18 [facility] ital CREATININE 1.3 mg/dL 0.6-1.0 H [facility] SODIUM 139 mmol/L 136-145 [facility] POTASSIUM 4.7 mmol/L 3.5-5.1 [facility] CHLORIDE 103 mmol/L 98-107 [facility] CO2 26 mmol/L 21-32 [facility] CALCIUM 8.6 mg/dL 8.5-10.1 [facility] ANION GAP 10.0 mmol/L 5-12 [facility] GLOMERULAR FILTRATION RATE 40 mL/min [facility] GFR IS CALCULATED IN mL/min/1.73m2 JIMMY L FUNCTION: >90MILDLY DECREASED: 60-89MILDY TO MODERATELY DECREASED: 45-59 MODERATELY TO SEVERELY DECREASED: 30-44SEVERELY DECREASED: 15-29RENAL FAILURE: <15 AST 19 U/L 15-37 [facility] ALT 27 U/L 12-78 [facility] ALKALINE PHOSPHATASE 69 U/L 46-116 [facility] TOTAL BILIRUBIN 0.5 mg/dL 0.2-1.0 [facility] TOTAL PROTEIN 7.5 g/dl 6.4-8.2 [facility] ALBUMIN 3.9 gm/dL 3.4-5.0 [facility] ID Date Data Source CT ABD/PEL WITH ORAL ONLY - [id number] 01/16/2020 04:54:45 AM EDT eCW1 ([facility]) Name Value Range Interpretation Code Description Data Dinorah rce(s) Supporting Document(s) CT ABD/PEL WITH ORAL ONLY - [id number] eCW1 ([facility]) Procedure Social History Code Duration Value Status Description Data Source(s ) Smoking 03/09/2021 12:00:00 AM EDT Never Smoker completed Never S moker eCW1 ([facility]) Smoking 02/18/2021 12:00:00 AM EDT Patient is a former smoker completed Patient is a former smoker MEDENT ([facility]) Smoking 01/19/2021 12:00:00 AM EDT Never Smoker completed Never S moker eCW1 ([facility]) Smoking 01/19/2021 12:00:00 AM EDT Never Smoker completed Never S moker eCW1 ([facility]) Smoking 01/19/2021 12:00:00 AM EDT Never Smoker completed Never S moker eCW1 ([facility]) Smoking 01/19/2021 12:00:00 AM EDT Never Smoker completed Never S moker eCW1 ([facility]) Smoking 12/16/2020 12:00:00 AM EDT Never Smoker completed Never S moker eCW1 ([facility]) 09/26/2020 03:32:35 PM EDT Never smoker completed Never s [facility] Smoking 09/26/2020 03:32:00 PM EDT Never smoker completed Never s [facility] Smoking 09/16/2020 12:00:00 AM EDT Non Smoker completed Non Smoke r MEDENT ([facility], ) Smoking 08/11/2020 12:00:00 AM EDT Former Smoker completed Former Smoker eCW1 ([facility]) Smoking 08/11/2020 12:00:00 AM EDT Former Smoker completed Former Smoker eCW1 ([facility]) Smoking 08/11/2020 12:00:00 AM EDT Former Smoker completed Former Smoker eCW1 ([facility]) Smoking 08/11/2020 12:00:00 AM EDT Former Smoker completed Former Smoker eCW1 ([facility]) Smoking 08/11/2020 12:00:00 AM EDT Former Smoker completed Former Smoker eCW1 ([facility]) Smoking 08/11/2020 12:00:00 AM EDT Former Smoker completed Former Smoker eCW1 ([facility]) Smoking 08/11/2020 12:00:00 AM EDT Former Smoker completed Former Smoker eCW1 ([facility]) Smoking 05/06/2020 12:00:00 AM EST Former Smoker completed Former Smoker eCW1 ([facility]) Smoking 05/06/2020 12:00:00 AM EST Former Smoker completed Former Smoker eCW1 ([facility]) Smoking 05/06/2020 12:00:00 AM EST Former Smoker completed Former Smoker eCW1 ([facility]) Smoking 05/06/2020 12:00:00 AM EST Former Smoker completed Former Smoker eCW1 ([facility]) Smoking 05/06/2020 12:00:00 AM EST Former Smoker completed Former Smoker eCW1 ([facility]) Smoking 05/06/2020 12:00:00 AM EST Former Smoker completed Former Smoker eCW1 ([facility]) Smoking 05/06/2020 12:00:00 AM EST Former Smoker completed Former Smoker eCW1 ([facility]) Smoking 05/06/2020 12:00:00 AM EST Former Smoker completed Former Smoker eCW1 ([facility]) Smoking 05/06/2020 12:00:00 AM EST Former Smoker completed Former Smoker eCW1 ([facility]) Smoking 05/06/2020 12:00:00 AM EST Former Smoker completed Former Smoker eCW1 ([facility]) Smoking 05/06/2020 12:00:00 AM EST Former Smoker completed Former Smoker eCW1 ([facility]) Smoking 04/13/2020 12:00:00 AM EST Former Smoker completed Former Smoker eCW1 ([facility]) Smoking 04/13/2020 12:00:00 AM EST Former Cigarette Smoker com pleted Former Cigarette Smoker MEDENT ([facility]) Smoking 04/13/2020 12:00:00 AM EST Former Smoker completed Former Smoker eCW1 ([facility]) Smoking 04/13/2020 12:00:00 AM EST Former Smoker completed Former Smoker eCW1 ([facility]) Smoking 04/13/2020 12:00:00 AM EST Former Smoker completed Former Smoker eCW1 ([facility]) Smoking 02/05/2020 12:00:00 AM EDT Former Smoker completed Former Smoker eCW1 ([facility]) Smoking 02/05/2020 12:00:00 AM EDT Former Smoker completed Former Smoker eCW1 ([facility]) Smoking 02/05/2020 12:00:00 AM EDT Former Smoker completed Former Smoker eCW1 ([facility]) Smoking 02/05/2020 12:00:00 AM EDT Former Smoker completed Former Smoker eCW1 ([facility]) Smoking 02/05/2020 12:00:00 AM EDT Former Smoker completed Former Smoker eCW1 ([facility]) Smoking 02/05/2020 12:00:00 AM EDT Former Smoker completed Former Smoker eCW1 ([facility]) Smoking 02/05/2020 12:00:00 AM EDT Former Smoker completed Former Smoker eCW1 ([facility]) Smoking 02/05/2020 12:00:00 AM EDT Former Smoker completed Former Smoker eCW1 ([facility]) Smoking 02/05/2020 12:00:00 AM EDT Former Smoker completed Former Smoker eCW1 ([facility]) Smoking 02/05/2020 12:00:00 AM EDT Former Smoker completed Former Smoker eCW1 ([facility]) Smoking 01/29/2020 12:00:00 AM EDT Former Smoker completed Former Smoker eCW1 ([facility]) Smoking 01/29/2020 12:00:00 AM EDT Former Smoker completed Former Smoker eCW1 ([facility]) Smoking 01/29/2020 12:00:00 AM EDT Former Smoker completed Former Smoker eCW1 ([facility]) Smoking 01/29/2020 12:00:00 AM EDT Former Smoker completed Former Smoker eCW1 ([facility]) Smoking 01/29/2020 12:00:00 AM EDT Former Smoker completed Former Smoker eCW1 ([facility]) Smoking 01/16/2020 12:00:00 AM EDT Former Smoker completed Former Smoker eCW1 ([facility]) Smoking 01/16/2020 12:00:00 AM EDT Former Smoker completed Former Smoker eCW1 ([facility]) Vital Signs ID Date Data Source UNK Name Value Range Interpretation Code Description Data Source(s) Body weight 158.00 [lb_av] 158.00 [lb_av] MEDEN T ([facility]) Body height 61 [in_i] 61 [in_i] MEDENT ([facility]) 5'1" Body mass index (BMI) [Ratio] 29.9 kg/m2 29.9 k g/m2 MEDENT ([facility]) Heart rate 52 /min 52 /min MED[facility] ([facility]) Systolic blood pressure--sitting 170 mm[Hg] 170 mm[Hg] MEDENT ([facility]) CBP large cuff, Ra Diastolic blood pressure--sitting 70 mm[Hg] 70 mm[Hg] MEDENT ([facility]) CBP large cuff, Ra Body weight 158.00 [lb_av] 158.00 [lb_av] eCW1 ([facility]) Body height 61 [in_i] 61 [in_i] eCW1 ([facility]) Body mass index (BMI) [Ratio] 29.85 kg/m2 29.85 kg/m2 eCW1 ([facility]) Heart rate 88 /min 88 /min eCW1 ([facility] Respiratory rate 18 /min 18 /min eCW1 ([facility]) Body temperature 96.9 [degF] 96.9 [degF] eCW1 ( [facility]) Systolic blood pressure 138 mm[Hg] 138 mm[Hg] e CW1 ([facility]) Diastolic blood pressure 82 mm[Hg] 82 mm[Hg] eCW1 ([facility]) Body weight 155.00 [lb_av] 155.00 [lb_av] MEDEN T ([facility]) Body height 61 [in_i] 61 [in_i] [facility] 5'1" Body mass index (BMI) [Ratio] 29.3 kg/m2 29.3 k g/m2 MEDENT ([facility]) Heart rate 55 /min 55 /min MED[facility] ([facility]) Systolic blood pressure--sitting 148 mm[Hg] 148 mm[Hg] MEDENT ([facility]) CBP, adult cuff/Ra Diastolic blood pressure--sitting 63 mm[Hg] 63 mm[Hg] MEDENT ([facility]) CBP, adult cuff/Ra Systolic blood pressure 130 mm[Hg] 130 mm[Hg] M EDENT ([facility]) Diastolic blood pressure 80 mm[Hg] 80 mm[Hg] MEDENT ([facility]) Body temperature 95.7 [degF] 95.7 [degF] MEDENT ([facility]) Body mass index (BMI) [Ratio] 29.7 kg/m2 29.7 k g/m2 MEDENT ([facility]) Heart rate 56 /min 56 /min [facility] ([facility]) Body weight 157.00 [lb_av] 157.00 [lb_av] MEDEN T ([facility]) Body height 61 [in_i] 61 [in_i] [facility] 5'1" Systolic blood pressure--sitting 152 mm[Hg] 152 mm[Hg] MEDENT ([facility]) CBP, adult cuff/Ra Diastolic blood pressure--sitting 63 mm[Hg] 63 mm[Hg] MEDENT ([facility]) CBP, adult cuff/Ra Body weight 160.00 [lb_av] 160.00 [lb_av] MEDEN T ([facility]) Body mass index (BMI) [Ratio] 30.2 kg/m2 30.2 k g/m2 [facility] ([facility]) [place] body weight 105 [lb_av] 105 [lb_av] MEDEN T ([facility]) Body weight 72.576 kg 72.576 kg [facility] ([facility]) Body surface area Derived from formula 1.72 m2 1.72 m2 [facility] ([facility]) Body height 61 [in_i] 61 [in_i] [facility] ([facility]) 5'1" Systolic blood pressure 124 mm[Hg] 124 mm[Hg] M EDENT ([facility]) Diastolic blood pressure 78 mm[Hg] 78 mm[Hg] [facility] ([facility]) Heart rate 85 /min 85 /min [facility] ([facility]) Oxygen saturation in Arterial blood by Pulse oximetry 97 % 97 % [facility] ([facility]) Body temperature 97.0 [degF] 97.0 [degF] [facility] ([facility]) Body height 59.25 [in_i] 59.25 [in_i] eCW1 ([facility]) Body weight 161.2 [lb_av] 161.2 [lb_av] eCW1 ([facility]) Body mass index (BMI) [Ratio] 32.28 kg/m2 32.28 kg/m2 eCW1 ([facility]) Body temperature 98.5 [degF] 98.5 [degF] eCW1 ( [facility]) Heart rate 66 /min 66 /min eCW1 ([facility]) Respiratory rate 18 /min 18 /min eCW1 ([facility]) Oxygen saturation in Arterial blood by Pulse oximetry 98 % 98 % eCW1 ([facility]) Body height 59.25 [in_i] 59.25 [in_i] eCW1 ([facility]) Body weight 159.2 [lb_av] 159.2 [lb_av] eCW1 ([facility]) Body mass index (BMI) [Ratio] 31.88 kg/m2 31.88 kg/m2 eCW1 ([facility]) Body temperature 98.6 [degF] 98.6 [degF] eCW1 ( [facility]) Heart rate 67 /min 67 /min eCW1 ([facility]) Respiratory rate 18 /min 18 /min eCW1 ([facility]) Oxygen saturation in Arterial blood by Pulse oximetry 98 % 98 % eCW1 ([facility]) Body height 61 [in_i] 61 [in_i] MEDENT ([facility] 5'1" Body weight 155.00 [lb_av] 155.00 [lb_av] MEDEN T ([facility]) Body weight 70.308 kg 70.308 kg MEDENT ([facility]) Body mass index (BMI) [Ratio] 29.3 kg/m2 29.3 k g/m2 MEDENT ([facility]) Systolic blood pressure 143 mm[Hg] 143 mm[Hg] M EDENT ([facility]) Diastolic blood pressure 76 mm[Hg] 76 mm[Hg] MEDENT ([facility]) Heart rate 60 /min 60 /min MED[facility] ([facility] Body height 59.25 [in_i] 59.25 [in_i] eCW1 ([facility]) Body temperature 98.5 [degF] 98.5 [degF] eCW1 ( [facility]) Heart rate 62 /min 62 /min eCW1 ([facility]) Respiratory rate 18 /min 18 /min eCW1 ([facility]) Oxygen saturation in Arterial blood by Pulse oximetry 98 % 98 % eCW1 ([facility]) Body height 59.25 [in_i] 59.25 [in_i] eCW1 ([facility]) Heart rate 57 /min 57 /min eCW1 ([facility]) Respiratory rate 17 /min 17 /min eCW1 ([facility]) Oxygen saturation in Arterial blood by Pulse oximetry 96 % 96 % eCW1 ([facility]) Respiratory rate 18 /min 18 /min eCW1 ([facility]) Oxygen saturation in Arterial blood by Pulse oximetry 98 % 98 % eCW1 ([facility]) Body height 59.25 [in_i] 59.25 [in_i] eCW1 ([facility]) Body weight 154.2 [lb_av] 154.2 [lb_av] eCW1 ([facility]) Body mass index (BMI) [Ratio] 30.88 kg/m2 30.88 kg/m2 eCW1 ([facility]) Body temperature 98.0 [degF] 98.0 [degF] eCW1 ( [facility]) Heart rate 51 /min 51 /min eCW1 ([facility]) Body height 59.25 [in_i] 59.25 [in_i] eCW1 ([facility]) Body temperature 98.5 [degF] 98.5 [degF] eCW1 ( [facility]) Heart rate 63 /min 63 /min eCW1 ([facility]) Respiratory rate 17 /min 17 /min eCW1 ([facility]) Oxygen saturation in Arterial blood by Pulse oximetry 94 % 94 % eCW1 ([facility]) Body height 59.25 [in_i] 59.25 [in_i] eCW1 ([facility]) Body weight 161.3 [lb_av] 161.3 [lb_av] eCW1 ([facility]) Body mass index (BMI) [Ratio] 32.30 kg/m2 32.30 kg/m2 eCW1 ([facility]) Body temperature 96.7 [degF] 96.7 [degF] eCW1 ( [facility]) Heart rate 54 /min 54 /min eCW1 ([facility]) Respiratory rate 20 /min 20 /min eCW1 ([facility]) Oxygen saturation in Arterial blood by Pulse oximetry 96 % 96 % eCW1 ([facility]) Body height 59.25 [in_i] 59.25 [in_i] eCW1 ([facility]) Body weight 161.3 [lb_av] 161.3 [lb_av] eCW1 ([facility]) Body mass index (BMI) [Ratio] 32.30 kg/m2 32.30 kg/m2 eCW1 ([facility]) Body temperature 96.7 [degF] 96.7 [degF] eCW1 ( [facility]) Heart rate 54 /min 54 /min eCW1 ([facility]) Respiratory rate 20 /min 20 /min eCW1 ([facility]) Oxygen saturation in Arterial blood by Pulse oximetry 96 % 96 % eCW1 ([facility]) Body height 59.25 [in_i] 59.25 [in_i] eCW1 ([facility]) Body weight 155 [lb_av] 155 [lb_av] eCW1 ([facility]) Body mass index (BMI) [Ratio] 31.04 kg/m2 31.04 kg/m2 eCW1 ([facility]) Body temperature 98 [degF] 98 [degF] eCW1 ([facility] [place]) Heart rate 70 /min 70 /min eCW1 ([facility]) Respiratory rate 18 /min 18 /min eCW1 ([facility] [place]) Oxygen saturation in Arterial blood by Pulse oximetry 98 % 98 % eCW1 ([facility]) Patient Treatment Plan of Care Planned Activity Planned Date Details Description Data Source (s) 12 HR ranolazine 1000 MG Extended Release Oral Tablet [Ranexa] 03/09/2021 12:00:00 AM EDT eCW1 ([facility]) valsartan 160 MG Oral Tablet 06/02/2020 12:00:00 AM EST eCW1 ([facility]) valsartan 160 MG Oral Tablet 06/02/2020 12:00:00 AM EST eCW1 ([facility]) valsartan 160 MG Oral Tablet 06/02/2020 12:00:00 AM EST eCW1 ([facility]) valsartan 160 MG Oral Tablet 06/02/2020 12:00:00 AM EST eCW1 ([facility]) valsartan 160 MG Oral Tablet 06/02/2020 12:00:00 AM EST eCW1 ([facility]) valsartan 160 MG Oral Tablet 06/02/2020 12:00:00 AM EST eCW1 ([facility]) valsartan 160 MG Oral Tablet 06/02/2020 12:00:00 AM EST eCW1 ([facility]) valsartan 160 MG Oral Tablet 06/02/2020 12:00:00 AM EST eCW1 ([facility]) Fluconazole 150 MG Oral Tablet [Diflucan] 01/29/2020 12:00:00 AM ED T eCW1 ([facility]) Nystatin 100 UNT/MG Topical Ointment 01/29/2020 12:00:00 AM EDT eCW1 ([facility]) Fluconazole 150 MG Oral Tablet [Diflucan] 01/29/2020 12:00:00 AM ED T eCW1 ([facility]) Nystatin 100 UNT/MG Topical Ointment 01/29/2020 12:00:00 AM EDT eCW1 ([facility]) Fluconazole 150 MG Oral Tablet [Diflucan] 01/29/2020 12:00:00 AM ED T eCW1 ([facility]) Nystatin 100 UNT/MG Topical Ointment 01/29/2020 12:00:00 AM EDT eCW1 ([facility]) 1 ML evolocumab 140 MG/ML Prefilled Syringe [Repatha] 01/22/2020 12:00:00 AM EDT eCW1 ([facility]) 1 ML evolocumab 140 MG/ML Prefilled Syringe [Repatha] 01/22/2020 12:00:00 AM EDT eCW1 ([facility]) 1 ML evolocumab 140 MG/ML Prefilled Syringe [Repatha] 01/22/2020 12:00:00 AM EDT eCW1 ([facility]) 1 ML evolocumab 140 MG/ML Prefilled Syringe [Repatha] 01/22/2020 12:00:00 AM EDT eCW1 ([facility]) Acetaminophen 325 MG / Oxycodone Hydrochloride 5 MG Or al Tablet [Percocet] 01/16/2020 12:00:00 AM EDT eCW1 ([facility]) 12 HR Amoxicillin 1000 MG / Clavulanate 62.5 MG Extend ed Release Oral Tablet 01/16/2020 12:00:00 AM EDT eCW1 ([facility])
--- OUTSIDE RECORDS SUMMARY | 2021-03-16 15:56 | CCD ---
Author Author [facility] Organization [facility] Address Unknown Phone Unavailable Care Team Providers Care Primer Supervisor Name Role Phone Zofia Johnson ART DISPLAY MAKER Unavailable Unavailable Elizabeth, L Beth ART DISPLAY MAKER Unavailable Unavailable Elizabeth, L Beth ART DISPLAY MAKER Unavailable Unavailable Elizabeth, L Beth ART DISPLAY MAKER Unavailable Unavailable Elizabeth, L Beth ART DISPLAY MAKER Unavailable Unavailable Elizabeth, L Beth ART DISPLAY MAKER Unavailable Unavailable Elizabeth, L Beth ART DISPLAY MAKER Unavailable Unavailable Elizabeth, L Beth ART DISPLAY MAKER Unavailable Unavailable Elizabeth, L Beth ART DISPLAY MAKER Unavailable Unavailable Elizabeth, L Beth ART DISPLAY MAKER Unavailable Unavailable Elizabeth, L Beth ART DISPLAY MAKER Unavailable Unavailable Elizabeth, L Beth ART DISPLAY MAKER Unavailable Unavailable Elizabeth, L Beth ART DISPLAY MAKER Unavailable Unavailable Elizabeth, L Beth ART DISPLAY MAKER Unavailable Unavailable Elizabeth, L Beth ART DISPLAY MAKER Unavailable Unavailable Elizabeth, L Beth ART DISPLAY MAKER Unavailable Unavailable Elizabeth, L Beth ART DISPLAY MAKER Unavailable Unavailable Elizabeth, L Beth ART DISPLAY MAKER Unavailable Unavailable Elizabeth, L Beth ART DISPLAY MAKER Unavailable Unavailable Elizabeth, L Beth ART DISPLAY MAKER Unavailable Unavailable Elizabeth, L Beth ART DISPLAY MAKER Unavailable Unavailable Elizabeth, L Beth ART DISPLAY MAKER Unavailable Unavailable Elizabeth, L Beth ART DISPLAY MAKER Unavailable Unavailable Elizabeth, L Beth ART DISPLAY MAKER Unavailable Unavailable Elizabeth, L Beth ART DISPLAY MAKER Unavailable Unavailable [place], L Zuleima SHINGLE SHEARING MACHINE OPERATOR Unavailable Unavailable Martin, L Zuleima SHINGLE SHEARING MACHINE OPERATOR Unavailable Unavailable Martin, L Zuleima SHINGLE SHEARING MACHINE OPERATOR Unavailable Unavailable Martin, L Zuleima SHINGLE SHEARING MACHINE OPERATOR Unavailable Unavailable Martin, L Zuleima SHINGLE SHEARING MACHINE OPERATOR Unavailable Unavailable [place], L Zuleima SHINGLE SHEARING MACHINE OPERATOR Unavailable Unavailable [place], L Zuleima SHINGLE SHEARING MACHINE OPERATOR Unavailable Unavailable [place], L Zuleima SHINGLE SHEARING MACHINE OPERATOR Unavailable Unavailable [place], L Zuleima SHINGLE SHEARING MACHINE OPERATOR Unavailable Unavailable [place], L Zuleima SHINGLE SHEARING MACHINE OPERATOR Unavailable Unavailable [place], L Zuleima SHINGLE SHEARING MACHINE OPERATOR Unavailable Unavailable [place], L Zuleima SHINGLE SHEARING MACHINE OPERATOR Unavailable Unavailable Martin, L Zuleima SHINGLE SHEARING MACHINE OPERATOR Unavailable Unavailable Martin, L Zuleima SHINGLE SHEARING MACHINE OPERATOR Unavailable Unavailable Martin, L Zuleima SHINGLE SHEARING MACHINE OPERATOR Unavailable Unavailable [place], L Zuleima SHINGLE SHEARING MACHINE OPERATOR Unavailable Unavailable [place], L Zuleima SHINGLE SHEARING MACHINE OPERATOR Unavailable Unavailable Martin, L Zuleima SHINGLE SHEARING MACHINE OPERATOR Unavailable Unavailable Martin, L Zuleima SHINGLE SHEARING MACHINE OPERATOR Unavailable Unavailable [place], L Zuleima SHINGLE SHEARING MACHINE OPERATOR Unavailable Unavailable [place], L Zuleima SHINGLE SHEARING MACHINE OPERATOR Unavailable Unavailable [place], L Zuleima SHINGLE SHEARING MACHINE OPERATOR Unavailable Unavailable Martin, L Zuleima SHINGLE SHEARING MACHINE OPERATOR Unavailable Unavailable [place], L Zuleima SHINGLE SHEARING MACHINE OPERATOR Unavailable Unavailable [place], L Zuleima SHINGLE SHEARING MACHINE OPERATOR Unavailable Unavailable Martin, L Zuleima SHINGLE SHEARING MACHINE OPERATOR Unavailable Unavailable Martin, L Zuleima SHINGLE SHEARING MACHINE OPERATOR Unavailable Unavailable [place], L Zuleima SHINGLE SHEARING MACHINE OPERATOR Unavailable Unavailable Martin, L Zuleima SHINGLE SHEARING MACHINE OPERATOR Unavailable Unavailable Martin, L Zuleima SHINGLE SHEARING MACHINE OPERATOR Unavailable Unavailable [place], L Zuleima SHINGLE SHEARING MACHINE OPERATOR Unavailable Unavailable [place], L Zuleima SHINGLE SHEARING MACHINE OPERATOR Unavailable Unavailable Martin, L Zuleima SHINGLE SHEARING MACHINE OPERATOR Unavailable Unavailable Martin, L Zuleima SHINGLE SHEARING MACHINE OPERATOR Unavailable Unavailable [place], L Zuleima SHINGLE SHEARING MACHINE OPERATOR Unavailable Unavailable [place], L Zuleima SHINGLE SHEARING MACHINE OPERATOR Unavailable Unavailable Martin, L Zuleima SHINGLE SHEARING MACHINE OPERATOR Unavailable Unavailable Martin, L Zuleima SHINGLE SHEARING MACHINE OPERATOR Unavailable Unavailable Martin, L Zuleima SHINGLE SHEARING MACHINE OPERATOR Unavailable Unavailable DEL CASTILLO SR, EVETTE ORTEGA [...] M Willie PA-C Unavailable Unavailable ENOC, BRUCE TRION PA Unavailable Unavailable ENOC, BRUCE TRINO PA [...] PA Unavailable Unavailable Addie, Reginah W Katerin DOORPERSON-C Unavailable Unavailabl e Addie, Reginageorges W Katerin DOORPERSON-C Unavailable Unavailabl e Addie, Reginageorges W Katerin DOORPERSON-C Unavailable Unavailabl e Addie, Reginageorges W Katerin DOORPERSON-C Unavailable Unavailabl e Addie, Reginageorges W Katerin DOORPERSON-C Unavailable Unavailabl e Addie, Reginageorges W Katerin DOORPERSON-C Unavailable Unavailabl e Addie, Reginageorges W Katerin DOORPERSON-C Unavailable Unavailabl e Addie, Reginageorges W Katerin DOORPERSON-C Unavailable Unavailabl e Addie, Reginageorges W Katerin DOORPERSON-C Unavailable Unavailabl e Addie, Reginageorges W Katerin DOORPERSON-C Unavailable Unavailabl e Addie, Reginageorges W Katerin DOORPERSON-C Unavailable Unavailabl e Addie, Reginageorges W Katerin DOORPERSON-C Unavailable Unavailabl e Addie, Reginageorges W Katerin DOORPERSON-C Unavailable Unavailabl e Addie, Reginageorges W Katerin DOORPERSON-C Unavailable Unavailabl e Addie, Reginageorges W Katerin DOORPERSON-C Unavailable Unavailabl e Addie, Reginageorges W Katerin DOORPERSON-C Unavailable Unavailabl e Addie, Reginageorges W Katerin DOORPERSON-C Unavailable Unavailabl e Addie, Reginageorges W Katerin DOORPERSON-C Unavailable Unavailabl e Addie, Reginah W Katerin DOORPERSON-C Unavailable Unavailabl e Addie, Reginah W Katerin DOORPERSON-C Unavailable Unavailabl e Addie, Reginah W Katerin DOORPERSON-C Unavailable Unavailabl e Addie, Reginah W Katerin DOORPERSON-C Unavailable Unavailabl e Addie, Reginah W Katerin DOORPERSON-C Unavailable Unavailabl e Addie, Reginah W Katerin DOORPERSON-C Unavailable Unavailabl e Addie, Reginah W Katerin DOORPERSON-C Unavailable Unavailabl e Addie, Reginah W Katerin DOORPERSON-C Unavailable Unavailabl e Addie, Reginah W Katerin DOORPERSON-C Unavailable Unavailabl e Addie, Reginah W Katerin DOORPERSON-C Unavailable Unavailabl e Addie, Reginah W Katerin DOORPERSON-C Unavailable Unavailabl e Addie, Reginah W Katerin DOORPERSON-C Unavailable Unavailabl e Addie, Reginah W Katerin DOORPERSON-C Unavailable Unavailabl e Addie, Reginah W Katerin DOORPERSON-C Unavailable Unavailabl e MENESS, A TRUDY DO [...] Georges ORTEGA MD Unavailable Unavailable ANTECOL, Georges OTREGA MD Unavailable Unavailable ANTECOL, Georges ORTEGA MD [...] Unavailable YVES, L FLAVIA PA Unavailable Unavailable VYES, L FLAVIA PA Unavailable Unavailable YVES, L FLAVIA PA Unavailable Unavailable YVES, L FLAVIA PA Unavailable Unavailable YVES, L FLAVIA PA Unavailable Unavailable YVES, L FLAVIA PA Unavailable Unavailable YVES, L FLAVIA PA Unavailable Unavailable YVES, L FLAVIA PA Unavailable Unavailable YVES, L FLAVIA PA Unavailable Unavailable YVES, L FLAVIA PA Unavailable Unavailable YVES, L FLAVIA PA Unavailable Unavailable VYES, L FLAVIA PA Unavailable Unavailable YVES, L [...] Unavailable ALTA, P SANFORD MD Unavailable Unavailable ALAT, P SANFORD MD [...] CHRISTINA MD Unavailable Unavailable Cinthia, A Willie DOORPERSON Unavailable Unavailable Cinthia, A Willie DOORPERSON Unavailable Unavailable Cinthia, A Willie DOORPERSON Unavailable Unavailable Cinthia, A Willie DOORPERSON Unavailable Unavailable Cinthia, A Willie DOORPERSON Unavailable Unavailable Cinthia, A Willie DOORPERSON Unavailable Unavailable Cinthia, A Willie DOORPERSON Unavailable Unavailable Cinthia, A Willie DOORPERSON Unavailable Unavailable Cinthia, A Willie DOORPERSON Unavailable Unavailable Cinthia, A Willie DOORPERSON Unavailable Unavailable Cinthia, A Willie DOORPERSON Unavailable Unavailable Cinthia, A Willie DOORPERSON Unavailable Unavailable Cinthia, A Willie DOORPERSON Unavailable Unavailable Cinthia, A Willie DOORPERSON Unavailable Unavailable Cinthia, A Willie DOORPERSON Unavailable Unavailable Cinthia, A Willie DOORPERSON Unavailable Unavailable Cinthia, A Willie DOORPERSON Unavailable Unavailable Cinthia, A Willie DOORPERSON Unavailable Unavailable Cinthia, A Willie DOORPERSON Unavailable Unavailable Cinthia, A Willie DOORPERSON Unavailable Unavailable Cinthia, A Willie DOORPERSON Unavailable Unavailable Cinthia, A Willie DOORPERSON Unavailable Unavailable Cinthia, A Willie DOORPERSON Unavailable Unavailable Cinthia, A Willie DOORPERSON Unavailable Unavailable Cinthia, A Willie DOORPERSON Unavailable Unavailable Cinthia, A Willie DOORPERSON Unavailable Unavailable Cinthia, A Willie DOORPERSON Unavailable Unavailable Cinthia, A Willie DOORPERSON Unavailable Unavailable Cinthia, A Willie DOORPERSON Unavailable Unavailable Cinthia, A Willie DOORPERSON Unavailable Unavailable Cinthia, A Willie DOORPERSON Unavailable Unavailable Cinthia, A Willie DOORPERSON Unavailable Unavailable Cinthia, A Willie DOORPERSON Unavailable Unavailable Cinthia, A Willie DOORPERSON Unavailable Unavailable Cinthia, A Willie DOORPERSON Unavailable Unavailable Cinthia, A Willie DOORPERSON Unavailable Unavailable Cinthia, A Willie DOORPERSON Unavailable Unavailable Cinthia, A Willie DOORPERSON Unavailable Unavailable Cinthia, A Willie DOORPERSON Unavailable Unavailable Cinthia, A Willie DOORPERSON Unavailable Unavailable Cinthia, A Willie DOORPERSON Unavailable Unavailable Cinthia, A Willie DOORPERSON Unavailable Unavailable Cinthia, A Willie DOORPERSON Unavailable Unavailable Cinthia, A Willie DOORPERSON Unavailable Unavailable Cinthia, A Willie DOORPERSON Unavailable Unavailable Cinthia, A Willie DOORPERSON Unavailable Unavailable Cinthia, A Willie DOORPERSON Unavailable Unavailable Cinthia, A Willie DOORPERSON Unavailable Unavailable Cinthia, A Willie DOORPERSON Unavailable Unavailable Cinthia, A Willie DOORPERSON Unavailable Unavailable Cinthia, A Willie DOORPERSON Unavailable Unavailable Cinthia, A Willie DOORPERSON Unavailable Unavailable Re-disclosure Warning The records that [...] is protected by Article 27-F of the [facility] Public Health law. If you continue you may have access to information: Regarding HIV / AIDS; Provided by facilities licensed or operated by the [facility] Office of Mental Health; or Provided by the [facility] Office for People With Developmental Disabilities. If such information is present, then the following [facility] mandated warning applies: This information has been [...] law may result in a fine or 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 sentence or both. A general authorization for the release of medical or other information is NOT sufficient authorization for further disc losure. Allergies and Adverse Reactions Type Description Substance Reaction Status Data Source(s ) Adhesive Tape Adhesive Tape RASH, RAW, VERY SORE [facility] Drug allergy latex Latex [facility] Drug allergy atorvastatin atorvastatin LEG CRAMPS BAD MO [facility] Drug allergy buspirone buspirone DIARRHEA ND [facility] Drug allergy amoxicillin Amoxicillin Diarrhea [facility] Drug allergy tetracycline tetracycline Diarrhea [facility] Drug allergy codeine Codeine ITCHING AND NAUSEA [facility] Drug allergy nitroglycerin nitroglycerin MIGRAINE HEADACHES [facility] Family History Family Member Name Family Member Gender Family Member Status Date o f Status Description Data Source(s) Unknown Unknown Problem MEDENT ([facility], ) Encounters Encounter Providers Location Date Indications Data Source(s ) [place] [address] [facility] [address] 03/09/2021 12:00:00 AM EDT eCW1 ([facility]) Outpatient Attender: SHANNON JOLLEY MD Main Office 02/18/2021 12:15:00 PM EDT MEDENT ([facility]) [facility]patient [facility] 02/05/2021 12:00:00 AM EDT eCW1 ([facility]) [place] [address] [facility] [address] 02/02/2021 12:00:00 AM EDT eCW1 ([facility]) [place] [address] [facility] [place] [address] 02/02/2021 12:00:00 AM EDT eCW1 ([facility]) [place] [address] [facility] [place] [address] 01/19/2021 12:00:00 AM EDT eCW1 ([facility]) [place] [address] [facility] [place] [address] 01/13/2021 12:00:00 AM EDT eCW1 ([facility]) Office Visit Attender: SHANNON JOLLEY MD Main Office 01/08/2021 08: 27:00 AM EDT MEDENT ([facility]) Outpatient [address] [facility] [place] [address] 12/16/2020 12:00:00 AM EDT eCW1 ([facility]) Outpatient Attender: SHANNON JOLLEY MD Main Office 12/03/2020 11:00:00 AM EDT MEDMEDHAT ([facility]) Outpatient Attender: SHANNON JOLLEY MD Main Office 11/03/2020 12:00:00 PM EDT MEDENT ([facility]) [place] [address] [facility] [address] 11/02/2020 12:00:00 AM EDT eCW1 ([facility]) [facility]patient [facility] 10/27/2020 12:00:00 AM EDT eCW1 ([facility]) [facility]patient [facility] 10/09/2020 12:00:00 AM EDT eCW1 ([facility]) Emergency Attender: Raymond Wadsworth DO 021 12:54:00 PM EDT - 09/26/2020 03:40:00 PM EDT L ELBOW/WRIST PAIN [facility] l L ELBOW/WRIST PAIN Patient discharged. Outpatient Attender: Beth Antunez/Sam/Christiano/Reindl 09/16/2020 02:00:00 PM EDT MEDENT ([facility]) [facility]patient [facility] 08/21/2020 12:00:00 AM EDT eCW1 ([facility]) [facility]patient [facility] 08/20/2020 12:00:00 AM EDT eCW1 ([facility]) [facility]patient [facility] 08/17/2020 12:00:00 AM EDT eCW1 ([facility]) Emergency Attender: FLAVIA Green: Stacie Garcia PA-C EMERGENCY ROOM-ER 08/11/2020 03:40:00 PM EDT - 08/11/2020 07:32:00 PM EDT [facility] Patient discharged. Outpatient Attender: Willie Garcia PA-C 08/11/2020 12:55 :00 PM EDT [facility] Outpatient [facility] 08/11/2020 12:00:00 AM EDT eCW1 ([facility]) [facility] 08/10/2020 12:00:00 AM EDT eCW1 ([facility]) [facility] 08/07/2020 12:00:00 AM EDT eCW1 ([facility]) [facility] 07/21/2020 12:00:00 AM EST eCW1 ([facility]) [facility] 07/20/2020 12:00:00 AM EST eCW1 ([facility]) [facility] 07/20/2020 12:00:00 AM EST eCW1 ([facility]) [facility] 06/04/2020 12:00:00 AM EST eCW1 ([facility]) [facility] 06/02/2020 12:00:00 AM EST eCW1 ([facility]) [facility]patient [facility] 06/02/2020 12:00:00 AM EST eCW1 ([facility]) [facility]patient [facility] 05/18/2020 12:00:00 AM EST eCW1 ([facility]) [facility] 05/08/2020 12:00:00 AM EST eCW1 ([facility]) Outpatient Attender: Willie Garcia PA-C 05/06/2020 01:00 :00 PM EST [facility] Outpatient [facility] 05/06/2020 12:00:00 AM EST eCW1 ([facility]) [facility] 04/28/2020 12:00:00 AM EST eCW1 ([facility]) [facility] 04/21/2020 12:00:00 AM EST eCW1 ([facility]) [facility] 04/15/2020 12:00:00 AM EST eCW1 ([facility]) [facility]patient [facility] 04/13/2020 12:00:00 AM EST eCW1 ([facility]) [facility] 04/10/2020 12:00:00 AM EST eCW1 ([facility]) [facility] 03/24/2020 12:00:00 AM EST eCW1 ([facility]) [facility] 03/16/2020 12:00:00 AM EDT eCW1 ([facility]) Outpatient Attender: Willie Garcia PA-C 03/04/2020 10:30 :00 AM EDT [facility]patient [facility] 03/04/2020 12:00:00 AM EDT eCW1 ([facility]) [facility] 02/27/2020 12:00:00 AM EDT eCW1 ([facility]) [facility] 02/21/2020 12:00:00 AM EDT eCW1 ([facility]) [facility] 02/20/2020 12:00:00 AM EDT eCW1 ([facility]) Outpatient Attender: SHANNON DEL CASTILLO SR 02/10/2020 11:20:00 AM EDT [facility] Outpatient [facility] 02/10/2020 12:00:00 AM EDT eCW1 ([facility]) [facility]patient [facility] 02/10/2020 12:00:00 AM EDT eCW1 ([facility]) Outpatient Attender: SHANNON DEL CASTILLO SR 02/05/2020 01:37:00 PM EDT [facility] Outpatient [facility] 02/05/2020 12:00:00 AM EDT eCW1 ([facility]) Outpatient Attender: SHANNON DEL CASTILLO SR 02/03/2020 10:30:00 AM EDT [facility] Outpatient [facility] 02/03/2020 12:00:00 AM EDT eCW1 ([facility]) [facility]patient [facility] 02/03/2020 12:00:00 AM EDT eCW1 ([facility]) [facility] 02/03/2020 12:00:00 AM EDT eCW1 ([facility]) Outpatient Attender: Willie PATEL 01/29/2020 11:30 :00 AM EDT [facility] Outpatient Attender: Katerin RICHARDSC 01/29/2020 11:00:0 0 AM EDT [facility]patient [facility] 01/29/2020 12:00:00 AM EDT eCW1 ([facility]) [facility] 01/29/2020 12:00:00 AM EDT eCW1 ([facility]) [facility]patient [facility] 01/29/2020 12:00:00 AM EDT eCW1 ([facility]) [facility]patient [facility] 01/21/2020 12:00:00 AM EDT eCW1 ([facility]) Outpatient Attender: SHANNON DEL CASTILLO SRReferrer: JARAD DEL CASTILLO SR EMERGENCY ROOM-RIVCLI 01/16/2020 11:30:00 AM EDT - 01/16/2020 11:30:00 AM [facility] Outpatient [facility] 01/16/2020 12:00:00 AM EDT eCW1 ([facility]) Outpatient Attender: SHANNON DEL CASTILLO SR 01/03/2020 10:30:00 AM [facility] Outpatient Attender: Zuleima ALBERT 11/01/2019 11:50:00 AM [facility] Outpatient Attender: SHANNON DEL CASTILLO SRReferrer: JARAD DEL CASTILLO SR EMERGENCY ROOM-LAB 10/07/2019 08:48:00 AM EDT - 10/07/2019 08:48:00 AM [facility] Outpatient Attender: SHANNON DEL CASTILLO SR 10/02/2019 10:30:00 AM [facility] Outpatient Attender: Willie Garcia PA-C 09/02/2019 10:00 :00 AM [facility] Outpatient Attender: SHANNON DEL CASTILLO SR 07/24/2019 02:00:00 PM [facility] Outpatient Attender: Walker Lundberg MDReferrer: SHANNON DEL CASTILLO SR EMERGENCY ROOM-LABOTHPROV 05/23/2019 01:30:00 PM [facility] - 05/23/2019 01:30:00 PM [facility] Outpatient Attender: SHANNON DEL CASTILLO SR 05/23/2019 01:10:00 PM [facility] Outpatient Attender: SHANNON DEL CASTILLO SR 05/06/2019 12:04:00 PM [facility] Outpatient Attender: SHANNON DEL CASTILLO SRReferrer: SHANNON Coyne SR 04/11/2019 02:10:00 PM [facility] - 04/11/2019 02:10:00 PM [facility] Outpatient Attender: SHANNON DEL CASTILLO SRReferrer: SHANNON Coyne SR 04/11/2019 01:00:00 PM [facility] Outpatient Attender: SANFORD HOLM MDReferrer: SHANNON Coyne SR 08/25/2017 12:02:00 PM EDT - 08/25/2017 12:02:00 PM EDT [facility] Outpatient Attender: SHANNON DEL CASTILLO SRReferrer: SHANNON Coyne SR 04/06/2017 08:00:00 AM EST [facility] Emergency Attender: TRINO STUBBS PAReferrer: SHANNON NAM SR 02/02/2017 04:27:00 PM EDT - 02/02/2017 05:01:00 PM EDT [facility] Outpatient Attender: TRUDY ESTRELLAeferrer: Katerin MATHIAS 07/19/2016 09:14:00 AM EST [facility] Immunizations Vaccine Date Status Description Data Source(s) 05/06/2020 02:09:00 PM EST completed e CW1 ([facility]) 05/06/2020 02:09:00 PM EST completed e CW1 ([facility]) 05/06/2020 02:09:00 PM EST completed e CW1 ([facility]) 05/06/2020 02:09:00 PM EST completed e CW1 ([facility]) 05/06/2020 02:09:00 PM EST completed e CW1 ([facility]) 05/06/2020 02:09:00 PM EST completed e CW1 ([facility]) 05/06/2020 02:09:00 PM EST completed e CW1 ([facility]) 05/06/2020 02:09:00 PM EST completed e CW1 ([facility]) 05/06/2020 02:09:00 PM EST completed e CW1 (Formerly [facility]) 05/06/2020 02:09:00 PM EST completed e CW1 (Formerly [facility]) 05/06/2020 02:09:00 PM EST completed e CW1 (Formerly [facility]) 05/06/2020 02:09:00 PM EST completed e CW1 (Formerly [facility]) 05/06/2020 02:09:00 PM EST completed e CW1 (Formerly [facility]) 05/06/2020 02:09:00 PM EST completed e CW1 (Formerly [facility]) 05/06/2020 02:09:00 PM EST completed e CW1 ([facility]) 05/06/2020 02:09:00 PM EST completed e CW1 ([facility]) 05/06/2020 02:09:00 PM EST completed e CW1 ([facility]) 05/06/2020 02:09:00 PM EST completed e CW1 ([facility]) 03/04/2020 11:12:00 AM EDT completed e CW1 ([facility]) 03/04/2020 11:12:00 AM EDT completed e CW1 ([facility]) 03/04/2020 11:12:00 AM EDT completed e CW1 ([facility]) 03/04/2020 11:12:00 AM EDT completed e CW1 ([facility]) 03/04/2020 11:12:00 AM EDT completed e CW1 ([facility]) 03/04/2020 11:12:00 AM EDT completed e CW1 ([facility]) 03/04/2020 11:12:00 AM EDT completed e CW1 ([facility]) 03/04/2020 11:12:00 AM EDT completed e CW1 ([facility]) 03/04/2020 11:12:00 AM EDT completed e CW1 ([facility]) 03/04/2020 11:12:00 AM EDT completed e CW1 ([facility]) 03/04/2020 11:12:00 AM EDT completed e CW1 ([facility]) 03/04/2020 11:12:00 AM EDT completed e CW1 ([facility]) 03/04/2020 11:12:00 AM EDT completed e CW1 ([facility]) 03/04/2020 11:12:00 AM EDT completed e CW1 ([facility]) 03/04/2020 11:12:00 AM EDT completed e CW1 ([facility]) 03/04/2020 11:12:00 AM EDT completed e CW1 ([facility]) 03/04/2020 11:12:00 AM EDT completed e CW1 ([facility]) 03/04/2020 11:12:00 AM EDT completed e CW1 ([facility]) 03/04/2020 11:12:00 AM EDT completed e CW1 ([facility]) 03/04/2020 11:12:00 AM EDT completed e CW1 ([facility]) 03/04/2020 11:12:00 AM EDT completed e CW1 ([facility]) 03/04/2020 11:12:00 AM EDT completed e CW1 ([facility]) 03/04/2020 11:12:00 AM EDT completed e CW1 ([facility]) 03/04/2020 11:12:00 AM EDT completed e CW1 ([facility]) 03/04/2020 11:12:00 AM EDT completed e CW1 ([facility]) 03/04/2020 11:12:00 AM EDT completed e CW1 ([facility]) 03/04/2020 11:12:00 AM EDT completed e CW1 ([facility]) New in 2011. IIV4 03/04/2020 11:11:00 AM EDT completed eCW1 ([facility]) New in 2011. IIV4 03/04/2020 11:11:00 AM EDT completed eCW1 ([facility]) New in 2011. IIV4 03/04/2020 11:11:00 AM EDT completed eCW1 ([facility]) New in 2011. IIV4 03/04/2020 11:11:00 AM EDT completed eCW1 ([facility]) New in 2011. IIV4 03/04/2020 11:11:00 AM EDT completed eCW1 ([facility]) New in 2011. IIV4 03/04/2020 11:11:00 AM EDT completed eCW1 ([facility]) New in 2011. IIV4 03/04/2020 11:11:00 AM EDT completed eCW1 ([facility]) New in 2011. IIV4 03/04/2020 11:11:00 AM EDT completed eCW1 ([facility]) New in 2011. IIV4 03/04/2020 11:11:00 AM EDT completed eCW1 ([facility]) New in 2011. IIV4 03/04/2020 11:11:00 AM EDT completed eCW1 ([facility]) New in 2011. IIV4 03/04/2020 11:11:00 AM EDT completed eCW1 ([facility]) New in 2011. IIV4 03/04/2020 11:11:00 AM EDT completed eCW1 ([facility]) New in 2011. IIV4 03/04/2020 11:11:00 AM EDT completed eCW1 ([facility]) New in 2011. IIV4 03/04/2020 11:11:00 AM EDT completed eCW1 ([facility]) New in 2011. IIV4 03/04/2020 11:11:00 AM EDT completed eCW1 ([facility]) New in 2011. IIV4 03/04/2020 11:11:00 AM EDT completed eCW1 ([facility]) New in 2011. IIV4 03/04/2020 11:11:00 AM EDT completed eCW1 ([facility]) New in 2011. IIV4 03/04/2020 11:11:00 AM EDT completed eCW1 ([facility]) New in 2011. IIV4 03/04/2020 11:11:00 AM EDT completed eCW1 ([facility]) New in 2011. IIV4 03/04/2020 11:11:00 AM EDT completed eCW1 ([facility]) New in 2011. IIV4 03/04/2020 11:11:00 AM EDT completed eCW1 ([facility]) New in 2011. IIV4 03/04/2020 11:11:00 AM EDT completed eCW1 ([facility]) New in 2011. IIV4 03/04/2020 11:11:00 AM EDT completed eCW1 ([facility]) New in 2011. IIV4 03/04/2020 11:11:00 AM EDT completed eCW1 ([facility]) New in 2011. IIV4 03/04/2020 11:11:00 AM EDT completed eCW1 ([facility]) New in 2011. IIV4 03/04/2020 11:11:00 AM EDT completed eCW1 ([facility]) New in 2011. IIV4 03/04/2020 11:11:00 AM EDT completed eCW1 ([facility]) 02/03/2020 10:12:00 AM EDT completed e CW1 ([facility]) 02/03/2020 10:12:00 AM EDT completed e CW1 ([facility]) 02/03/2020 10:12:00 AM EDT completed e CW1 ([facility]) 02/03/2020 10:12:00 AM EDT completed e CW1 ([facility]) 02/03/2020 10:12:00 AM EDT completed e CW1 ([facility]) 02/03/2020 10:12:00 AM EDT completed e CW1 ([facility]) 02/03/2020 10:12:00 AM EDT completed e CW1 ([facility]) 02/03/2020 10:12:00 AM EDT completed e CW1 ([facility]) 02/03/2020 10:12:00 AM EDT completed e CW1 ([facility]) 02/03/2020 10:12:00 AM EDT completed e CW1 ([facility]) 02/03/2020 10:12:00 AM EDT completed e CW1 ([facility]) 02/03/2020 10:12:00 AM EDT completed e CW1 ([facility]) 02/03/2020 10:12:00 AM EDT completed e CW1 ([facility]) 02/03/2020 10:12:00 AM EDT completed e CW1 ([facility]) 02/03/2020 10:12:00 AM EDT completed e CW1 ([facility]) 02/03/2020 10:12:00 AM EDT completed e CW1 ([facility]) 02/03/2020 10:12:00 AM EDT completed e CW1 ([facility]) 02/03/2020 10:12:00 AM EDT completed e CW1 ([facility]) 02/03/2020 10:12:00 AM EDT completed e CW1 (Formerly [facility]) 02/03/2020 10:12:00 AM EDT completed e CW1 (Former[facility]) 02/03/2020 10:12:00 AM EDT completed e CW1 (Former[facility]) 02/03/2020 10:12:00 AM EDT completed e CW1 ([facility]) 02/03/2020 10:12:00 AM EDT completed e CW1 (Former[facility]) 02/03/2020 10:12:00 AM EDT completed e CW1 ([facility]) 02/03/2020 10:12:00 AM EDT completed e CW1 ([facility]) 02/03/2020 10:12:00 AM EDT completed e CW1 ([facility]) 02/03/2020 10:12:00 AM EDT completed e CW1 ([facility]) 02/03/2020 10:12:00 AM EDT completed e CW1 ([facility]) 02/03/2020 10:12:00 AM EDT completed e CW1 ([facility]) 02/03/2020 10:12:00 AM EDT completed e CW1 ([facility]) 02/03/2020 10:12:00 AM EDT completed e CW1 ([facility]) 02/03/2020 10:12:00 AM EDT completed e CW1 ([facility]) 02/03/2020 10:12:00 AM EDT completed e CW1 ([facility]) 02/03/2020 10:12:00 AM EDT completed e CW1 ([facility]) Medications Medication Brand Name Start Date Product Form Dose Route Admi nistrative Instructions Pharmacy Instructions Status Indications Reaction Description Data Source(s) 12 HR ranolazine 1000 MG Extended Release Oral Tablet [Ranexa] Ranexa 1000 MG Ranexa 1000 MG 03/09/2021 12:00:00 AM EDT 1.0 {tablet} active Ranexa 1000 MG eCW1 ([facility]) Famotidine 40 MG Oral Tablet Famotidine 02/18/2021 12:00:00 AM EDT ORAL active [facility] ([facility] icosapent ethyl 1000 MG Oral Capsule [Vascepa] Vascepa 02/18/2021 12:00:00 AM EDT ORAL active [facility] ([facility] nebivolol 5 MG Oral Tablet [Bystolic] Bystolic 02/18/2021 12:00:00 AM EDT ORAL active [facility] ([facility] Biotin 2.5 MG Oral Capsule Biotin 02/17/2021 12:00:00 AM EDT ORAL active [facility]ENT ([facility]) valsartan 80 MG Oral Tablet Valsartan 02/17/2021 12:00:00 AM EDT ORAL active [facility]ENT ([facility]) Metoprolol Tartrate 25 MG Oral Tablet Metoprolol Tartrate 12:00:00 AM EDT ORAL completed MEDENT ([facility]) Amlodipine 2.5 MG Oral Tablet Amlodipine Besylate 02/17/2021 12:00: 00 AM EDT ORAL active [facility] ([facility]) 12 HR ranolazine 500 MG Extended Release Oral Tablet Ranolaz ine ER 01/31/2021 12:00:00 AM EDT ORAL active M EDENT ([facility]) 1 ML alirocumab 150 MG/ML Auto-Injector [Praluent] Praluent 01/18/2021 12:00:00 AM EDT SUBCUTANEOUS active MEDE NT ([facility]) Promethazine Hydrochloride 25 MG Oral Tablet Promethazine HC L 01/07/2021 12:00:00 AM EDT ORAL active M EDENT ([facility]) Zinc Chelated 01/07/2021 12:00:00 AM EDT ORAL acti ve MEDENT ([facility]) Magnesium 01/07/2021 12:00:00 AM EDT active MEDENT ([facility]) Probiotic Probiotic 01/07/2021 12:00:00 AM EDT ORAL act aury MEDENT ([facility]) Amlodipine 2.5 MG Oral Tablet Amlodipine Besylate 12/03/2020 12:00: 00 AM EDT ORAL completed [facility] ([facility]) Metoprolol Tartrate 25 MG Oral Tablet Metoprolol Tartrate 12:00:00 AM EDT ORAL completed MEDENT ([facility]) carvedilol 3.125 MG Oral Tablet Carvedilol 11/03/2020 12:00:00 AM EDT ORAL active [facility]ENT ([facility] 24 HR Nitroglycerin 0.6 MG/HR Transdermal Patch Nitroglyceri n 11/03/2020 12:00:00 AM EDT active M EDENT ([facility]) Repatha Pushtronex System Repatha Pushtronex System 11/03/2020 1 2:00:00 AM EDT active MEDENT ( [facility]) carvedilol 3.125 MG Oral Tablet Carvedilol 11/03/2020 12:00:00 AM EDT ORAL completed [facility] ([facility]) 24 HR Nitroglycerin 0.6 MG/HR Transdermal Patch Nitroglyceri n 11/03/2020 12:00:00 AM EDT active M EDENT ([facility]) Repatha Pushtronex System Repatha Pushtronex System 11/03/2020 1 2:00:00 AM EDT completed MEDENT ([facility]) clopidogrel 75 MG Oral Tablet [Plavix] Plavix 11/02/2020 12:00:00 AM EDT ORAL active [facility] ([facility] Aspirin 325 MG Delayed Release Oral Tablet Aspirin 11/02/2020 12:00:00 AM EDT ORAL active [facility] ([facility]) Vitamin B 12 1 MG/ML Injectable Solution Vitamin Defic iency Injectable System-B12 11/02/2020 12:00:00 AM EDT active MEDENT ([facility]) 12 HR ranolazine 500 MG Extended Release Oral Tablet [Ranexa ] Ranexa 11/02/2020 12:00:00 AM EDT ORAL completed MEDENT ([facility]) Metoprolol Tartrate 25 MG Oral Tablet Metoprolol Tartrate 12:00:00 AM EDT ORAL completed MEDENT ([facility]) Meclizine Hydrochloride 25 MG Chewable Tablet Meclizine HCL 11/02/2020 12:00:00 AM EDT ORAL active [facility] ([facility]) Metoclopramide 10 MG Oral Tablet Metoclopramide HCL 11/02/2020 1 2:00:00 AM EDT ORAL completed MEDENT ([facility]) pantoprazole 40 MG Delayed Release Oral Tablet Pantoprazole Sodium 11/02/2020 12:00:00 AM EDT ORAL completed MEDENT ([facility]) Acetaminophen 500 MG Oral Tablet [Tylenol] Tylenol Extra Str ength 11/02/2020 12:00:00 AM EDT ORAL active M EDENT ([facility]) tramadol hydrochloride 50 MG Oral Tablet Tramadol HCL 11/02/2020 12:00:00 AM EDT ORAL active [facility] ([facility]) Nitroglycerin 0.4 MG Sublingual Tablet Nitroglycerin 12:00:00 AM EDT SUBLINGUAL active MEDEN T ([facility]) Allopurinol 300 MG Oral Tablet Allopurinol 11/02/2020 12:00:00 AM EDT ORAL active [facility] ([facility]) Ergocalciferol 24323 UNT Oral Capsule Vitamin D (Ergocalcife rol) 11/02/2020 12:00:00 AM EDT ORAL active M EDENT ([facility]) Amlodipine 2.5 MG Oral Tablet Amlodipine Besylate 11/02/2020 12:00: 00 AM EDT ORAL active MEDENT ([facility]) Escitalopram 10 MG Oral Tablet Escitalopram Oxalate 11/02/2020 1 2:00:00 AM EDT ORAL active MEDENT ( [facility]) 60 ACTUAT Albuterol 0.09 MG/ACTUAT Metered Dose Inhaler Albu terol Sulfate HFA 11/02/2020 12:00:00 AM EDT RESPIRATORY active MEDENT ([facility]) valsartan 80 MG Oral Tablet Valsartan 11/02/2020 12:00:00 AM EDT ORAL active MEDENT ([facility]) Metoprolol Tartrate 25 MG Oral Tablet Metoprolol Tartrate 12:00:00 AM EDT ORAL completed MEDENT ([facility]) Vitamin B 12 1 MG/ML Injectable Solution Vitamin Defic iency Injectable System-B12 11/02/2020 12:00:00 AM EDT active MEDENT ([facility]) Meclizine Hydrochloride 25 MG Chewable Tablet Meclizine HCL 11/02/2020 12:00:00 AM EDT ORAL active [facility] ([facility]) 12 HR ranolazine 500 MG Extended [...] ORAL active [facility]ENT ([facility]) Acetaminophen 500 MG Oral Tablet [Tylenol] [...] ORAL active [facility] ([facility] Ergocalciferol 42014 UNT Oral Capsule Vitamin D (Ergocalcife rol) 11/02/2020 12:00:00 AM EDT ORAL active M EDENT ([facility] Allopurinol 300 MG Oral Tablet Allopurinol 11/02/2020 12:00:00 AM EDT ORAL active [facility]ENT ([facility]) febuxostat 40 MG Oral Tablet Febuxostat 11/02/2020 12:00:00 AM EDT ORAL completed [facility] ([facility]) Escitalopram 10 MG Oral Tablet Escitalopram Oxalate 11/02/2020 1 2:00:00 AM EDT ORAL active MEDENT ( [facility]) Amlodipine 2.5 MG Oral Tablet Amlodipine Besylate 11/02/2020 12:00: 00 AM EDT ORAL completed [facility] ([facility]) valsartan 80 MG Oral Tablet Valsartan 11/02/2020 12:00:00 AM EDT ORAL completed [facility]ENT ([facility]) 60 ACTUAT Albuterol 0.09 MG/ACTUAT Metered Dose Inhaler Albu terol Sulfate HFA 11/02/2020 12:00:00 AM EDT RESPIRATORY active MEDENT ([facility]) Escitalopram 10 MG Oral Tablet Escitalopram Oxalate Escitalo pram Oxalate 09/26/2020 01:58:22 PM EDT 10 MG active [facility] Amlodipine 2.5 MG Oral Tablet Amlodipine (Norvasc) 2.5 mg tablet Amlodipine (Norvasc) 2.5 mg tablet 09/26/2020 01:58:22 PM EDT 2.5 MG active [facility] Albuterol Sulfate (Proventil Hfa) 90 mcg/actuation HFA aeros ol inhaler 09/26/2020 01:58:22 PM EDT 90 MCG active [facility] Febuxostat 09/26/2020 01:58:22 PM EDT 40 MG active [facility] valsartan 80 MG Oral Tablet Valsartan (Diovan) 80 mg t ablet Valsartan (Diovan) 80 mg tablet 09/26/2020 01:58:22 PM EDT 80 MG active [facility] 60 ACTUAT Albuterol 0.09 MG/ACTUAT Metered Dose Inhaler Albu terol Sulfate HFA 09/16/2020 12:00:00 AM EDT RESPIRATORY active MEDENT ([facility] ) valsartan 160 MG Oral Tablet Valsartan 160 MG Valsartan 160 MG 06/02/2020 12:00:00 AM EST 1.0 {tablet} active Va lsartan 160 MG eCW1 ([facility]) valsartan 160 MG Oral Tablet Valsartan 160 MG Valsartan 160 MG 06/02/2020 12:00:00 AM EST 1.0 {tablet} active Va lsartan 160 MG eCW1 ([facility]) valsartan 160 MG Oral Tablet Valsartan 160 MG Valsartan 160 MG 06/02/2020 12:00:00 AM EST 1.0 {tablet} active Va lsartan 160 MG eCW1 ([facility]) valsartan 160 MG Oral Tablet Valsartan 160 MG Valsartan 160 MG 06/02/2020 12:00:00 AM EST 1.0 {tablet} active Va lsartan 160 MG eCW1 ([facility]) valsartan 160 MG Oral Tablet Valsartan 160 MG Valsartan 160 MG 06/02/2020 12:00:00 AM EST 1.0 {tablet} active Va lsartan 160 MG eCW1 ([facility]) valsartan 160 MG Oral Tablet Valsartan 160 MG Valsartan 160 MG 06/02/2020 12:00:00 AM EST 1.0 {tablet} active Va lsartan 160 MG eCW1 ([facility]) valsartan 160 MG Oral Tablet Valsartan 160 MG Valsartan 160 MG 06/02/2020 12:00:00 AM EST 1.0 {tablet} active Va lsartan 160 MG eCW1 ([facility]) valsartan 160 MG Oral Tablet Valsartan 160 MG Valsartan 160 MG 06/02/2020 12:00:00 AM EST 1.0 {tablet} active Va lsartan 160 MG eCW1 ([facility]) valsartan 160 MG Oral Tablet Valsartan 160 MG Valsartan 160 MG 06/02/2020 12:00:00 AM EST 1.0 {tablet} active Va lsartan 160 MG eCW1 ([facility]) valsartan 160 MG Oral Tablet Valsartan 160 MG Valsartan 160 MG 06/02/2020 12:00:00 AM EST 1.0 {tablet} active Va lsartan 160 MG eCW1 ([facility]) valsartan 160 MG Oral Tablet Valsartan 160 MG Valsartan 160 MG 06/02/2020 12:00:00 AM EST 1.0 {tablet} active Va lsartan 160 MG eCW1 ([facility]) valsartan 160 MG Oral Tablet Valsartan 160 MG Valsartan 160 MG 06/02/2020 12:00:00 AM EST 1.0 {tablet} active Va lsartan 160 MG eCW1 ([facility]) valsartan 160 MG Oral Tablet Valsartan 160 MG Valsartan 160 MG 06/02/2020 12:00:00 AM EST 1.0 {tablet} active Va lsartan 160 MG eCW1 ([facility]) valsartan 160 MG Oral Tablet Valsartan 160 MG Valsartan 160 MG 06/02/2020 12:00:00 AM EST 1.0 {tablet} active Va lsartan 160 MG eCW1 ([facility]) valsartan 160 MG Oral Tablet Valsartan 160 MG Valsartan 160 MG 06/02/2020 12:00:00 AM EST 1.0 {tablet} active Va lsartan 160 MG eCW1 ([facility]) Fluconazole 150 MG Oral Tablet [Diflucan] Diflucan 150 MG Di flucan 150 MG 01/29/2020 12:00:00 AM EDT 1.0 {tablet} active Diflucan 150 MG eCW1 ([facility]) Nystatin 100 UNT/MG Topical Ointment Nystatin [id number] U NIT/GM Nystatin 200133 UNIT/GM 01/29/2020 12:00:00 AM EDT 1.0 {application} active Nystatin [id number] UNIT/GM eCW1 ([facility]) Nystatin 100 UNT/MG Topical Ointment Nystatin 476285 U NIT/GM Nystatin 990124 UNIT/GM 01/29/2020 12:00:00 AM EDT 1.0 {application} active Nystatin [id number] UNIT/GM eCW1 ([facility]) Fluconazole 150 MG Oral Tablet [Diflucan] Diflucan 150 MG Di flucan 150 MG 01/29/2020 12:00:00 AM EDT 1.0 {tablet} active Diflucan 150 MG eCW1 ([facility]) Nystatin 100 UNT/MG Topical Ointment Nystatin 174057 U NIT/GM Nystatin [id number] UNIT/GM 01/29/2020 12:00:00 AM EDT 1.0 {application} active Nystatin 230248 UNIT/GM eCW1 ([facility]) Nystatin 100 UNT/MG Topical Ointment Nystatin 862655 U NIT/GM Nystatin 746215 UNIT/GM 01/29/2020 12:00:00 AM EDT 1.0 {application} active Nystatin 615765 UNIT/GM eCW1 ([facility]) Nystatin 100 UNT/MG Topical Ointment Nystatin 021947 U NIT/GM Nystatin 479113 UNIT/GM 01/29/2020 12:00:00 AM EDT 1.0 {application} active Nystatin 365482 UNIT/GM eCW1 ([facility]) Nystatin 100 UNT/MG Topical Ointment Nystatin 379461 U NIT/GM Nystatin 130863 UNIT/GM 01/29/2020 12:00:00 AM EDT 1.0 {application} active Nystatin 857490 UNIT/GM eCW1 ([facility]) Nystatin 100 UNT/MG Topical Ointment Nystatin 311025 U NIT/GM Nystatin 072712 UNIT/GM 01/29/2020 12:00:00 AM EDT 1.0 {application} active Nystatin 073724 UNIT/GM eCW1 ([facility]) Nystatin 100 UNT/MG Topical Ointment Nystatin 899919 U NIT/GM Nystatin 726018 UNIT/GM 01/29/2020 12:00:00 AM EDT 1.0 {application} active Nystatin 310116 UNIT/GM eCW1 ([facility]) Nystatin 100 UNT/MG Topical Ointment Nystatin 380132 U NIT/GM Nystatin 459347 UNIT/GM 01/29/2020 12:00:00 AM EDT 1.0 {application} active Nystatin 724206 UNIT/GM eCW1 ([facility]) Nystatin 100 UNT/MG Topical Ointment Nystatin 543006 U NIT/GM Nystatin 244341 UNIT/GM 01/29/2020 12:00:00 AM EDT 1.0 {application} active Nystatin 076943 UNIT/GM eCW1 ([facility]) Nystatin 100 UNT/MG Topical Ointment Nystatin 976615 U NIT/GM Nystatin 683627 UNIT/GM 01/29/2020 12:00:00 AM EDT 1.0 {application} active Nystatin 717353 UNIT/GM eCW1 ([facility]) Nystatin 100 UNT/MG Topical Ointment Nystatin 878173 U NIT/GM Nystatin 472538 UNIT/GM 01/29/2020 12:00:00 AM EDT 1.0 {application} active Nystatin 720770 UNIT/GM eCW1 ([facility]) Nystatin 100 UNT/MG Topical Ointment Nystatin 752476 U NIT/GM Nystatin 212420 UNIT/GM 01/29/2020 12:00:00 AM EDT 1.0 {application} active Nystatin 745858 UNIT/GM eCW1 ([facility]) Nystatin 100 UNT/MG Topical Ointment Nystatin 029284 U NIT/GM Nystatin 655211 UNIT/GM 01/29/2020 12:00:00 AM EDT 1.0 {application} active Nystatin 921685 UNIT/GM eCW1 ([facility]) Nystatin 100 UNT/MG Topical Ointment Nystatin 543727 U NIT/GM Nystatin 551211 UNIT/GM 01/29/2020 12:00:00 AM EDT 1.0 {application} active Nystatin 823403 UNIT/GM eCW1 ([facility]) Nystatin 100 UNT/MG Topical Ointment Nystatin 854742 U NIT/GM Nystatin 644920 UNIT/GM 01/29/2020 12:00:00 AM EDT 1.0 {application} active Nystatin 059790 UNIT/GM eCW1 ([facility]) Nystatin 100 UNT/MG Topical Ointment Nystatin 556877 U NIT/GM Nystatin 697491 UNIT/GM 01/29/2020 12:00:00 AM EDT 1.0 {application} active Nystatin 564895 UNIT/GM eCW1 ([facility]) Nystatin 100 UNT/MG Topical Ointment Nystatin 746361 U NIT/GM Nystatin 623312 UNIT/GM 01/29/2020 12:00:00 AM EDT 1.0 {application} active Nystatin 802843 UNIT/GM eCW1 ([facility]) Nystatin 100 UNT/MG Topical Ointment Nystatin 937357 U NIT/GM Nystatin 050077 UNIT/GM 01/29/2020 12:00:00 AM EDT 1.0 {application} active Nystatin 696581 UNIT/GM eCW1 ([facility]) Nystatin 100 UNT/MG Topical Ointment Nystatin 290182 U NIT/GM Nystatin 474505 UNIT/GM 01/29/2020 12:00:00 AM EDT 1.0 {application} active Nystatin 770513 UNIT/GM eCW1 ([facility]) Nystatin 100 UNT/MG Topical Ointment Nystatin 628022 U NIT/GM Nystatin 477954 UNIT/GM 01/29/2020 12:00:00 AM EDT 1.0 {application} active Nystatin 419077 UNIT/GM eCW1 ([facility]) Nystatin 100 UNT/MG Topical Ointment Nystatin 005075 U NIT/GM Nystatin 452093 UNIT/GM 01/29/2020 12:00:00 AM EDT 1.0 {application} active Nystatin 503629 UNIT/GM eCW1 ([facility]) Nystatin 100 UNT/MG Topical Ointment Nystatin 536780 U NIT/GM Nystatin 039092 UNIT/GM 01/29/2020 12:00:00 AM EDT 1.0 {application} active Nystatin 502852 UNIT/GM eCW1 ([facility]) Nystatin 100 UNT/MG Topical Ointment Nystatin 910779 U NIT/GM Nystatin 703655 UNIT/GM 01/29/2020 12:00:00 AM EDT 1.0 {application} active Nystatin 331786 UNIT/GM eCW1 ([facility]) Nystatin 100 UNT/MG Topical Ointment Nystatin 070922 U NIT/GM Nystatin 122283 UNIT/GM 01/29/2020 12:00:00 AM EDT 1.0 {application} active Nystatin 370883 UNIT/GM eCW1 ([facility]) Fluconazole 150 MG Oral Tablet [Diflucan] Diflucan 150 MG Di flucan 150 MG 01/29/2020 12:00:00 AM EDT 1.0 {tablet} active Diflucan 150 MG eCW1 ([facility]) Nystatin 100 UNT/MG Topical Ointment Nystatin 713639 U NIT/GM Nystatin 891410 UNIT/GM 01/29/2020 12:00:00 AM EDT 1.0 {application} active Nystatin 247727 UNIT/GM eCW1 ([facility]) Nystatin 100 UNT/MG Topical Ointment Nystatin 622442 U NIT/GM Nystatin 549638 UNIT/GM 01/29/2020 12:00:00 AM EDT 1.0 {application} active Nystatin 885382 UNIT/GM eCW1 ([facility]) Nystatin 100 UNT/MG Topical Ointment Nystatin 406534 U NIT/GM Nystatin 498019 UNIT/GM 01/29/2020 12:00:00 AM EDT 1.0 {application} active Nystatin 774178 UNIT/GM eCW1 ([facility]) Nystatin 100 UNT/MG Topical Ointment Nystatin 463388 U NIT/GM Nystatin 752428 UNIT/GM 01/29/2020 12:00:00 AM EDT 1.0 {application} active Nystatin 664906 UNIT/GM eCW1 ([facility]) Nystatin 100 UNT/MG Topical Ointment Nystatin 035527 U NIT/GM Nystatin 999207 UNIT/GM 01/29/2020 12:00:00 AM EDT 1.0 {application} active Nystatin 126631 UNIT/GM eCW1 ([facility]) Nystatin 100 UNT/MG Topical Ointment Nystatin 207775 U NIT/GM Nystatin 758269 UNIT/GM 01/29/2020 12:00:00 AM EDT 1.0 {application} active Nystatin 854777 UNIT/GM eCW1 ([facility]) Nystatin 100 UNT/MG Topical Ointment Nystatin 385585 U NIT/GM Nystatin 191628 UNIT/GM 01/29/2020 12:00:00 AM EDT 1.0 {application} active Nystatin 518057 UNIT/GM eCW1 ([facility]) Nystatin 100 UNT/MG Topical Ointment Nystatin 232849 U NIT/GM Nystatin 272123 UNIT/GM 01/29/2020 12:00:00 AM EDT 1.0 {application} active Nystatin 561936 UNIT/GM eCW1 ([facility]) Nystatin 100 UNT/MG Topical Ointment Nystatin 660577 U NIT/GM Nystatin 543713 UNIT/GM 01/29/2020 12:00:00 AM EDT 1.0 {application} active Nystatin 695792 UNIT/GM eCW1 ([facility]) Nystatin 100 UNT/MG Topical Ointment Nystatin 088601 U NIT/GM Nystatin 073387 UNIT/GM 01/29/2020 12:00:00 AM EDT 1.0 {application} active Nystatin 713978 UNIT/GM eCW1 ([facility]) Nystatin 100 UNT/MG Topical Ointment Nystatin 973649 U NIT/GM Nystatin 526402 UNIT/GM 01/29/2020 12:00:00 AM EDT 1.0 {application} active Nystatin 568090 UNIT/GM eCW1 ([facility]) Nystatin 100 UNT/MG Topical Ointment Nystatin 603242 U NIT/GM Nystatin 170494 UNIT/GM 01/29/2020 12:00:00 AM EDT 1.0 {application} active Nystatin 376028 UNIT/GM eCW1 ([facility]) 1 ML evolocumab 140 MG/ML Prefilled Syringe [Repatha] Repatha 140 MG/ML Repatha 140 MG/ML 01/22/2020 12:00:00 AM EDT 1.0 {ml} active Repatha 140 MG/ML eCW1 ([facility]) 1 ML evolocumab 140 MG/ML Prefilled Syringe [Repatha] Repatha 140 MG/ML Repatha 140 MG/ML 01/22/2020 12:00:00 AM EDT 1.0 {ml} active Repatha 140 MG/ML eCW1 ([facility]) 1 ML evolocumab 140 MG/ML Prefilled Syringe [Repatha] Repatha 140 MG/ML Repatha 140 MG/ML 01/22/2020 12:00:00 AM EDT 1.0 {ml} active Repatha 140 MG/ML eCW1 ([facility]) 1 ML evolocumab 140 MG/ML Prefilled Syringe [Repatha] Repatha 140 MG/ML Repatha 140 MG/ML 01/22/2020 12:00:00 AM EDT 1.0 {ml} active Repatha 140 MG/ML eCW1 ([facility]) 1 ML evolocumab 140 MG/ML Prefilled Syringe [Repatha] Repatha 140 MG/ML Repatha 140 MG/ML 01/22/2020 12:00:00 AM EDT 1.0 {ml} active Repatha 140 MG/ML eCW1 ([facility]) 1 ML evolocumab 140 MG/ML Prefilled Syringe [Repatha] Repatha 140 MG/ML Repatha 140 MG/ML 01/22/2020 12:00:00 AM EDT 1.0 {ml} active Repatha 140 MG/ML eCW1 ([facility]) 1 ML evolocumab 140 MG/ML Prefilled Syringe [Repatha] Repatha 140 MG/ML Repatha 140 MG/ML 01/22/2020 12:00:00 AM EDT 1.0 {ml} active Repatha 140 MG/ML eCW1 ([facility]) 1 ML evolocumab 140 MG/ML Prefilled Syringe [Repatha] Repatha 140 MG/ML Repatha 140 MG/ML 01/22/2020 12:00:00 AM EDT 1.0 {ml} active Repatha 140 MG/ML eCW1 ([facility]) 1 ML evolocumab 140 MG/ML Prefilled Syringe [Repatha] Repatha 140 MG/ML Repatha 140 MG/ML 01/22/2020 12:00:00 AM EDT 1.0 {ml} active Repatha 140 MG/ML eCW1 ([facility]) 1 ML evolocumab 140 MG/ML Prefilled Syringe [Repatha] Repatha 140 MG/ML Repatha 140 MG/ML 01/22/2020 12:00:00 AM EDT 1.0 {ml} active Repatha 140 MG/ML eCW1 ([facility]) 1 ML evolocumab 140 MG/ML Prefilled Syringe [Repatha] Repatha 140 MG/ML Repatha 140 MG/ML 01/22/2020 12:00:00 AM EDT 1.0 {ml} active Repatha 140 MG/ML eCW1 ([facility]) 1 ML evolocumab 140 MG/ML Prefilled Syringe [Repatha] Repatha 140 MG/ML Repatha 140 MG/ML 01/22/2020 12:00:00 AM EDT 1.0 {ml} active Repatha 140 MG/ML eCW1 ([facility]) 1 ML evolocumab 140 MG/ML Prefilled Syringe [Repatha] Repatha 140 MG/ML Repatha 140 MG/ML 01/22/2020 12:00:00 AM EDT 1.0 {ml} active Repatha 140 MG/ML eCW1 ([facility]) 1 ML evolocumab 140 MG/ML Prefilled Syringe [Repatha] Repatha 140 MG/ML Repatha 140 MG/ML 01/22/2020 12:00:00 AM EDT 1.0 {ml} active Repatha 140 MG/ML eCW1 ([facility]) 1 ML evolocumab 140 MG/ML Prefilled Syringe [Repatha] Repatha 140 MG/ML Repatha 140 MG/ML 01/22/2020 12:00:00 AM EDT 1.0 {ml} active Repatha 140 MG/ML eCW1 ([facility]) 1 ML evolocumab 140 MG/ML Prefilled Syringe [Repatha] Repatha 140 MG/ML Repatha 140 MG/ML 01/22/2020 12:00:00 AM EDT 1.0 {ml} active Repatha 140 MG/ML eCW1 ([facility]) 1 ML evolocumab 140 MG/ML Prefilled Syringe [Repatha] Repatha 140 MG/ML Repatha 140 MG/ML 01/22/2020 12:00:00 AM EDT 1.0 {ml} active Repatha 140 MG/ML eCW1 ([facility]) 1 ML evolocumab 140 MG/ML Prefilled Syringe [Repatha] Repatha 140 MG/ML Repatha 140 MG/ML 01/22/2020 12:00:00 AM EDT 1.0 {ml} active Repatha 140 MG/ML eCW1 ([facility]) 1 ML evolocumab 140 MG/ML Prefilled Syringe [Repatha] Repatha 140 MG/ML Repatha 140 MG/ML 01/22/2020 12:00:00 AM EDT 1.0 {ml} active Repatha 140 MG/ML eCW1 ([facility]) 1 ML evolocumab 140 MG/ML Prefilled Syringe [Repatha] Repatha 140 MG/ML Repatha 140 MG/ML 01/22/2020 12:00:00 AM EDT 1.0 {ml} active Repatha 140 MG/ML eCW1 ([facility]) 1 ML evolocumab 140 MG/ML Prefilled Syringe [Repatha] Repatha 140 MG/ML Repatha 140 MG/ML 01/22/2020 12:00:00 AM EDT 1.0 {ml} active Repatha 140 MG/ML eCW1 ([facility]) 1 ML evolocumab 140 MG/ML Prefilled Syringe [Repatha] Repatha 140 MG/ML Repatha 140 MG/ML 01/22/2020 12:00:00 AM EDT 1.0 {ml} active Repatha 140 MG/ML eCW1 ([facility]) 1 ML evolocumab 140 MG/ML Prefilled Syringe [Repatha] Repatha 140 MG/ML Repatha 140 MG/ML 01/22/2020 12:00:00 AM EDT 1.0 {ml} active Repatha 140 MG/ML eCW1 ([facility]) 1 ML evolocumab 140 MG/ML Prefilled Syringe [Repatha] Repatha 140 MG/ML Repatha 140 MG/ML 01/22/2020 12:00:00 AM EDT 1.0 {ml} active Repatha 140 MG/ML eCW1 ([facility]) 1 ML evolocumab 140 MG/ML Prefilled Syringe [Repatha] Repatha 140 MG/ML Repatha 140 MG/ML 01/22/2020 12:00:00 AM EDT 1.0 {ml} active Repatha 140 MG/ML eCW1 ([facility]) 1 ML evolocumab 140 MG/ML Prefilled Syringe [Repatha] Repatha 140 MG/ML Repatha 140 MG/ML 01/22/2020 12:00:00 AM EDT 1.0 {ml} active Repatha 140 MG/ML eCW1 ([facility]) 1 ML evolocumab 140 MG/ML Prefilled Syringe [Repatha] Repatha 140 MG/ML Repatha 140 MG/ML 01/22/2020 12:00:00 AM EDT 1.0 {ml} active Repatha 140 MG/ML eCW1 ([facility]) 1 ML evolocumab 140 MG/ML Prefilled Syringe [Repatha] Repatha 140 MG/ML Repatha 140 MG/ML 01/22/2020 12:00:00 AM EDT 1.0 {ml} active Repatha 140 MG/ML eCW1 ([facility]) 1 ML evolocumab 140 MG/ML Prefilled Syringe [Repatha] Repatha 140 MG/ML Repatha 140 MG/ML 01/22/2020 12:00:00 AM EDT 1.0 {ml} active Repatha 140 MG/ML eCW1 ([facility]) 1 ML evolocumab 140 MG/ML Prefilled Syringe [Repatha] Repatha 140 MG/ML Repatha 140 MG/ML 01/22/2020 12:00:00 AM EDT 1.0 {ml} active Repatha 140 MG/ML eCW1 ([facility]) 1 ML evolocumab 140 MG/ML [...] {tablet_as_needed} active Percocet 5-32 5 MG eCW1 ([facility]) Acetaminophen 325 MG / Oxycodone Hydroch loride 5 MG Oral Tablet [Percocet] Percocet 5-325 MG Percocet 5-325 MG 01/16/2020 12:00:00 AM EDT 1 .0 {tablet_as_needed} active Percocet 5-32 5 MG eCW1 ([facility]) Acetaminophen 325 MG / Oxycodone Hydroch loride 5 MG Oral Tablet [Percocet] Percocet 5-325 MG Percocet 5-325 MG 01/16/2020 12:00:00 AM EDT 1 .0 {tablet_as_needed} active Percocet 5-32 5 MG eCW1 ([facility]) Acetaminophen 325 MG / Oxycodone Hydroch loride 5 MG Oral Tablet [Percocet] Percocet 5-325 MG Percocet 5-325 MG 01/16/2020 12:00:00 AM EDT 1 .0 {tablet_as_needed} active Percocet 5-32 5 MG eCW1 ([facility]) Acetaminophen 325 MG / Oxycodone Hydroch loride 5 MG Oral Tablet [Percocet] Percocet 5-325 MG Percocet 5-325 MG 01/16/2020 12:00:00 AM EDT 1 .0 {tablet_as_needed} suspended Percocet 5- 325 MG eCW1 ([facility]) Acetaminophen 325 MG / Oxycodone Hydroch loride 5 MG Oral Tablet [Percocet] Percocet 5-325 MG Percocet 5-325 MG 01/16/2020 12:00:00 AM EDT 1 .0 {tablet_as_needed} active Percocet 5-32 5 MG eCW1 ([facility]) Acetaminophen 325 MG / Oxycodone Hydroch loride 5 MG Oral Tablet [Percocet] Percocet 5-325 MG Percocet 5-325 MG 01/16/2020 12:00:00 AM EDT 1 .0 {tablet_as_needed} active Percocet 5-32 5 MG eCW1 ([facility]) 12 HR Amoxicillin 1000 MG / Clavulanate 62.5 MG Extended Release Oral Tablet Amoxicillin-Pot Clavulanate ER 1000-62.5 MG Amoxicillin-Pot Clavulanate ER 1000- 62.5 MG 01/16/2020 12:00:00 AM EDT 2.0 {tablet} acti ve Amoxicillin- Pot Clavulanate ER 1000-62.5 MG eCW1 ([facility]) Acetaminophen 325 MG / Oxycodone Hydroch loride 5 MG Oral Tablet [Percocet] Percocet 5-325 MG Percocet 5-325 MG 01/16/2020 12:00:00 AM EDT 1 .0 {tablet_as_needed} active Percocet 5-32 5 MG eCW1 ([facility]) Acetaminophen 325 MG / Oxycodone Hydroch loride 5 MG Oral Tablet [Percocet] Percocet 5-325 MG Percocet 5-325 MG 01/16/2020 12:00:00 AM EDT 1 .0 {tablet_as_needed} active Percocet 5-32 5 MG eCW1 ([facility]) Acetaminophen 325 MG / Oxycodone Hydroch loride 5 MG Oral Tablet [Percocet] Percocet 5-325 MG Percocet 5-325 MG 01/16/2020 12:00:00 AM EDT 1 .0 {tablet_as_needed} active Percocet 5-32 5 MG eCW1 ([facility]) Acetaminophen 325 MG / Oxycodone Hydroch loride 5 MG Oral Tablet [Percocet] Percocet 5-325 MG Percocet 5-325 MG 01/16/2020 12:00:00 AM EDT 1 .0 {tablet_as_needed} active Percocet 5-32 5 MG eCW1 ([facility]) Acetaminophen 325 MG / Oxycodone Hydroch loride 5 MG Oral Tablet [Percocet] Percocet 5-325 MG Percocet 5-325 MG 01/16/2020 12:00:00 AM EDT 1 .0 {tablet_as_needed} active Percocet 5-32 5 MG eCW1 ([facility]) Acetaminophen 325 MG / Oxycodone Hydroch loride 5 MG Oral Tablet [Percocet] Percocet 5-325 MG Percocet 5-325 MG 01/16/2020 12:00:00 AM EDT 1 .0 {tablet_as_needed} active Percocet 5-32 5 MG eCW1 ([facility]) Acetaminophen 325 MG / Oxycodone Hydroch loride 5 MG Oral Tablet [Percocet] Percocet 5-325 MG Percocet 5-325 MG 01/16/2020 12:00:00 AM EDT 1 .0 {tablet_as_needed} suspended Percocet 5- 325 MG eCW1 ([facility]) Acetaminophen 325 MG / Oxycodone Hydroch loride 5 MG Oral Tablet [Percocet] Percocet 5-325 MG Percocet 5-325 MG 01/16/2020 12:00:00 AM EDT 1 .0 {tablet_as_needed} suspended Percocet 5- 325 MG eCW1 ([facility]) Acetaminophen 325 MG / Oxycodone Hydroch loride 5 MG Oral Tablet [Percocet] Percocet 5-325 MG Percocet 5-325 MG 01/16/2020 12:00:00 AM EDT 1 .0 {tablet_as_needed} active Percocet 5-32 5 MG eCW1 ([facility]) Acetaminophen 325 MG / Oxycodone Hydroch loride 5 MG Oral Tablet [Percocet] Percocet 5-325 MG Percocet 5-325 MG 01/16/2020 12:00:00 AM EDT 1 .0 {tablet_as_needed} active Percocet 5-32 5 MG eCW1 ([facility]) Acetaminophen 325 MG / Oxycodone Hydroch loride 5 MG Oral Tablet [Percocet] Percocet 5-325 MG Percocet 5-325 MG 01/16/2020 12:00:00 AM EDT 1 .0 {tablet_as_needed} active Percocet 5-32 5 MG eCW1 ([facility]) Acetaminophen 325 MG / Oxycodone Hydroch loride 5 MG Oral Tablet [Percocet] Percocet 5-325 MG Percocet 5-325 MG 01/16/2020 12:00:00 AM EDT 1 .0 {tablet_as_needed} active Percocet 5-32 5 MG eCW1 ([facility]) Acetaminophen 325 MG / Oxycodone Hydroch loride 5 MG Oral Tablet [Percocet] Percocet 5-325 MG Percocet 5-325 MG 01/16/2020 12:00:00 AM EDT 1 .0 {tablet_as_needed} active Percocet 5-32 5 MG eCW1 ([facility]) 12 HR Amoxicillin 1000 MG / Clavulanate 62.5 MG Extended Release Oral Tablet Amoxicillin-Pot Clavulanate ER 1000-62.5 MG Amoxicillin-Pot Clavulanate ER 1000- 62.5 MG 01/16/2020 12:00:00 AM EDT 2.0 {tablet} acti ve Amoxicillin- Pot Clavulanate ER 1000-62.5 MG eCW1 ([facility]) Acetaminophen 325 MG / Oxycodone Hydroch loride 5 MG Oral Tablet [Percocet] Percocet 5-325 MG Percocet 5-325 MG 01/16/2020 12:00:00 AM EDT 1 .0 {tablet_as_needed} active Percocet 5-32 5 MG eCW1 ([facility]) Acetaminophen 325 MG / Oxycodone Hydroch loride 5 MG Oral Tablet [Percocet] Percocet 5-325 MG Percocet 5-325 MG 01/16/2020 12:00:00 AM EDT 1 .0 {tablet_as_needed} active Percocet 5-32 5 MG eCW1 ([facility]) Acetaminophen 325 MG / Oxycodone Hydroch loride 5 MG Oral Tablet [Percocet] Percocet 5-325 MG Percocet 5-325 MG 01/16/2020 12:00:00 AM EDT 1 .0 {tablet_as_needed} active Percocet 5-32 5 MG eCW1 ([facility]) 12 HR Amoxicillin 1000 MG / Clavulanate 62.5 MG Extended Release Oral Tablet Amoxicillin-Pot Clavulanate ER 1000-62.5 MG Amoxicillin-Pot Clavulanate ER 1000- 62.5 MG 01/16/2020 12:00:00 AM EDT 2.0 {tablet} acti ve Amoxicillin- Pot Clavulanate ER 1000-62.5 MG eCW1 ([facility]) Acetaminophen 325 MG / Oxycodone Hydroch loride 5 MG Oral Tablet [Percocet] Percocet 5-325 MG Percocet 5-325 MG 01/16/2020 12:00:00 AM EDT 1 .0 {tablet_as_needed} active Percocet 5-32 5 MG eCW1 ([facility]) Acetaminophen 325 MG / Oxycodone Hydroch loride 5 MG Oral Tablet [Percocet] Percocet 5-325 MG Percocet 5-325 MG 01/16/2020 12:00:00 AM EDT 1 .0 {tablet_as_needed} active Percocet 5-32 5 MG eCW1 ([facility]) Acetaminophen 325 MG / Oxycodone Hydroch loride 5 MG Oral Tablet [Percocet] Percocet 5-325 MG Percocet 5-325 MG 01/16/2020 12:00:00 AM EDT 1 .0 {tablet_as_needed} active Percocet 5-32 5 MG eCW1 ([facility]) Acetaminophen 325 MG / Oxycodone Hydroch loride 5 MG Oral Tablet [Percocet] Percocet 5-325 MG Percocet 5-325 MG 01/16/2020 12:00:00 AM EDT 1 .0 {tablet_as_needed} active Percocet 5-32 5 MG eCW1 ([facility]) Acetaminophen 325 MG / Oxycodone Hydroch loride 5 MG Oral Tablet [Percocet] Percocet 5-325 MG Percocet 5-325 MG 01/16/2020 12:00:00 AM EDT 1 .0 {tablet_as_needed} active Percocet 5-32 5 MG eCW1 ([facility]) Acetaminophen 325 MG / Oxycodone Hydroch loride 5 MG Oral Tablet [Percocet] Percocet 5-325 MG Percocet 5-325 MG 01/16/2020 12:00:00 AM EDT 1 .0 {tablet_as_needed} suspended Percocet 5- 325 MG eCW1 ([facility]) Acetaminophen 325 MG / Oxycodone Hydroch loride 5 MG Oral Tablet [Percocet] Percocet 5-325 MG Percocet 5-325 MG 01/16/2020 12:00:00 AM EDT 1 .0 {tablet_as_needed} active Percocet 5-32 5 MG eCW1 ([facility]) Acetaminophen 325 MG / Oxycodone Hydroch loride 5 MG Oral Tablet [Percocet] Percocet 5-325 MG Percocet 5-325 MG 01/16/2020 12:00:00 AM EDT 1 .0 {tablet_as_needed} active Percocet 5-32 5 MG eCW1 (Formerly [facility]) Acetaminophen 325 MG / Oxycodone Hydroch loride 5 MG Oral Tablet [Percocet] Percocet 5-325 MG Percocet 5-325 MG 01/16/2020 12:00:00 AM EDT 1 .0 {tablet_as_needed} suspended Percocet 5- 325 MG eCW1 (Formerly [facility]) Acetaminophen 325 MG / Oxycodone Hydroch loride 5 MG Oral Tablet [Percocet] Percocet 5-325 MG Percocet 5-325 MG 01/16/2020 12:00:00 AM EDT 1 .0 {tablet_as_needed} active Percocet 5-32 5 MG eCW1 (Former[facility]) 12 HR Amoxicillin 1000 MG / Clavulanate 62.5 MG Extended Release Oral Tablet Amoxicillin-Pot Clavulanate ER 1000-62.5 MG Amoxicillin-Pot Clavulanate ER 1000- 62.5 MG 01/16/2020 12:00:00 AM EDT 2.0 {tablet} acti ve Amoxicillin- Pot Clavulanate ER 1000-62.5 MG eCW1 ([facility]) 12 HR Amoxicillin [...] {tablet_as_needed} active Percocet 5-32 5 MG eCW1 (Formerly [facility]) Acetaminophen 325 MG / Oxycodone Hydroch loride 5 MG Oral Tablet [Percocet] Percocet 5-325 MG Percocet 5-325 MG 01/16/2020 12:00:00 AM EDT 1 .0 {tablet_as_needed} active Percocet 5-32 5 MG eCW1 (Formerly [facility]) Acetaminophen 325 MG / Oxycodone Hydroch loride 5 MG Oral Tablet [Percocet] Percocet 5-325 MG Percocet 5-325 MG 01/16/2020 12:00:00 AM EDT 1 .0 {tablet_as_needed} active Percocet 5-32 5 MG eCW1 (Former[facility]) Acetaminophen 325 MG / Oxycodone Hydroch loride 5 MG Oral Tablet [Percocet] Percocet 5-325 MG Percocet 5-325 MG 01/16/2020 12:00:00 AM EDT 1 .0 {tablet_as_needed} active Percocet 5-32 5 MG eCW1 (Formerly [facility]) Acetaminophen 325 MG / Oxycodone Hydroch loride 5 MG Oral Tablet [Percocet] Percocet 5-325 MG Percocet 5-325 MG 01/16/2020 12:00:00 AM EDT 1 .0 {tablet_as_needed} suspended Percocet 5- 325 MG eCW1 (Formerly Named [facility]) Acetaminophen 325 MG / Oxycodone Hydroch loride 5 MG Oral Tablet [Percocet] Percocet 5-325 MG Percocet 5-325 MG 01/16/2020 12:00:00 AM EDT 1 .0 {tablet_as_needed} suspended Percocet 5- 325 MG eCW1 (Formerly Named [facility]) Hydrochlorothiazide 12.5 MG Oral Tablet Hydrochlorothiazide 12/12/2013 10:17:00 PM EDT 12.5 MG completed [facility] Losartan Potassium 50 MG Oral Tablet Losartan 12/12/2013 10:17: 00 PM EDT 50 MG completed [facility] 60 ACTUAT Fluticasone propionate 0.1 MG/ ACTUAT / salmeterol 0.05 MG/ACTUAT Dry Powder Inhaler Fluticasone Propion-Salmeterol (Advair 100-50 Diskus) 1 EACH blister with device Fluticasone Propion-Salmeterol (Advair 1 00-50 Diskus) 1 EACH blister with device 12/12/2013 10:17:00 PM EDT 1 PUFFS completed [facility] Rosuvastatin calcium 20 MG Oral Tablet Rosuvastatin (C restor) 20 MG tablet Rosuvastatin (Crestor) 20 MG tablet 12/12/2013 10:17:00 PM EDT 20 MG completed [facility] Promethazine Hydrochloride 25 MG Oral Tablet Promethazine 12/12/2013 10:17:00 PM EDT 25 MG completed [facility] gabapentin 300 MG Oral Capsule Gabapentin Gabapentin 2013 10:17:00 PM EDT 300 MG completed [facility] Sucralfate 1000 MG Oral Tablet Sucralfate 12/12/2013 10:17:00 PM EDT 1 G completed [facility] ezetimibe 10 MG Oral Tablet Ezetimibe (Zetia) 10 MG ta blet Ezetimibe (Zetia) 10 MG tablet 12/12/2013 10:17:00 PM EDT 10 MG completed [facility] Alprazolam 0.25 MG Oral Tablet Alprazolam (Xanax) 0.25 MG tablet Alprazolam (Xanax) 0.25 MG tablet 12/12/2013 10:17:00 PM EDT 0.25 MG completed [facility] Insurance Providers Payer name Policy type / Coverage type Policy ID Covered alliance party ID Covered alliance party's relationship to marinelli Policy Marinelli Plan Information MEDICARE [id number] xxxxxxxxxxx [id number] [employer] [id number] S [id number] [place] [id number] S [id number] MEDICARE [id number] Emma [id number] MEDICARE [id number] Emma [id number] A [employer] [id number] S [id number] [place]IC[place] [id number] S [id number] MEDICARE M [id number] S [id number] A MEDICARE [id number] SP [id number] MEDICARE A [id number] Self [id number] A Medicare Part B [facility] [id number] 0 [id number] Medicare Part B Medicare Primary [id number] Self [id number] [facility] Ins Workers Compensation [id number] Self Medicare [facility] Medicare Primary [id number]. [id number] Self Medicaid [place] Medigap Part B [id number] 935.0 Self MEDICARE 11 [id number] [facility] [id number] Emma [id number] [employer] OPTIONS [id number] SP [id number] [facility] [facility]IONS [id number] SP [id number] [facility] [id number] Emma [id number] [facility] Medigap Part B [id number] Self [id number] [facility] [id number] Emma [id number] [facility] [id number] xxxxxxxxxxx [id number] [facility] [id number] Emma [id number] [employer] Option [id number] 0 [id number] AARP U [id number] Self [id number] [employer] [facility] OPTIONS [id number] ANSI-Medicare Part B [id number]-ly8i-9uug-34mr-[id number] ANSI-Commercial [id number]-i866-328t-nwvr-m9r4a588jt08 1z1s6699-o051-835n-iiti-n3k4w753da50 ANSI-Commercial 41572y79-vz98-1h90-yq4g-035p2n81m56s 83982c71-ij45-4t79-ew3h-356r3s96a42p ANSI-Medicare Part B [id number]-4745-7oku-b068383lkw5o ANSI-Medicare Part B [id number]-[id number] 85sn5032-6749-0688-jg8u-7f7m8j20f852 ANSI-Commercial 17ne4697-62r1-1918-6y58-329d2769u18j 97md4881-46q7-8831-0v26-599u0315k59q ANSI-Commercial 0126162r-p35h-089y-5251-516m14dh468y 4659211w-j18h-461e-9288-548d62hw635x ANSI-Medicare Part B [id number]-z83q075s69r9 4421l437-rk84-8i43-544j-o27k119t94n0 ANSI-Commercial 9xm3f37h-cus8-6097-43a3-s58s9p44338j 6ii0y01h-bgw5-5224-40k2-q38o4u88758l ANSI-Medicare Part B [id number]-35oh-tkpg-35hkcmq5x4c4 3e061562-p85m-16ih-vbja-93vlrje1b8e7 ANSI-Medicare Part B [id number]-8u1d-825i-[id number] 467s07rl-5t5f-5f9g-749h-614p18g88587 ANSI-Commercial tr67g4w7-5qno-5tja-bsc5-tx57s8k534p6 sg30t0i1-7hbd-8fqn-zdk8-df27q8j859f8 ANSI-Medicare Part B [id number]-3sk9-2m28-64ls-59904oy2fd40 4bm1o29z-6rq3-6l98-22mo-96879ix7ow65 ANSI-Commercial 23ceo62f-yd00-7o90-4dj9-90u31458a7eb 60lap67j-xm31-4r43-9ug2-62u76919g5oz ANSI-Medicare Part B p21kr685-v7sf-5i3j-v51z-4j5kxr1t5m5r m72yk977-x1md-4c3s-y35g-0d2xbs6j6c2b ANSI-Commercial 3236o0p1-965o-1939-0s3w-27h14e6950ou 6204w1r9-355f-5517-4j9h-50r93s1122kz ANSI-Medicare Part B 54y4cgk1-8o8y-907h-s43m-63035984xs2a 97b3tno0-7y4i-372b-y78d-29038904ue3k ANSI-Commercial 05xuk703-9458-8pz2-29c4-xl78zn1927qm 35eyv905-8955-7ho7-26a4-ca15ys9280xs ANSI-Commercial 8tju5119-wcd1-52aa-51ci-526v0m946inf 4ffd5735-gse2-08lf-35jk-034a2u102esk ANSI-Medicare Part B [id number]-0r21-1m76-12x2-1m49bi47055s u3e0978j-9v53-9m92-16x2-8s05od85231q ANSI-Medicare Part B ql461c80-07w8-9844-309p-2m61xz3gw7u5 je602v09-24p2-4294-859g-1t94bw5fj3s7 ANSI-Commercial 5dz0mw13-2tjd-3sz2-em51-o6ja0573j419 6xm0ew92-8wxm-6gs4-jq71-e3ok3815h744 ANSI-Commercial 978w039r-3z8t-7uw9-yj56-342i134t2236 369p286v-3h4r-1na4-wc14-555x273d3463 ANSI-Medicare Part B 29882z0u-518r-82o6-c517-767dth3b14k1 25342t9n-007o-75s8-o956-160llz6c27y3 ANSI-Commercial th6j3os1-0an6-833s-h802-9572i7mo70u9 xk8c0qo6-8vv8-716p-i248-3203m2pg27n9 ANSI-Medicare Part B 61202wvl-7i11-8189-098o-bx8l501w8461 62169pwq-0d89-1396-999w-wy9i145y1227 ANSI-Medicare Part B 4syijr22-68g2-904d-207y-5650c13m04cl 7bmmsb03-47d2-779k-691k-2488k94t30ym ANSI-Commercial 45j0n7c4-w169-5p41-20mp-2246ffp5peo4 27h2g2z4-l651-9h73-43qh-7310rxx9fyz4 ANSI-Medicare Part B 2mc663q2-ayu8-8591-4pg0-3m06g87in5d2 7hv816e0-ixw0-8813-2pg8-0g18j98ir6r9 ANSI-Commercial 89312662-9m13-8i59-b1s1-6a2x28k7o703 13030346-1b91-8l20-j4f7-2u6d81e5v493 ANSI-Medicare Part B l99524u0-z29a-19c7-6v41-lw68842095k7 q59497a5-l96z-32f4-7a24-su00750149f0 ANSI-Commercial 2b43ri74-j63u-6jh1-m461-92e741x98694 7h84li45-k03x-5ou8-t053-70a179d18825 ANSI-Medicare Part B 885i077h-4vt0-6n72-11m1-6ou73648d6b0 058p797a-8tq9-0b54-41d1-2pw18244d4y8 ANSI-Commercial 8324g8h5-0886-7d51-vdre-072s22298844 5040q2t3-5176-3h91-dmfi-504a76439022 ANSI-Medicare Part B 57e1t3y3-95w1-9899-y0fh-996yb01j83zk 42z2l5l4-06d4-6517-a5bd-166fp99d67jx ANSI-Commercial 9917pdhw-04z5-3mv617n8-0as7-2n7b-75vi5008k5tb 3942fdqm-88f0-3tc576z0-8nj4-1n3k-07ya4203g8hu ANSI-Commercial 50210x1t-c197-9cz4-d937-9o464nh68g6s 92230l4t-r004-4pi5-d866-3y211kt64c2q ANSI-Medicare Part B j0bz7487-r101-76k1-72j6-o617k20qw208 r7jv0990-z822-91g7-00o5-m964n25oi511 ANSI-Commercial 5c98kxo6-3kis-1905-6x67-0o35cwrn5555 1k98qrz8-4zmc-8850-8t59-4h61ehgy9705 ANSI-Medicare Part B 5974316z-9g9h-68bu-1mk8-y1r3v17v03z0 8151419v-1t5r-16yj-6pi6-r9q1s49i87d2 ANSI-Medicare Part B z547w559-u7fs-2w5v-7775-4365884dadw7 m748a594-w7gd-5h4g-4995-0835206rysk7 ANSI-Commercial 0nl10b6l-2evx-5484-v59v-014s7667rh77 7vr06o2c-8wkv-8204-s91p-570m9192lm43 ANSI-Medicare Part B yf8h8k26-5ob2-0m79-kh30-p0reo39k8z80 qd8t8z00-7vh0-7y21-fb33-m6qvb87h1l50 ANSI-Commercial 858m291y-4b55-8ob3-ea40-1d92366q8941 779b147b-6p52-8it6-dc86-7a97430t6859 ANSI-Medicare Part B 942y1zl8-9sa1-7e5j-l1qq-og0z2jb4je81 420c6fu2-4xq0-9a5b-f5aa-yy0g5hv9kb85 ANSI-Commercial 9il762e9-4g1i-360y-734e-01081nt26u6c 8mz558g9-5z0z-893y-915e-72938yd29m8t ANSI-Commercial pd5c40wg-x184-0a80-3m58-6087q9s382q1 nv4k47uw-u071-6r12-6w82-6986o3x298i8 ANSI-Medicare Part B 8g572605-yr3x-2b9j-2def-28m77j1j6514 5k893081-xy5f-9t1p-0nty-49d81w0b0286 [facility] Part B [id number] ..840.1.510803.3.227.99.864 6.643602.0 Self [id number] Medicare [facility] Medicare Primary [id number] ..840.1.567239.3.227.99.8646.100878.0 Self [id number] ANSI-Commercial 3pqi4yg6-r476-6b23-yaf4-r14084134q5d 9wqb6qx0-p334-2z76-yfd3-o89502304g5p ANSI-Medicare Part B 75ca0qb9-0497-896g-6430-0605482m86jf 88jd5hk3-8939-973m-4510-1887360b52uu ANSI-Medicare Part B 36il6971-2py5-7j5p-c659-85r986wcf120 86nw6161-3qq2-1z7n-q556-98v346dvm554 ANSI-Commercial 2w99hj79-4498-2240-m868-en7281o0z432 9w97uk86-6467-8468-f189-yz4124i8q230 ANSI-Medicare Part B 5i84olv9-a42v-2eic-1ie3-50gv092ffr5z 4g33okw6-a55t-7mqj-5hn1-86jn745cea1p ANSI-Commercial 3l90xh92-30ir-45ph-9649-1180k0c8631q 4g43nl62-07wp-87vk-3692-1313w2q7639z ANSI-Medicare Part B 24666g60-2947-203k-42g1-58a76w814g4e 41073t57-8274-768f-58x9-83s38m702u0v ANSI-Commercial ri6c9794-m788-22u3-a0we-v24496488556 rr0l2879-t620-57z5-f1gh-g18765258137 ANSI-Commercial 9oj20011-s794-1w3u-n928-6zv25x9j8w35 9wr44047-q606-6g1w-k961-4lz84j7y2w26 ANSI-Medicare Part B 8l8pn58b-7340-6q72-560n-1t6f70s78806 7t5kg38v-1672-6m05-115f-5m6z73r40863 ANSI-Medicare Part B 5oxi23d2-d129-9m8l-1g41-06701zi17dm0 1pmz18r6-w583-1x8k-2b80-09657lg66hb2 ANSI-Commercial 8k5o64z0-2k8s-3974-47sa-4s95o2802285 1z3n56i0-1r4x-6352-06hw-0e95a3870233 ANSI-Commercial 21u5849w-mq3u-0ni9-y787-l3e274o77hd1 44c4257v-wf9d-1os0-s752-w4v534n20su7 ANSI-Medicare Part B 8t1hy390-qg4r-2a14-517a-0a394s27o596 2f7nk910-xs8a-1p82-529n-8x353b20z053 ANSI-Commercial 46279865-7n23-557a-w975-p58891yg5ojz 27268423-0g82-105r-v345-q99930xn8rjv ANSI-Medicare Part B u74613b5-1332-5x7u-x062-0cx7xo3523m2 p89390x0-6597-6i8c-c619-0ah1lz6092k4 ANSI-Commercial 63crd4yo-4i83-9x1c-j7q5-8917h899zj16 65hzr4zr-3y64-5w6j-l1n9-2156w734kh03 ANSI-Medicare Part B 29t8iuku-8ytd-3q71-rv67-n4j0w08j27q5 33w6hsig-9alu-2a95-ju30-w3r4i90u40j3 MEDICARE [id number] SP [id number] MEDICARE C [id number] S [id number] A [facility] PI PI MEDICARE PI PI MEDICARE PART A -O/P [id number] 18 [id number] [employer] [facility]ARE OPTIONS-O/P [id number] 18 [id number] [facility] OPTIONS [id number] 18 [id number] MEDICARE PART A [facility] [id number] 18 [id number] [facility] Options Medigap Part B [id number] 2.0.1.977586.3.227.99.510.2647.0 Self [id number] Medicare Part A [place] Medicare Primary [id number] 2.0.1.530114.3.227.99.510.2647.0 Self [id number] [facility] Medigap Part B [id number] 2.0.1.484086.3.227.99.510.2647.0 Self [id number] Medicare Part A [place] Medicare Primary [id number] 2.16840.1.126182.3.227.99.510.2647.0 Self [id number] [facility] Medigap Part B [id number] 2.840.1.883398.3.227.99.510.2647.0 Self [id number] Medicare Part A [place] Medicare Primary [id number] 2.840.1.039578.3.227.99.510.2647.0 Self [id number] [employer] Supplemental Plan Medigap Part B [id number] 2.840.1.399498.3.227.99.802.170236.0 Self [id number] Medicare Medicare Primary [id number] 2.840.1.638671.3.227. 99.802.131384.0 Self [id number] [facility] Medigap Part B [id number]7.54311.0 Self [id number] Medicare Natl Gov't Servi Medicare Primary [id number]7.19527.0 Self [id number] [employer] Supplemental Plan Medigap Part B [id number].102930.0 Self [id number] Medicare Medicare Primary [id number] 2840.1.326365.3.227. 99.802.844783.0 Self [id number] [employer] Supplemental Plan Medigap Part B [id number].523798.0 Self [id number] Medicare Medicare Primary [id number] 2840.1.225225.3.227. 99.802.690798.0 Self [id number] [facility] Aarp Medigap Part B [id number] 2.840.1.122443.3.227.99.9487.96925.0 Self [id number] Medicare Part B Medicare Primary [id number] 2.16840.1.292422.3.227.99.9487.90365.0 Self [id number] [employer] Supplemental Plan Medigap Part B [id number] Self Medicare Medicare Primary [id number] Self [facility] 2.0.1.1138 83.3.227.99.991.49168.0 Self Medicare Dme Supplies Medigap Part B [id number] .3.227.99.991.68911.0 Self [employer] [facility] [facility] OPTIONS-O/P [id number] 18 [id number] [facility] Medigap Part B [id number] Self Medicare [place] Primary [id number] Self AARP O [id number] S [id number] [facility] Medigap Part B [id number] Self [facility] [facility] OPTIONS -O/P [id number] 18 [id number] MEDICARE -O/P [id number] 18 [id number] [facility] O [id number] S [id number] TODA[facility] OPTIONS O [id number] S [id number] MEDICARE -O/P [id number] 18 [id number] MEDICARE PART B -PHYSICIAN [id number] 18 [id number] [facility] OPTIONS -PHYSICIAN [id number] 18 [id number] [facility] OPTIONS-CLINIC [id number] 18 [id number] MEDICARE PART A-CLINIC [id number] 18 [id number] SELF PAY 2 UNAVAILABLE 1 UNAVAILA BLE NF MISCELLANEOUS [id number] PT [id number] [facility] [employer] OPTIONS [id number] PT [id number] MEDICARE PART B [id number] PT [id number] MEDICARE PART A [id number] PT [id number] MEDICARE [id number] SP [id number] [employer] [facility] OPTIONS [id number] SP [id number] [facility] MEDICARE DIVISION [id number] S [id number] MEDICARE [place] [id number] S [id number] AARP [facility] CARE OPTIONS [id number] S [id number] [facility] OPTIONS [id number] S [id number] A[facility] OPTIONS [id number] S [id number] [facility] [facility] OPTIONS [id number] S [id number] [facility] [employer] [facility] [id number] S [id number] [place]ICARE [place] [id number] S [id number] [employer] MED[employer]ARE DIVISION [id number] S [id number] MEDICARE [place] [id number] S [id number] [employer] [facility] OPTIONS [id number] S [id number] MEDICARE C [id number] S [id number] AARP O [id number] S [id number] ANSI-Medicare Part B [id number]-[id number]-[id number] ANSI-Commercial o5o97kb8-158z-8230-1d7l-ow1365ct4m16 b9x29rc6-706e-7049-3z8l-jv8756nf2a48 ANSI-Medicare Part B [id number]-hser-6528-s97u-[id number] 606u23j0-yshf-7797-m99p-1073u282829f ANSI-Commercial 466t82v4-xss2-703x-423g-3f08l44o8i87 132w57c9-tfb0-651w-209m-3f45e06y2s88 ANSI-Commercial 072p3pul-8l65-608f-50v3-9lk7b912qc4t 656d2njg-6e16-069u-30v3-4rk4l154tj1f ANSI-Medicare Part B [id number]-3344-78f9916tj61p j5052214-1940-439v-2378-53t0455tm33d ANSI-Medicare Part B [id number]-4010-43z9-20972w15rsq6 3744045u-e47h-4189-51t6-28064g93hkm2 [facility] 2i29el63-y5f4-6wa9-379z-71l83we19178 2u70vp03-b5p4-8ac9-581r-26z58tz59154 [facility]ing m7163s16-100m-0l35-1py6-vm353495vd91 r7258f95-364o-4w61-9cu8-os171564jn53 ANSI-Medicare Part B [id number]15r 34p262t2-48o3-4305-3o46-500dip2w213x [facility] f612ssm7-1xo3-554u-78p3-75t7a6y03864 f208uqy5-5ar7-670d-02j1-25l5r3d60859 ANSI-Medicare Part B [id number]-2479-0kq6-g5zb-c54f5i06g6os c467jjyw-8467-9jc8-j2eu-i45c8c66h5du Problems, Conditions, and Diagnoses Code Display Name Description Problem Type Effective Dates Data Source(s) Z87.891 Personal history of nicotine dependence PERSONAL HISTORY OF NICOTINE DEPENDENCE Diagnosis 08/11/2020 03:40:00 PM [facility] Z79.899 Other 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 project manager (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 (CURRENT) DRUG THERAPY Diagnosis 08/11/2020 03:40:00 PM [facility] Z79.891 senior living (current) use of opiate analge sic SENIOR CARE (CURRENT) USE OF OPIATE ANALGESIC Diagnosis 08/11/2020 03:40:00 PM [facility] Z79.82 senior living (current) use of aspirin SENIOR CARE (CU RRENT) USE OF ASPIRIN Diagnosis 08/11/2020 03:40:00 PM [facility] Z79.02 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 project manager (current) use of antithromboti cs/antiplatelets SENIOR CARE (CURRENT) USE OF ANTITHROMBOTICS/ANTIPLA Diagnosis 08/11/2020 03:40:00 PM [facility] Z95.1 Presence of aortocoronary bypass graft P RESENCE OF AORTOCORONARY BYPASS GRAFT Diagnosis [facility] Type 2 diabetes mellitus without complic ations TYPE 2 DIABETES MELLITUS WITHOUT COMPLICATIONS Diagnosis 08/11/2020 03:40:00 PM [facility] momo I25.2 Old myocardial infarction OLD MYOCARDIAL INFARCTION Di agnosis 08/11/2020 03:40:00 PM [facility] I10 Essential (primary) hypertension ESSENTIAL (PRIMARY) H YPERTENSION Diagnosis 08/11/2020 03:40:00 PM [facility] R07.2 Precordial pain PRECORDIAL PAIN Diagnosis 08/11/2020 03:4 0:00 PM [facility] Z87.898 Personal history of other specified cond itions PERSONAL HISTORY OF OTHER SPECIFIED CONDITIONS Diagnosis 08/11/2020 12:55:00 PM [facility] R07.89 Other chest pain OTHER CHEST PAIN Diagnosis 08/11/2020 12 :55:00 PM [facility] R06.02 Shortness of breath SHORTNESS OF BREATH Diagnosis 0 08/11/2020 12:55:00 PM [facility] C64.2 Malignant neoplasm of left kidney, excep t renal pelvis MALIGNANT NEOPLASM OF LEFT KIDNEY, EXCEPT RENAL PE Diagnosis 05/06/2020 01:00:00 PM [facility] K21.9 Gastro-esophageal reflux disease without esophagitis GASTRO-ESOPHAGEAL REFLUX DISEASE WITHOUT ESOPHAGIT Diagnosis 05/06/2020 01:00:00 PM [facility] E53.8 Deficiency of other specified B group vi tamins DEFICIENCY OF OTHER SPECIFIED B GROUP VITAMINS Diagnosis 05/06/2020 01:00:00 PM [facility] E78.5 Hyperlipidemia, unspecified HYPERLIPIDEMIA, UNSPECIFIE D Diagnosis 05/06/2020 01:00:00 PM [facility] Z71.89 Other specified counseling OTHER SPECIFIED COUNSELING Diagnosis 03/04/2020 10:30:00 AM [facility] Z23 Encounter for immunization ENCOUNTER FOR IMMUNIZATION Diagnosis 03/04/2020 10:30:00 AM [facility] D51.0 Vitamin B12 deficiency anemia due to int rinsic factor deficiency VITAMIN B12 DEFIC ANEMIA DUE TO INTRINSIC FACTOR DEFICIENCY Diagnosis 10:30:00 AM [facility] Z01.30 Encounter for examination of blood press ure without abnormal findings ENCOUNTER FOR EXAM OF BLOOD PRESSURE W/O ABNORMAL Diagnosis 01/21 11:20:00 AM [facility] B37.3 Candidiasis of vulva and vagina CANDIDIASIS OF VULVA A ND VAGINA Diagnosis 01/29/2020 11:30:00 AM [facility] Z12.11 Encounter for screening for malignant ne oplasm of colon ENCOUNTER FOR SCREENING FOR MALIGNANT NEOPLASM OF COLON Diagnosis 01/29/2020 11:00:0 0 AM [facility] Z87.19 Personal history of other diseases of th e digestive system PERSONAL HISTORY OF OTHER DISEASES OF THE DIGESTIV Diagnosis 01/16/2020 11:30:0 0 AM [facility] Z98.0 Intestinal bypass and anastomosis status INTESTINAL BYPASS AND ANASTOMOSIS STATUS Diagnosis 01/16/2020 11:30:00 AM [facility] K52.9 Noninfective gastroenteritis and colitis , unspecified NONINFECTIVE GASTROENTERITIS AND COLITIS, UNSPECIF Diagnosis 01/16/2020 11:30:00 AM [facility] K57.92 Diverticulitis of intestine, part unspecified, without perforation or abscess without bleeding DVTRCLI OF INTEST, PART UNSP, W/O PERF OR ABSCESS Diagnosis 01/16/2020 11:30:00 AM [facility] R10.32 Left lower quadrant pain LEFT LOWER QUADRANT PAIN Diag nosis 01/16/2020 11:30:00 AM [facility] G89.29 [id number] Other chronic pain Problem 01/12/2021 12:00: 00 AM EDT [facility] ([facility]) E78.00 [id number] Hypercholesterolemia Problem 12/17/2020 12:0 0:00 AM EDT [facility] ([facility]) Z86.39 [id number] History of non anemic vitamin B12 deficie ncy Problem 12/17/2020 12:00:00 AM EDT [facility] ([facility]) R42 Dizziness and giddiness Dizziness and giddiness Proble m 11/03/2020 12:00:00 AM EDT [facility]) R55 Syncope and collapse Syncope and collapse Problem 11/03/2020 12:00:00 AM EDT [facility] ([facility]) R00.2 Palpitations Palpitations Problem 11/03/2020 12:00:00 A M EDT [facility] ([facility]) I25.2 Old myocardial infarction Old myocardial infarction Pr oblem 11/03/2020 12:00:00 AM EDT [facility] (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) R94.31 Electrocardiogram abnormal Electrocardiogram abnormal Problem 11/03/2020 12:00:00 AM EDT [facility] ([facility]) E66.3 Overweight Overweight Problem 11/03/2020 12:00:00 AM ED T [facility] ([facility]) I25.10 Coronary arteriosclerosis after percutan eous coronary angioplasty Coronary arteriosclerosis after percutaneous coronary angioplasty Problem 11/03/2020 12:00:00 AM EDT [facility] ([facility]) Z71.3 Dietary management surveillance Dietary management alessandro veillance Problem 11/03/2020 12:00:00 AM EDT [facility] ([facility]) E78.2 Mixed hyperlipidemia Mixed hyperlipidemia Problem 11/03/2020 12:00:00 AM EDT [facility] ([facility]) R07.9 Chest pain Chest pain Problem 11/03/2020 12:00:00 AM ED T [facility] ([facility]) I35.0 Aortic valve disorder Aortic valve disorder Problem 11/03/2020 12:00:00 AM EDT [facility] ([facility]) I10 Essential hypertension Essential hypertension Problem 11/03/2020 12:00:00 AM EDT [facility] ([facility]) Z95.5 Patient post percutaneous transluminal c oronary angioplasty Patient post percutaneous transluminal coronary angioplasty Problem 021 12:00:00 AM EDT [facility] ([facility]) Z95.1 History of coronary artery bypass grafti ng History of coronary artery bypass grafting Problem 11/03/2020 12:00:00 AM EDT 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 Problem 11/03/2020 12:00:00 AM EDT [facility] ([facility]) [id number] Patient post percutaneous transluminal c oronary angioplasty Patient post percutaneous transluminal coronary angioplasty Problem 12:00:00 AM EDT [facility] ([facility]) [id number] Palpitations Palpitations Problem 11/03/2020 12:00:00 A M EDT [facility] ([facility]) [id number] Overweight Overweight Problem 11/03/2020 12:00:00 AM ED T [facility] ([facility]) [id number] Old myocardial infarction Old myocardial infarction Pr oblem 11/03/2020 12:00:00 AM EDT [facility] ([facility]) [id number] Mixed hyperlipidemia Mixed hyperlipidemia Problem 11/03/2020 12:00:00 AM EDT [facility] [facility] [id number] History of coronary artery bypass grafti ng History of coronary artery bypass grafting Problem 11/03/2020 12:00:00 AM EDT [facility] ([facility]) [id number] Essential hypertension Essential hypertension Problem 11/03/2020 12:00:00 AM EDT [facility] ([facility]) [id number] Electrocardiogram abnormal Electrocardiogram abnormal Problem 11/03/2020 12:00:00 AM EDT [facility] ([facility]) [id number] Dizziness and giddiness Dizziness and giddiness Proble m 11/03/2020 12:00:00 AM EDT [facility] ([facility]) [id number] Dietary management surveillance Dietary manageme nt surveillance Problem 11/03/2020 12:00:00 AM EDT [facility] ([facility] [id number] Coronary arteriosclerosis af ter percutaneous coronary angioplasty Coronary arteriosclerosis after percutaneous coronary angioplasty Problem 11/03/2020 12:00:00 AM EDT [facility] ([facility]) R06.02 Dyspnea Dyspnea Problem 09/16/2020 12:00:00 AM ED T [facility] ([facility], ) G47.33 Obstructive sleep apnea syndrome Obstructive sle ep apnea syndrome Problem 09/16/2020 12:00:00 AM EDT [facility] ([facility]) Z87.891 Ex-smoker Ex-smoker Problem 09/16/2020 12:00:00 AM ED T [facility] ([facility]) I25.2 [id number] History of ND (myocardial infarction) Pro blem 08/11/2020 12:00:00 AM EDT eCW1 ([facility]) Z87.898 [id number] History of solitary pulmonary nodule Prob bobbi 08/11/2020 12:00:00 AM EDT eCW1 ([facility]) I10 [id number] Essential (primary) hypertension Problem 02/14/2020 12:00:00 AM EDT eCW1 ([facility]) Surgeries/Procedures Procedure Description Date Indications Data Source(s) OFFICE OUTPATIENT VISIT 15 MINUTES 02/18/2021 12:00:00 AM EDT [facility] ([facility]) External ECG Rec>48HR<7D Recording 01/29/2021 12:00:00 AM EDT [facility] ([facility]) External ECG Rec>48HR<7D Review & Interpretation 01/29 12:00:00 AM EDT [facility] ([facility]) ECHO TTHRC R-T 2D W/WOM-MODE COMPL SPEC&COLR DOP 01/19 12:00:00 AM EDT [facility] ([facility]) Complex Chronic Care Management SVC 1St 60 Min 021 12:00:00 AM EDT [facility] ([facility]) Complex Chronic Care MGMT Service Ea Addl 30 Min 01/08 12:00:00 AM EDT [facility] ([facility]) MYOCRD IMAGE PET PERFUS MULTPL STUDY REST/STRESS 12/29 12:00:00 AM EDT [facility] ([facility]) CV STRS TST XERS&/OR RX CONT ECG I&R ONLY 12/29/2020 1 2:00:00 AM EDT [facility] ([facility]) Arterial Pressure Waveform Analysis For Assessment Of Centra l Art 12/03/2020 12:00:00 AM EDT [facility] ([facility]) OFFICE OUTPATIENT VISIT 15 MINUTES 12/03/2020 12:00:00 AM EDT [facility] ([facility]) DUPLEX SCAN EXTRACRANIAL ART COMPL BI STUDY 11/06/2020 12:00:00 AM EDT [facility] ([facility]) ECG ROUTINE ECG W/LEAST 12 LDS W/I&R 11/03/2020 12:00: 00 AM EDT [facility] ([facility]) Arterial Pressure Waveform Analysis For Assessment Of Centra l Art 11/03/2020 12:00:00 AM EDT [facility] ([facility]) OFFICE OUTPATIENT NEW 45 MINUTES 11/03/2020 12:00:00 A M EDT [facility] ([facility]) Ultrasound procedure on topographic region (procedure) 09/26/2020 03:00:00 PM EDT [facility] l Xray Wrist complete LT 09/26/2020 01:55:00 PM EDT [facility] Xray Forearm AP/LAT LT 09/26/2020 01:55:00 PM EDT [facility] Spirometry 09/16/2020 12:00:00 AM EDT M TAMELA ([facility], ) CYSTOURETHROSCOPY 04/13/2020 12:00:00 AM EST [facility] ([facility] [place]) Results ID Date Data Source [id number] 12/17/2020 10:19:00 AM EDT [facility] ([facility]) Name Value Range Interpretation Code Description Data Dinorah rce(s) Supporting Document(s) Cobalamin (Vitamin B12) [Mass/volume] in Serum or Plasma 689 pg/mL 2 47-911 [facility] ([facility]) VITAMIN B12 NORMAL RANGE NORMAL 247 - 911 PG/ML INDETERMINATE 211 - 246 PG/ML DEFICIENT LESS THAN 211 PG/ML ID Date Data Source [id number] 12/17/2020 10:19:00 AM EDT [facility] ([facility]) Name Value Range Interpretation Code Description Data Dinorah rce(s) Supporting Document(s) Cholesterol Level 191 mg/dL [facility] ([facility]) Triglycerides Level 316 mg/dL [facility] ([facility]) LDL Cholesterol 85 mg/dL [facility] ([facility]) Non-HDL-C 148 mg/dL [facility] HDL Cholesterol 43 mg/dL [facility] ([facility]) Cholesterol Risk Ratio 4.441 [facility] ([facility]) ID Date Data Source VITAMIN B12 LEVEL 12/17/2020 12:00:00 AM EDT eCW1 ([facility]) Name Value Range Interpretation Code Description Data Dinorah rce(s) Supporting Document(s) [id number] VITAMIN B12 LEVEL eCW1 ([facility]) ID Date Data Source LIPID PANEL (CARDIAC RISK) 12/17/2020 12:00:00 AM EDT eCW1 ( [facility]) Name Value Range Interpretation Code Description Data Dinorah rce(s) Supporting Document(s) Triglyceride [Mass/volume] in Serum or Plasma by calculation 316 <150 TRIGLYCERIDES LEVEL eCW1 ([facility]) Cholesterol [Moles/volume] in Serum or Plasma 191 <200 CHOLESTEROL LEVEL eCW1 ([facility]) Cholesterol in LDL [Mass/volume] in Serum or Plasma by calculation 85 <100 LDL CHOLESTEROL eCW1 ([facility]) Cholesterol in HDL [Moles/volume] in Serum or Plasma 43 >40 HDL CHOLESTEROL eC1 ([facility]) 4.441 <5 CHOLESTEROL RISK RATIO eCW ([facility]) 148 NON-HDL-C eCW1 ([facility]) ID Date Data Source [id number] 11/06/2020 11:35:00 AM EDT [facility] ([facility]) Name Value Range Interpretation Code Description Data Dinorah rce(s) Supporting Document(s) Carotid Ultrasound Bilateral Laboratory test result [facility] ([facility]) ID Date Data Source [id number] 09/26/2020 03:42:00 PM EDT [facility] [address] [place] [address] [phone] NAME SEX PT STATUS ACCOUNT NUMBER KATHIE MARSHALL [facility] ER [id number] ORDERING PHYSICIAN LOCATION MEDICAL RECORD NO. Raymond Wadsworth DO ER [id number] ATTENDING PHYSICIAN DATE OF DATE OF EXAM/TIME [...] rce(s) Supporting Document(s) ID Date Data Source [id number] 09/26/2020 03:31:00 PM EDT [facility] ED Physician Documentation NAME: KATHIE MARSHALL : 1945 AGE: 75 MR#: [id number] SERVICE DATE: 09/26/[address]: Raymond Wadsworth [...] back (Medical) Hiatal hernia (Medical) History of ND (Medical) Hyperlipidemia (Medical) Hypertension (Medical) Irritable colon (Medical) Kidney stone (Medical) Paget's disease of bone (Medical) Peripheral vascular disease (Medical) Sleep apnea (Medical) Stroke in 10/2013 (Medical) Transient ischemic attack (Medical) Surgical History (Updated 11/13/18 @ 11:52 by Plisten [place]) Appendectomy (Surg ical) Carotid endarterectomy (Surgical) Right [...] Vaccination: No Immunizations Up to Date: Yes [facility] Medical History Angina pectoris Carotid artery stenosis Coronary artery disease [place] Endometriosis Esophagitis Fibromyalgia Gastrointestinal hemorrhage Heart failure Heart valve disorder Herniated discs in back Hiatal hernia History of ND Hyperlipidemia Hypertension Irritable colon Kidney stone Paget's [...] rce(s) Supporting Document(s) ID Date Data Source [id number] 09/26/2020 02:43:00 PM EDT [facility] [address] [place] [id number] [phone] NAME SEX PT STATUS ACCOUNT NUMBER KATHIE MARSHALL REG ER [id number] ORDERING PHYSICIAN LOCATION MEDICAL RECORD NO. Raymond Wadsworth DO ER [id number] ATTENDING PHYSICIAN DATE OF DATE OF EXAM/TIME [...] Trans Dt/Tm: Trans by: DT Prt Dt/Tm: [id number]: Total DLP = 0.00 mGy-cm Fluoroscopy Time (in secs): Name Value Range Interpretation Code Description Data Dinorah rce(s) Supporting Document(s) ID Date Data Source [id number] 09/26/2020 02:41:00 PM EDT [facility] [address] [place] [address] [phone] NAME SEX PT STATUS ACCOUNT NUMBER KATHIE MARSHALL [facility] ER [id number] ORDERING PHYSICIAN LOCATION MEDICAL RECORD NO. Raymond Wadsworth DO ER [id number] ATTENDING PHYSICIAN DATE OF DATE OF EXAM/TIME [...] 09/26/201440 Date Time CC: JANET GARCIA; Triston Montiel MD Techn: PELBU Trans Dt/Tm: Trans by: DT Prt Dt/Tm: [phone]: Total DLP = 0.00 mGy-cm Fluoroscopy Time (in secs): Name Value Range Interpretation Code Description Data Dinorah rce(s) Supporting Document(s) ID Date Data Source [id number] 09/16/2020 12:57:00 PM EDT [facility] ([facility]) Name Value Range Interpretation Code Description Data Dinorah rce(s) Supporting Document(s) PDFReport Laboratory test result [facility] ([facility]) FVC-Pre 2.07 L [facility] ([facility]) FVC-%Pred-Pre 87 L [facility] ([facility]) FVC-Pred 2.38 L [facility] ([facility]) Fev1-Pred 1.76 L [facility] ([facility]) FVC-LLN 1.75 L [facility] ([facility]) Fev1-Pre 1.64 L [facility] ([facility]) Fev1-%Pred-Pre 92 L [facility] ([facility]) Fev1-LLN 1.23 L [facility] ([facility]) Fev6-Pred 2.25 L [facility] ([facility]) Fev6-%Pred-Pre 92 L [facility] ([facility]) Fev6-Pre 2.07 L [facility] ([facility]) Fev6-LLN 1.63 L [facility] ([facility]) Upx8slj-Vup 79 % [facility] ([facility]) Uuk0esq-Vept 74 % [facility] ([facility]) Gag9qpl-WKG 65 % [facility] ([facility]) Qjb5wrr-Qypc 95 % [facility] ([facility]) Ala1qde-%Pred-Pre 106 % [facility] ([facility]) Fvv2eao-Zzi 100 % [facility] ([facility]) Srg2rty-%Pred-Pre 105 % [facility] ([facility]) FEFMax-Pred 4.62 L/E/sec [facility] ([facility]) FEFMax-Pre 4.56 L/E/sec [facility] ([facility]) FEFMax-LLN 3.06 L/E/sec [facility] ([facility]) FEFMax-%Pred-Pre 98 L/E/sec [facility] ([facility]) Avf2296-Ibbj 1.39 L/E/sec [facility] ([facility]) Jdb8173-Naw 1.47 L/E/sec [facility] ([facility]) ExpTime-Pre 4.27 sec [facility] ([facility]) Qgp6541-%Pred-Pre 105 L/E/sec [facility] ([facility]) Bbw1257-IOZ 0.26 L/E/sec [facility] ([facility]) Jai9gbb4-Bkh 79 % [facility] ([facility], ) Gpr1fla3-Etjf 78 % [facility] ([facility], ) Lnh8lpc1-ZLH 69 % [facility] ([facility], ) Diw4ork3-%Pred-Pre 101 % [facility] (Health system, ) ID Date Data Source [id number] 08/11/2020 08:15:00 PM EDT [facility] Patient: KATHIE MARSHALL Observation Report - Phys[facility].VisitID: [id number] [place] [address] [phone], FRegistration Date/Time: 08/11/2020 14:04 Weight:75.7 kg (S). [...] dose 08/11/2020.Vitamin D3 Oral (Tablet 250 MCG (38955 UT)), daily, last dose 08/11/2020.Probiotic Daily Oral, [...] rce(s) Supporting Document(s) ID Date Data Source [id number] 08/11/2020 05:38:00 PM EDT [facility] TSYS[facility] [id number] Name Value Range Interpretation Code Description Data Dinorah rce(s) Supporting Document(s) TROPONIN I < 0.017 ng/mL 0.000-0.056 [facility] ID Date Data Source [id number] 08/11/2020 03:49:00 PM EDT [facility] [...] rce(s) Supporting Document(s) ID Date Data Source [id number] 08/11/2020 02:59:00 PM EDT [facility] T[facility]ORDER [id number] Name Value Range Interpretation Code Description Data Dinorah rce(s) Supporting Document(s) FREE T4 1.0 ng/dL 0.76-1.46 [facility] ID Date Data Source [id number] 08/11/2020 02:59:00 PM EDT [facility] T[facility] [id number] Name Value Range Interpretation Code Description Data Dinorah rce(s) Supporting Document(s) TSH 2.105 uIU/mL 0.360-3.740 [facility] ID Date Data Source [id number] 08/11/2020 02:53:00 PM EDT [facility] [id number] Name Value Range Interpretation Code Description Data Dinorah rce(s) Supporting Document(s) MAGNESIUM 1.8 mg/dL 1.8-2.4 [facility] ID Date Data Source [id number] 08/11/2020 02:53:00 PM EDT [facility] [id number] Name Value Range Interpretation Code Description Data Dinorah rce(s) Supporting Document(s) TROPONIN I < 0.017 ng/mL 0.000-0.056 [facility] ID Date Data Source [id number] 08/11/2020 02:53:00 PM EDT [facility] [id number] Name Value Range Interpretation Code Description Data Dinorah rce(s) Supporting Document(s) LIPASE 192 U/L 73-393 [facility] ID Date Data Source [id number] 08/11/2020 02:53:00 PM EDT [facility] [id number] Name Value Range Interpretation Code Description Data Dinorah rce(s) Supporting Document(s) GLUCOSE 96 mg/dL 74-106 [facility] BLOOD UREA NITROGEN 30 mg/dL 7-18 H [facility] ital CREATININE 1.69 mg/dL 0.6-1.0 H [facility] SODIUM 140 mmol/L 136-145 [facility] POTASSIUM 4.4 mmol/L 3.5-5.1 [facility] CHLORIDE 105 mmol/L 98-107 [facility] CO2 24 mmol/L 21-32 [facility] CALCIUM 9.5 mg/dL 8.5-10.1 [facility] ANION GAP 11.0 mmol/L 5-12 [facility] GLOMERULAR FILTRATION RATE 29 mL/min [facility] GFR IS CALCULATED IN mL/min/1.73m2 JIMMY L FUNCTION: >90MILDLY DECREASED: 60-89MILDY TO MODERATELY DECREASED: 45-59 MODERATELY TO SEVERELY DECREASED: 30-44SEVERELY DECREASED: 15-29RENAL FAILURE: <15 AST 18 U/L 15-37 [facility] ALT 31 U/L 12-78 [facility] ALKALINE PHOSPHATASE 52 U/L 46-116 [facility] TOTAL BILIRUBIN 0.4 mg/dL 0.2-1.0 [facility] TOTAL PROTEIN 7.8 g/dl 6.4-8.2 [facility] ALBUMIN 4.1 gm/dL 3.4-5.0 [facility] ID Date Data Source [id number] 08/11/2020 02:49:00 PM EDT [facility] TSYSORDER [id number] Name Value Range Interpretation Code Description Data Dinorah rce(s) Supporting Document(s) PARTIAL THROMBOPLASTIN TIME 22.8 SECONDS 21.2-27.3 [facility] ID Date Data Source [id number] 08/11/2020 02:49:00 PM EDT [facility] TSYSORDER [id number] Name Value Range Interpretation Code Description Data Dinorah rce(s) Supporting Document(s) PROTHROMBIN TIME (PATIENT) 10.4 SECONDS 9.1-11.6 [facility] INR 1.00 0.87-1.06 [facility] ID Date Data Source [id number] 08/11/2020 02:32:00 PM T [facility] TSYSORDER [id number] Name Value Range Interpretation Code Description Data Dinorah rce(s) Supporting Document(s) WHITE BLOOD COUNT 8.1 K/mm3 4.0-10.0 [facility] al RED BLOOD COUNT 3.05 M/mm3 4.00-5.50 L [facility] HEMOGLOBIN 11.0 gm/dL 12.0-16.0 L [facility] HEMATOCRIT 32.4 % 36.0-48.8 L [facility] MEAN CELL VOLUME 106.2 fl 80-96 *H [facility] MEAN CORPUSCULAR HEMOGLOBIN 36.1 pg 27.0-31.0 H [facility] MEAN CORPUSCULAR HGB CONC 34.0 g/dl 32.0-36.0 [facility] RED CELL DISTRIBUTION WIDTH 13.0 % 10.0-14.5 [facility] PLATELET COUNT 173 K/mm3 172-450 [facility] MEAN PLATELET VOLUME 10.4 fl 9.0-13.0 [facility] pital GRAN % 58.6 % 50-80.0 [facility] IG% 1.0 % 0.0-0.2 H [facility] LYMPH % 27.9 % 25.0-50.0 [facility] MONO % 12.2 % 2.0-10.0 H [facility] EOS % 0.1 % 0-5.0 [facility] BASO % 0.2 % 0.0-2.0 [facility] GRAN # 4.7 K/mm3 2.0-8.00 [facility] IG# 0.1 K/mm3 0.0-0.2 [facility] LYMPH # 2.3 K/mm3 1.0-5.0 [facility] MONO # 1.0 K/mm3 0.10-1.20 [facility] EOS # 0.0 K/mm3 0.0-0.5 [facility] BASO # 0.0 K/mm3 0.0-0.2 [facility] ID Date Data Source [id number] 08/11/2020 12:48:00 PM EDT [facility] Name Value Range Interpretation Code Description Data Dinorah rce(s) Supporting Document(s) Thyroid Stimulating Hormone 2.105 [facility] ([facility]) ID Date Data Source [id number] 08/11/2020 12:48:00 PM EDT [facility]) Name Value Range Interpretation Code Description Data Dinorah rce(s) Supporting Document(s) Red Blood Count 3.05 [facility] ([facility]) White Blood Count 8.1 [facility] ([facility]) Hemoglobin 11.0 [facility] ([facility]) Platelets 173 [facility] ([facility]) Hematocrit 32.4 [facility] ([facility]) ID Date Data Source [id number] 08/11/2020 12:48:00 PM EDT [facility] ([facility]) Name Value Range Interpretation Code Description Data Dinorah rce(s) Supporting Document(s) Alanine aminotransferase [Enzymatic activity/volume] in Serum or Pl asma 31 [facility] ([facility]) Albumin [Mass/volume] in Serum or Plasma 4.1 [facility] ([facility]) Calcium [Mass/volume] in Serum or Plasma 9.5 [facility] ([facility]) Chloride [Moles/volume] in Serum or Plasma 105 [facility] ([facility]) Carbon dioxide, total [Moles/volume] in Serum or Plasma 24 [facility] ([facility]) Alkaline phosphatase [Enzymatic activity/volume] in Serum or Plasma 5 2 [facility] ([facility]) Potassium [Moles/volume] in Serum or Plasma 4.4 [facility] ([facility]) Protein [Mass/volume] in Serum or Plasma 7.8 [facility] ([facility]) Sodium 140 [facility] ([facility] Aspartate aminotransferase [Enzymatic activity/volume] in Serum or Plasma 18 [facility] ([facility]) Glucose 96 [facility] ([facility]) Urea nitrogen [Mass/volume] in Serum or Plasma 30 [facility] ([facility]) Creatinine For GFR 1.69 [facility] ([facility]) ID Date Data Source [id number] 04/13/2020 10:42:00 AM EST [facility] ([facility] [place]) Name Value Range Interpretation Code Description Data Dinorah rce(s) Supporting Document(s) BodySite Laboratory test result [facility] ([facility] [place]) Voided - Clean Catch Clinical History Laboratory test result [facility] ([facility] [place]) Specimen Adequacy Laboratory test result [facility] ([facility] [place]) Satisfactory for evaluation. Microscopic Description Laboratory test result [facility] ([facility] [place]) Gross Description Laboratory test result [facility] ([facility] [place]) Received in a specimen container, labele d with the patients name and , is Cloudy Yellow fluid consistent with urine, measuring approximately 60 ml. CPTCode 54364 [facility] ([facility] [place]) Final Diagnosis Laboratory test result [facility] ([facility] [place]) NEGATIVE FOR HIGH-GRADE UROTHELIAL CARCI NOMA. PDF Report Laboratory test result [facility] ([facility] [place]) [id number] Laboratory test result [facility] ([facility] [place]) ID Date Data Source [id number] 04/13/2020 10:42:00 AM EST [facility] ([facility] [place]) Name Value Range Interpretation Code Description Data Dinorah rce(s) Supporting Document(s) Glucose [Presence] in Urine Laboratory test result [facility] ([facility] [place]) Ua Nitrite Laboratory test result [facility] ([facility]) Protein [Presence] in Urine by Test strip Laboratory test result [facility] ([facility] [place]) Ua Leuko Laboratory test result [facility] ([facility] [place] Blood [Presence] in Urine by Visual Laboratory test result [facility] ([facility] [employer] [facility]) Color of Urine Laboratory test result [facility] ([facility] [place]) Ketones [Presence] in Urine by Test strip Laboratory test result [facility] ([facility] [employer] [facility]) Ua Specific [place] 1.025 1.003-1.030 MED[facility] NT ([facility] [place]) Clarity of Urine Laboratory test result [facility] ([facility] [place]) pH of Urine by Test strip 5.0 5.0-7.5 [facility] ([facility]) Urobilinogen [Mass/volume] in Urine by Test strip 0.2 E.U./dL 0.0-1.0 [facility] ([facility] [facility] of [place]) Bilirubin.total [Presence] in Urine by Test strip Laboratory test res ult MEDENT ([employer] [facility]) ID Date Data Source [id number] 04/13/2020 10:42:00 AM EST [facility] ([facility] [employer] [facility]) Name Value Range Interpretation Code Description Data Dinorah rce(s) Supporting Document(s) Cytology report of Urine Cyto stain Laboratory test result MEDENT ([employer] [facility]) ID Date Data Source [id number] 01/16/2020 03:35:00 PM EDT [facility] [...] Value Range Interpretation Code Description Data [facility](s) Supporting Document(s) ID Date Data Source [id number] 01/16/2020 01:13:00 PM EDT [facility] Name Value Range Interpretation Code Description Data [facility](s) Supporting Document(s) GLUCOSE 102 mg/dL 74-106 [facility] BLOOD UREA NITROGEN 16 mg/dL 7-18 [facility] ital CREATININE 1.3 mg/dL 0.6-1.0 H [facility] SODIUM 139 mmol/L 136-145 [facility] POTASSIUM 4.7 mmol/L 3.5-5.1 [facility] CHLORIDE 103 mmol/L 98-107 [facility] CO2 26 mmol/L 21-32 [facility] CALCIUM 8.6 mg/dL 8.5-10.1 [facility] ANION GAP 10.0 mmol/L 5-12 [facility] GLOMERULAR FILTRATION RATE 40 mL/min [facility] GFR IS CALCULATED IN mL/min/1.73m2 JIMMY L FUNCTION: >90MILDLY DECREASED: 60-89MILDY TO MODERATELY DECREASED: 45-59 MODERATELY TO SEVERELY DECREASED: 30-44SEVERELY DECREASED: 15-29RENAL FAILURE: <15 AST 19 U/L 15-37 [facility] ALT 27 U/L 12-78 [facility] ALKALINE PHOSPHATASE 69 U/L 46-116 [facility] [employer] TOTAL BILIRUBIN 0.5 mg/dL 0.2-1.0 [facility] TOTAL PROTEIN 7.5 g/dl 6.4-8.2 [facility] ALBUMIN 3.9 gm/dL 3.4-5.0 [facility] ID Date Data Source CT ABD/PEL WITH ORAL ONLY - [id number] 01/16/2020 04:54:45 AM EDT eCW1 ([facility]) Name Value Range Interpretation Code Description Data Dinorah rce(s) Supporting Document(s) CT ABD/PEL WITH ORAL ONLY - [id number] eCW1 (Formerly [facility]) Procedure Social History Code Duration Value Status Description Data Source(s ) Smoking 03/09/2021 12:00:00 AM EDT Never Smoker completed Never S moker eCW1 ([facility]) Smoking 02/18/2021 12:00:00 AM EDT Patient is a former smoker completed Patient is a former smoker MED[facility] ([facility]) Smoking 01/19/2021 12:00:00 AM EDT Never Smoker completed Never S moker eCW1 ([facility]) Smoking 01/19/2021 12:00:00 AM EDT Never Smoker completed Never S moker eCW1 ([facility]) Smoking 01/19/2021 12:00:00 AM EDT Never Smoker completed Never S moker eCW1 ([facility]) Smoking 01/19/2021 12:00:00 AM EDT Never Smoker completed Never S moker eCW1 ([facility]) Smoking 12/16/2020 12:00:00 AM EDT Never Smoker completed Never S moker eCW1 ([facility]) 09/26/2020 03:32:35 PM EDT Never smoker completed Never s [facility] Smoking 09/26/2020 03:32:00 PM EDT Never smoker completed Never s [facility] Smoking 09/16/2020 12:00:00 AM EDT Non Smoker completed Non Smoke r MEDENT ([facility], ) Smoking 08/11/2020 12:00:00 AM EDT Former Smoker completed Former Smoker eCW1 ([facility]) Smoking 08/11/2020 12:00:00 AM EDT Former Smoker completed Former Smoker eCW1 ([facility]) Smoking 08/11/2020 12:00:00 AM EDT Former Smoker completed Former Smoker eCW1 ([facility]) Smoking 08/11/2020 12:00:00 AM EDT Former Smoker completed Former Smoker eCW1 ([facility]) Smoking 08/11/2020 12:00:00 AM EDT Former Smoker completed Former Smoker eCW1 ([facility]) Smoking 08/11/2020 12:00:00 AM EDT Former Smoker completed Former Smoker eCW1 ([facility]) Smoking 08/11/2020 12:00:00 AM EDT Former Smoker completed Former Smoker eCW1 ([facility]) Smoking 05/06/2020 12:00:00 AM EST Former Smoker completed Former Smoker eCW1 ([facility]) Smoking 05/06/2020 12:00:00 AM EST Former Smoker completed Former Smoker eCW1 ([facility]) Smoking 05/06/2020 12:00:00 AM EST Former Smoker completed Former Smoker eCW1 ([facility]) Smoking 05/06/2020 12:00:00 AM EST Former Smoker completed Former Smoker eCW1 ([facility]) Smoking 05/06/2020 12:00:00 AM EST Former Smoker completed Former Smoker eCW1 ([facility]) Smoking 05/06/2020 12:00:00 AM EST Former Smoker completed Former Smoker eCW1 ([facility]) Smoking 05/06/2020 12:00:00 AM EST Former Smoker completed Former Smoker eCW1 ([facility]) Smoking 05/06/2020 12:00:00 AM EST Former Smoker completed Former Smoker eCW1 ([facility]) Smoking 05/06/2020 12:00:00 AM EST Former Smoker completed Former Smoker eCW1 ([facility]) Smoking 05/06/2020 12:00:00 AM EST Former Smoker completed Former Smoker eCW1 ([facility]) Smoking 05/06/2020 12:00:00 AM EST Former Smoker completed Former Smoker eCW1 ([facility]) Smoking 04/13/2020 12:00:00 AM EST Former Smoker completed Former Smoker eCW1 ([facility]) Smoking 04/13/2020 12:00:00 AM EST Former Cigarette Smoker com pleted Former Cigarette Smoker [facility] ([employer] [employer] [facility] [place]) Smoking 04/13/2020 12:00:00 AM EST Former Smoker completed Former Smoker eCW1 ([facility]) Smoking 04/13/2020 12:00:00 AM EST Former Smoker completed Former Smoker eCW1 ([facility]) Smoking 04/13/2020 12:00:00 AM EST Former Smoker completed Former Smoker eCW1 ([facility]) Smoking 02/05/2020 12:00:00 AM EDT Former Smoker completed Former Smoker eCW1 ([facility]) Smoking 02/05/2020 12:00:00 AM EDT Former Smoker completed Former Smoker eCW1 ([facility]) Smoking 02/05/2020 12:00:00 AM EDT Former Smoker completed Former Smoker eCW1 ([facility]) Smoking 02/05/2020 12:00:00 AM EDT Former Smoker completed Former Smoker eCW1 ([facility]) Smoking 02/05/2020 12:00:00 AM EDT Former Smoker completed Former Smoker eCW1 ([facility]) Smoking 02/05/2020 12:00:00 AM EDT Former Smoker completed Former Smoker eCW1 ([facility]) Smoking 02/05/2020 12:00:00 AM EDT Former Smoker completed Former Smoker eCW1 ([facility]) Smoking 02/05/2020 12:00:00 AM EDT Former Smoker completed Former Smoker eCW1 ([facility]) Smoking 02/05/2020 12:00:00 AM EDT Former Smoker completed Former Smoker eCW1 ([facility]) Smoking 02/05/2020 12:00:00 AM EDT Former Smoker completed Former Smoker eCW1 ([facility]) Smoking 01/29/2020 12:00:00 AM EDT Former Smoker completed Former Smoker eCW1 ([facility]) Smoking 01/29/2020 12:00:00 AM EDT Former Smoker completed Former Smoker eCW1 ([facility]) Smoking 01/29/2020 12:00:00 AM EDT Former Smoker completed Former Smoker eCW1 ([facility]) Smoking 01/29/2020 12:00:00 AM EDT Former Smoker completed Former Smoker eCW1 ([facility]) Smoking 01/29/2020 12:00:00 AM EDT Former Smoker completed Former Smoker eCW1 ([facility]) Smoking 01/16/2020 12:00:00 AM EDT Former Smoker completed Former Smoker eCW1 ([facility]) Smoking 01/16/2020 12:00:00 AM EDT Former Smoker completed Former Smoker eCW1 ([facility]) Vital Signs ID Date Data Source UNK Name Value Range Interpretation Code Description Data Source(s) Body weight 158.00 [lb_av] 158.00 [lb_av] MEDEN T ([facility]) Body height 61 [in_i] 61 [in_i] [facility] ([facility] 5'1" Body mass index (BMI) [Ratio] 29.9 kg/m2 29.9 k g/m2 [facility] ([facility]) Heart rate 52 /min 52 /min [facility] ([facility]) Systolic blood pressure--sitting 170 mm[Hg] 170 mm[Hg] MED[facility] ([facility]) CBP large cuff, Ra Diastolic blood pressure--sitting 70 mm[Hg] 70 mm[Hg] [facility] ([facility]) CBP large cuff, Ra Body weight 158.00 [lb_av] 158.00 [lb_av] eCW1 ([facility]) Body height 61 [in_i] 61 [in_i] eCW1 ([facility]) Body mass index (BMI) [Ratio] 29.85 kg/m2 29.85 kg/m2 eCW1 ([facility]) Heart rate 88 /min 88 /min eCW1 ([facility]) Respiratory rate 18 /min 18 /min eCW1 ([facility]) Body temperature 96.9 [degF] 96.9 [degF] eCW1 ( [facility]) Systolic blood pressure 138 mm[Hg] 138 mm[Hg] e CW1 ([facility]) Diastolic blood pressure 82 mm[Hg] 82 mm[Hg] eCW1 ([facility]) Body weight 155.00 [lb_av] 155.00 [lb_av] MEDEN T ([facility]) Heart rate 55 /min 55 /min [facility] ([facility]) Systolic blood pressure--sitting 148 mm[Hg] 148 mm[Hg] MEDENT ([facility]) CBP, adult cuff/Ra Body height 61 [in_i] 61 [in_i] [facility] ([facility]) 5'1" Diastolic blood pressure--sitting 63 mm[Hg] 63 mm[Hg] MEDENT ([facility]) CBP, adult cuff/Ra Body mass index (BMI) [Ratio] 29.3 kg/m2 29.3 k g/m2 MED[facility] ([facility]) Systolic blood pressure 130 mm[Hg] 130 mm[Hg] M EDENT ([facility]) Diastolic blood pressure 80 mm[Hg] 80 mm[Hg] MEDENT ([facility]) Body temperature 95.7 [degF] 95.7 [degF] MEDENT ([facility]) Body mass index (BMI) [Ratio] 29.7 kg/m2 29.7 k g/m2 MED[facility] ([facility]) Heart rate 56 /min 56 /min [facility] ([facility]) Body weight 157.00 [lb_av] 157.00 [lb_av] MEDEN T ([facility]) Body height 61 [in_i] 61 [in_i] [facility] ([facility]) 5'1" Systolic blood pressure--sitting 152 mm[Hg] 152 mm[Hg] MEDENT ([facility]) CBP, adult cuff/Ra Diastolic blood pressure--sitting 63 mm[Hg] 63 mm[Hg] MED[facility] ([facility]) CBP, adult cuff/Ra Body weight 160.00 [lb_av] 160.00 [lb_av] MEDEN T ([facility]) Body mass index (BMI) [Ratio] 30.2 kg/m2 30.2 k g/m2 [facility] ([facility]) [place] body weight 105 [lb_av] 105 [lb_av] MEDEN T ([facility]) Body weight 72.576 kg 72.576 kg [facility] ([facility]) Body surface area Derived from formula 1.72 m2 1.72 m2 [facility] ([facility]) Body height 61 [in_i] 61 [in_i] [facility] ([facility]) 5'1" Systolic blood pressure 124 mm[Hg] 124 mm[Hg] M EDENT ([facility]) Diastolic blood pressure 78 mm[Hg] 78 mm[Hg] [facility] ([facility]) Heart rate 85 /min 85 /min [facility] ([facility]) Oxygen saturation in Arterial blood by Pulse oximetry 97 % 97 % [facility] ([facility]) Body temperature 97.0 [degF] 97.0 [degF] [facility] ([facility]) Body height 59.25 [in_i] 59.25 [in_i] eCW1 ([facility]) Body weight 161.2 [lb_av] 161.2 [lb_av] eCW1 ([facility]) Body mass index (BMI) [Ratio] 32.28 kg/m2 32.28 kg/m2 eCW1 ([facility]) Body temperature 98.5 [degF] 98.5 [degF] eCW1 ( [facility]) Heart rate 66 /min 66 /min eCW1 ([facility]) Respiratory rate 18 /min 18 /min eCW1 ([facility]) Oxygen saturation in Arterial blood by Pulse oximetry 98 % 98 % eCW1 ([facility]) Body height 59.25 [in_i] 59.25 [in_i] eCW1 ([facility]) Body weight 159.2 [lb_av] 159.2 [lb_av] eCW1 ([facility]) Body mass index (BMI) [Ratio] 31.88 kg/m2 31.88 kg/m2 eCW1 ([facility]) Body temperature 98.6 [degF] 98.6 [degF] eCW1 ( [facility]) Heart rate 67 /min 67 /min eCW1 ([facility]) Respiratory rate 18 /min 18 /min eCW1 ([facility]) Oxygen saturation in Arterial blood by Pulse oximetry 98 % 98 % eCW1 ([facility]) Body height 61 [in_i] 61 [in_i] [facility] ([facility] [employer] [facility] [place]) 5'1" Body weight 155.00 [lb_av] 155.00 [lb_av] MEDEN T ([employer] [employer] [facility] [place]) Body weight 70.308 kg 70.308 kg [facility] ([facility] [employer] [facility] [place]) Body mass index (BMI) [Ratio] 29.3 kg/m2 29.3 k g/m2 [facility] ([employer] [facility] [place]) Systolic blood pressure 143 mm[Hg] 143 mm[Hg] M EDENT ([employer] [facility] [place]) Diastolic blood pressure 76 mm[Hg] 76 mm[Hg] MED[facility] ([employer] [facility] [place]) Heart rate 60 /min 60 /min [facility] ([facility] [employer] [facility] [place]) Body height 59.25 [in_i] 59.25 [in_i] eCW1 ([facility]) Body temperature 98.5 [degF] 98.5 [degF] eCW1 ( [facility]) Heart rate 62 /min 62 /min eCW1 ([facility]) Respiratory rate 18 /min 18 /min eCW1 ([facility]) Oxygen saturation in Arterial blood by Pulse oximetry 98 % 98 % eCW1 ([facility]) Body height 59.25 [in_i] 59.25 [in_i] eCW1 ([facility]) Heart rate 57 /min 57 /min eCW1 ([facility]) Respiratory rate 17 /min 17 /min eCW1 ([facility]) Oxygen saturation in Arterial blood by Pulse oximetry 96 % 96 % eCW1 ([facility]) Respiratory rate 18 /min 18 /min eCW1 ([facility]) Oxygen saturation in Arterial blood by Pulse oximetry 98 % 98 % eCW1 ([facility]) Body height 59.25 [in_i] 59.25 [in_i] eCW1 ([facility]) Body weight 154.2 [lb_av] 154.2 [lb_av] eCW1 ([facility]) Body mass index (BMI) [Ratio] 30.88 kg/m2 30.88 kg/m2 eCW1 ([facility]) Body temperature 98.0 [degF] 98.0 [degF] eCW1 ( [facility]) Heart rate 51 /min 51 /min eCW1 ([facility]) Body height 59.25 [in_i] 59.25 [in_i] eCW1 ([facility]) Body temperature 98.5 [degF] 98.5 [degF] eCW1 ( [facility]) Heart rate 63 /min 63 /min eCW1 ([facility]) Respiratory rate 17 /min 17 /min eCW1 ([facility]) Oxygen saturation in Arterial blood by Pulse oximetry 94 % 94 % eCW1 ([facility]) Body height 59.25 [in_i] 59.25 [in_i] eCW1 ([facility]) Body weight 161.3 [lb_av] 161.3 [lb_av] eCW1 ([facility]) Body mass index (BMI) [Ratio] 32.30 kg/m2 32.30 kg/m2 eCW1 ([facility]) Body temperature 96.7 [degF] 96.7 [degF] eCW1 ( [facility]) Heart rate 54 /min 54 /min eCW1 ([facility]) Respiratory rate 20 /min 20 /min eCW1 ([facility]) Oxygen saturation in Arterial blood by Pulse oximetry 96 % 96 % eCW1 ([facility]) Body height 59.25 [in_i] 59.25 [in_i] eCW1 ([facility]) Body weight 161.3 [lb_av] 161.3 [lb_av] eCW1 ([facility]) Body mass index (BMI) [Ratio] 32.30 kg/m2 32.30 kg/m2 eCW1 ([facility]) Body temperature 96.7 [degF] 96.7 [degF] eCW1 ( [facility]) Heart rate 54 /min 54 /min eCW1 ([facility]) Respiratory rate 20 /min 20 /min eCW1 ([facility]) Oxygen saturation in Arterial blood by Pulse oximetry 96 % 96 % eCW1 ([facility]) Body height 59.25 [in_i] 59.25 [in_i] eCW1 ([facility]) Body weight 155 [lb_av] 155 [lb_av] eCW1 ([facility]) Body mass index (BMI) [Ratio] 31.04 kg/m2 31.04 kg/m2 eCW1 ([facility]) Body temperature 98 [degF] 98 [degF] eCW1 ([facility]) Heart rate 70 /min 70 /min eCW1 ([facility]) Respiratory rate 18 /min 18 /min eCW1 ([facility]) Oxygen saturation in Arterial blood by Pulse oximetry 98 % 98 % eCW1 ([facility]) Patient Treatment Plan of Care Planned Activity Planned Date Details Description Data Source (s) 12 HR ranolazine 1000 MG Extended Release Oral Tablet [Ranexa] 03/09/2021 12:00:00 AM EDT eCW1 ([facility]) valsartan 160 MG Oral Tablet 06/02/2020 12:00:00 AM EST eCW1 ([facility]) valsartan 160 MG Oral Tablet 06/02/2020 12:00:00 AM EST eCW1 ([facility]) valsartan 160 MG Oral Tablet 06/02/2020 12:00:00 AM EST eCW1 ([facility]) valsartan 160 MG Oral Tablet 06/02/2020 12:00:00 AM EST eCW1 ([facility]) valsartan 160 MG Oral Tablet 06/02/2020 12:00:00 AM EST eCW1 ([facility]) valsartan 160 MG Oral Tablet 06/02/2020 12:00:00 AM EST eCW1 ([facility]) valsartan 160 MG Oral Tablet 06/02/2020 12:00:00 AM EST eCW1 ([facility]) valsartan 160 MG Oral Tablet 06/02/2020 12:00:00 AM EST eCW1 ([facility]) Fluconazole 150 MG Oral Tablet [Diflucan] 01/29/2020 12:00:00 AM ED T eCW1 ([facility]) Nystatin 100 UNT/MG Topical Ointment 01/29/2020 12:00:00 AM EDT eCW1 ([facility]) Fluconazole 150 MG Oral Tablet [Diflucan] 01/29/2020 12:00:00 AM ED T eCW1 ([facility]) Nystatin 100 UNT/MG Topical Ointment 01/29/2020 12:00:00 AM EDT eCW1 ([facility]) Fluconazole 150 MG Oral Tablet [Diflucan] 01/29/2020 12:00:00 AM ED T eCW1 ([facility]) Nystatin 100 UNT/MG Topical Ointment 01/29/2020 12:00:00 AM EDT eCW1 ([facility]) 1 ML evolocumab 140 MG/ML Prefilled Syringe [Repatha] 01/22/2020 12:00:00 AM EDT eCW1 ([facility]) 1 ML evolocumab 140 MG/ML Prefilled Syringe [Repatha] 01/22/2020 12:00:00 AM EDT eCW1 ([facility]) 1 ML evolocumab 140 MG/ML Prefilled Syringe [Repatha] 01/22/2020 12:00:00 AM EDT eCW1 ([facility]) 1 ML evolocumab 140 MG/ML Prefilled Syringe [Repatha] 01/22/2020 12:00:00 AM EDT eCW1 ([facility]) Acetaminophen 325 MG / Oxycodone Hydrochloride 5 MG Or al Tablet [Percocet] 01/16/2020 12:00:00 AM EDT eCW1 ([facility]) 12 HR Amoxicillin 1000 MG / Clavulanate 62.5 MG Extend ed Release Oral Tablet 01/16/2020 12:00:00 AM EDT eCW1 ([facility])
--- NOTE | 2021-03-16 16:02 | ECGEPIP ---
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
[2021-03-16] MEDS ORDERED: NITROGLYCERIN 0.4 MG SUBL TABLET SL PRN (16:10)
[2021-03-16 16:32] LABS: D-DIMER QUANT 1836.02 ng/ml (<500)
--- NOTE | 2021-03-16 17:19 | HPEPDOC ---
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 Of note, the is also now admitted. In the ED, she was febrile to 101.7, hypertensive to 172/72 and noted to be hypoxemic to 87% on room air on arrival and placed on 2L NC. Workup was notable for respiratory panel that was positive for covid-19 infection, pancytopenia that is new with WBC 2.1, hgb 9.8 (close to baseline anemia), thrombocytopenia to 90, Cr 1.63 at baseline, Na 134, K 4.6, mag 1.4, procalcitonin 0.69, CRP 10, lactic acid 2.3 while troponin was negative, EKG was non-ischemic and CXR showed no new infiltrates or effusions. She is now being admitted for covid-19 PNA with related pancytopenia and illness. PAST MEDICAL HISTORY: CAD s/p CABG x 3, and thereafter PCI with coronary stents PVD with LE stents carotid artery disease angina HLD HTN CHF? 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 REVIEW OF SYSTEMS: 10 point ROS was completed and was otherwise negative except for the pertinent positives noted in the HPI above HOME MEDICATIONS: Please see below. PHYSICAL EXAMINATION: VITAL SIGNS: see below GENERAL APPEARANCE: NAD, ill appearing HEENT: NCAT, EOMI, MMM CARDIOVASCULAR: RRR, no m/r/g LUNGS: CTAB, tachypneic, on 2L NC, no crackles, no wheezing or rhonchi at this time ABDOMEN: Normoactive bowel sounds, soft, NTND EXTREMITIES: WWP, no LE edema NEUROLOGICAL: CM3-12 intact, nonfocal examination PSYCHIATRIC: AOx3 LABORATORY DATA: See below. IMAGING: CXR: Mild scattered interstitial fibrotic changes noted. There is no definite superimposed acute infiltrate. The heart is not significantly enlarged. The mediastinal silhouette is unchanged with some calcific plaque in the thoracic aorta. Multiple sternal wires and mediastinal clips are present. IMPRESSION: Stable chronic findings. No evidence of acute infiltrate. MICROBIOLOGY: Please see below. ASSESSMENT: 75 yo W with a history of CAD s/p CABG x 3, and thereafter PCI with coronary stents, PVD with LE stents, carotid artery disease, angina, HLD, HTN, CHF?, history of recurrent Cdiff s/p fecal transplant in 2018, CKD with solitary R kidney, history of papillary urothelial CA, who lives at home with her and they have been ill for approximately 2 weeks who is now being admitted for covid-19 PNA with related pancytopenia, dehydration and lactic acidosis. PLAN: Covid-19 PNA: hypoxemia, fever, dyspnea, elevated inflammatory markers -start remdesevir and dexamethasone, day 1 -supplemental O2 to goal >89% -PRN albuterol q4hp -BID combivent -encourage awake proning -q4h sats with vitals -incentive spirometry -inflammatory markers per covid protocol -PRN ibuprofen for fever -tramadol per home script for severe pain -will give 1L NS at 100cc/hr Potential superimposed CAP given fever, elevated procal, despite negative imaging -will give empiric levofloxacin PO -urine strep, legionella and check mycoplasma -if she is expectorating mucus, will send sputum Cx Lactic acidosis: i/s/o dehydration and severe illness -s/p IVF in ED, recheck at 4h -will give 1L NS at 100cc/hr CKD: stable -daily BMP HTN: -continue home ARB and toprol XL Diarrhea: likely 2/2 covid but given history of cdiff will check GI panel -f/u GI panel -continue home probiotic as ACHS GERD: -continue H2B and PPI per home script CAD with chronic angina, PVD with stents: -continue ASA, plavix, ranolazine, PRN SLN, toprol XL Depression: -continue home lexapro Hx of gout: -continue home allopurinol Hypomagnesemia: -replete PRN Chronic anemia: -to continue home B12 on discharge Pancytopenia likely 2/2 covid-19 infection -monitor daily CBC, goal hgb >8, platelets >20 if febrile, >50 if bleeding DVT ppx: TEDs and SCDs Deconditioning: -PT/OT Vital Signs Vital Signs Date Time Temp Pulse Resp B/P (MAP) Pulse Ox O2 Delivery O2 Flow Rate FiO2 03/16/21 14:01 100.1 03/16/21 13:53 91 Room Air 03/16/21 12:44 77 03/16/21 11:40 20 172/72 (105) Laboratory Data Labs 24H Laboratory Tests 2 03/16/21 11:48: Immature Granulocyte % (Auto) 4.3H, Neutrophils (%) (Auto) 38.6, Lymphocytes (%) (Auto) 33.3, Monocytes (%) (Auto) 23.8H, Eosinophils (%) (Auto) 0.0, Basophils (%) (Auto) 0.0, Neutrophils # (Auto) 0.8L, Lymphocytes # (Auto) 0.7L, Monocytes # (Auto) 0.5, Eosinophils # (Auto) 0.0, Basophils # (Auto) 0.0, Nucleated Red Blood Cells % (auto) 1.0H, Immature Platelet Fraction 8.9, Anion Gap 9, Glomerular Filtration Rate 32.6L, Calcium Level 8.2L, Magnesium Level 1.4L, Ferritin 621H, Total Bilirubin 0.4, Aspartate Amino Transf (AST/SGOT) 37, Alanine Aminotransferase (ALT/SGPT) 27, Alkaline Phosphatase 45, Lactate Dehydrogenase 380H, Total Creatine Kinase 161, Creatine Kinase MB 2.4, Creatine Kinase MB Relative Index 1.49, Troponin I < 0.02, C-Reactive Protein, Quantitative 10.00H, Total Protein 6.6, Albumin 3.3, Albumin/Globulin Ratio 1.0L, Procalcitonin 0.69 03/16/21 12:36: Prothrombin Time 13.7, Prothromb Time International Ratio 1.01, Activated Partial Thromboplast Time 27.6, Fibrinogen 541H, Lactic Acid Level 2.3*H 03/16/21 13:04: Bedside Glucose (Misc Panel) 140H 03/16/21 13:47: Urine Color YELLOW, Urine Appearance CLOUDYH, Urine pH 5.0, Urine Specific [place] 1.017, Urine Protein 2+H, Urine Glucose (UA) NEGATIVE, Urine Ketones NEGATIVE, Urine Blood 1+H, Urine Nitrite NEGATIVE, Urine Bilirubin NEGATIVE, Urine Urobilinogen 0.2, Urine Leukocyte Esterase NEGATIVE, Urine WBC (Auto) 4H, Urine RBC (Auto) 3, Urine Hyaline Casts (Auto) 0, Urine Bacteria (Auto) NEGATIVE, Urine Squamous Epithelial Cells 12, Urine Mucus (Auto) SMALL, Urine Sperm (Auto) CBC/BMP Laboratory Tests 03/16/21 11:48 Microbiology Microbiology 03/16/21 Gastrointestinal Tract Panel (PCR) - Final, Complete 03/16/21 Blood Culture, Received Pending 03/16/21 Blood Culture, Received Pending 03/16/21 Respiratory Virus Panel (PCR) (TOBY) - Final, Complete SARS-CoV-2 (COVID 19) Home Medications Scheduled Alirocumab (Praluent Pen) 75 Mg/1 Ml Pen.injctr, 1 ML SC MTHLY Aspirin (Aspirin EC) 325 Mg Tabec, 325 MG PO DAILY Cholecalciferol (Vitamin D3) (Vitamin D3) 25 Mcg Capsule, 25 MCG PO QWEEK Clopidogrel Bisulfate (Plavix) 75 Mg Tab, 75 MG PO DAILY Cyanocobalamin (Vitamin B-12) (Vitamin B-12) 100 Mcg Tablet, 100 MCG PO QWEEK Escitalopram Oxalate (Lexapro) 10 Mg Tablet, 10 MG PO DAILY Famotidine (Famotidine) 40 Mg Tablet, 40 MG PO QHS Icosapent Ethyl (Vascepa) 1 Gm Capsule, 2 GM PO BID Lactobacillus Acidophilus (Probiotic) 1 Each Capsule, 1 CAP PO DAILY Meclizine HCl (Meclizine HCl) 25 Mg Tab, 25 MG PO DAILY Metoprolol Succinate (Metoprolol Succinate) 25 Mg Tab.er.24h, 25 MG PO BID Nitroglycerin (Nitrostat) 0.4 Mg Subl, 0.4 MG SL NITRO Nitroglycerin (Nitroglycerin Patch) 0.4 Mg/Hr Dis, 0.4 MG TD DAILYPRN Pantoprazole Sodium (Pantoprazole Sodium) 40 Mg Tablet.dr, 40 MG PO DAILY Ranolazine (Ranexa) 1,000 Mg Tab, 1,000 MG PO BID Valsartan (Valsartan) 80 Mg Tablet, 160 MG PO DAILY Zinc (Zinc) 50 Mg Tablet, 50 MG PO DAILY allopurinoL (allopurinoL) 300 Mg Tablet, 300 MG PO DAILY Scheduled PRN Albuterol Sulfate (Proair Hfa) 8.5 Gm Hfa.aer.ad, 2 PUFF INH Q6H PRN for SOB/WHEEZING Promethazine HCl (Promethazine HCl) 25 Mg Tab, 25 MG PO Q6HP PRN for NAUSEA Tramadol HCl (Tramadol HCl) 50 Mg Tab, 50 MG PO TID PRN for PAIN Miscellaneous Medications [Med Note] PT STATED TAKEN NO MEDS WITHIN THE PAST WEEK FROM NOT FEELING GOOD. Allergies Coded Allergies: TAPE (Verified Allergy, Intermediate, HIVES, 03/16/18) nitazoxanide (Verified Allergy, Mild, RASH?, 12/22/18) Sulfa (Sulfonamide Antibiotics) (Verified Allergy, Unknown, unknown, 12/22/18) butalbital (Verified Allergy, Unknown, unknown, 12/22/18) carvedilol (Verified Allergy, Unknown, 03/16/21) yellow dye (Verified Allergy, Unknown, only one kidney, 12/22/18) Tetracyclines (Verified Adverse Reaction, Intermediate, nausea, 03/16/21) clindamycin (Verified Adverse Reaction, Intermediate, vomits, 03/16/21) erythromycin base (Verified Adverse Reaction, Intermediate, diarrhea, 03/16/21) pentoxifylline (Verified Adverse Reaction, Mild, GI N/V/D, 12/22/18) acetaminophen (Verified Adverse Reaction, Unknown, 'dont mix with my heart meds', 12/22/18) caffeine (Verified Adverse Reaction, Unknown, because of my heart, 12/22/18) A-FIB/CHADSVASC A-FIB History Current/History of A-Fib/PAF?: No Current PO Anticoag Therapy: No Age/Risk Factor Scoring CHADSVASC: CHADSVASC Response (Comments) Value Age Risk Factor Age >/= 75 years old 2 Gender Risk Factor Female 1 Hx of CHF Yes 1 Hx of HTN Yes 1 Hx of Stroke/TIA/or VTE No 0 Hx of Diabetes No 0 Hx of Vascular Disease Yes 1 Total 6 Treatment Treatment ordered: NONE Reason Anticoagulant not given: Not indicated/[id number] ALEKSEY GROSS MD Mar 16, 2021 16:09
[2021-03-16 18:28] VITALS: BP 193/78
[2021-03-16] MEDS: PANTOPRAZOLE 40MG TAB (PROTONIX) PO SCH (19:00)
[2021-03-16] MEDS: traMADol 50 MG TAB PO PRN (19:01)
[2021-03-16] MEDS: CLOPIDOGREL 75 MG TAB PO SCH (19:01)
[2021-03-16] MEDS: dexameTHASONE 4 MG/ML 1ML VIAL (J1100 PER 1MG) IV SCH (19:02)
[2021-03-16] MEDS: MAG SULF 1GM/100ML (MAG RUN) 1 GM in IV 1 EA IV SCH ×2 (19:02→20:17)
[2021-03-16 20:00] VITALS: BP 145/64
[2021-03-16] MEDS: allopurinoL 300 MG TAB PO SCH (20:12)
[2021-03-16] MEDS: MECLIZINE 25 MG TABLET PO SCH (20:12)
[2021-03-16] MEDS: ESCITALOPRAM OXALATE 10 MG TAB (LEXAPRO) PO SCH (20:13)
[2021-03-16] MEDS: METOPROLOL SUCC *XL* 25MG TAB (TopROL *XL*) PO SCH (20:14)
[2021-03-16] MEDS: LACTOBACILLUS ACIDOPHILUS CAP (BACID) PO SCH ×2 (20:15→21:00)
[2021-03-16] MEDS: FAMOTIDINE 20 MG TAB PO SCH (20:15)
[2021-03-16] MEDS: VALSARTAN 80 MG TAB (DIOVAN) PO SCH (20:15)
[2021-03-16] MEDS: ASPIRIN ENTERIC 325 MG TAB PO SCH (20:15)
[2021-03-16] MEDS: RANOLAZINE 500 MG ER TAB PO SCH (20:34)
[2021-03-16] MEDS ORDERED: REMDESIVIR 200 MG in NS 250 ML IV ONE (21:00)
[2021-03-16] MEDS ORDERED: VASCEPA 1 GM PO SCH (21:00)
[2021-03-16] MEDS ORDERED: SODIUM CHLORIDE 0.9% INJ 10 ML SYR IV ONE (22:00)
[2021-03-17] VITALS (10 sets, daily range): BP systolic 122–169; BP diastolic 56–72; O2SAT 94–98
[2021-03-17] MEDS: NS 1,000 ML IV SCH ×2 (03:20→04:43)
[2021-03-17 05:29] LABS: APPEARANCE, URINE HAZY (CLEAR); BACTERIA, URINE AUTO 3+ (NEGATIVE); BILIRUBIN, URINE AUTO NEGATIVE (NEGATIVE); BLOOD, URINE BLOOD NEGATIVE (NEGATIVE); COLOR, URINE YELLOW (YELLOW); GLUCOSE, URINE (UA) AUTO NEGATIVE (NEGATIVE); KETONE, URINE AUTO NEGATIVE (NEGATIVE); LEUKOCYTE ESTERASE, URINE AUTO NEGATIVE (NEGATIVE); NITRITE, URINE AUTO POSITIVE (NEGATIVE); PROTEIN, URINE AUTO NEGATIVE (NEGATIVE); RBC, URINE AUTO 1 /HPF (0-3); SPECIFIC GRAVITY URINE AUTO 1.015 (1.002-1.035); SQUAMOUS EPITHELIAL CELL UR AU 2 /HPF (0-6); UROBILINOGEN, URINE AUTO 0.2 mg/dL (0.0-2.0); WBC, URINE AUTO 1 /HPF (0-3)
[2021-03-17 07:32] LABS: HEMATOCRIT 27.8 % (36.0-47.0); HEMOGLOBIN 9.2 g/dl (12.0-15.5); MEAN CORPUSCULAR HEMOGLOBIN 36.2 pg (27.0-33.0); MEAN CORPUSCULAR HGB CONC 33.1 g/dl (32.0-36.5); MEAN CORPUSCULAR VOLUME 109.4 fl (80.0-96.0); RED BLOOD COUNT 2.54 10^6/uL (4.00-5.40); WHITE BLOOD COUNT 1.5 10^3/uL (4.0-10.0)
[2021-03-17 07:40] LABS: PLATELET COUNT, AUTOMATED 80 10^3/uL (150-450)
[2021-03-17 07:47] LABS: CALCIUM LEVEL 7.9 MG/DL (8.8-10.2); CREATININE FOR GFR 1.49 MG/DL (0.55-1.30); GLOMERULAR FILTRATION RATE 36.1 (>39); MAGNESIUM LEVEL 2.4 MG/DL (1.8-2.4)
[2021-03-17] MEDS: COMBIVENT RESPIMAT 100-20MCG INHALER 4GM INH SCH ×2 (08:00→18:26)
[2021-03-17 08:38] LABS: ATYPICAL LYMPH 2 % (0-5); LYMPHOCYTES 38 % (16-44); MONOCYTES 12 % (0-5); NEUTROPHILS 26 % (28-66); PLATELET ESTIMATE MARKED DECREASE (NORMAL)
[2021-03-17 08:39] LABS: ANISOCYTOSIS 1+
[2021-03-17] MEDS ORDERED: PREVNAR 13 VACCINE SYRINGE IM ONE (09:00)
[2021-03-17] MEDS: VALSARTAN 80 MG TAB (DIOVAN) PO SCH (09:00)
[2021-03-17] MEDS ORDERED: FLUBLOK(EGG FREE)(QUAD)INFLUENZA VACC 0.5ML SYRINGE 18YRS & OLDER IM ONE (09:00)
[2021-03-17] MEDS: ESCITALOPRAM OXALATE 10 MG TAB (LEXAPRO) PO SCH (10:05)
[2021-03-17] MEDS: MECLIZINE 25 MG TABLET PO SCH (10:06)
[2021-03-17] MEDS: CLOPIDOGREL 75 MG TAB PO SCH (10:06)
[2021-03-17] MEDS: PANTOPRAZOLE 40MG TAB (PROTONIX) PO SCH (10:06)
[2021-03-17] MEDS: RANOLAZINE 500 MG ER TAB PO SCH ×2 (10:06→22:56)
[2021-03-17] MEDS: LACTOBACILLUS ACIDOPHILUS CAP (BACID) PO SCH ×4 (10:06→22:55)
[2021-03-17] MEDS: allopurinoL 300 MG TAB PO SCH (10:06)
[2021-03-17] MEDS: METOPROLOL SUCC *XL* 25MG TAB (TopROL *XL*) PO SCH ×2 (10:09→22:56)
[2021-03-17] MEDS: ASPIRIN ENTERIC 325 MG TAB PO SCH (10:57)
[2021-03-17] MEDS: LevoFLOXacin 750 MG TABLET PO SCH (11:04)
--- NOTE | 2021-03-17 14:21 | IPNPDOC ---
Text Note Date of Service The patient was seen on 03/17/21. NOTE SUBJECTIVE: -No acute complaints OBJECTIVE: VITAL SIGNS: see below GENERAL APPEARANCE: NAD, ill appearing HEENT: NCAT, EOMI, MMM CARDIOVASCULAR: RRR, no m/r/g LUNGS: CTAB, tachypneic, on 3L NC, diminished breath sounds, no crackles, no wheezing or rhonchi ABDOMEN: Normoactive bowel sounds, soft, NTND EXTREMITIES: WWP, no LE edema NEUROLOGICAL: CM3-12 intact, nonfocal examination PSYCHIATRIC: AOx3 LABORATORY DATA: WBC 1.5 hgb 9.2 platelets 80 na 138 K 5 Cr 1.49 Mag 2.4 IMAGING: CXR: Mild scattered interstitial fibrotic changes noted. There is no definite superimposed acute infiltrate. The heart is not significantly enlarged. The mediastinal silhouette is unchanged with some calcific plaque in the thoracic aorta. Multiple sternal wires and mediastinal clips are present. IMPRESSION: Stable chronic findings. No evidence of acute infiltrate. MICROBIOLOGY: Please see below. ASSESSMENT: 75 yo W with a history of CAD s/p CABG x 3, and thereafter PCI with coronary stents, PVD with LE stents, carotid artery disease, angina, HLD, HTN, CHF?, history of recurrent Cdiff s/p fecal transplant in 2018, CKD with solitary R kidney, history of papillary urothelial CA, who lives at home with her and they were ill for approximately 2 weeks and now admitted for covid-19 PNA with related pancytopenia, dehydration and lactic acidosis. PLAN: Covid-19 PNA: hypoxemia, fever, dyspnea, elevated inflammatory markers -continue remdesevir and dexamethasone, day 2 -supplemental O2 to goal >89% -PRN albuterol q4hp -BID combivent -encourage awake proning -q4h sats with vitals -incentive spirometry -inflammatory markers per covid protocol -PRN ibuprofen for fever -tramadol per home script for severe pain -s/p IVF Potential superimposed CAP given fever, elevated procal, despite negative imaging -will give empiric levofloxacin PO, day 1 -urine strep, legionella and check mycoplasma -if she is expectorating mucus, will send sputum Cx Lactic acidosis: i/s/o dehydration and severe illness, resolved -s/p IVF CKD: stable -daily BMP HTN: -continue home ARB and toprol XL Diarrhea: likely 2/2 covid -GI panel negative -continue home probiotic as ACHS GERD: -continue H2B and PPI per home script CAD with chronic angina, PVD with stents: -continue ASA, plavix, ranolazine, PRN SLN, toprol XL Depression: -continue home lexapro Hx of gout: -continue home allopurinol Hypomagnesemia: -replete PRN Chronic anemia: -to continue home B12 on discharge Pancytopenia likely 2/2 covid-19 infection -monitor daily CBC, goal hgb >8, platelets >20 if febrile, >50 if bleeding, otherwise platelets >10 DVT ppx: TEDs and SCDs Deconditioning: -PT/OT VS,Fishbone, I+O VS, Fishbone, I+O Laboratory Tests 03/16/21 11:48 03/17/21 06:47 Vital Signs Date Time Temp Pulse Resp B/P (MAP) Pulse Ox O2 Delivery O2 Flow Rate FiO2 03/17/21 07:41 97.9 60 18 137/63 (87) 98 Nasal Cannula 3.0 I&O- Last 24 Hours up to 6 AM 03/17/21 06:00 Intake Total 2200 ml Output Total 100 ml Balance 2100 ml ALEKSEY GROSS MD Mar 17, 2021 09:01
[2021-03-17] MEDS: dexameTHASONE 4 MG/ML 1ML VIAL (J1100 PER 1MG) IV SCH (17:57)
[2021-03-17] MEDS: REMDESIVIR 100 MG in NS 250 ML IV SCH (22:55)
[2021-03-17] MEDS: FAMOTIDINE 20 MG TAB PO SCH (22:55)
[2021-03-17] MEDS: SODIUM CHLORIDE 0.9% INJ 10 ML SYR IV SCH (22:57)
[2021-03-18 02:00] VITALS: BP 126/58
[2021-03-18 04:00] VITALS: BP 126/58
[2021-03-18 06:25] LABS: HEMATOCRIT 27.2 % (36.0-47.0); HEMOGLOBIN 9.1 g/dl (12.0-15.5); MEAN CORPUSCULAR HEMOGLOBIN 36.4 pg (27.0-33.0); MEAN CORPUSCULAR HGB CONC 33.5 g/dl (32.0-36.5); MEAN CORPUSCULAR VOLUME 108.8 fl (80.0-96.0); WHITE BLOOD COUNT 3.3 10^3/uL (4.0-10.0)
[2021-03-18 06:28] LABS: INR 1.11; PROTHROMBIN TIME 14.7 SECONDS (12.7-14.5)
[2021-03-18 06:36] LABS: PLATELET COUNT, AUTOMATED 90 10^3/uL (150-450)
[2021-03-18 06:53] LABS: ALBUMIN 2.7 GM/DL (3.2-5.2); ALT/SGPT 23 U/L (12-78); BILIRUBIN,DIRECT 0.2 MG/DL (0.0-0.2); BILIRUBIN,TOTAL 0.3 MG/DL (0.2-1.0); BLOOD UREA NITROGEN 41 MG/DL (7-18); CALCIUM LEVEL 8.2 MG/DL (8.8-10.2); CARBON DIOXIDE LEVEL 23 MEQ/L (21-32); CHLORIDE LEVEL 112 MEQ/L (98-107); CPK CREATINE PHOSPHOKINASE 108 U/L (26-192); CREATININE FOR GFR 1.43 MG/DL (0.55-1.30); FERRITIN 507 NG/ML (8-252); GLOMERULAR FILTRATION RATE 37.9 (>39); GLUCOSE, FASTING 164 MG/DL (70-100); LDH LACTATE DEHYDROGENASE 320 U/L (84-246); MAGNESIUM LEVEL 1.7 MG/DL (1.8-2.4); NT-PRO BNP 855 PG/ML (<450); POTASSIUM SERUM 5.3 MEQ/L (3.5-5.1); SODIUM LEVEL 138 MEQ/L (136-145); TOTAL PROTEIN 6.6 GM/DL (6.4-8.2); TROPONIN I < 0.02 NG/ML (< 0.10)
[2021-03-18 07:49] LABS: ATYPICAL LYMPH 2 % (0-5); LYMPHOCYTES 9 % (16-44); METAMYELOCYTES 4 % (0-0); MONOCYTES 4 % (0-5); NEUTROPHILS 68 % (28-66); PLATELET ESTIMATE DECREASED (NORMAL)
[2021-03-18] MEDS: COMBIVENT RESPIMAT 100-20MCG INHALER 4GM INH SCH ×2 (08:33→20:00)
[2021-03-18] MEDS: RANOLAZINE 500 MG ER TAB PO SCH ×2 (08:51→20:36)
[2021-03-18] MEDS: VALSARTAN 80 MG TAB (DIOVAN) PO SCH (08:51)
[2021-03-18] MEDS: LACTOBACILLUS ACIDOPHILUS CAP (BACID) PO SCH ×4 (08:51→20:36)
[2021-03-18] MEDS: ASPIRIN ENTERIC 325 MG TAB PO SCH (08:51)
[2021-03-18] MEDS: METOPROLOL SUCC *XL* 25MG TAB (TopROL *XL*) PO SCH ×2 (08:52→20:37)
[2021-03-18] MEDS: allopurinoL 300 MG TAB PO SCH (08:52)
[2021-03-18] MEDS: MECLIZINE 25 MG TABLET PO SCH (08:52)
[2021-03-18] MEDS: ESCITALOPRAM OXALATE 10 MG TAB (LEXAPRO) PO SCH (08:52)
[2021-03-18] MEDS: PANTOPRAZOLE 40MG TAB (PROTONIX) PO SCH (08:52)
[2021-03-18] MEDS: CLOPIDOGREL 75 MG TAB PO SCH (08:52)
[2021-03-18 14:09] LABS: MYCOPLASMA PNEUMONIAE IgG 107 U/mL (0-99); MYCOPLASMA PNEUMONIAE IgM <770 U/mL (0-769)
--- NOTE | 2021-03-18 14:38 | IPNPDOC ---
Text Note Date of Service The patient was seen on 03/18/21. NOTE SUBJECTIVE: -No acute complaints OBJECTIVE: VITAL SIGNS: see below GENERAL APPEARANCE: NAD, ill appearing HEENT: NCAT, EOMI, MMM CARDIOVASCULAR: RRR, no m/r/g LUNGS: CTAB, tachypneic, on 3L NC, diminished breath sounds, no crackles, no wheezing or rhonchi ABDOMEN: Normoactive bowel sounds, soft, NTND EXTREMITIES: WWP, no LE edema NEUROLOGICAL: CM3-12 intact, nonfocal examination PSYCHIATRIC: AOx3 LABORATORY DATA: WBC 3.3 hgb 9.1 platelets 90 Cr 1.43 Mag 1.7 IMAGING: CXR: Mild scattered interstitial fibrotic changes noted. There is no definite superimposed acute infiltrate. The heart is not significantly enlarged. The mediastinal silhouette is unchanged with some calcific plaque in the thoracic aorta. Multiple sternal wires and mediastinal clips are present. IMPRESSION: Stable chronic findings. No evidence of acute infiltrate. MICROBIOLOGY: Please see below. ASSESSMENT: 75 yo W with a history of CAD s/p CABG x 3, and thereafter PCI with coronary stents, PVD with LE stents, carotid artery disease, angina, HLD, HTN, CHF?, history of recurrent Cdiff s/p fecal transplant in 2018, CKD with solitary R kidney, history of papillary urothelial CA, who lives at home with her and they were ill for approximately 2 weeks and now admitted for covid-19 PNA with related pancytopenia, dehydration and lactic acidosis. PLAN: Covid-19 PNA: hypoxemia, fever, dyspnea, elevated inflammatory markers -continue remdesevir and dexamethasone, day 3 -supplemental O2 to goal >89% -PRN albuterol q4hp -BID combivent -encourage awake proning -q4h sats with vitals -incentive spirometry -inflammatory markers per covid protocol -PRN ibuprofen for fever -tramadol per home script for severe pain -s/p IVF Potential superimposed CAP given fever, elevated procal, despite negative imaging -will give empiric levofloxacin PO, day 2 -urine strep, legionella and check mycoplasma -if she is expectorating mucus, will send sputum Cx Lactic acidosis: i/s/o dehydration and severe illness, resolved -s/p IVF CKD: stable -daily BMP HTN: -continue home ARB and toprol XL Diarrhea: likely 2/2 covid -GI panel negative -continue home probiotic as ACHS GERD: -continue H2B and PPI per home script CAD with chronic angina, PVD with stents: -continue ASA, plavix, ranolazine, PRN SLN, toprol XL Depression: -continue home lexapro Hx of gout: -continue home allopurinol Hypomagnesemia: -replete PRN Chronic anemia: -to continue home B12 on discharge Pancytopenia likely 2/2 covid-19 infection: improving -monitor daily CBC, goal hgb >8, platelets >20 if febrile, >50 if bleeding, otherwise platelets >10 DVT ppx: TEDs and SCDs Deconditioning: -PT/OT VS,Fishbone, I+O VS, Fishbone, I+O Laboratory Tests 03/18/21 05:59 Vital Signs Date Time Temp Pulse Resp B/P (MAP) Pulse Ox O2 Delivery O2 Flow Rate FiO2 03/18/21 09:00 3.0 03/18/21 08:52 66 146/67 03/18/21 04:00 98.2 18 98 Nasal Cannula I&O- Last 24 Hours up to 6 AM 03/18/21 05:59 Intake Total 1610 ml Output Total 2100 ml Balance -490 ml ALEKSEY GROSS MD Mar 18, 2021 14:38
[2021-03-18] MEDS ORDERED: MAGNESIUM OXIDE 400MG TAB (MAG-OX) PO ONE (15:00)
[2021-03-18] MEDS: dexameTHASONE 4 MG/ML 1ML VIAL (J1100 PER 1MG) IV SCH (18:08)
[2021-03-18 20:00] VITALS: BP 151/65
[2021-03-18] MEDS: REMDESIVIR 100 MG in NS 250 ML IV SCH (20:36)
[2021-03-18] MEDS: FAMOTIDINE 20 MG TAB PO SCH (20:36)
[2021-03-18] MEDS: SODIUM CHLORIDE 0.9% INJ 10 ML SYR IV SCH (20:36)
[2021-03-18] MEDS ORDERED: BENZOCAINE 10% 9GM TUBE (ANBESOL) MT PRN (22:00)
[2021-03-19] VITALS (8 sets, daily range): BP systolic 123–150; BP diastolic 57–72; O2SAT 91–98
[2021-03-19] MEDS: CEPACOL LOZENGE PO PRN (00:22)
[2021-03-19 06:06] LABS: HEMATOCRIT 30.2 % (36.0-47.0); HEMOGLOBIN 10.3 g/dl (12.0-15.5); MEAN CORPUSCULAR HEMOGLOBIN 37.5 pg (27.0-33.0); MEAN CORPUSCULAR HGB CONC 34.1 g/dl (32.0-36.5); MEAN CORPUSCULAR VOLUME 109.8 fl (80.0-96.0); PLATELET COUNT, AUTOMATED 109 10^3/uL (150-450); RED BLOOD COUNT 2.75 10^6/uL (4.00-5.40); WHITE BLOOD COUNT 4.4 10^3/uL (4.0-10.0)
[2021-03-19 06:28] LABS: CALCIUM LEVEL 8.6 MG/DL (8.8-10.2); CREATININE FOR GFR 1.51 MG/DL (0.55-1.30); GLOMERULAR FILTRATION RATE 35.6 (>39); MAGNESIUM LEVEL 1.5 MG/DL (1.8-2.4); POTASSIUM SERUM 5.5 MEQ/L (3.5-5.1)
[2021-03-19 06:38] LABS: ATYPICAL LYMPH 2 % (0-5); LYMPHOCYTES 12 % (16-44); METAMYELOCYTES 2 % (0-0); MONOCYTES 8 % (0-5); NEUTROPHILS 70 % (28-66)
[2021-03-19 06:39] LABS: PLATELET ESTIMATE NORMAL (NORMAL)
[2021-03-19] MEDS: LevoFLOXacin 750 MG TABLET PO SCH (06:51)
[2021-03-19] MEDS: COMBIVENT RESPIMAT 100-20MCG INHALER 4GM INH SCH ×2 (08:11→20:00)
[2021-03-19] MEDS: METOPROLOL SUCC *XL* 25MG TAB (TopROL *XL*) PO SCH ×2 (09:00→21:22)
[2021-03-19] MEDS: ESCITALOPRAM OXALATE 10 MG TAB (LEXAPRO) PO SCH (09:23)
[2021-03-19] MEDS: RANOLAZINE 500 MG ER TAB PO SCH ×2 (09:23→21:23)
[2021-03-19] MEDS: PANTOPRAZOLE 40MG TAB (PROTONIX) PO SCH (09:24)
[2021-03-19] MEDS: CLOPIDOGREL 75 MG TAB PO SCH (09:24)
[2021-03-19] MEDS: MECLIZINE 25 MG TABLET PO SCH (09:24)
[2021-03-19] MEDS: ASPIRIN ENTERIC 325 MG TAB PO SCH (09:24)
[2021-03-19] MEDS: LACTOBACILLUS ACIDOPHILUS CAP (BACID) PO SCH ×4 (09:24→21:22)
[2021-03-19] MEDS: PROMETHAZINE 25 MG TAB PO PRN ×2 (09:24→18:15)
[2021-03-19] MEDS: allopurinoL 300 MG TAB PO SCH (09:24)
[2021-03-19] MEDS: VALSARTAN 80 MG TAB (DIOVAN) PO SCH (09:29)
[2021-03-19] MEDS ORDERED: MAG SULF 1GM/100ML (MAG RUN) 1 GM in IV 1 EA IV ONE (10:00)
[2021-03-19] MEDS ORDERED: SOD POLYSTYRENE SULFONATE SUSP 15 GM/60 ML UD PO ONE (11:00)
[2021-03-19] MEDS: BENZONATATE 100MG CAPSULE PO SCH ×2 (18:14→21:22)
[2021-03-19] MEDS: dexameTHASONE 4 MG/ML 1ML VIAL (J1100 PER 1MG) IV SCH (18:14)
--- NOTE | 2021-03-19 18:47 | IPNPDOC ---
Text Note Date of Service The patient was seen on 03/19/21. NOTE SUBJECTIVE: -No acute complaints OBJECTIVE: VITAL SIGNS: see below GENERAL APPEARANCE: NAD, ill appearing HEENT: NCAT, EOMI, MMM CARDIOVASCULAR: RRR, no m/r/g LUNGS: CTAB, tachypneic, on 3L NC, diminished breath sounds, no crackles, no wheezing or rhonchi ABDOMEN: Normoactive bowel sounds, soft, NTND EXTREMITIES: WWP, no LE edema NEUROLOGICAL: CM3-12 intact, nonfocal examination PSYCHIATRIC: AOx3 LABORATORY DATA: Reviewed WBC 4.4 hgb 10.3 platelets 109 Cr 1.51 Mag 1.5 (repleted) K 5.5 IMAGING: CXR: Mild scattered interstitial fibrotic changes noted. There is no definite superimposed acute infiltrate. The heart is not significantly enlarged. The mediastinal silhouette is unchanged with some calcific plaque in the thoracic aorta. Multiple sternal wires and mediastinal clips are present. IMPRESSION: Stable chronic findings. No evidence of acute infiltrate. MICROBIOLOGY: Please see below. ASSESSMENT: 75 yo W with a history of CAD s/p CABG x 3, and thereafter PCI with coronary stents, PVD with LE stents, carotid artery disease, angina, HLD, HTN, CHF?, history of recurrent Cdiff s/p fecal transplant in 2018, CKD with solitary R kidney, history of papillary urothelial CA, who lives at home with her and they were ill for approximately 2 weeks and now admitted for covid-19 PNA with related pancytopenia, dehydration and lactic acidosis. PLAN: Covid-19 PNA: hypoxemia, fever, dyspnea, elevated inflammatory markers -continue remdesevir and dexamethasone, day 4 -supplemental O2 to goal >89% -PRN albuterol q4hp -BID combivent -encourage awake proning -q4h sats with vitals -incentive spirometry -inflammatory markers per covid protocol -tramadol per home script for severe pain -s/p IVF Potential superimposed CAP given fever, elevated procal, despite negative imaging -will give empiric levofloxacin PO, day 3 -urine strep, legionella and check mycoplasma -if she is expectorating mucus, will send sputum Cx Lactic acidosis: i/s/o dehydration and severe illness, resolved -s/p IVF CKD: stable -daily BMP HTN: -continue home ARB and toprol XL Diarrhea: likely 2/2 covid -GI panel negative -continue home probiotic as ACHS GERD: -continue H2B and PPI per home script CAD with chronic angina, PVD with stents: -continue ASA, plavix, ranolazine, PRN SLN, toprol XL Depression: -continue home lexapro Hx of gout: -continue home allopurinol Hypomagnesemia: -replete PRN Chronic anemia: -to continue home B12 on discharge Pancytopenia likely 2/2 covid-19 infection: improving -monitor daily CBC, goal hgb >8, platelets >20 if febrile, >50 if bleeding, otherwise platelets >10 DVT ppx: TEDs and SCDs Deconditioning: -PT/OT VS,Fishbone, I+O VS, Fishbone, I+O Laboratory Tests 03/19/21 05:41 Vital Signs Date Time Temp Pulse Resp B/P (MAP) Pulse Ox O2 Delivery O2 Flow Rate FiO2 03/19/21 06:53 97.8 68 20 123/64 (83) 96 Nasal Cannula 3.0 I&O- Last 24 Hours up to 6 AM 03/19/21 06:00 Intake Total 1400 ml Balance 1400 ml ALEKSEY GROSS MD Mar 19, 2021 09:34
[2021-03-19] MEDS: SODIUM CHLORIDE 0.9% INJ 10 ML SYR IV SCH (21:00)
[2021-03-19] MEDS: REMDESIVIR 100 MG in NS 250 ML IV SCH (21:21)
[2021-03-19] MEDS: FAMOTIDINE 20 MG TAB PO SCH (21:23)
[2021-03-20 01:48] VITALS: O2SAT 98
[2021-03-20 06:12] VITALS: BP 165/70
[2021-03-20] MEDS: COMBIVENT RESPIMAT 100-20MCG INHALER 4GM INH SCH ×2 (08:16→19:43)
[2021-03-20 08:35] LABS: HEMATOCRIT 29.1 % (36.0-47.0); HEMOGLOBIN 9.7 g/dl (12.0-15.5); MEAN CORPUSCULAR HEMOGLOBIN 36.3 pg (27.0-33.0); MEAN CORPUSCULAR HGB CONC 33.3 g/dl (32.0-36.5); PLATELET COUNT, AUTOMATED 106 10^3/uL (150-450); RED BLOOD COUNT 2.67 10^6/uL (4.00-5.40); WHITE BLOOD COUNT 6.3 10^3/uL (4.0-10.0)
[2021-03-20] MEDS: VALSARTAN 80 MG TAB (DIOVAN) PO SCH (08:43)
[2021-03-20] MEDS: LACTOBACILLUS ACIDOPHILUS CAP (BACID) PO SCH ×4 (08:43→20:17)
[2021-03-20] MEDS: CLOPIDOGREL 75 MG TAB PO SCH (08:44)
[2021-03-20] MEDS: RANOLAZINE 500 MG ER TAB PO SCH ×2 (08:44→20:16)
[2021-03-20] MEDS: BENZONATATE 100MG CAPSULE PO SCH ×3 (08:44→20:16)
[2021-03-20] MEDS: METOPROLOL SUCC *XL* 25MG TAB (TopROL *XL*) PO SCH ×2 (08:45→20:21)
[2021-03-20] MEDS: ESCITALOPRAM OXALATE 10 MG TAB (LEXAPRO) PO SCH (08:46)
[2021-03-20] MEDS: allopurinoL 300 MG TAB PO SCH (08:46)
[2021-03-20] MEDS: PANTOPRAZOLE 40MG TAB (PROTONIX) PO SCH (08:47)
[2021-03-20] MEDS: MECLIZINE 25 MG TABLET PO SCH (08:47)
[2021-03-20 08:51] LABS: PARTIAL THROMBOPLASTIN TIME 30.9 SECONDS (25.9-37.0)
[2021-03-20] MEDS: ASPIRIN ENTERIC 325 MG TAB PO SCH (08:53)
[2021-03-20 08:59] LABS: ALBUMIN 2.5 GM/DL (3.2-5.2); ALT/SGPT 23 U/L (12-78); BILIRUBIN,DIRECT 0.1 MG/DL (0.0-0.2); BILIRUBIN,TOTAL 0.5 MG/DL (0.2-1.0); BLOOD UREA NITROGEN 46 MG/DL (7-18); CALCIUM LEVEL 8.3 MG/DL (8.8-10.2); CARBON DIOXIDE LEVEL 21 MEQ/L (21-32); CHLORIDE LEVEL 110 MEQ/L (98-107); CPK CREATINE PHOSPHOKINASE 82 U/L (26-192); CREATININE FOR GFR 1.42 MG/DL (0.55-1.30); FERRITIN 500 NG/ML (8-252); GLOMERULAR FILTRATION RATE 38.2 (>39); GLUCOSE, FASTING 172 MG/DL (70-100); LDH LACTATE DEHYDROGENASE 513 U/L (84-246); MAGNESIUM LEVEL 1.7 MG/DL (1.8-2.4); NT-PRO BNP 955 PG/ML (<450); POTASSIUM SERUM 4.9 MEQ/L (3.5-5.1); SODIUM LEVEL 139 MEQ/L (136-145); TOTAL PROTEIN 6.6 GM/DL (6.4-8.2); TROPONIN I < 0.02 NG/ML (< 0.10)
[2021-03-20 09:31] LABS: INR 1.21; PROTHROMBIN TIME 15.7 SECONDS (12.7-14.5)
[2021-03-20 09:34] LABS: LYMPHOCYTES 17 % (16-44); METAMYELOCYTES 1 % (0-0); MONOCYTES 3 % (0-5); MYELOCYTES 1 % (0-0); NEUTROPHILS 72 % (28-66)
[2021-03-20 09:35] LABS: ANISOCYTOSIS 2+; PLATELET ESTIMATE DECREASED (NORMAL)
--- NOTE | 2021-03-20 12:57 | IPNPDOC ---
Text Note Date of Service The patient was seen on 03/20/21. NOTE SUBJECTIVE: -No acute complaints -Quite sad today, her yesterday while in the same room from c/o covid-19. -has a dry cough that has some improvement with the tessalon perles OBJECTIVE: VITAL SIGNS: see below GENERAL APPEARANCE: NAD, ill appearing HEENT: NCAT, EOMI, MMM CARDIOVASCULAR: RRR, no m/r/g LUNGS: CTAB, tachypneic, on 3L NC, diminished breath sounds, no crackles, no wheezing or rhonchi ABDOMEN: Normoactive bowel sounds, soft, NTND EXTREMITIES: WWP, no LE edema NEUROLOGICAL: CM3-12 intact, nonfocal examination PSYCHIATRIC: AOx3 LABORATORY DATA: Reviewed WBC 4.4 hgb 10.3 platelets 109 Cr 1.51 Mag 1.7 (repleted) K 5.5 IMAGING: CXR: Mild scattered interstitial fibrotic changes noted. There is no definite superimposed acute infiltrate. The heart is not significantly enlarged. The mediastinal silhouette is unchanged with some calcific plaque in the thoracic aorta. Multiple sternal wires and mediastinal clips are present. IMPRESSION: Stable chronic findings. No evidence of acute infiltrate. MICROBIOLOGY: Please see below. ASSESSMENT: 75 yo W with a history of CAD s/p CABG x 3, and thereafter PCI with coronary stents, PVD with LE stents, carotid artery disease, angina, HLD, HTN, CHF?, history of recurrent Cdiff s/p fecal transplant in 2018, CKD with solitary R kidney, history of papillary urothelial CA, who was ill for approximately 2 weeks and now admitted for covid-19 PNA with related pancytopenia, dehydration and lactic acidosis. PLAN: Covid-19 PNA: hypoxemia, fever, dyspnea, elevated inflammatory markers -continue remdesevir and dexamethasone, day 5 -supplemental O2 to goal >89% -PRN albuterol q4hp -BID combivent -encourage awake proning -q4h sats with vitals -incentive spirometry -inflammatory markers per covid protocol -tramadol per home script for severe pain -s/p IVF -tessalon perles for cough Potential superimposed CAP given fever, elevated procal, despite negative imaging -will give empiric levofloxacin PO, day 4 -had prior exposure to mycoplasma with positive IgG but negative IgM -if she is expectorating mucus, will send sputum Cx Lactic acidosis: i/s/o dehydration and severe illness, resolved -s/p IVF CKD: stable -daily BMP HTN: -continue home ARB and toprol XL Diarrhea: likely 2/2 covid -GI panel negative -continue home probiotic as ACHS GERD: -continue H2B and PPI per home script CAD with chronic angina, PVD with stents: -continue ASA, plavix, ranolazine, PRN SLN, toprol XL Depression: -continue home lexapro Hx of gout: -continue home allopurinol Hypomagnesemia: -replete PRN Chronic anemia: -to continue home B12 on discharge Pancytopenia likely 2/2 covid-19 infection: improving -monitor daily CBC, goal hgb >8, platelets >20 if febrile, >50 if bleeding, otherwise platelets >10 DVT ppx: TEDs and SCDs Deconditioning: -PT/OT VS,Fishbone, I+O VS, Fishbone, I+O Laboratory Tests 03/20/21 07:23 Vital Signs Date Time Temp Pulse Resp B/P (MAP) Pulse Ox O2 Delivery O2 Flow Rate FiO2 03/20/21 08:45 60 03/20/21 08:43 159/74 03/20/21 06:12 97.0 20 96 Nasal Cannula 3.0 I&O- Last 24 Hours up to 6 AM 03/20/21 05:59 Intake Total 1540 ml Balance 1540 ml ALEKSEY GROSS MD Mar 20, 2021 09:16
[2021-03-20] MEDS: dexameTHASONE 4 MG/ML 1ML VIAL (J1100 PER 1MG) IV SCH (16:58)
[2021-03-20] MEDS: FAMOTIDINE 20 MG TAB PO SCH (20:16)
[2021-03-20] MEDS: REMDESIVIR 100 MG in NS 250 ML IV SCH (20:16)
[2021-03-20] MEDS: SODIUM CHLORIDE 0.9% INJ 10 ML SYR IV SCH (21:00)
[2021-03-20] MEDS: IBUPROFEN 400MG TAB PO PRN (21:37)
[2021-03-21 00:12] VITALS: BP 160/92
[2021-03-21] MEDS: LevoFLOXacin 750 MG TABLET PO SCH (05:52)
[2021-03-21] MEDS: CEPACOL LOZENGE PO PRN ×2 (05:52→16:19)
[2021-03-21 05:56] LABS: HEMATOCRIT 33.5 % (36.0-47.0); HEMOGLOBIN 10.9 g/dl (12.0-15.5); MEAN CORPUSCULAR HEMOGLOBIN 35.9 pg (27.0-33.0); MEAN CORPUSCULAR HGB CONC 32.5 g/dl (32.0-36.5); MEAN CORPUSCULAR VOLUME 110.2 fl (80.0-96.0); PLATELET COUNT, AUTOMATED 132 10^3/uL (150-450); RED BLOOD COUNT 3.04 10^6/uL (4.00-5.40); WHITE BLOOD COUNT 12.6 10^3/uL (4.0-10.0)
[2021-03-21 06:19] LABS: CALCIUM LEVEL 8.9 MG/DL (8.8-10.2); CREATININE FOR GFR 1.72 MG/DL (0.55-1.30); GLOMERULAR FILTRATION RATE 30.6 (>39); MAGNESIUM LEVEL 1.9 MG/DL (1.8-2.4); POTASSIUM SERUM 4.1 MEQ/L (3.5-5.1)
[2021-03-21 06:36] VITALS: BP 163/71
[2021-03-21 07:38] LABS: ATYPICAL LYMPH 1 % (0-5); LYMPHOCYTES 3 % (16-44); METAMYELOCYTES 1 % (0-0); MYELOCYTES 2 % (0-0); NEUTROPHILS 91 % (28-66)
[2021-03-21 07:39] LABS: PLATELET ESTIMATE DECREASED (NORMAL); POLYCHROMASIA 1+
[2021-03-21 07:40] LABS: ANISOCYTOSIS 2+
[2021-03-21] MEDS: COMBIVENT RESPIMAT 100-20MCG INHALER 4GM INH SCH ×2 (08:13→19:57)
[2021-03-21] MEDS: LACTOBACILLUS ACIDOPHILUS CAP (BACID) PO SCH ×4 (08:58→20:43)
[2021-03-21] MEDS: BENZONATATE 100MG CAPSULE PO SCH ×3 (09:00→20:44)
[2021-03-21] MEDS: METOPROLOL SUCC *XL* 25MG TAB (TopROL *XL*) PO SCH ×2 (09:00→20:49)
[2021-03-21] MEDS: ASPIRIN ENTERIC 325 MG TAB PO SCH (09:02)
[2021-03-21] MEDS: RANOLAZINE 500 MG ER TAB PO SCH ×2 (09:02→20:44)
[2021-03-21] MEDS: VALSARTAN 80 MG TAB (DIOVAN) PO SCH (09:02)
[2021-03-21] MEDS: PANTOPRAZOLE 40MG TAB (PROTONIX) PO SCH (09:03)
[2021-03-21] MEDS: MECLIZINE 25 MG TABLET PO SCH (09:03)
[2021-03-21] MEDS: ESCITALOPRAM OXALATE 10 MG TAB (LEXAPRO) PO SCH (09:04)
[2021-03-21] MEDS: allopurinoL 300 MG TAB PO SCH (09:04)
[2021-03-21] MEDS: CLOPIDOGREL 75 MG TAB PO SCH (09:04)
[2021-03-21] MEDS ORDERED: ALLO300T2 PO (09:48)
[2021-03-21] MEDS ORDERED: LEVO750T13 PO (09:48)
[2021-03-21] MEDS ORDERED: BENZ-18 PO (09:48)
[2021-03-21] MEDS ORDERED: PLAV1TAB2 PO (09:48)
[2021-03-21] MEDS ORDERED: COMBAER6 INH (09:48)
[2021-03-21] MEDS ORDERED: TRAM50TA2 PO (09:48)
[2021-03-21] MEDS ORDERED: PROM25TA12 PO (09:48)
[2021-03-21] MEDS ORDERED: ZINC1TAB2 PO (09:48)
[2021-03-21] MEDS ORDERED: PROAAER10 INH (09:48)
[2021-03-21] MEDS ORDERED: MECL-86 PO (09:48)
[2021-03-21] MEDS ORDERED: ASPI-255 PO (09:48)
[2021-03-21] MEDS ORDERED: PROBCAP14 PO (09:48)
[2021-03-21] MEDS ORDERED: RANE1000 PO (09:48)
[2021-03-21] MEDS ORDERED: NITR4TASL SL (09:48)
[2021-03-21] MEDS ORDERED: PANT40TA29 PO (09:48)
[2021-03-21] MEDS ORDERED: VALS1TAB66 PO (09:48)
[2021-03-21] MEDS ORDERED: VASC1CAP2 PO (09:48)
[2021-03-21] MEDS ORDERED: FAMO40TA3 PO (09:48)
[2021-03-21] MEDS ORDERED: METO1TAB32 PO (09:48)
[2021-03-21] MEDS ORDERED: LEXA1TAB PO (09:48)
--- NOTE | 2021-03-21 10:54 | IPNPDOC ---
Text Note Date of Service The patient was seen on 03/21/21. NOTE SUBJECTIVE: -No acute complaints -was going to be discharged home today but family is still preparing self isolation room for her with facilities. [facility] already delivered portable tank for transport home and are delivering the concentrator to her sister's residence where she is being discharged to. Plan will be for discharge home with home services and home PT tomorrow AM. OBJECTIVE: VITAL SIGNS: see below GENERAL APPEARANCE: NAD, ill appearing HEENT: NCAT, EOMI, MMM CARDIOVASCULAR: RRR, no m/r/g LUNGS: CTAB, tachypneic, on 3L NC, diminished breath sounds, no crackles, no wheezing or rhonchi ABDOMEN: Normoactive bowel sounds, soft, NTND EXTREMITIES: WWP, no LE edema NEUROLOGICAL: CM3-12 intact, nonfocal examination PSYCHIATRIC: AOx3 LABORATORY DATA: Reviewed IMAGING: CXR: Mild scattered interstitial fibrotic changes noted. There is no definite superimposed acute infiltrate. The heart is not significantly enlarged. The mediastinal silhouette is unchanged with some calcific plaque in the thoracic aorta. Multiple sternal wires and mediastinal clips are present. IMPRESSION: Stable chronic findings. No evidence of acute infiltrate. MICROBIOLOGY: Please see below. ASSESSMENT: 75 yo W with a history of CAD s/p CABG x 3, and thereafter PCI with coronary stents, PVD with LE stents, carotid artery disease, angina, HLD, HTN, CHF?, history of recurrent Cdiff s/p fecal transplant in 2018, CKD with solitary R kidney, history of papillary urothelial CA, who was ill for approximately 2 weeks and now admitted for covid-19 PNA with related pancytopenia, dehydration and lactic acidosis. PLAN: Covid-19 PNA: hypoxemia, fever, dyspnea, elevated inflammatory markers -Discontinue remdesevir, today is day 5 -dexamethasone, day 6 -supplemental O2 to goal >89% -PRN albuterol q4hp -BID combivent -q4h sats with vitals -incentive spirometry -inflammatory markers per covid protocol -tramadol per home script for severe pain -s/p IVF -tessalon perles for cough Potential superimposed CAP given fever, elevated procal, despite negative imaging -will give empiric levofloxacin PO, day 5 -had prior exposure to mycoplasma with positive IgG but negative IgM Lactic acidosis: i/s/o dehydration and severe illness, resolved -s/p IVF CKD: stable -daily BMP HTN: -continue home ARB and toprol XL Diarrhea: likely 2/2 covid -GI panel negative -continue home probiotic as ACHS GERD: -continue H2B and PPI per home script CAD with chronic angina, PVD with stents: -continue ASA, plavix, ranolazine, PRN SLN, toprol XL Depression: -continue home lexapro Hx of gout: -continue home allopurinol Hypomagnesemia: -replete PRN Chronic anemia: -to continue home B12 on discharge Pancytopenia likely 2/2 covid-19 infection: improving -monitor daily CBC, goal hgb >8, platelets >20 if febrile, >50 if bleeding, otherwise platelets >10 DVT ppx: TEDs and SCDs Deconditioning: -PT/OT, recommended home with services Dispo: was going to be discharged home today but family is still preparing self isolation room for her with facilities. [facility] already delivered portable tank for transport home and are delivering the concentrator to her sister's residence where she is being discharged to. Plan will be for discharge home with home services and home PT tomorrow AM. VS,Fishbone, I+O VS, Fishbone, I+O Laboratory Tests 03/21/21 05:06 Vital Signs Date Time Temp Pulse Resp B/P (MAP) Pulse Ox O2 Delivery O2 Flow Rate FiO2 03/21/21 09:02 146/67 03/21/21 09:00 63 03/21/21 06:36 96.7 18 93 Nasal Cannula 2.0 I&O- Last 24 Hours up to 6 AM 03/21/21 06:00 Intake Total 1080 ml Output Total 300 ml Balance 780 ml ALEKSEY GROSS MD Mar 21, 2021 10:54
[2021-03-21] MEDS: PROMETHAZINE 25 MG TAB PO PRN (11:47)
[2021-03-21 14:00] VITALS: BP 133/59
[2021-03-21] MEDS: dexameTHASONE 4 MG/ML 1ML VIAL (J1100 PER 1MG) IV SCH (17:08)
[2021-03-21] MEDS: hydrOXYzine 25 MG TAB PO PRN ×2 (17:09→23:42)
[2021-03-21] MEDS: FAMOTIDINE 20 MG TAB PO SCH (20:44)
[2021-03-21 20:49] VITALS: BP 157/77
[2021-03-21 20:53] VITALS: BP 157/77
[2021-03-21] MEDS: IBUPROFEN 400MG TAB PO PRN (23:42)
[2021-03-22 05:14] VITALS: BP 146/69
[2021-03-22] MEDS: COMBIVENT RESPIMAT 100-20MCG INHALER 4GM INH SCH (08:04)
[2021-03-22] MEDS ORDERED: METO25TA4 PO (08:25)
--- NOTE | 2021-03-22 08:26 | DS.PDOC ---
Discharge Summary General Date of Admission Mar 16, 2021 at 15:16 Date of Discharge 03/22/2021 Attending Physician: ALEKSEY GROSS MD Discharge Summary PROCEDURES PERFORMED DURING STAY: None ADMITTING DIAGNOSES: Covid-19 PNA DISCHARGE DIAGNOSES: Covid-19 PNA CAP Pancytopenia // covid-19 infection lactic acidosis Acute vs. Chronic? hypoxemic respiratory failure Chronic HFpEF COPD, on intermittent use of 2-3L at baseline CAD Chronic angina PVD HTN HLD CKD with solitary R kidney COMPLICATIONS/CHIEF COMPLAINT: Covid,Diarrhea,Fever,Hypoxia,Weakness Generalized. 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 HOSPITAL COURSE: In the ED, she was febrile to 101.7, hypertensive to 172/72 and noted to be hypoxemic to 87% on room air w/ improvement on 2L NC. Workup was notable for respiratory panel that was positive for covid-19 infection, pancytopenia that is new with WBC 2.1, hgb 9.8 (close to baseline anemia), thrombocytopenia to 90, Cr 1.63 at baseline, Na 134, K 4.6, mag 1.4, procalcitonin 0.69, CRP 10, lactic acid 2.3 while troponin was negative, EKG was non-ischemic and CXR showed no new infiltrates or effusions. She was admitted for covid-19 PNA with related pancytopenia and generalized illness. She was started on dexamethasone 6mg Iv daily and received remdesevir for 5d with improvement in her symptoms, and is now being discharged home stably on 2L to continue self isolation until all symptoms resolve. Of note, her who was also admitted for covid-19 PNA 06/23/ covid-19 related complications during this hospitalization. She is now being discharged to her sister's home where she will continue self isolation and will have PCP follow up within 7d, preferably via telemedicine. DISCHARGE MEDICATIONS: Please see below. ALLERGIES: Please see below. PHYSICAL EXAMINATION ON DISCHARGE: VITAL SIGNS: Please see below. GENERAL APPEARANCE: NAD HEENT: NCAT, EOMI, MMM CARDIOVASCULAR: RRR, no m/r/g LUNGS: CTAB, on 2L NC, diminished breath sounds, no crackles, no wheezing or rho nchi ABDOMEN: Normoactive bowel sounds, soft, NTND EXTREMITIES: WWP, no LE edema NEUROLOGICAL: CM3-12 intact, nonfocal examination PSYCHIATRIC: AOx3 LABORATORY DATA: Please see below. IMAGING: CXR: Mild scattered interstitial fibrotic changes noted. There is no definite superimposed acute infiltrate. The heart is not significantly enlarged. The mediastinal silhouette is unchanged with some calcific plaque in the thoracic aorta. Multiple sternal wires and mediastinal clips are present. IMPRESSION: Stable chronic findings. No evidence of acute infiltrate. PROGNOSIS: Good ACTIVITY: As tolerated DIET: 2g sodium, low cholesterol diet DISCHARGE PLAN: Home with home services with 3 more doses of levaquin Q48H. DISPOSITION: Home with services DISCHARGE INSTRUCTIONS: Home with home services with 3 more doses of levaquin Q48H. ITEMS TO FOLLOWUP ON ON OUTPATIENT: Covid-19 PNA superimposed bacterial PNA CKD Hypoxemic respiratory failure DISCHARGE CONDITION: Stable TIME SPENT ON DISCHARGE: 46 minutes. Vital Signs/I&Os Vital Signs Date Time Temp Pulse Resp B/P (MAP) Pulse Ox O2 Delivery O2 Flow Rate FiO2 03/21/21 09:02 146/67 03/21/21 09:00 63 03/21/21 06:36 96.7 18 93 Nasal Cannula 2.0 I&O- Last 24 Hours up to 6 AM 03/21/21 06:00 Intake Total 1080 ml Output Total 300 ml Balance 780 ml Laboratory Data Labs 24H Laboratory Tests 2 03/21/21 05:06: Immature Granulocyte % (Auto) , Neutrophils (%) (Auto) , Nucleated Red Blood Cells % (auto) 0.3H, Neutrophils 91H, Band Neutrophils 2, Lymphocytes (Manual) 3L, Metamyelocytes 1H, Myelocytes 2H, Atypical Lymphocytes 1, Polychromasia 1+, Anisocytosis 2+, Macrocytosis 2+, Platelet Estimate DECREASED, Anion Gap 9, Glomerular Filtration Rate 30.6L, Calcium Level 8.9, Magnesium Level 1.9 CBC/BMP Laboratory Tests 03/21/21 05:06 Microbiology Microbiology 03/16/21 Gastrointestinal Tract Panel (PCR) - Final, Complete 03/16/21 Blood Culture - Preliminary, Resulted No Growth after 72 hours. All specime... 03/16/21 Blood Culture - Preliminary, Resulted No Growth after 72 hours. All specime... 03/16/21 Respiratory Virus Panel (PCR) (TOBY) - Final, Complete SARS-CoV-2 (COVID 19) Discharge Medications Scheduled Alirocumab (Praluent Pen) 75 Mg/1 Ml Pen.injctr, 1 ML SC MTHLY, (Reported) Aspirin (Aspirin EC) 325 Mg Tabec, 325 MG PO DAILY Benzonatate (Benzonatate) 100 Mg Capsule, 100 MG PO TID Cholecalciferol (Vitamin D3) (Vitamin D3) 25 Mcg Capsule, 25 MCG PO QWEEK, (Reported) Clopidogrel Bisulfate (Plavix) 75 Mg Tab, 75 MG PO DAILY Cyanocobalamin (Vitamin B-12) (Vitamin B-12) 100 Mcg Tablet, 100 MCG PO QWEEK, (Reported) Escitalopram Oxalate (Lexapro) 10 Mg Tablet, 10 MG PO DAILY Famotidine (Famotidine) 40 Mg Tablet, 40 MG PO QHS Icosapent Ethyl (Vascepa) 1 Gm Capsule, 2 GM PO BID Ipratropium/Albuterol Sulfate (Combivent Respimat 20-100 Mcg) 4 Gm Mist.inhal, 1 PUFF INH RBID Lactobacillus Acidophilus (Probiotic) 1 Each Capsule, 1 CAP PO DAILY Levofloxacin (Levofloxacin) 750 Mg Tablet, 750 MG PO Q48H Meclizine HCl (Meclizine HCl) 25 Mg Tab, 25 MG PO DAILY Metoprolol Tartrate (Metoprolol Tartrate) 25 Mg Tablet, 1 TAB PO BID Nitroglycerin (Nitroglycerin Patch) 0.4 Mg/Hr Dis, 0.4 MG TD DAILYPRN, (Reported) Nitroglycerin (Nitrostat) 0.4 Mg Subl, 0.4 MG SL NITRO Pantoprazole Sodium (Pantoprazole Sodium) 40 Mg Tablet.dr, 40 MG PO DAILY Ranolazine (Ranexa) 1,000 Mg Tab, 1,000 MG PO BID Valsartan (Valsartan) 80 Mg Tablet, 160 MG PO DAILY Zinc (Zinc) 50 Mg Tablet, 50 MG PO DAILY allopurinoL (allopurinoL) 300 Mg Tablet, 300 MG PO DAILY Scheduled PRN Albuterol Sulfate (Proair Hfa) 8.5 Gm Hfa.aer.ad, 2 PUFF INH Q6H PRN for SOB/WHEEZING Promethazine HCl (Promethazine HCl) 25 Mg Tab, 25 MG PO Q6HP PRN for NAUSEA Tramadol HCl (Tramadol HCl) 50 Mg Tab, 50 MG PO TID PRN for PAIN Miscellaneous Medications [Med Note] , (Reported) PT STATED TAKEN NO MEDS WITHIN THE PAST WEEK FROM NOT FEELING GOOD. Allergies Coded Allergies: TAPE (Verified Allergy, Intermediate, HIVES, 03/16/18) nitazoxanide (Verified Allergy, Mild, RASH?, 12/22/18) Sulfa (Sulfonamide Antibiotics) (Verified Allergy, Unknown, unknown, 12/22/18) butalbital (Verified Allergy, Unknown, unknown, 12/22/18) carvedilol (Verified Allergy, Unknown, 03/16/21) yellow dye (Verified Allergy, Unknown, only one kidney, 12/22/18) Tetracyclines (Verified Adverse Reaction, Intermediate, nausea, 03/16/21) clindamycin (Verified Adverse Reaction, Intermediate, vomits, 03/16/21) erythromycin base (Verified Adverse Reaction, Intermediate, diarrhea, 03/16/21) pentoxifylline (Verified Adverse Reaction, Mild, GI N/V/D, 12/22/18) acetaminophen (Verified Adverse Reaction, Unknown, 'dont mix with my heart meds', 12/22/18) caffeine (Verified Adverse Reaction, Unknown, because of my heart, 12/22/18) ALEKSEY GROSS MD Mar 21, 2021 11:08
[2021-03-22] MEDS: ESCITALOPRAM OXALATE 10 MG TAB (LEXAPRO) PO SCH (09:02)
[2021-03-22] MEDS: MECLIZINE 25 MG TABLET PO SCH (09:03)
[2021-03-22] MEDS: ASPIRIN ENTERIC 325 MG TAB PO SCH (09:03)
[2021-03-22] MEDS: allopurinoL 300 MG TAB PO SCH (09:03)
[2021-03-22] MEDS: CLOPIDOGREL 75 MG TAB PO SCH (09:04)
[2021-03-22] MEDS: BENZONATATE 100MG CAPSULE PO SCH (09:04)
[2021-03-22] MEDS: VALSARTAN 80 MG TAB (DIOVAN) PO SCH (09:04)
[2021-03-22] MEDS: LACTOBACILLUS ACIDOPHILUS CAP (BACID) PO SCH ×2 (09:05→11:48)
[2021-03-22] MEDS: RANOLAZINE 500 MG ER TAB PO SCH (09:05)
[2021-03-22] MEDS: PANTOPRAZOLE 40MG TAB (PROTONIX) PO SCH (09:05)
[2021-03-22] MEDS: METOPROLOL SUCC *XL* 25MG TAB (TopROL *XL*) PO SCH (09:06)
[2021-03-22 09:28] LABS: INR 1.15; PROTHROMBIN TIME 15.1 SECONDS (12.7-14.5)
[2021-03-22 09:29] LABS: PARTIAL THROMBOPLASTIN TIME 28.4 SECONDS (25.9-37.0)
[2021-03-22 09:40] LABS: ALBUMIN 2.8 GM/DL (3.2-5.2); ALT/SGPT 21 U/L (12-78); BILIRUBIN,DIRECT 0.3 MG/DL (0.0-0.2); BILIRUBIN,TOTAL 0.6 MG/DL (0.2-1.0); CPK CREATINE PHOSPHOKINASE 60 U/L (26-192); FERRITIN 519 NG/ML (8-252); LDH LACTATE DEHYDROGENASE 402 U/L (84-246); NT-PRO BNP 627 PG/ML (<450); TOTAL PROTEIN 6.1 GM/DL (6.4-8.2); TROPONIN I < 0.02 NG/ML (< 0.10)
[2021-03-22] MEDS: traMADol 50 MG TAB PO PRN (11:49)
[2021-03-22] MEDS: hydrOXYzine 25 MG TAB PO PRN (11:49)
[2021-03-22] MEDS ORDERED: TRAM50TA2 PO (14:41)
== END 2021-03-22 12:37 | disposition home health service (06) | DRG 177 ==
LOC: EDBD 11:28 → M ED 11:28 → M ED INP 15:16 → ENRESERV 16:20 → M 4MAIN 18:00
PROVIDERS: ADMIT Internal Medicine; ATTEND Internal Medicine
PROC: XW033E5 Introduction of Remdesivir Anti-infective into Peripheral Vein, Percutaneous Approach, New Technology Group 5 (ICD-10-PCS; principal; 2021-03-16)
PROC: 3E0333Z Introduction of Anti-inflammatory into Peripheral Vein, Percutaneous Approach (ICD-10-PCS; 2021-03-16)
DX: U07.1 COVID-19 (principal); J12.82 Pneumonia due to coronavirus disease 2019; I13.0 Hypertensive heart and chronic kidney disease with heart failure and stage 1 through stage 4 chronic kidney disease, or unspecified chronic kidney disease; D61.818 Other pancytopenia; E87.2 Acidosis; I25.119 Atherosclerotic heart disease of native coronary artery with unspecified angina pectoris; I73.9 Peripheral vascular disease, unspecified; E78.5 Hyperlipidemia, unspecified; I50.9 Heart failure, unspecified; G43.909 Migraine, unspecified, not intractable, without status migrainosus; N18.9 Chronic kidney disease, unspecified; G47.33 Obstructive sleep apnea (adult) (pediatric); M10.9 Gout, unspecified; F41.9 Anxiety disorder, unspecified; R19.7 Diarrhea, unspecified; E83.42 Hypomagnesemia; K21.9 Gastro-esophageal reflux disease without esophagitis; F32.A Depression, unspecified; Z90.5 Acquired absence of kidney; Z85.54 Personal history of malignant neoplasm of ureter; Z95.5 Presence of coronary angioplasty implant and graft; Z95.820 Peripheral vascular angioplasty status with implants and grafts; Z87.891 Personal history of nicotine dependence; Z79.82 Long term (current) use of aspirin; Z90.49 Acquired absence of other specified parts of digestive tract; Z79.02 Long term (current) use of antithrombotics/antiplatelets; Z79.899 Other long term (current) drug therapy; Z88.1 Allergy status to other antibiotic agents; Z88.2 Allergy status to sulfonamides; Z88.8 Allergy status to other drugs, medicaments and biological substances; Z91.048 Other nonmedicinal substance allergy status; Z91.018 Allergy to other foods